=== PATIENT | male | born 1950 | race Caucasian/White ===

== ENCOUNTER → 2019-08-11 09:30 | Outpatient (BNVA) | payer MEDICARE, MEDICAID, SELFPAY | PROVIDERS: Family Provider Internal Medicine; PCP Internal Medicine; Referring Provider Internal Medicine; Visit Provider Internal Medicine Rheumatology | DX: M05.79 Rheumatoid arthritis with rheumatoid factor of multiple sites without organ or systems involvement (principal); Z79.899 Other long term (current) drug therapy; M15.9 Polyosteoarthritis, unspecified | CPT/HCPCS: 99213 ==

== ENCOUNTER → 2019-09-01 08:57 | Outpatient (BNVA) | payer MEDICARE, MEDICAID, SELFPAY | PROVIDERS: Family Provider Internal Medicine; PCP Internal Medicine; Visit Provider Nurse Practitioner | DX: F02.81 Dementia in other diseases classified elsewhere, unspecified severity, with behavioral disturbance (principal) | CPT/HCPCS: 99213 ==

== ENCOUNTER → 2019-11-22 07:47 | Outpatient (BNVA) | payer MEDICARE, MEDICAID, SELFPAY | PROVIDERS: Family Provider Internal Medicine; PCP Internal Medicine; Visit Provider Nurse Practitioner | DX: F02.81 Dementia in other diseases classified elsewhere, unspecified severity, with behavioral disturbance (principal) | CPT/HCPCS: 99213 ==

== ENCOUNTER → 2020-02-02 10:52 | Outpatient (BNVA) | payer MEDICARE, MEDICAID, SELFPAY | PROVIDERS: Family Provider Internal Medicine; PCP Internal Medicine; Visit Provider Internal Medicine Rheumatology | DX: M06.09 Rheumatoid arthritis without rheumatoid factor, multiple sites (principal); Z79.899 Other long term (current) drug therapy; F02.81 Dementia in other diseases classified elsewhere, unspecified severity, with behavioral disturbance; M19.041 Primary osteoarthritis, right hand; M19.042 Primary osteoarthritis, left hand; M70.62 Trochanteric bursitis, left hip; Y93.9 Activity, unspecified | CPT/HCPCS: 99214 ==

== ENCOUNTER 2020-02-09 12:43 | Outpatient (CLI) | payer MEDICARE, MEDICAID, SELFPAY ==
--- NOTE | 2020-02-09 12:46 | XRR_ITS ---
PROCEDURE INFORMATION: Exam: XR Left Hip with Pelvis when Performed Exam date and time: 02/09/2020 1:07 PM Age: 69 years old Clinical indication: Hip pain; Left hip; Additional info: Left hip pain TECHNIQUE: Imaging protocol: XR Left hip with pelvis when performed. Views: 2 or 3 views. COMPARISON: No relevant prior studies available. FINDINGS: Bones/joints: There is osteopenia. No acute fracture. Soft tissues: Unremarkable. XR/XR hip LT 2-3V wo/w pel* [id number] IMPRESSION: No acute findings.
== END 2020-02-09 12:44 | disposition home or self-care (01) ==
PROVIDERS: PCP Internal Medicine; Visit Provider Internal Medicine Rheumatology
DX: M25.552 Pain in left hip (principal)
CPT/HCPCS: 73502

== ENCOUNTER → 2020-03-01 08:15 | Outpatient (BNVA) | payer MEDICARE, MEDICAID, SELFPAY | PROVIDERS: PCP Internal Medicine; Visit Provider Nurse Practitioner | DX: F02.81 Dementia in other diseases classified elsewhere, unspecified severity, with behavioral disturbance (principal) | CPT/HCPCS: 99213 ==

== ENCOUNTER → 2020-03-22 10:08 | Outpatient (BNVA) | payer MEDICARE, MEDICAID, SELFPAY | PROVIDERS: PCP Internal Medicine; Visit Provider Internal Medicine | DX: Z11.59 Encounter for screening for other viral diseases (principal) | CPT/HCPCS: 87635 ==

== ENCOUNTER 2020-03-24 08:21 | Day surgery (SDC) | payer MEDICARE, MEDICAID, SELFPAY ==
[2020-03-22 09:17] VITALS: BMI 29.2
[2020-03-23 10:01] VITALS: BMI 28.6
[2020-03-24 08:57] VITALS: BP 177/85; PULSE 63; RESP 18; TEMP 36.1; O2SAT 97
[2020-03-24] MEDS: sodium chloride 0.9% 1,000 ML 30 ML IV (09:08)
--- NOTE | 2020-03-24 09:45 | W.PM.OPSUD ---
Surgery/Procedure H&P Update DATE OF PROCEDURE: March 24, 2020 DATE H&P PERFORMED: 03/15/20 PREOP DIAGNOSIS: sc PLANNED PROCEDURE: Operation Date: 03/24/20 09:30 Proposed Procedures p Colonoscopy 60837 Z12.11(Not Applicable) - Jaswinder Knox MD
--- NOTE | 2020-03-24 09:54 | ANES.PREANE2 ---
Pre-Anesthetic Assessment Pre-Anesthetic Assessment: Height/Weight: Height 1.75 m Weight 87.997 kg Temp Pulse Resp BP Pulse Ox 97.0 F L 63 18 177/85 97 03/24/20 08:57 03/24/20 08:57 03/24/20 08:57 03/24/20 08:57 03/24/20 08:57 Preop Diagnosis: sc Proposed Procedure: Operation Date: 03/24/20 09:30 Proposed Procedures p Colonoscopy 91500 Z12.11(Not Applicable) - Jaswinder Knox MD Familial anesthetic complications: None Was Beta Francisca taken within 24 hours: Yes Last intake: Intake Last Liquid Date 03/23/20 Last Liquid Time 19:00 Last Solid Date 03/23/20 Last Solid Time 19:00 Social: Social History: No alcohol and No tobacco Exam: Pre-Anes Outpt Exam: alert, oriented x 3, clear to auscultation bilaterally and regular rate & rhythm Airway: Cervical ROM: WNL MP: 4 Dentition: Other (no teeth) CV/HEM: CV/HEM: HTN and PVD GI: GI: GERD Metabolic: Metabolic: Thyroid Musc/skel: Comments: RA Neuropsych: Neuropsych: Dementia Anesthetic Plan: ASA status: 3 Anesthesia: MAC Risk of > 500 ml blood loss (7ml/kg in children): No Meds/Allergies Current Medications: Current Medications Generic Name Dose Route Start Last Admin Trade Name Freq PRN Reason Stop Dose Admin Sodium Chloride 1,000 mls @ 30 ml s/hr 03/24/20 09:00 03/24/20 09:08 Sodium Chloride 0.9% IV 30 mls/hr .Q24H GEREMIAS Administration PFSH Anesthesia PFSH: Medical History Dementia in other diseases classified elsewhere with behavioral disturbance Greater trochanteric pain syndrome High risk medication use Immunization counseling Osteoarthritis of hands, bilateral Surgical History No pertinent past surgical history Social History Smoking and tobacco status: never smoked Alcohol intake: never Lives independently: No Household members: caregiver History of recent travel: No Data Anesthesia Cardiac Studies: No Data to Display
[2020-03-24 10:19] VITALS: BP 144/88; PULSE 62; RESP 18; TEMP 36.1; O2SAT 100
[2020-03-24 10:33] VITALS: BP 146/88; PULSE 63; RESP 18; O2SAT 100
== END 2020-03-24 10:50 | disposition home or self-care (01) ==
PROVIDERS: PCP Internal Medicine; Visit Provider Internal Medicine
PROC: 0DJD8ZZ Inspection of Lower Intestinal Tract, Via Natural or Artificial Opening Endoscopic (ICD-10-PCS; CPT 45378; principal; 2020-03-24 09:30)
DX: Z12.11 Encounter for screening for malignant neoplasm of colon (principal); I10 Essential (primary) hypertension; F03.90 Unspecified dementia, unspecified severity, without behavioral disturbance, psychotic disturbance, mood disturbance, and anxiety
CPT/HCPCS: 12345; G0121; J2704; J3490; J7030

== ENCOUNTER → 2020-08-02 09:58 | Outpatient (BNVA) | payer MEDICARE, MEDICAID, SELFPAY | PROVIDERS: PCP Internal Medicine; Visit Provider Internal Medicine Rheumatology | DX: M06.09 Rheumatoid arthritis without rheumatoid factor, multiple sites (principal); M19.041 Primary osteoarthritis, right hand; M19.042 Primary osteoarthritis, left hand; R53.81 Other malaise | CPT/HCPCS: 99214 ==

== ENCOUNTER → 2021-01-23 08:22 | Outpatient (BNVA) | payer MEDICARE, MEDICAID, SELFPAY | PROVIDERS: PCP Internal Medicine; Visit Provider Internal Medicine Rheumatology | DX: M06.09 Rheumatoid arthritis without rheumatoid factor, multiple sites (principal); M19.041 Primary osteoarthritis, right hand; M19.042 Primary osteoarthritis, left hand; Z79.899 Other long term (current) drug therapy; R21 Rash and other nonspecific skin eruption; M70.62 Trochanteric bursitis, left hip; Y93.9 Activity, unspecified | CPT/HCPCS: 99214 ==

== ENCOUNTER → 2021-07-17 09:15 | Outpatient (BNVA) | payer MEDICARE, MEDICAID, SELFPAY | PROVIDERS: PCP Internal Medicine; Visit Provider Internal Medicine Rheumatology | DX: M06.09 Rheumatoid arthritis without rheumatoid factor, multiple sites (principal); M19.041 Primary osteoarthritis, right hand; M19.042 Primary osteoarthritis, left hand; Z79.899 Other long term (current) drug therapy; R53.81 Other malaise; F03.90 Unspecified dementia, unspecified severity, without behavioral disturbance, psychotic disturbance, mood disturbance, and anxiety; M70.62 Trochanteric bursitis, left hip; Y93.9 Activity, unspecified | CPT/HCPCS: 99214 ==

== ENCOUNTER → 2022-01-16 13:07 | Outpatient (BNVA) | payer MEDICARE, MEDICAID, SELFPAY | PROVIDERS: PCP Internal Medicine; Visit Provider Internal Medicine Rheumatology | DX: M06.09 Rheumatoid arthritis without rheumatoid factor, multiple sites (principal); M19.041 Primary osteoarthritis, right hand; M19.042 Primary osteoarthritis, left hand; Z79.899 Other long term (current) drug therapy; R53.1 Weakness; Z71.89 Other specified counseling | CPT/HCPCS: 99214 ==

== ENCOUNTER → 2022-05-02 12:55 | Outpatient (BNVA) | payer MEDICARE, MEDICAID, SELFPAY | PROVIDERS: Visit Provider Podiatrist Foot & Ankle Surgery | DX: E11.8 Type 2 diabetes mellitus with unspecified complications (principal); Z79.899 Other long term (current) drug therapy; L60.3 Nail dystrophy; L84 Corns and callosities; I73.9 Peripheral vascular disease, unspecified; M21.619 Bunion of unspecified foot; M20.42 Other hammer toe(s) (acquired), left foot | CPT/HCPCS: 11056; 11721 ==

== ENCOUNTER → 2022-06-13 12:21 | Outpatient (BNVA) | payer MEDICARE, MEDICAID, SELFPAY | PROVIDERS: Visit Provider Podiatrist Foot & Ankle Surgery | DX: Z79.899 Other long term (current) drug therapy; L60.3 Nail dystrophy; L84 Corns and callosities; I73.9 Peripheral vascular disease, unspecified; M20.41 Other hammer toe(s) (acquired), right foot; M20.42 Other hammer toe(s) (acquired), left foot; M21.619 Bunion of unspecified foot; E11.8 Type 2 diabetes mellitus with unspecified complications | CPT/HCPCS: 11056; 11721 ==

== ENCOUNTER 2022-07-23 13:02 | Emergency (ER) | payer MEDICARE, MEDICAID, SELFPAY ==
[2022-07-23 13:04] VITALS: BP 136/74; PULSE 66; RESP 20; TEMP 36.8; O2SAT 97; BMI 26.6
--- NOTE | 2022-07-23 13:21 | W.ED.FALL ---
HPI - Fall General: Chief Complaint: Fall Stated Complaint: Fall Time Seen by Provider: 07/23/22 13:15 Source: patient and family Mode of arrival: ambulatory Limitations: no limitations History of Present Illness: Patient was brought to the emergency department because of a fall. He apparently was scheduled for a clinic visit in the hospital and was observed to be walking and stumbled forward losing his balance falling and striking his right knee as well as his forehead. There was no preceding syncope. He did not suffer a loss of consciousness. He complains of pain to his left forehead as well as his right knee and left hand. He has a history of parkinsonism. He also does not take any blood thinning medications. History is provided by both the patient as well as family member. Fall witnessed: yes, by family Place fall occurred: other (Hospital) Loss of consciousness: None Location of injury: head Location of injury - extremities: Left: hand and Right: knee Associated symptoms-after fall: Reports difficulty walking; Denies chest pain, headache(s), lightheadedness or neck pain Review of Systems Eyes: Denies: change in vision Card: Denies: chest pain, irregular heart rhythm, lightheadedness, syncope or pre-syncope Resp: Denies: productive cough or non-productive cough GI: Denies: nausea, vomiting or diarrhea : Denies: flank pain, difficulty urinating or dysuria Musc: Reports: extremity pain; Denies: neck pain or back pain Skin/Breast: Denies: rash Neuro: Reports: difficulty walking; Denies: headache(s), numbness in extremities, weakness in extremities or seizure-like activity [place]/Lymph: Denies: easy bruising PFS ED PFSH: Medical History Dementia in other diseases classified elsewhere with behavioral disturbance Greater trochanteric pain syndrome High risk medication use Immunization counseling Osteoarthritis of hands, bilateral Physical deconditioning Skin rash Surgical History No pertinent past surgical history Social History Smoking and tobacco status: never smoked Alcohol intake: never Lives independently: No Household members: caregiver History of recent travel: No Physical Exam Narrative: EXAM NARRATIVE: Patient is alert makes good eye contact. His speech is normal for him per family which is somewhat deliberate and halting in nature but appropriate answers to questions. Const: COMMON NORMALS: healthy appearing GENERAL APPEARANCE: cooperative ORIENTATION/CONSCIOUSNESS: Yes awake HENMT: COMMON NORMALS: Normal external nose present HEAD & SCALP: contusion (Left periorbital), hematoma (Left supraorbital ridge) and laceration; no palpable skull fracture FACE & SINUS: face symmetric NOSE: Normal external nose present and Abnormal mucous membranes and turbinates present; no Epistaxis present Eye: COMMON NORMALS: Equal, round and reactive pupils present, EOMs intact bilaterally and conjunctivae normal CONJUNCTIVA: Yes conjunctivae normal PUPIL: Yes Equal, round and reactive pupils present EYE IMAGES: 1. Laceration Neck/C-Spine: COMMON NORMALS: no JVD CERVICAL SPINE: No Cervical spine tenderness, No step off deformity and No Paracervical muscle tenderness Chest: COMMONS NORMALS: normal inspection of the chest and normal palpation of entire chest wall Resp: COMMON NORMALS: normal respiratory effort, No retractions, No use of accessory muscles and clear to auscultation bilaterally AUSCULTATION: clear to auscultation bilaterally Cardio: COMMON NORMALS: no JVD, regular rate, regular rhythm and Peripheral pulses 2+ throughout RATE: regular rate RHYTHM: regular rhythm PERIPHERAL PULSES: Peripheral pulses 2+ throughout GI: COMMON NORMALS: Soft to palpation PALPATION: Yes Soft to palpation : COMMON NORMALS: Yes no CVA tenderness BLADDER/KIDNEY EXAM: Yes no CVA tenderness Back/Pelvis: COMMON NORMALS: no CVA tenderness, no thoracic nor lumbar tenderness, thoraco-lumbar ROM normal and straight leg raise negative bilaterally Extremity: COMMON NORMALS: normal to inspection, full ROM, capillary refill normal, no joint enlargement, no calf tenderness and no pedal edema LEFT UPPER EXTREMITY: Yes hand & digits (Normal to inspection, normal range of motion, no ecchymosis.) RIGHT LOWER EXTREMITY: Yes knee joint (No effusion, deformity, laxity) Right knee: Yes ROM (Normal) LEFT LOWER EXTREMITY: Yes knee joint Left knee: Yes inspection (No ecchymosis, deformity, effusion.) and Yes ROM (Normal range of motion.) Neuro: COMMON NORMALS: moves all extremities, no focal motor deficits and no sensory deficits noted OTHER: Resting pill-rolling tremor of both upper extremities Psych: COMMON NORMALS: mental status grossly normal Skin: COMMON NORMALS: turgor normal GENERAL SKIN EXAM: turgor normal Procedures Laceration Laceration 1: Site: face (Left supraorbital ridge) Side (If applicable): left Size (cm): 2 Description: linear Depth: simple, single layer Skin layer closed with: other (Steri-Strips plus skin adhesive) Course Reevaluation(s): Reevaluation #1: Patient remained stable. Shared radiographic findings with patient and family. Laceration repaired. Stable at this time without any evidence of ongoing emergency medical condition. Time: 16:07 Vital Signs: Vital signs: Vital Signs Temperature 98.3 F 07/23/22 13:04 Pulse Rate 66 07/23/22 13:04 Respiratory Rate 20 H 07/23/22 13:04 Blood Pressure 136/74 07/23/22 13:04 Pulse Oximetry 97 07/23/22 13:04 Oxygen Delivery Me thod 07/23/22 13:04 MDM - Fall Medical Decision Making Patient with a known history of gait disturbance related to parkinsonism had a ground-level fall while in the hospital. Clinically he did not have any history of syncope. Fall, loss of consciousness post fall. Not on any anticoagulants or any other concerning medications. Clinical examination revealed a superficial laceration left sorb supraorbital ridge but no other focal findings. Imaging of the head and neck were reassuring as well as of his right knee and left hand. Neither of his extremities had any evidence of fracture, dislocation, ecchymosis, alterations in function clinically. Laceration was repaired and he was reevaluated and found to be stable to be discharged with family and caretakers. Return precautions and wound care were discussed. Lab Data I reviewed the patient's lab results. Radiology Impressions Cervical Spine CT 07/23/22 13:27 IMPRESSION: 1. No acute fractures. 2. 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 Hand X-Ray 07/23/22 13:27 IMPRESSION: No acute bony abnormalities. Head CT 07/23/22 13:27 IMPRESSION: 1. No evidence of intracranial hemorrhage or mass effect. 2. LEFT frontal subcutaneous hematoma. No visualized fractures. 3. Mild mucosal thickening in the paranasal sinuses. 4. No acute intracranial findings. Knee X-Ray 07/23/22 13:27 IMPRESSION: No acute bony abnormalities. Discharge Plan Discharge Patient Disposition: Home Clinical Impression: Ground-level fall, Laceration of face, Gait disturbance Condition: Stable Prescriptions: No Action carbamide peroxide [Debrox] 6.5 % drops 5 drop EAR-BOTH QDAY Mylanta Maximum Strength 400-400-40 mg/5 mL suspension See Rx Instructions PO .EVERY FOUR HOURS PRN (Reason: Constipation) Rx Instructions: PO .EVERY FOUR HOURS PRN; magnesium hydroxide [Milk of Magnesia] 400 mg/5 mL suspension 30 ml PO .EVERY THREE DAYS PRN (Reason: Constipation) dextromethorphan-guaifenesin [Adult Robitussin Peak Cold DM] 10-100 mg/5 mL liquid 10 ml PO Q4H PRN (Reason: Cough) divalproex [Depakote ER] 500 mg tablet extended release 24 hr 1,000 mg PO .HS Qty: 60 2RF olanzapine 5 mg tablet,disintegrating 5 mg PO DAILY PRN (Reason: agitation) prednisone 5 mg tablet 10 mg PO DAILY PRN (Reason: rheumatoid arthritis) Qty: 30 0RF Rx Instructions: Take 2 tabs(10mg) daily for 4 days prn flares. (DME) mepilex boarder 2 x 2 See Rx Instructions .Route .MEDSUPPLY Qty: 1 0RF Rx Instructions: apply to affected area (DME) Compact Space Chamber Spacer See Rx Instructions .ROUTE .MEDSUPPLY Qty: 1 0RF Rx Instructions: As directed ibuprofen 600 mg tablet 600 mg PO Q8H PRN (Reason: pain) Qty: 60 6RF diclofenac sodium 1 % gel See Rx Instructions .ROUTE .COMPLEX Qty: 100 2RF Dose Instruction: APPLY 2GM TO AFFECTED AREA TOPICALLY FOUR TIMES DAILY NEEDED Rx Instructions: APPLY 2GM TO AFFECTED AREA TOPICALLY FOUR TIMES DAILY NEEDED amantadine HCl 100 mg capsule 100 mg PO BID Qty: 180 4RF Cutemol 0.2 % cream See Rx Instructions .ROUTE .COMPLEX Qty: 113.4 5RF Dose Instruction: APPLY TO HANDS FOUR TIMES DAILY FOR DRY SKIN Rx Instructions: APPLY TO HANDS FOUR TIMES DAILY FOR DRY SKIN Flovent HFA 110 mcg/actuation HFA aerosol inhaler 2 puff INHALATION BID Qty: 12 5RF Rx Instructions: Inhale two puffs by mouth into lungs twice daily for seasonal allergies. olanzapine 2.5 mg tablet See Rx Instructions .ROUTE .COMPLEX Qty: 30 2RF Dose Instruction: TAKE ONE TABLET BY MOUTH EVERY DAY AT NOON. Rx Instructions: TAKE ONE TABLET BY MOUTH EVERY DAY AT NOON. methotrexate sodium 2.5 mg tablet See Rx Instructions .ROUTE .COMPLEX Qty: 20 3RF Dose Instruction: TAKE 4 TABLETS BY MOUTH WEEKLY Rx Instructions: TAKE 4 TABLETS BY MOUTH WEEKLY ammonium lactate 12 % lotion See Rx Instructions .ROUTE .COMPLEX Qty: 226 5RF Dose Instruction: APPLY TO THE AFFECTED AREA(S) FOUR TIMES DAILY Rx Instructions: APPLY TO THE AFFECTED AREA(S) FOUR TIMES DAILY acetaminophen 325 mg tablet See Rx Instructions .ROUTE .COMPLEX Qty: 100 5RF Dose Instruction: TAKE TWO TABLETS BY MOUTH EVERY 4 HOURS NEEDED FOR PAIN OR elevated FOR HIGH TEMPERATURE >100degrees Rx Instructions: TAKE TWO TABLETS BY MOUTH EVERY 4 HOURS NEEDED FOR PAIN OR elevated FOR HIGH TEMPERATURE >100degrees Eucerin Cream See Rx Instructions .ROUTE .COMPLEX Qty: 454 5RF Dose Instruction: APPLY TO SKIN TWICE DAILY NEEDED Rx Instructions: APPLY TO SKIN TWICE DAILY NEEDED metoprolol tartrate 50 mg tablet See Rx Instructions .ROUTE .COMPLEX Qty: 60 5RF Dose Instruction: TAKE ONE TABLET BY MOUTH EVERY MORNING & AT BEDTIME HTN hold if BP <110/70 OR pulse <60 AND call RN Rx Instructions: TAKE ONE TABLET BY MOUTH EVERY MORNING & AT BEDTIME HTN hold if BP <110/70 OR pulse <60 AND call RN paroxetine HCl 30 mg tablet See Rx Instructions .ROUTE .COMPLEX Qty: 30 5RF Dose Instruction: TAKE ONE TABLET BY MOUTH EVERY DAY Rx Instructions: TAKE ONE TABLET BY MOUTH EVERY DAY divalproex 250 mg tablet extended release 24 hr See Rx Instructions .ROUTE .COMPLEX Qty: 30 5RF Dose Instruction: TAKE ONE TABLET BY MOUTH EVERY MORNING Rx Instructions: TAKE ONE TABLET BY MOUTH EVERY MORNING levothyroxine 50 mcg tablet See Rx Instructions .ROUTE .COMPLEX Qty: 90 3RF Dose Instruction: TAKE ONE TABLET BY MOUTH EVERY DAY Rx Instructions: TAKE ONE TABLET BY MOUTH EVERY DAY omeprazole 40 mg capsule,delayed release(DR/EC) See Rx Instructions .ROUTE .COMPLEX Qty: 60 5RF Dose Instruction: TAKE ONE CAPSULE BY MOUTH DAILY Rx Instructions: TAKE ONE CAPSULE BY MOUTH DAILY olanzapine 10 mg tablet See Rx Instructions .ROUTE .COMPLEX Qty: 30 2RF Dose Instruction: TAKE 1/2 TABLET BY MOUTH TWICE DAILY Rx Instructions: TAKE 1/2 TABLET BY MOUTH TWICE DAILY folic acid 1 mg tablet 1 mg PO QDAY Qty: 90 3RF Discharge Orders: Discharge ED (Routine); Ordered 07/23/22 Ordered By: Ernie Brooks Discharge Diet: Usual diet Discharge Activity: Resume usual activity Patient Instructions: Opioid Safety, Pain Management Activity Restrictions/Additional Instructions: Use ice pack to left face to help reduce swelling. Keep area clean and dry. Do not remove Steri-Strips or pull on skin adhesive. You may remove the Steri-Strips in approximately 1 week. If he develops any redness drainage or other concerns about infection return to this or the nearest emergency department. If he develops other symptoms of concern return to the emergency department immediately. Coding Level of Care Code ED Operations Leader for [facility] Exam Comprehensive
--- NOTE | 2022-07-23 13:27 | XRR_ITS ---
PROCEDURE INFORMATION: Exam: XR Right Knee Exam date and time: 07/23/2022 1:52 PM Age: 71 years old Clinical indication: Pain and injury or trauma; Fall; Blunt trauma; Knee; Right; Injury date: 07/23/22 TECHNIQUE: Imaging protocol: Radiologic exam of the Right knee. Views: 3 views. COMPARISON: No relevant prior studies available. FINDINGS: Bones/joints: There are mild degenerative changes involving the mediolateral knee compartments with mild joint space narrowing there are prominent traction spurs arising from the superior inferior pole of patella. There is no fracture, dislocation or malalignment. Soft tissues: Unremarkable. XR/XR knee RT 3V* [id number] IMPRESSION: No acute bony abnormalities.
--- NOTE | 2022-07-23 13:27 | CT_ITS ---
WS: [id number] CT CERVICAL TRAUMA TECHNIQUE: Noncontrast CT of the cervical spine with coronal and sagittal reformatted images. CLINICAL INFORMATION: fall COMPARISON: None. DLP: 1382.[address] scans at [facility] use at least one of these dose optimization techniques: automated e xposure control; mA and/or kV adjustment per patient size (includes targeted exams where dose is matc hed to clinical indication); or iterative reconstruction. FINDINGS: Straightening of the normal cervical lordosis. Mild cervical curve. Ankylosis cervical spine. Ankylos is at the C1-C2 articulation. Slight anterolisthesis C6 on C7 and C7-T1. No high-grade spinal canal n arrowing. Normal C1 ring. No evidence of acute fracture or dislocation. Normal prevertebral soft tissues. Mastoids air cells are well aerated. CT/CT cervical spin wo con* [id number] IMPRESSION: 1. No acute fractures. 2. 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
--- NOTE | 2022-07-23 13:27 | CT_ITS ---
WS: [id number] CT HEAD TECHNIQUE: Noncontrast CT of the head obtained from the skullbase to the vertex. CLINICAL INFORMATION: fall COMPARISON: 2009 DLP: 1382.[address] scans at [facility] use at least one of these dose optimization techniques: automated e xposure control; mA and/or kV adjustment per patient size (includes targeted exams where dose is matc hed to clinical indication); or iterative reconstruction. FINDINGS: No evidence of intracranial hemorrhage or mass effect. Ventricular system and basal cisterns are gamez nt. Moderate small vessel changes with moderate parenchymal volume loss. Chronic lacunar infarct RIGH T cerebellum. Dystrophic calcifications along the falx. Intracranial vascular calcification. Mild mucosal thickening paranasal sinuses. Mastoid air cells well aerated. LEFT frontal subcutaneous hematoma. No visualized fractures. CT/CT head wo con* [id number] IMPRESSION: 1. No evidence of intracranial hemorrhage or mass effect. 2. LEFT frontal subcutaneous hematoma. No visualized fractures. 3. Mild mucosal thickening in the paranasal sinuses. 4. No acute intracranial findings.
--- NOTE | 2022-07-23 13:27 | XRR_ITS ---
PROCEDURE INFORMATION: Exam: XR Left Hand Exam date and time: 07/23/2022 1:52 PM Age: 71 years old Clinical indication: Injury or trauma; Fall; Blunt trauma (contusions or hematomas); Injury details: Fell todfay, left hand/wrist pain, hard for patient to hold his hand still TECHNIQUE: Imaging protocol: Radiologic exam of the Left hand. Views: 3 or more views. COMPARISON: No relevant prior studies available. FINDINGS: Bones/joints: There are mild osteoarthritic changes involving the DIP joints and to lesser extent the PIP joints. There is no fracture, dislocation or malalignment. Soft tissues: Unremarkable. XR/XR hand LT min 3V* [id number] IMPRESSION: No acute bony abnormalities.
== END 2022-07-23 16:31 | disposition home or self-care (01) ==
PROVIDERS: Emergency Provider Emergency Medicine
DX: S01.81XA Laceration without foreign body of other part of head, initial encounter (principal); R26.9 Unspecified abnormalities of gait and mobility; W18.30XA Fall on same level, unspecified, initial encounter; Y92.239 Unspecified place in hospital as the place of occurrence of the external cause; G20 Parkinson's disease; F02.80 Dementia in other diseases classified elsewhere, unspecified severity, without behavioral disturbance, psychotic disturbance, mood disturbance, and anxiety
CPT/HCPCS: 12011; 70450; 72125; 73130; 73562; 99284

== ENCOUNTER → 2022-07-30 11:25 | Outpatient (BNVA) | payer MEDICARE, MEDICAID, SELFPAY | PROVIDERS: Visit Provider Nurse Practitioner Family | DX: S59.909A Unspecified injury of unspecified elbow, initial encounter (principal); W19.XXXA Unspecified fall, initial encounter | CPT/HCPCS: 73080 ==

== ENCOUNTER → 2022-08-05 09:11 | Outpatient (BNVA) | payer MEDICARE, MEDICAID, SELFPAY | PROVIDERS: Referring Provider Nurse Practitioner Family; Visit Provider Specialist | DX: W19.XXXA Unspecified fall, initial encounter (principal); Z91.81 History of falling; G20 Parkinson's disease; S52.122A Displaced fracture of head of left radius, initial encounter for closed fracture | CPT/HCPCS: 73080 ==

== ENCOUNTER 2022-08-05 14:18 | Outpatient (CLI) | payer MEDICARE, MEDICAID, SELFPAY | END 2022-08-05 14:19 | disposition home or self-care (01) | LOC: SPT 14:18 | PROVIDERS: Visit Provider Specialist | DX: Z46.89 Encounter for fitting and adjustment of other specified devices (principal); S52.125D Nondisplaced fracture of head of left radius, subsequent encounter for closed fracture with routine healing; X58.XXXD Exposure to other specified factors, subsequent encounter | CPT/HCPCS: 24650; 97760; 99203; L3761 ==

== ENCOUNTER → 2022-09-02 11:57 | Outpatient (BNVA) | payer MEDICARE, MEDICAID, SELFPAY | PROVIDERS: PCP Family Medicine; Visit Provider Internal Medicine Rheumatology | DX: M06.09 Rheumatoid arthritis without rheumatoid factor, multiple sites (principal); M19.041 Primary osteoarthritis, right hand; M19.042 Primary osteoarthritis, left hand; Z79.899 Other long term (current) drug therapy; Z71.89 Other specified counseling; S52.122A Displaced fracture of head of left radius, initial encounter for closed fracture; G20 Parkinson's disease; X58.XXXA Exposure to other specified factors, initial encounter; Z86.59 Personal history of other mental and behavioral disorders | CPT/HCPCS: 99214 ==

== ENCOUNTER → 2022-09-04 10:28 | Outpatient (BNVA) | payer MEDICARE, MEDICAID, SELFPAY | PROVIDERS: PCP Family Medicine; Visit Provider Nurse Practitioner Family | DX: S52.122A Displaced fracture of head of left radius, initial encounter for closed fracture (principal); W19.XXXA Unspecified fall, initial encounter | CPT/HCPCS: 73080; 99213 ==

== ENCOUNTER → 2022-10-02 10:23 | Outpatient (BNVA) | payer MEDICARE, MEDICAID, SELFPAY | PROVIDERS: PCP Family Medicine; Visit Provider Nurse Practitioner Family | DX: S52.125D Nondisplaced fracture of head of left radius, subsequent encounter for closed fracture with routine healing (principal); X58.XXXD Exposure to other specified factors, subsequent encounter; Z91.81 History of falling | CPT/HCPCS: 73070; 99213 ==

== ENCOUNTER → 2022-10-08 10:55 | Outpatient (BNVA) | payer MEDICARE, MEDICAID, SELFPAY | PROVIDERS: PCP Family Medicine; Visit Provider Podiatrist Foot & Ankle Surgery | DX: E11.8 Type 2 diabetes mellitus with unspecified complications (principal); L84 Corns and callosities; Z79.899 Other long term (current) drug therapy; I73.9 Peripheral vascular disease, unspecified; L60.3 Nail dystrophy; M20.42 Other hammer toe(s) (acquired), left foot; M20.41 Other hammer toe(s) (acquired), right foot | CPT/HCPCS: 11056; 11721 ==

== ENCOUNTER → 2022-12-17 11:01 | Outpatient (BNVA) | payer MEDICARE, MEDICAID, SELFPAY | PROVIDERS: PCP Family Medicine; Visit Provider Podiatrist Foot & Ankle Surgery | DX: I73.9 Peripheral vascular disease, unspecified (principal); L84 Corns and callosities; L60.3 Nail dystrophy; Z79.899 Other long term (current) drug therapy; M20.41 Other hammer toe(s) (acquired), right foot; M20.42 Other hammer toe(s) (acquired), left foot; M21.611 Bunion of right foot; M21.612 Bunion of left foot | CPT/HCPCS: 11056; 11721 ==

== ENCOUNTER → 2023-02-24 11:17 | Outpatient (BNVA) | payer MEDICARE, MEDICAID, SELFPAY | PROVIDERS: PCP Family Medicine; Visit Provider Internal Medicine Rheumatology | DX: M06.09 Rheumatoid arthritis without rheumatoid factor, multiple sites (principal); M19.041 Primary osteoarthritis, right hand; M19.042 Primary osteoarthritis, left hand; Z71.89 Other specified counseling; Z79.899 Other long term (current) drug therapy; S52.125D Nondisplaced fracture of head of left radius, subsequent encounter for closed fracture with routine healing; G20 Parkinson's disease; X58.XXXD Exposure to other specified factors, subsequent encounter | CPT/HCPCS: 99214 ==

== ENCOUNTER → 2023-03-18 10:59 | Outpatient (BNVA) | payer MEDICARE, MEDICAID, SELFPAY | PROVIDERS: PCP Family Medicine; Visit Provider Podiatrist Foot & Ankle Surgery | DX: L60.8 Other nail disorders (principal); L84 Corns and callosities; Z79.899 Other long term (current) drug therapy; L60.3 Nail dystrophy; I73.9 Peripheral vascular disease, unspecified; M21.619 Bunion of unspecified foot; M20.42 Other hammer toe(s) (acquired), left foot; M20.41 Other hammer toe(s) (acquired), right foot | CPT/HCPCS: 11056; 11721 ==

== ENCOUNTER → 2023-06-17 11:09 | Outpatient (BNVA) | payer MEDICARE, MEDICAID, SELFPAY | PROVIDERS: PCP Family Medicine; Visit Provider Podiatrist Foot & Ankle Surgery | DX: L60.8 Other nail disorders (principal); Z79.899 Other long term (current) drug therapy; L84 Corns and callosities; L60.3 Nail dystrophy; I73.9 Peripheral vascular disease, unspecified; M20.41 Other hammer toe(s) (acquired), right foot; M20.42 Other hammer toe(s) (acquired), left foot | CPT/HCPCS: 11056; 11721 ==

== ENCOUNTER → 2023-08-20 14:01 | Outpatient (BNVA) | payer MEDICARE, MEDICAID, SELFPAY | PROVIDERS: PCP Family Medicine; Visit Provider Registered Nurse Neonatal Intensive Care | DX: R09.81 Nasal congestion (principal); R79.81 Abnormal blood-gas level | CPT/HCPCS: 71046; 87400; 87426 ==

== ENCOUNTER 2023-10-07 14:03 | Emergency (ER) | payer MEDICARE, MEDICAID, SELFPAY ==
--- NOTE | 2023-10-07 14:09 | CT_ITS ---
WS: [id number] CT HEAD TECHNIQUE: Noncontrast CT of the head obtained from the skullbase to the vertex. CLINICAL INFORMATION: SYMPTOMS OF ACUTE STROKE COMPARISON: CT 07/23/2022 DLP: [address] scans at [facility] use at least one of these dose optimization techniques: automated e xposure control; mA and/or kV adjustment per patient size (includes targeted exams where dose is matc hed to clinical indication); or iterative reconstruction. FINDINGS: No evidence of intracranial hemorrhage or mass effect. Ventricular system and basal cisterns are gamez nt. Mild small vessel changes with moderate parenchymal volume loss. No extra-axial fluid collections . No evidence of mass or mass effect. Intracranial vascular calcification. Tiny chronic lacunar infar ct RIGHT cerebellum. Mild mucosal thickening in the paranasal sinuses. IMPRESSION: 1. No evidence of intracranial hemorrhage or mass effect. 2. No acute intracranial findings. Notified Bryson Goldstein DO at 10/07/2023 2:15 PM.
--- NOTE | 2023-10-07 14:16 | ECG_ITS ---
[facility] Test Date: 2023-10-07 Pat Name: Ernie Lopez Department: Room: Gender: Male Scale Installer: : 1950 Requested By: Bryson Robin Order Number: [id number] Carlo MD: Will Plaza M.D. Measurements Intervals [place] Rate: 66 P: 48 AK: 248 QRS: -18 QRSD: 157 T: 21 QT: 413 QTc: 434 Interpretive Statements SINUS RHYTHM WITH FIRST DEGREE AV BLOCK RIGHT BUNDLE BRANCH BLOCK [120+ ms QRS DURATION, UPRIGHT V1, 40+ ms S IN I/aVL/V4/V5/V6] MINIMAL VOLTAGE CRITERIA FOR LVH, CONSIDER NORMAL VARIANT [MEETS CRITERIA IN ONE OF: R(aVL), S(V1), R(V5), R(V5/V6)+S(V1)] No previous ECG available for comparison Electronically Signed On 10-08-2023 23:45:44 CDT by Will Plaza M.D. [email or web address]
--- NOTE | 2023-10-07 14:17 | ED_ITS ---
HPI - Neuro Symptoms/Deficit 2 General: Chief Complaint: Neuro Symptoms/Deficit Stated Complaint: stroke alert Time Seen by Provider: 10/07/23 14:15 Source: patient Mode of arrival: ambulatory History of Present Illness: 73-year-old male presents emergency room [facility] as a stroke alert. He was sitting at home around 1310 and suddenly became nonresponsive did not completely his consciousness seem to be just staring off. EMS was called on arrival they felt he had facial droop and slurred speech. He has a known history of Parkinson's is not had any recent medication changes they did change his Sinemet several months ago. Initially on arrival he is not accompanied by any caregivers. Later when the staff arrived reports that he is at his baseline speech pattern. He has some cognitive deficits and they felt he was at about his baseline in regards to this as well. He is able to intermittently correctly name the month and year. He is also can list the months of the year sequentially correctly. Onset (ago): minute(s) Last Observed Normal: 13:10 Timing confirmed by: caregiver Location: speech History of same: Yes Relieving factors: none Exacerbating factors: none Associated symptoms: Deny chest pain, cough, diaphoresis, fevers/chills, headache(s), anorexia, malaise, nausea, seizures, short of breath, syncope, tingling, vertigo, vomiting or weakness Treatments Prior to Arrival: none Review of Systems 2 Const: Denies: malaise or diaphoresis Card: Denies: chest pain or syncope Resp: Denies: dyspnea GI: Denies: nausea or vomiting Musc: Denies: neck pain or back pain Skin/Breast: Denies: rash Neuro: Denies: headache(s) or vertigo PFSH ED 2 PFSH: Medical History Skin rash Physical deconditioning Osteoarthritis of hands, bilateral Immunization counseling Greater trochanteric pain syndrome High risk medication use Dementia in other diseases classified elsewhere with behavioral disturbance Surgical History No pertinent past surgical history Social History Smoking and tobacco/nicotine status: never used tobacco/nicotine Alcohol intake: never Substance/Drug Use: never Lives independently: No Household members: caregiver NIH stroke score 2 NIHSS: Level Of Consciousness - 1a: 0 Level Of Consciousness Questions - 1b: Both Correct Level Of Consciousness Commands - 1c: Both Correct Best Gaze - 2: Normal Visual Dempsey - 3: No Visual Loss Facial Palsy - 4: N ormal Motor Arm Right - 5: No Drift Motor Arm Left - 5: No Drift Motor Leg Right - 6: No Drift Motor Leg Left - 6: No Drift Limb Ataxia - 7: A bsent Sensory - 8: Normal Best Language - 9: Mild/Moderate Aphasia D ysarthia - 10: Mild/Moderate Dysarthia Extinction And Inattention - 11: 0 Score: Total Score: 2 Physical Exam 2 Const: GENERAL APPEARANCE: cooperative and comfortable O RIENTATION/CONSCIOUSNESS: Yes awake HENMT: COMMON NORMALS: normocephalic, atraumatic and hearing grossly normal bilaterally HEAD & SCALP: normocephalic and atraumatic Resp: COMMON NORMALS: normal respiratory effort, No retractions, No use of accessory muscles and clear to auscultation bilaterally AUSCULTATION: clear to auscultation bilaterally Cardio: COMMON NORMALS: regular rate, regular rhythm and No murmurs present (Cardio) RATE: regular rate RHYTHM: regular rhythm GI: COMMON NORMALS: Soft to palpation and No hepatosplenomegaly present A USCULTATION: Yes normoactive bowel sounds PALPATION: Yes Soft to palpation, No Tenderness to palpation present (GI), No Guarding due to palpation present (GI) and Yes No hepatosplenomegaly present Extremity: COMMON NORMALS: normal to inspection, capillary refill normal, no clubbing, cyanosis or edema, no calf tenderness and no pedal edema Neuro: OTHER: Tremor at rest. See NIH score Skin: COMMON NORMALS: no rashes or lesions noted GENERAL SKIN EXAM: no rashes or lesions noted Course 2 Vital Signs: Vital signs: Vital Signs Pulse Rate 69 10/07/23 14:27 Blood Pressure 109/57 10/07/23 14:27 Pulse Oximetry 94 10/07/23 14:27 Oxygen Delivery Me thod Room Air 10/07/23 14:27 MDM - Neuro Symptoms/Deficit Medical Decision Making Patient not appear to have had an acute CVA Dr. Mcmillan seen him as well and had noticed significant concern for CVA she was concerned he may have had a seizure. Remainder workup negative will discharge home outpatient EEG and follow-up with neurology return if has problems Medical Records I reviewed the patient's medical records. Lab Data I reviewed the patient's lab results. 10/07/23 13:43 10/07/23 13:43 Laboratory Results WBC 14.33 10^3/uL (3.29-11.43) H 10/07/23 13:43 RBC 4.49 10^6/uL (3.85-5.65) 10/07/23 13:43 Hgb 13.70 g/dL (11.27-16.99) 10/07/23 13:43 Hct 40.6 % (37-53) 10/07/23 13:43 MCV 90.4 fl (82-101) 10/07/23 13:43 MCH 30.5 pg (27-33) 10/07/23 13:43 MCHC 33.7 g/dL (30-55) 10/07/23 13:43 RDW 16.2 % (12.1-15.1) H 10/07/23 13:43 Plt Count 153 10^3/cmm (157-399) L 10/07/23 13:43 MPV 10.3 fL (7.4-10.4) 10/07/23 13:43 Neut % (Auto) 80.5 % 10/07/23 13:43 Lymph % (Auto) 8.0 % 10/07/23 13:[address] [place] % (Auto) 7.7 % 10/07/23 13:43 Eos % (Auto) 3.0 % 10/07/23 13:43 Baso % (Auto) 0.3 % 10/07/23 13:43 Neut # (Auto) 11.52 10^3/uL (1.8-7.7) H 10/07/23 13:43 Lymph # (Auto) 1.2 10^3/uL (0.8-4.8) 10/07/23 13:43 [place] # (Auto) 1.1 10^3/uL (0.2-0.9) H 10/07/23 13:43 Eos # (Auto) 0.4 10^3/uL (0.0-0.8) 10/07/23 13:43 Baso # (Auto) 0.1 10^3/uL (0.0-0.1) 10/07/23 13:43 Nucleated RBC % (auto) 0 % 10/07/23 13:43 Nucleated RBCs # 0.0 /100WBC 10/07/23 13:43 PT 14.10 SECONDS (12.1-14.9) 10/07/23 13:43 INR 1.06 (0.8-1.2) 10/07/23 13:43 APTT 31.6 SECONDS (23.9-36.7) 10/07/23 13:43 Sodium 129 mmol/L (136-145) L 10/07/23 13:43 Potassium 4.0 mmol/L (3.5-5.1) 10/07/23 13:43 Chloride 91 mmol/L (98-107) L 10/07/23 13:43 Carbon Dioxide 26 mmol/L (22-29) 10/07/23 13:43 Anion Gap 16.0 (5-19) 10/07/23 13:43 BUN 25 mg/dL (8-23) H 10/07/23 13:43 Creatinine 1.2 mg/dL (0.7-1.2) 10/07/23 13:43 GFR Calculation Not Reportable 10/07/23 13:43 Glucose 80 mg/dL (65-115) 10/07/23 13:43 Calculated Osmolality 271 mOsm/kg (285-295) L 10/07/23 13:43 Calcium 9.1 mg/dL (8.5-10.5) 10/07/23 13:43 Total Bilirubin 0.5 mg/dL (0.15-1.2) 10/07/23 13:43 AST 15 U/L (0-40) 10/07/23 13:43 ALT < 5 U/L (0-41) 10/07/23 13:43 Alkaline Phosphatase 115 U/L (40-130) 10/07/23 13:43 Total Protein 7.3 g/dL (6.6-8.7) 10/07/23 13:43 Albumin 3.8 g/dL (3.5-5.2) 10/07/23 13:43 Globulin 3.5 g/dL (1.3-4.6) 10/07/23 13:43 Urine Color Dark yellow (Yellow) 10/07/23 15:14 Urine Appearance Clear (CLEAR) 10/07/23 15:14 Urine pH 6 (5-7) 10/07/23 15:14 Ur Specific [place] 1.020 (1.005-1.030) 10/07/23 15:14 Urine Protein Trace (Negative) 10/07/23 15:14 Urine Glucose (UA) Norm (Normal) 10/07/23 15:14 Urine Ketones 1+ (Negative) H 10/07/23 15:14 Urine Blood Neg (Negative) 10/07/23 15:14 Urine Nitrate Negative (Negative) 10/07/23 15:14 Urine Bilirubin Neg (Negative) 10/07/23 15:14 Urine Urobilinogen 1 mg/dL (Negative) H 10/07/23 15:14 Ur Leukocyte Esterase Negative (Negative) 10/07/23 15:14 Urine RBC None /hpf (0-2) 10/07/23 15:14 Urine WBC 0-4 /hpf (0-5) H 10/07/23 15:14 Ur Squamous Epith Cells Rare /hpf (0-5) 10/07/23 15:14 Ur Transition Epith Cell 5-10 /hpf 10/07/23 15:14 Ur Renal Epithelial Cell 0-4 /hpf 10/07/23 15:14 Amorphous Sediment Trace /hpf 10/07/23 15:14 Urine Bacteria None /hpf (NONE) 10/07/23 15:14 Hyaline Casts 5-10 /lpf H 10/07/23 15:14 Urine Mucus 1+ /hpf 10/07/23 15:14 Urine Opiates Screen Negative ng/mL (Negative) 10/07/23 15:14 Ur Barbiturates Screen Negative ng/mL (Negative) 10/07/23 15:14 Valproic Acid 87.4 ug/mL (50-100) 10/07/23 13:43 Ur Phencyclidine Scrn Negative ng/mL (Negative) 10/07/23 15:14 Ur Amphetamines Screen Negative ng/mL (Negative) 10/07/23 15:14 U Benzodiazepines Scrn Negative ng/mL (Negative) 10/07/23 15:14 Urine Cocaine Screen Negative ng/mL (Negative) 10/07/23 15:14 U Marijuana (THC) Screen Negative ng/mL (Negative) 10/07/23 15:14 All radiology interpretation(s) finalized by discharge Discharge Plan Discharge Patient Disposition: Home Clinical Impression: Seizure Condition: Stable Prescriptions: No Action Mylanta Maximum Strength 400-400-40 mg/5 mL suspension 30 ml PO Q4H PRN (Reason: Constipation) (DME) hinged elbow brace See Rx Instructions .Route .MEDSUPPLY Qty: 1 0RF Rx Instructions: As directed (DME) mepilex boarder 2 x 2 See Rx Instructions .Route .MEDSUPPLY Qty: 1 0RF Rx Instructions: apply to affected area prednisone 5 mg tablet 10 mg PO DAILY PRN (Reason: rheumatoid arthritis) Qty: 30 0RF Rx Instructions: Take 2 tabs(10mg) daily for 4 days prn flares. (DME) Edward Irizarry [facility] Spacer See Rx Instructions .ROUTE .COMPLEX Qty: 1 0RF Dose Instruction: USE DIRECTED Rx Instructions: USE DIRECTED dextromethorphan-guaifenesin [Siltussin DM SWENSON] 10-100 mg/5 mL liquid 10 ml PO Q4H PRN (Reason: cough) Qty: 473 0RF magnesium hydroxide [Milk of Magnesia] 400 mg/5 mL suspension 30 ml PO .EVERY THREE DAYS PRN (Reason: Constipation) Qty: 355 1RF ibuprofen 600 mg tablet 600 mg PO Q8H PRN (Reason: pain) Qty: 60 6RF methotrexate sodium 2.5 mg tablet See Rx Instructions .ROUTE .COMPLEX Qty: 20 4RF Dose Instruction: TAKE 4 TABLETS BY MOUTH WEEKLY Rx Instructions: TAKE 4 TABLETS BY MOUTH WEEKLY ON FRIDAY vits A and D-white pet-lanolin [A and D (idirs, pet)] Ointment See Rx Instructions .ROUTE .COMPLEX Qty: 113 5RF Dose Instruction: APPLY topically AND cover with socks At Bedtime Rx Instructions: APPLY topically AND cover with socks At Bedtime Flovent 110 mcg/actuation Hfa Aerosol Inhaler 2 puff INHALATION BID terbinafine HCl 1 % cream 1 applic topical BID Rx Instructions: APPLY TO THE AFFECTED AREA(S) (FEET) acetaminophen 325 mg tablet 650 mg PO Q4H PRN (Reason: PAIN OR TEMP) Rx Instructions: TEMPERATURE >100degrees ammonium lactate 12 % lotion 1 applic topical QAM Rx Instructions: TO HANDS, FEET, AND LEGS olanzapine 10 mg tablet 5 mg PO BID olanzapine 2.5 mg tablet 2.5 mg PO .@NOON omeprazole 40 mg capsule,delayed release(DR/EC) 40 mg PO QAM amantadine HCl 100 mg capsule 100 mg PO BID Cutemol 0.2 % cream 1 applic topical QID Rx Instructions: APPLY TO HANDS levothyroxine 50 mcg tablet 50 mcg PO QAM paroxetine HCl 30 mg tablet 30 mg PO DAILY divalproex 500 mg tablet extended release 24 hr 1,000 mg PO BEDTIME metoprolol tartrate 50 mg tablet 50 mg PO BID Rx Instructions: hold if BP <110/70 OR pulse <60 AND call RN* Debrox 6.5 % drops See Rx Instructions .ROUTE .COMPLEX Rx Instructions: Fill both ear canals daily-4 days of each month for ear wax removal. folic acid 1 mg tablet 1 mg PO QAM carbidopa-levodopa 25-100 mg tablet 1 tab PO TID olanzapine 5 mg tablet,disintegrating 5 mg PO PRN PRN (Reason: Agitation) Rx Instructions: call RN prior TO giving divalproex 250 mg tablet extended release 24 hr 250 mg PO QAM diclofenac sodium 1 % gel 2 g topical QID PRN (Reason: Pain) Eucerin Cream 1 applic topical BID PRN (Reason: Dry Skin) Discharge Orders: Discharge ED (Routine); Ordered 10/07/23 Ordered By: Bryson Goldstein Referrals: Kishore Avalos DO [Primary Care Provider] - Discharge Diet: Usual diet Discharge Activity: Resume usual activity Patient Instructions: Opioid Safety, Pain Management Activity Restrictions/Additional Instructions: Thank you for choosing [facility] for your healthcare needs today. Please realize this is an emergency room and that we are providing you with a medical screening exam and this may not be complete and all inclusive of all the testing and or work up that you may need to determine your ailment or severity of your illness. It is very important that you follow up as instructed or that you return to the Emergency Department should you have concerns or if your condition changes or worsens in any way. You were seen today for question of a stroke there is no evidence of a stroke it is suspicious that you may have had a seizure. Will set you up for an outpatient EEG and follow-up with neurology Coding Level of Care Code ED [employer] for [place]
[2023-10-07 14:22] LABS: Basophils # 0.1 10^3/uL (0.0-0.1); Basophils % 0.3 %; Eosinophils # 0.4 10^3/uL (0.0-0.8); Hematocrit 40.6 % (37-53); Lymphocytes # 1.2 10^3/uL (0.8-4.8); Mean Corpuscular HGB Conc 33.7 g/dL (30-55); Mean Corpuscular Hemoglobin 30.5 pg (27-33); Mean Corpuscular Volume 90.4 fl (82-101); Mean Platelet Volume 10.3 fL (7.4-10.4); Monocytes # 1.1 10^3/uL (0.2-0.9); Monocytes % 7.7 %; Neutrophils # 11.52 10^3/uL (1.8-7.7); Neutrophils % 80.5 %; Nucleated Red Blood Cells % 0 %; Platelet Count 153 10^3/cmm (157-399); Red Blood Count 4.49 10^6/uL (3.85-5.65); Red Cell Distribution Width 16.2 % (12.1-15.1); White Blood Count 14.33 10^3/uL (3.29-11.43)
[2023-10-07 14:27] VITALS: BP 109/57; PULSE 69; O2SAT 94
[2023-10-07 14:32] LABS: Alanine Aminotransferase < 5 U/L (0-41); Albumin Level 3.8 g/dL (3.5-5.2); Alkaline Phosphatase 115 U/L (40-130); Aspartate Amino Transferase 15 U/L (0-40); Blood Urea Nitrogen 25 mg/dL (8-23); Calcium 9.1 mg/dL (8.5-10.5); Carbon Dioxide 26 mmol/L (22-29); Chloride 91 mmol/L (98-107); Creatinine Clr Calc Pharmacy 60.9044; Globulin 3.5 g/dL (1.3-4.6); Glucose 80 mg/dL (65-115); Osmolality Calculated 271 mOsm/kg (285-295); Sodium 129 mmol/L (136-145); Total Bilirubin 0.5 mg/dL (0.15-1.2); Total Protein 7.3 g/dL (6.6-8.7)
[2023-10-07 14:51] LABS: Valproic Acid Level 87.4 ug/mL (50-100)
[2023-10-07 15:29] LABS: Add Urine Microscopic? YES; Bilirubin Urine Neg (Negative); Blood Urine Neg (Negative); Glucose Urine UA Norm (Normal); Ketones Urine 1+ (Negative); Leukocyte Esterase Urine Negative (Negative); Nitrate Urine Negative (Negative); Protein Urine Trace (Negative); Urine Appearance Clear (CLEAR); Urine Color Dark Yellow (Yellow); Urobilinogen Urine 1 mg/dL (Negative); pH Urine 6 (5-7)
[2023-10-07 15:36] LABS: Amphetamines Screen Urine Negative (Negative); Barbiturates Screen Urine Negative (Negative); Benzodiazepines Screen Urine Negative (Negative); Cocaine Screen Urine Negative (Negative); Opiate Screen Urine Negative (Negative); PCP Screen Urine Negative (Negative); THC Screen Urine Negative (Negative)
[2023-10-07 15:40] LABS: Renal Epithelial Cells Urine 0-4 /hpf; Squamous Epithelial Cell Urine RARE /hpf (0-5); WBC Urine 0-4 /hpf (0-5)
[2023-10-07 15:41] LABS: Add Urine Culture? No; Amorphous Sediment Urine TRACE /hpf; Mucus Urine 1+ /hpf
[2023-10-07 16:01] LABS: INR 1.06 (0.8-1.2)
[2023-10-07 16:02] LABS: Partial Thromboplastin Time 31.6 SECONDS (23.9-36.7)
[2023-10-07 16:39] VITALS: BP 109/57; PULSE 69; O2SAT 94
--- NOTE | 2023-10-08 07:40 | DCPLANNER ---
Message sent to Neurology for EG and Follow up
== END 2023-10-07 16:41 | disposition home or self-care (01) ==
PROVIDERS: Emergency Provider Family Medicine; PCP Family Medicine
DX: I73.9 Peripheral vascular disease, unspecified (principal); L60.3 Nail dystrophy; L84 Corns and callosities; L60.8 Other nail disorders; Z79.899 Other long term (current) drug therapy; R56.9 Unspecified convulsions; F03.90 Unspecified dementia, unspecified severity, without behavioral disturbance, psychotic disturbance, mood disturbance, and anxiety
CPT/HCPCS: 11055; 11721; 70450; 80053; 80164; 80306; 81001; 85025; 85610; 85730; 93005; 99284

== ENCOUNTER → 2023-11-12 10:24 | Outpatient (BNVA) | payer MEDICARE, MEDICAID, SELFPAY | PROVIDERS: PCP Family Medicine; Visit Provider Internal Medicine Rheumatology | DX: Z79.899 Other long term (current) drug therapy (principal); M06.09 Rheumatoid arthritis without rheumatoid factor, multiple sites; M19.041 Primary osteoarthritis, right hand; M19.042 Primary osteoarthritis, left hand; Z71.89 Other specified counseling; S52.125D Nondisplaced fracture of head of left radius, subsequent encounter for closed fracture with routine healing; X58.XXXD Exposure to other specified factors, subsequent encounter | CPT/HCPCS: 99214 ==

== ENCOUNTER → 2024-01-02 09:54 | Outpatient (BNVA) | payer MEDICARE, MEDICAID, SELFPAY | PROVIDERS: PCP Family Medicine; Visit Provider Specialist | DX: R29.90 Unspecified symptoms and signs involving the nervous system (principal); R03.0 Elevated blood-pressure reading, without diagnosis of hypertension; R23.1 Pallor; R29.818 Other symptoms and signs involving the nervous system; F84.9 Pervasive developmental disorder, unspecified; F80.9 Developmental disorder of speech and language, unspecified | CPT/HCPCS: 99204 ==

== ENCOUNTER → 2024-01-13 11:05 | Outpatient (BNVA) | payer MEDICARE, MEDICAID, SELFPAY | PROVIDERS: PCP Family Medicine; Visit Provider Podiatrist Foot & Ankle Surgery | DX: Z79.899 Other long term (current) drug therapy (principal); L84 Corns and callosities; L60.3 Nail dystrophy; I73.9 Peripheral vascular disease, unspecified | CPT/HCPCS: 11055; 11721 ==

== ENCOUNTER → 2024-04-20 10:30 | Outpatient (BNVA) | payer MEDICARE, MEDICAID, SELFPAY | PROVIDERS: PCP Family Medicine; Visit Provider Podiatrist Foot & Ankle Surgery | DX: Z79.899 Other long term (current) drug therapy (principal); L84 Corns and callosities; L60.3 Nail dystrophy; I73.9 Peripheral vascular disease, unspecified | CPT/HCPCS: 11056; 11721 ==

== ENCOUNTER → 2024-05-12 10:15 | Outpatient (BNVA) | payer MEDICARE, MEDICAID, SELFPAY | PROVIDERS: PCP Family Medicine; Visit Provider Internal Medicine Rheumatology | DX: Z79.899 Other long term (current) drug therapy (principal); M06.09 Rheumatoid arthritis without rheumatoid factor, multiple sites; M19.041 Primary osteoarthritis, right hand; M19.042 Primary osteoarthritis, left hand; Z71.89 Other specified counseling; S52.125D Nondisplaced fracture of head of left radius, subsequent encounter for closed fracture with routine healing; X58.XXXD Exposure to other specified factors, subsequent encounter | CPT/HCPCS: 99214 ==

== ENCOUNTER 2024-05-28 12:32 | Emergency (ER) | payer MEDICARE, MEDICAID, SELFPAY ==
[2024-05-28 13:18] VITALS: BP 125/87; PULSE 68; RESP 18; TEMP 36.8; O2SAT 99; BMI 30.3
--- NOTE | 2024-05-28 13:43 | XR_ITS ---
WS: [id number] Left hip, 2 views, AP pelvis, 05/28/2024 Clinical Data: fall Comparison: None. Findings: No hip fractures or dislocations are seen. The left hip joint is intact. The right hip joint shows no abnormalities. The soft tissues are not remarkable. There may be a fracture of the inferior left isc hial pubic ramus which is undisplaced. The right pubic symphysis appears normal.. XR/XR hip LT 2-3V wo/w pel* [id number] Impression: 1. Left inferior ischial pubic ramus fracture 2. Negative for hip fractures.
--- NOTE | 2024-05-28 13:43 | XR_ITS ---
WS: [id number] Left femur and thigh, AP and lateral views, 05/28/2024 Clinical Data: fall Comparison: None. Findings: No femoral fractures or dislocations are seen. The soft tissues are normal. The visualized knee shows no abnormalities. There may be a fracture of the inferior left ischial pubic ramus. XR/XR femur LT min 2V* [id number] Impression: 1. Negative left thigh and femur. 2. Possible left inferior ischial pubic rami fracture.
--- NOTE | 2024-05-28 14:32 | W.ED.FALL ---
HPI - Fall General: Chief Complaint: Fall Stated Complaint: fell cnnt bear weight on lft leg Time Seen by Provider: 05/28/24 13:55 Source: patient and other (penitent[facility] staff) Mode of arrival: wheelchair Limitations: other (Baseline cognitive delay) History of Present Illness: Patient is a 73-year-old male from [facility] here for evaluation of left hip pain. Staff states he sustained a fall yesterday while in the bathroom. He reportedly was able to get up following this fall and ambulate at baseline however this morning he began complaining of pain around his left hip and trouble ambulating. MD complaint: fall Onset (ago): day(s) (yesterday) Fall from: other (toilet) Fall witnessed: no Place fall occurred: home Loss of consciousness: None Prolonged down time: no Symptoms prior to fall: none Context: tripped/slipped Severity: moderate Associated symptoms-after fall: Reports no associated symptoms and difficulty walking; Denies neck pain Related Data Home Medications Medication Instructions Recorded Confirmed aluminum-mag hydroxide-simethicone 30 ml PO Q4H PRN Constipation 08/11/19 05/12/24 400 mg-400 mg-40 mg/5 mL oral susp (Mylanta Maximum Strength) acetaminophen 325 mg tablet 650 mg PO Q4H PRN PAIN OR TEMP 10/07/23 05/12/24 allantoin 0.2 % topical cream 1 applic topical QID DRY SKIN 10/07/23 05/12/24 (Cutemol) ammonium lactate 12 % lotion 1 applic topical QAM 10/07/23 05/12/24 lanolin alcohols-mineral 1 applic topical BID PRN Dry Skin 10/07/23 05/12/24 oil-w.petrolatum-ceresin topical cream (Eucerin topical cream) levothyroxine 50 mcg tablet 50 mcg PO QAM 10/07/23 05/12/24 terbinafine HCl 1 % topical cream 1 applic topical BID 10/07/23 05/12/24 Previous Rx's Medication Instructions Recorded ibuprofen 600 mg tablet 600 mg PO Q8H PRN pain #60 tabs 03/27/23 vitamins A and D-white See Rx Instructions .Route 09/16/23 petrolatum-lanolin topical .COMPLEX #113 grams ointment (A and D (lanolin-petrolatum) topical ointment) folic acid 1 mg tablet 1 mg PO QAM #90 tabs 11/12/23 paroxetine HCl 30 mg tablet See Rx Instructions .Route 12/22/23 .COMPLEX #30 tabs metoprolol tartrate 50 mg tablet See Rx Instructions .Route 12/30/23 .COMPLEX #60 tabs trihexyphenidyl 2 mg tablet 2 mg PO BID #180 tabs 01/02/24 divalproex 250 mg tablet,extended See Rx Instructions .Route 01/27/24 release 24 hr .COMPLEX #30 tabs carbamide peroxide 6.5 % ear drops See Rx Instructions .Route 02/10/24 (Ear Wax Removal Drops) .COMPLEX #15 mL olanzapine 2.5 mg tablet See Rx Instructions .Route 02/10/24 .COMPLEX #30 tabs carbidopa 25 mg-levodopa 100 mg See Rx Instructions .Route 02/17/24 tablet .COMPLEX #90 tabs dextromethorphan-guaifenesin 10 See Rx Instructions .Route 02/23/24 mg-100 mg/5 mL oral syrup (Chest .COMPLEX #237 mL Congestion Relief DM) divalproex 500 mg tablet,extended See Rx Instructions .Route 02/23/24 release 24 hr .COMPLEX #60 tabs magnesium hydroxide 400 mg/5 mL See Rx Instructions .Route 02/23/24 oral suspension (Milk of Magnesia) .COMPLEX #473 mL diclofenac sodium 1 % topical gel 2 g topical QID PRN Pain #100 grams 03/09/24 olanzapine 10 mg tablet See Rx Instructions .Route 03/23/24 .COMPLEX #30 tabs Cleansing Wipes #30 ea 05/05/24 disposable gloves #50 ea 05/05/24 extra large adult briefs #30 ea 05/05/24 methotrexate sodium 2.5 mg tablet See Rx Instructions .Route 05/12/24 .COMPLEX #60 tabs prednisone 10 mg tablet See Rx Instructions PO .COMPLEX 05/12/24 PRN joint pain flare #90 tabs prednisone 5 mg tablet 5 mg PO DAILY #90 tabs 05/12/24 hydrocodone 5 mg-acetaminophen 325 1 tab PO Q6H PRN pain #14 tabs 05/28/24 mg tablet Allergies Allergy/AdvReac Type Severity Reaction Status Date / Time No Known Allergies Allergy Verified 11/15/24 13:24 Review of Systems General: Reports: ROS unobtainable due to mental status (baseline cognitive delay) Musc: Reports: joint pain (L hip); Denies: neck pain, back pain or joint swelling Neuro: Reports: difficulty walking PFSH ED PFSH: Medical History Skin rash Physical deconditioning Osteoarthritis of hands, bilateral Immunization counseling Greater trochanteric pain syndrome High risk medication use Dementia in other diseases classified elsewhere with behavioral disturbance Surgical History No pertinent past surgical history Social History Smoking and tobacco/nicotine status: never used tobacco/nicotine Alcohol intake: never Substance/Drug Use: never Lives independently: No Household members: caregiver Physical Exam Const: COMMON NORMALS: alert and well nourished GENERAL APPEARANCE: cooperative OTHER: at mental baseline HENMT: COMMON NORMALS: normocephalic and atraumatic HEAD & SCALP: normal to inspection, normocephalic and atraumatic Eye: GENERAL EYE: appearance normal, both eyes and all related structures Neck/C-Spine: COMMON NORMALS: full ROM GENERAL: Yes normal visual inspection CERVICAL SPINE: No Cervical spine tenderness Resp: COMMON NORMALS: normal respiratory effort and clear to auscultation bilaterally AUSCULTATION: clear to auscultation bilaterally Cardio: COMMON NORMALS: regular rate and regular rhythm RATE: regular rate RHYTHM: regular rhythm Back/Pelvis: COMMON NORMALS: thoracic and lumbar spine normal to inspection Extremity: GENERAL: Yes normal exam except as noted LEFT LOWER EXTREMITY: Yes hip joint (pain; no deformity; NV intact) Neuro: COMMON NORMALS: moves all extremities, no focal motor deficits and no sensory deficits noted SENSORIUM/ORIENTATION: Yes alert GAIT: Yes Other gait observations present (painful weight bearing) Course Vital Signs: Vital signs: Vital Signs Temperature 98.2 F 05/28/24 13:18 Pulse Rate 68 05/28/24 13:18 Respiratory Rate 18 05/28/24 13:18 Blood Pressure 125/87 05/28/24 13:18 Pulse Oximetry 99 05/28/24 13:18 Oxygen Delivery Me thod Room Air 05/28/24 13:18 MDM - Fall Medical Decision Making Patient has a nondisplaced left inferior pubic rami fracture. Attempted weightbearing with walker but he seemed somewhat unsteady. Will discharge him home with a wheelchair. Staff stated they have adequate staff to care for him in the wheelchair as they have other clients in wheelchairs. He will follow-up with orthopedics. Lab Data Radiology Impressions Femur X-Ray 05/28/24 13:43 Impression: 1. Negative left thigh and femur. 2. Possible left inferior ischial pubic rami fracture. Hip/Pelvis X-Ray 05/28/24 13:43 Impression: 1. Left inferior ischial pubic ramus fracture 2. Negative for hip fractures. Knee X-Ray 05/28/24 14:39 Impression: Negative for fracture of the left knee. Kellgren-Himanshu Classification: NA All radiology interpretation(s) finalized by discharge Discharge Plan Discharge Patient Disposition: Home Clinical Impression: Closed fracture of inferior pubic ramus Qualifiers: Encounter type: initial encounter Laterality: left Qualified Code(s): S32.592A - Other specified fracture of left pubis, initial encounter for closed fracture Condition: Stable Prescriptions: New hydrocodone-acetaminophen 5-325 mg tablet 1 tab PO Q6H PRN (Reason: pain) Qty: 14 0RF No Action Mylanta Maximum Strength 400-400-40 mg/5 mL suspension 30 ml PO Q4H PRN (Reason: Constipation) folic acid 1 mg tablet 1 mg PO QAM Qty: 90 3RF trihexyphenidyl 2 mg tablet 2 mg PO BID Qty: 180 3RF Rx Instructions: give with food (meal/snack) prednisone 5 mg tablet 5 mg PO DAILY Qty: 90 1RF methotrexate sodium 2.5 mg tablet See Rx Instructions .ROUTE .COMPLEX Qty: 60 1RF Dose Instruction: TAKE 4 TABLETS BY MOUTH WEEKLY Rx Instructions: TAKE 4 TABLETS BY MOUTH WEEKLY ON FRIDAY ibuprofen 600 mg tablet 600 mg PO Q8H PRN (Reason: pain) Qty: 60 6RF vits A and D-white pet-lanolin [A and D (lanolin-petrolatum)] Ointment See Rx Instructions .ROUTE .COMPLEX Qty: 113 5RF Dose Instruction: APPLY topically AND cover with socks At Bedtime Rx Instructions: APPLY topically AND cover with socks At Bedtime paroxetine HCl 30 mg tablet See Rx Instructions .ROUTE .COMPLEX Qty: 30 5RF Dose Instruction: TAKE ONE TABLET BY MOUTH EVERY DAY FOR BIPOLAR DISORDER Rx Instructions: TAKE ONE TABLET BY MOUTH EVERY DAY FOR BIPOLAR DISORDER metoprolol tartrate 50 mg tablet See Rx Instructions .ROUTE .COMPLEX Qty: 60 5RF Dose Instruction: TAKE ONE TABLET BY MOUTH TWICE DAILY IF B/P < 110/70 OR PULSE < 60 & CALL RN. FOR HYPERTENSION Rx Instructions: TAKE ONE TABLET BY MOUTH TWICE DAILY IF B/P < 110/70 OR PULSE < 60 & CALL RN. FOR HYPERTENSION divalproex 250 mg tablet extended release 24 hr See Rx Instructions .ROUTE .COMPLEX Qty: 30 5RF Dose Instruction: TAKE ONE TABLET BY MOUTH EVERY DAY FOR BIPOLAR DISORDER Rx Instructions: TAKE ONE TABLET BY MOUTH EVERY DAY FOR BIPOLAR DISORDER Ear Wax Removal Drops 6.5 % drops See Rx Instructions .ROUTE .COMPLEX Qty: 15 0RF Dose Instruction: FILL BOTH EAR CANALS DAILY 4 DAYS EACH MONTH Rx Instructions: FILL BOTH EAR CANALS DAILY 4 DAYS EACH MONTH olanzapine 2.5 mg tablet See Rx Instructions .ROUTE .COMPLEX Qty: 30 2RF Dose Instruction: TAKE ONE TABLET BY MOUTH EVERYDAY AT NOON FOR BIPOLAR DISORDER Rx Instructions: TAKE ONE TABLET BY MOUTH EVERYDAY AT NOON FOR BIPOLAR DISORDER carbidopa-levodopa 25-100 mg tablet See Rx Instructions .ROUTE .COMPLEX Qty: 90 2RF Dose Instruction: TAKE ONE TABLET BY MOUTH THREE TIMES DAILY WITH MEALS FOR TREMORS Rx Instructions: TAKE ONE TABLET BY MOUTH THREE TIMES DAILY WITH MEALS FOR TREMORS magnesium hydroxide [Milk of Magnesia] 400 mg/5 mL suspension See Rx Instructions .ROUTE .COMPLEX Qty: 473 1RF Dose Instruction: TAKE 30ML BY MOUTH NEEDED ON FOURTH DAY IF NO BOWEL MOVEMENT IN 3 DAYS. CALL NURSE ON DAY. Rx Instructions: TAKE 30ML BY MOUTH NEEDED ON FOURTH DAY IF NO BOWEL MOVEMENT IN 3 DAYS. CALL NURSE ON DAY. dextromethorphan-guaifenesin [Chest Congestion Relief DM] 10-100 mg/5 mL syrup See Rx Instructions .ROUTE .COMPLEX Qty: 237 5RF Dose Instruction: TAKE 10ML BY MOUTH EVERY 4 HOURS NEEDED FOR COUGH; NOT TO EXCEED 6 DOSES IN 24 HOURS Rx Instructions: TAKE 10ML BY MOUTH EVERY 4 HOURS NEEDED FOR COUGH; NOT TO EXCEED 6 DOSES IN 24 HOURS divalproex 500 mg tablet extended release 24 hr See Rx Instructions .ROUTE .COMPLEX Qty: 60 5RF Dose Instruction: TAKE TWO TABLETS BY MOUTH EVERY NIGHT AT BEDTIME FOR MOOD DISORDER/BIPOLAR Rx Instructions: TAKE TWO TABLETS BY MOUTH EVERY NIGHT AT BEDTIME FOR MOOD DISORDER/BIPOLAR diclofenac sodium 1 % gel 2 g topical QID PRN (Reason: Pain) Qty: 100 1RF olanzapine 10 mg tablet See Rx Instructions .ROUTE .COMPLEX Qty: 30 2RF Dose Instruction: TAKE 1/2 TABLET (5MG) BY MOUTH TWICE DAILY FOR BIPOLAR DISORDER Rx Instructions: TAKE 1/2 TABLET (5MG) BY MOUTH TWICE DAILY FOR BIPOLAR DISORDER (DME) extra large adult briefs See Rx Instructions .Route .MEDSUPPLY Qty: 30 11RF Rx Instructions: Please issue extra large adult briefs (DME) Cleansing Wipes See Rx Instructions .Route .MEDSUPPLY Qty: 30 11RF Rx Instructions: Please issue Cleansing Wipes (DME) disposable gloves Package See Rx Instructions .Route Qty: 50 11RF Rx Instructions: As directed prednisone 10 mg tablet See Rx Instructions PO .COMPLEX PRN (Reason: joint pain flare) Qty: 90 1RF Rx Instructions: can take 40mg daily for up to 7days for joint pain flare orally PRN; terbinafine HCl 1 % cream 1 applic topical BID Rx Instructions: APPLY TO THE AFFECTED AREA(S) (FEET) acetaminophen 325 mg tablet 650 mg PO Q4H PRN (Reason: PAIN OR TEMP) Rx Instructions: TEMPERATURE >100degrees ammonium lactate 12 % lotion 1 applic topical QAM Rx Instructions: TO HANDS, FEET, AND LEGS Cutemol 0.2 % cream 1 applic topical QID Rx Instructions: APPLY TO HANDS levothyroxine 50 mcg tablet 50 mcg PO QAM Eucerin Cream 1 applic topical BID PRN (Reason: Dry Skin) Discharge Orders: Discharge ED (Routine); Ordered 05/28/24 Ordered By: Melva Whipple Other Ambulatory Orders: DME: Wheelchair (Order) Location: None Selected Ordered By: Melva Whipple Referrals: Kishore Avalos DO [Primary Care Provider] - Patient Instructions: Opioid Safety, Pain Management Activity Restrictions/Additional Instructions: As we discussed, patient will need to use the wheelchair as he did not appear stable enough to use the walker here in the emergency department. Case management should contact him shortly to help set him up with his follow-up orthopedic appointment. He may use his pain medication sparingly to help with discomfort. He needs to walk with staff assistance/walker at all times if he is to get out of his wheelchair and use gait belt. Coding Level of Care Code ED [facility]
--- NOTE | 2024-05-28 14:39 | XR_ITS ---
WS: [id number] Left knee, 3 views, 05/28/2024 Clinical Data: trauma Comparison: None. Findings: No fractures or dislocations are seen. The joint spaces are normal. The patella is intact with spurs of the anterior superior and anterior inferior portions. There are vascular calcifications.. XR/XR knee LT 3V* [id number] Impression: Negative for fracture of the left knee. Kellgren-Himanshu Classification: NA
[2024-05-28 16:38] VITALS: BP 127/85; PULSE 71; O2SAT 94
--- NOTE | 2024-05-31 08:42 | DCPLANNER ---
messaged sent to ortho for er f/u
== END 2024-05-28 16:39 | disposition home or self-care (01) ==
PROVIDERS: Emergency Provider Physician Assistant; PCP Family Medicine
DX: S32.592A Other specified fracture of left pubis, initial encounter for closed fracture (principal); W19.XXXA Unspecified fall, initial encounter
CPT/HCPCS: 73502; 73552; 73562; 99285

== ENCOUNTER → 2024-06-03 13:57 | Outpatient (BNVA) | payer MEDICARE, MEDICAID, SELFPAY | PROVIDERS: PCP Family Medicine; Referring Provider Physician Assistant; Visit Provider Orthopaedic Surgery | DX: S32.592A Other specified fracture of left pubis, initial encounter for closed fracture (principal); W19.XXXA Unspecified fall, initial encounter; M25.552 Pain in left hip | CPT/HCPCS: 99203 ==

== ENCOUNTER → 2024-07-01 10:30 | Outpatient (BNVA) | payer MEDICARE, MEDICAID, SELFPAY | PROVIDERS: PCP Family Medicine; Visit Provider Specialist | DX: R29.818 Other symptoms and signs involving the nervous system (principal); F84.9 Pervasive developmental disorder, unspecified; F80.9 Developmental disorder of speech and language, unspecified; R29.90 Unspecified symptoms and signs involving the nervous system; R03.0 Elevated blood-pressure reading, without diagnosis of hypertension; G31.83 Neurocognitive disorder with Lewy bodies; F02.80 Dementia in other diseases classified elsewhere, unspecified severity, without behavioral disturbance, psychotic disturbance, mood disturbance, and anxiety; R29.6 Repeated falls | CPT/HCPCS: 99214; 99215 ==

== ENCOUNTER → 2024-07-20 13:25 | Outpatient (BNVA) | payer MEDICARE, MEDICAID, SELFPAY | PROVIDERS: PCP Family Medicine; Visit Provider Orthopaedic Surgery | DX: S32.442D Displaced fracture of posterior column [ilioischial] of left acetabulum, subsequent encounter for fracture with routine healing (principal); X58.XXXD Exposure to other specified factors, subsequent encounter; R10.2 Pelvic and perineal pain | CPT/HCPCS: 72170; 72190; 73502; 99214 ==

== ENCOUNTER 2024-07-26 08:00 | Outpatient (CLI) | payer MEDICARE, MEDICAID, SELFPAY ==
--- NOTE | 2024-07-26 08:00 | CT_ITS ---
WS: [id number] CT PELVIS NONCONTRAST HISTORY: pelvis pain TECHNIQUE: Contiguous imaging is performed of the pelvis without contrast. Coronal and sagittal refor mats are reviewed. All CT scans at [facility] use at least one of these dose optimization bhupinder hniques: automated exposure control; mA and/or kV adjustment per patient size (includes targeted exam s where dose is matched to clinical indication); or iterative reconstruction. DLP: 1136.74 mGy.cm COMPARISON: 07/20/2024, radiograph 02/09/2020, 05/28/2024 Bones are osteopenic. Medial migration of the LEFT femoral head through the acetabulum. Complex fract ure involving the acetabulum. Fracture involves the superior, medial and posterior acetabulum with me dial migration of the fragments. Suspect mild early development of callus formation. Fracture fragmen ts are mildly displaced. There is a lucency noted along the superior acetabular margin which may be o steopenia. Associated increased soft tissue in the acetabulum through the fracture site. There is als o synovial thickening surrounding the hip. Bones are markedly osteopenic. Advanced facet joint arthropathy in the lower lumbar spine. Healing fr acture in the inferior LEFT pubic rami. CT/CT pelvis wo con [id number] IMPRESSION: 1. Comminuted fractures with displacement involving a large portion of the LEF T acetabulum with medial migration of the femoral head. 2. Fracture fragments are displaced medially and there is callus formation. 3. Increased soft tissue at the site of the fracture. Pathological fracture sh ould be considered. There is diffuse synovial thickening with a low-attenuation mass surrounding the femoral head and acetabulum. Patient does have a history of rheumatoid arthritis. 4. No LEFT hip fracture.
== END 2024-07-26 08:06 | disposition home or self-care (01) ==
PROVIDERS: PCP Family Medicine; Visit Provider Orthopaedic Surgery
DX: S32.402A Unspecified fracture of left acetabulum, initial encounter for closed fracture (principal); X58.XXXA Exposure to other specified factors, initial encounter; R93.89 Abnormal findings on diagnostic imaging of other specified body structures; R19.00 Intra-abdominal and pelvic swelling, mass and lump, unspecified site; Z82.61 Family history of arthritis; M47.896 Other spondylosis, lumbar region; Z87.81 Personal history of (healed) traumatic fracture
CPT/HCPCS: 72192

== ENCOUNTER → 2024-08-10 10:38 | Outpatient (BNVA) | payer MEDICARE, MEDICAID, SELFPAY | PROVIDERS: PCP Family Medicine; Visit Provider Orthopaedic Surgery | DX: Z09 Encounter for follow-up examination after completed treatment for conditions other than malignant neoplasm (principal); M25.552 Pain in left hip | CPT/HCPCS: 72170; 73502; 99214 ==

== ENCOUNTER 2024-08-10 14:48 | Inpatient (IN) | payer MEDICARE, MEDICAID, SELFPAY ==
[2024-08-10 14:57] VITALS: BP 116/68; PULSE 71; RESP 17; TEMP 36.5; O2SAT 99; BMI 32.9
--- NOTE | 2024-08-10 15:01 | ECG_ITS ---
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 Measurements Intervals [place] Rate: 75 P: 18 MO: 205 QRS: -13 QRSD: 149 T: 25 QT: 410 QTc: 460 Interpretive Statements SINUS RHYTHM RIGHT BUNDLE BRANCH BLOCK [120+ ms QRS DURATION, UPRIGHT V1, 40+ ms S IN I/aVL/V4/V5/V6] Compared to ECG 10/07/2023 14:16:02 First degree AV block no longer present Electronically Signed On 08-12-2024 11:21:33 FULL [employer]GE BOOKKEEPER by Daniel Peres M.D. [email or web address]
--- NOTE | 2024-08-10 16:23 | XRR_ITS ---
PROCEDURE INFORMATION: Exam: XR Chest Exam date and time: 08/10/2024 5:30 PM Age: 73 years old Clinical indication: Other: Low blood; Additional info: Weakness TECHNIQUE: Imaging protocol: Radiologic exam of the chest. Views: 1 view. COMPARISON: CR XR chest 2V* [id number] 08/20/2023 2:14 PM FINDINGS: Lungs: Right basilar and mid lung infiltrates related to an infectious/inflammatory process. Bibasilar additional atelectasis. Pleural spaces: No sizable pleural effusion or pneumothorax. Heart/Mediastinum: Unremarkable. No cardiomegaly. Bones/joints: Unremarkable. XR/XR chest 1V portable [id number] IMPRESSION: As above.
[2024-08-10 17:40] LABS: Basophils % 0.2 %; Eosinophils # 0.1 10^3/uL (0.0-0.8); Eosinophils % 0.8 %; Lymphocytes # 0.8 10^3/uL (0.8-4.8); Lymphocytes % 8.2 %; Mean Corpuscular HGB Conc 31.9 g/dL (30-55); Mean Corpuscular Volume 94.1 fl (82-101); Mean Platelet Volume 9.2 fL (7.4-10.4); Monocytes # 0.4 10^3/uL (0.2-0.9); Neutrophils # 7.78 10^3/uL (1.8-7.7); Neutrophils % 82.5 %; Nucleated Red Blood Cells % 0 %; Platelet Count 149 10^3/cmm (157-399); Red Cell Distribution Width 16.1 % (12.1-15.1); White Blood Count 9.44 10^3/uL (3.29-11.43)
--- NOTE | 2024-08-10 18:09 | ED_ITS ---
HPI - General Adult 2 General: Chief complaint: General Medical Stated complaint: low bp(sent by penny) Time Seen by Provider: 08/10/24 16:23 Source: patient and family Mode of arrival: ambulatory Limitations: no limitations History of Present Illness: 73-year-old male who was sent here has n ot had low blood pressures as his PCP this morning. Family states that his pressures been running in the 70s with a history of hypotension in the past he is on metoprolol. Here his blood pressures have been normal. States he has had a slight cough and some dyspnea as well Associated symptoms: Reports dyspnea; Deny chest pain, headache(s), nausea, rash or vomiting Related Data Home Medications Medication Instructions Recorded Confirmed aluminum-mag hydroxide-simethicone 30 ml PO Q4H PRN Constipation 08/11/19 08/10/24 400 mg-400 mg-40 mg/5 mL oral susp (Mylanta Maximum Strength) acetaminophen 325 mg tablet 650 mg PO Q4H PRN PAIN OR TEMP 10/07/23 08/10/24 allantoin 0.2 % topical cream 1 applic topical QID DRY SKIN 10/07/23 08/10/24 (Cutemol) ammonium lactate 12 % lotion 1 applic topical QAM 10/07/23 08/10/24 lanolin alcohols-mineral 1 applic topical BID PRN Dry Skin 10/07/23 08/10/24 oil-w.petrolatum-ceresin topical cream (Eucerin topical cream) terbinafine HCl 1 % topical cream 1 applic topical BID 10/07/23 08/10/24 Previous Rx's Medication Instructions Recorded ibuprofen 600 mg tablet 600 mg PO Q8H PRN pain #60 tabs 03/27/23 vitamins A and D-white See Rx Instructions .Route 09/16/23 petrolatum-lanolin topical .COMPLEX #113 grams ointment (A and D (lanolin-petrolatum) topical ointment) folic acid 1 mg tablet 1 mg PO QAM #90 tabs 11/12/23 trihexyphenidyl 2 mg tablet 2 mg PO BID #180 tabs 01/02/24 divalproex 250 mg tablet,extended See Rx Instructions .Route 01/27/24 release 24 hr .COMPLEX #30 tabs carbamide peroxide 6.5 % ear drops See Rx Instructions .Route 02/10/24 (Ear Wax Removal Drops) .COMPLEX #15 mL dextromethorphan-guaifenesin 10 See Rx Instructions .Route 02/23/24 mg-100 mg/5 mL oral syrup (Chest .COMPLEX #237 mL Congestion Relief DM) magnesium hydroxide 400 mg/5 mL See Rx Instructions .Route 02/23/24 oral suspension (Milk of Magnesia) .COMPLEX #473 mL diclofenac sodium 1 % topical gel 2 g topical QID PRN Pain #100 grams 03/09/24 Cleansing Wipes #30 ea 05/05/24 disposable gloves #50 ea 05/05/24 extra large adult briefs #30 ea 05/05/24 methotrexate sodium 2.5 mg tablet See Rx Instructions .Route 05/12/24 .COMPLEX #60 tabs prednisone 10 mg tablet See Rx Instructions PO .COMPLEX 05/12/24 PRN joint pain flare #90 tabs prednisone 5 mg tablet 5 mg PO DAILY #90 tabs 05/12/24 hydrocodone 5 mg-acetaminophen 325 1 tab PO Q6H PRN pain #14 tabs 05/28/24 mg tablet cetirizine 10 mg tablet (All Day 10 mg PO DAILY PRN allergy 06/15/24 Allergy (cetirizine)) symptoms #30 tabs omeprazole 40 mg capsule,delayed 40 mg PO DAILY #90 caps 06/18/24 release levothyroxine 50 mcg tablet 50 mcg PO QAM #90 tabs 06/22/24 paroxetine HCl 30 mg tablet See Rx Instructions .Route 06/22/24 .COMPLEX #30 tabs carbidopa 25 mg-levodopa 100 mg See Rx Instructions .Route 06/24/24 tablet .COMPLEX #150 tabs quetiapine 200 mg tablet (Seroquel) 200 mg PO BID #60 tabs 07/01/24 Hospital bed #1 ea 07/13/24 metoprolol tartrate 50 mg tablet See Rx Instructions .Route 08/02/24 .COMPLEX #60 tabs divalproex 500 mg tablet,extended See Rx Instructions .Route 08/04/24 release 24 hr .COMPLEX #60 tabs olanzapine 10 mg tablet See Rx Instructions .Route 08/04/24 .COMPLEX #60 tabs Allergies Allergy/AdvReac Type Severity Reaction Status Date / Time No Known Allergies Allergy Verified 08/10/24 15:01 Review of Systems 2 Const: Reports: fatigue; Denies: fever(s), chills, body aches or change in appetite ENMT: Denies: throat pain or dental pain Card: Denies: chest pain Resp: Reports: dyspnea and non-productive cough GI: Denies: abdominal pain, nausea, vomiting or diarrhea Musc: Denies: neck pain or back pain Skin/Breast: Denies: rash Neuro: Denies: headache(s) PFSH ED 2 PFSH: Medical History Skin rash Physical deconditioning Osteoarthritis of hands, bilateral Immunization counseling Greater trochanteric pain syndrome High risk medication use Dementia in other diseases classified elsewhere with behavioral disturbance Surgical History No pertinent past surgical history Social History Smoking and tobacco/nicotine status: unknown if used tobacco/nicotine Alcohol intake: never Substance/Drug Use: never Lives independently: No Household members: caregiver Physical Exam 2 Const: COMMON NORMALS: no acute distress, patient oriented x3 and healthy appearing HENMT: COMMON NORMALS: normocephalic and atraumatic HEAD & SCALP: n ormocephalic and atraumatic Eye: COMMON NORMALS: Equal, round and reactive pupils present and EOMs intact bilaterally PUPIL: Yes Equal, round and reactive pupils present Neck/C-Spine: COMMON NORMALS: full ROM and supple Chest: COMMONS NORMALS: normal inspection of the chest and normal palpation of entire chest wall Resp: COMMON NORMALS: normal respiratory effort, No retractions, No use of accessory muscles and clear to auscultation bilaterally AUSCULTATION: clear to auscultation bilaterally Cardio: COMMON NORMALS: regular rate, regular rhythm and No murmurs present (Cardio) RATE: regular rate RHYTHM: regular rhythm GI: COMMON NORMALS: Normal to inspection, nondistended, normoactive bowel sounds present, Soft to palpation, non-tender and no masses PALPATION: Yes Soft to palpation Extremity: COMMON NORMALS: normal to inspection and full ROM Neuro: COMMON NORMALS: patient oriented x3, moves all extremities and no focal motor deficits Psych: COMMON NORMALS: mental status grossly normal, Normal thought process present and cooperative THOUGHT PROCESS: Normal thought process present Skin: COMMON NORMALS: no rashes or lesions noted and no wounds GENERAL SKIN EXAM: no rashes or lesions noted Course 2 Vital Signs: Vital signs: Vital Signs Temperature 97.7 F 08/10/24 14:57 Pulse Rate 73 08/10/24 18:11 Respiratory Rate 17 08/10/24 14:57 Blood Pressure 139/78 08/10/24 18:11 Pulse Oximetry 93 08/10/24 18:11 Oxygen Delivery Me thod Room Air 08/10/24 18:11 MDM - General Adult Medical Decision Making Patient presents here with cough is found to have pneumonia on chest x-ray he has had so borderline hypoxia here did speak to hospitalist will admit at this time for IV antibiotics. Medical Records I reviewed the patient's medical records. Lab Data I reviewed the patient's lab results. 08/10/24 17:16 08/10/24 17:16 Radiology Impressions Chest X-Ray 08/10/24 16:23 IMPRESSION: As above. Laboratory Results WBC 9.44 10^3/uL (3.29-11.43) 08/10/24 17:16 RBC 3.40 10^6/uL (3.85-5.65) L 08/10/24 17:16 Hgb 10.20 g/dL (11.27-16.99) L 08/10/24 17:16 Hct 32.0 % (37-53) L 08/10/24 17:16 MCV 94.1 fl (82-101) 08/10/24 17:16 MCH 30.0 pg (27-33) 08/10/24 17:16 MCHC 31.9 g/dL (30-55) 08/10/24 17:16 RDW 16.1 % (12.1-15.1) H 08/10/24 17:16 Plt Count 149 10^3/cmm (157-399) L 08/10/24 17:16 MPV 9.2 fL (7.4-10.4) 08/10/24 17:16 Neut % (Auto) 82.5 % 08/10/24 17:16 Lymph % (Auto) 8.2 % 08/10/24 17:16 [place] % (Auto) 4.0 % 08/10/24 17:16 Eos % (Auto) 0.8 % 08/10/24 17:16 Baso % (Auto) 0.2 % 08/10/24 17:16 Neut # (Auto) 7.78 10^3/uL (1.8-7.7) H 08/10/24 17:16 Lymph # (Auto) 0.8 10^3/uL (0.8-4.8) 08/10/24 17:16 [place] # (Auto) 0.4 10^3/uL (0.2-0.9) 08/10/24 17:16 Eos # (Auto) 0.1 10^3/uL (0.0-0.8) 08/10/24 17:16 Baso # (Auto) 0.0 10^3/uL (0.0-0.1) 08/10/24 17:16 Nucleated RBC % (auto) 0 % 08/10/24 17:16 Nucleated RBCs # 0.0 /100WBC 08/10/24 17:16 Sodium 124 mmol/L (136-145) L 08/10/24 17:16 Potassium 5.1 mmol/L (3.5-5.1) 08/10/24 17:16 Chloride 89 mmol/L (98-107) L 08/10/24 17:16 Carbon Dioxide 27 mmol/L (22-29) 08/10/24 17:16 Anion Gap 13.1 (5-19) 08/10/24 17:16 BUN 32 mg/dL (8-23) H 08/10/24 17:16 Creatinine 0.9 mg/dL (0.7-1.2) 08/10/24 17:16 GFR Calculation Not Reportable 08/10/24 17:16 Glucose 93 mg/dL (65-115) 08/10/24 17:16 Calculated Osmolality 265 mOsm/kg (285-295) L 08/10/24 17:16 Calcium 8.5 mg/dL (8.5-10.5) 08/10/24 17:16 Total Bilirubin 0.5 mg/dL (0.15-1.2) 08/10/24 17:16 AST 18 U/L (0-40) 08/10/24 17:16 ALT < 5 U/L (0-41) 08/10/24 17:16 Alkaline Phosphatase 115 U/L (40-130) 08/10/24 17:16 Total Protein 7.0 g/dL (6.6-8.7) 08/10/24 17:16 Albumin 3.1 g/dL (3.5-5.2) L 08/10/24 17:16 Globulin 3.9 g/dL (1.3-4.6) 08/10/24 17:16 All radiology interpretation(s) finalized by discharge Discharge Plan Discharge Patient Disposition: Admitted As Inpatient Clinical Impression: Pneumonia Condition: Stable Prescriptions: No Action Mylanta Maximum Strength 400-400-40 mg/5 mL suspension 30 ml PO Q4H PRN (Reason: Constipation) (DME) Hospital bed See Rx Instructions .Route .MEDSUPPLY Qty: 1 0RF Rx Instructions: Please issue hospital bed for patient to use as he has a pelvic fracture, he is unable to ambulate, he is at risk for decubitus ulcers, and he has frequent falls. folic acid 1 mg tablet 1 mg PO QAM Qty: 90 3RF trihexyphenidyl 2 mg tablet 2 mg PO BID Qty: 180 3RF Rx Instructions: give with food (meal/snack) prednisone 5 mg tablet 5 mg PO DAILY Qty: 90 1RF methotrexate sodium 2.5 mg tablet See Rx Instructions .ROUTE .COMPLEX Qty: 60 1RF Dose Instruction: TAKE 4 TABLETS BY MOUTH WEEKLY Rx Instructions: TAKE 4 TABLETS BY MOUTH WEEKLY ON FRIDAY quetiapine [Seroquel] 200 mg tablet 200 mg PO BID Qty: 60 5RF ibuprofen 600 mg tablet 600 mg PO Q8H PRN (Reason: pain) Qty: 60 6RF vits A and D-white pet-lanolin [A and D (lanolin-petrolatum)] Ointment See Rx Instructions .ROUTE .COMPLEX Qty: 113 5RF Dose Instruction: APPLY topically AND cover with socks At Bedtime Rx Instructions: APPLY topically AND cover with socks At Bedtime divalproex 250 mg tablet extended release 24 hr See Rx Instructions .ROUTE .COMPLEX Qty: 30 5RF Dose Instruction: TAKE ONE TABLET BY MOUTH EVERY DAY FOR BIPOLAR DISORDER Rx Instructions: TAKE ONE TABLET BY MOUTH EVERY DAY FOR BIPOLAR DISORDER Ear Wax Removal Drops 6.5 % drops See Rx Instructions .ROUTE .COMPLEX Qty: 15 0RF Dose Instruction: FILL BOTH EAR CANALS DAILY 4 DAYS EACH MONTH Rx Instructions: FILL BOTH EAR CANALS DAILY 4 DAYS EACH MONTH magnesium hydroxide [Milk of Magnesia] 400 mg/5 mL suspension See Rx Instructions .ROUTE .COMPLEX Qty: 473 1RF Dose Instruction: TAKE 30ML BY MOUTH NEEDED ON FOURTH DAY IF NO BOWEL MOVEMENT IN 3 DAYS. CALL NURSE ON DAY. Rx Instructions: TAKE 30ML BY MOUTH NEEDED ON FOURTH DAY IF NO BOWEL MOVEMENT IN 3 DAYS. CALL NURSE ON DAY. dextromethorphan-guaifenesin [Chest Congestion Relief DM] 10-100 mg/5 mL syrup See Rx Instructions .ROUTE .COMPLEX Qty: 237 5RF Dose Instruction: TAKE 10ML BY MOUTH EVERY 4 HOURS NEEDED FOR COUGH; NOT TO EXCEED 6 DOSES IN 24 HOURS Rx Instructions: TAKE 10ML BY MOUTH EVERY 4 HOURS NEEDED FOR COUGH; NOT TO EXCEED 6 DOSES IN 24 HOURS diclofenac sodium 1 % gel 2 g topical QID PRN (Reason: Pain) Qty: 100 1RF (DME) extra large adult briefs See Rx Instructions .Route .MEDSUPPLY Qty: 30 11RF Rx Instructions: Please issue extra large adult briefs (DME) Cleansing Wipes See Rx Instructions .Route .MEDSUPPLY Qty: 30 11RF Rx Instructions: Please issue Cleansing Wipes (DME) disposable gloves Package See Rx Instructions .Route Qty: 50 11RF Rx Instructions: As directed prednisone 10 mg tablet See Rx Instructions PO .COMPLEX PRN (Reason: joint pain flare) Qty: 90 1RF Rx Instructions: can take 40mg daily for up to 7days for joint pain flare orally PRN; cetirizine [All Day Allergy (cetirizine)] 10 mg tablet 10 mg PO DAILY PRN (Reason: allergy symptoms) Qty: 30 11RF omeprazole 40 mg capsule,delayed release(DR/EC) 40 mg PO DAILY Qty: 90 3RF levothyroxine 50 mcg tablet 50 mcg PO QAM Qty: 90 1RF paroxetine HCl 30 mg tablet See Rx Instructions .ROUTE .COMPLEX Qty: 30 5RF Dose Instruction: TAKE ONE TABLET BY MOUTH EVERY DAY FOR BIPOLAR DISORDER Rx Instructions: TAKE ONE TABLET BY MOUTH EVERY DAY FOR BIPOLAR DISORDER carbidopa-levodopa 25-100 mg tablet See Rx Instructions .ROUTE .COMPLEX Qty: 150 5RF Dose Instruction: TAKE ONE TABLET BY MOUTH THREE TIMES DAILY WITH MEALS FOR TREMORS Rx Instructions: 2 tabs at 0800, one tab at 1200 and two tabs at 1600. metoprolol tartrate 50 mg tablet See Rx Instructions .ROUTE .COMPLEX Qty: 60 11RF Dose Instruction: TAKE ONE TABLET BY MOUTH TWICE DAILY IF B/P < 110/70 OR PULSE < 60 & CALL RN. FOR HYPERTENSION Rx Instructions: TAKE ONE TABLET BY MOUTH TWICE DAILY IF B/P < 110/70 OR PULSE < 60 & CALL RN. FOR HYPERTENSION divalproex 500 mg tablet extended release 24 hr See Rx Instructions .ROUTE .COMPLEX Qty: 60 5RF Dose Instruction: TAKE TWO TABLETS BY MOUTH EVERY NIGHT AT BEDTIME FOR MOOD DISORDER/BIPOLAR Rx Instructions: TAKE TWO TABLETS BY MOUTH EVERY NIGHT AT BEDTIME FOR MOOD DISORDER/BIPOLAR olanzapine 10 mg tablet See Rx Instructions .ROUTE .COMPLEX Qty: 60 5RF Dose Instruction: TAKE 1/2 TABLET (5MG) BY MOUTH TWICE DAILY FOR BIPOLAR DISORDER Rx Instructions: TAKE 1/2 TABLET (5MG) BY MOUTH TWICE DAILY FOR BIPOLAR DISORDER terbinafine HCl 1 % cream 1 applic topical BID Rx Instructions: APPLY TO THE AFFECTED AREA(S) (FEET) acetaminophen 325 mg tablet 650 mg PO Q4H PRN (Reason: PAIN OR TEMP) Rx Instructions: TEMPERATURE >100degrees ammonium lactate 12 % lotion 1 applic topical QAM Rx Instructions: TO HANDS, FEET, AND LEGS Cutemol 0.2 % cream 1 applic topical QID Rx Instructions: APPLY TO HANDS Eucerin Cream 1 applic topical BID PRN (Reason: Dry Skin) hydrocodone-acetaminophen 5-325 mg tablet 1 tab PO Q6H PRN (Reason: pain) Qty: 14 0RF Referrals: Kishore Avalos DO [Primary Care Provider] - Coding Level of Care Code ED Cream Buyer for [facility]
[2024-08-10 18:11] VITALS: BP 139/78; PULSE 73; O2SAT 93
[2024-08-10 18:16] LABS: Alanine Aminotransferase < 5 U/L (0-41); Albumin Level 3.1 g/dL (3.5-5.2); Alkaline Phosphatase 115 U/L (40-130); Anion Gap 13.1 (5-19); Aspartate Amino Transferase 18 U/L (0-40); Blood Urea Nitrogen 32 mg/dL (8-23); Calcium 8.5 mg/dL (8.5-10.5); Carbon Dioxide 27 mmol/L (22-29); Chloride 89 mmol/L (98-107); Creatinine Clr Calc Pharmacy 65.6207; Globulin 3.9 g/dL (1.3-4.6); Glucose 93 mg/dL (65-115); Osmolality Calculated 265 mOsm/kg (285-295); Potassium 5.1 mmol/L (3.5-5.1); Sodium 124 mmol/L (136-145); Total Bilirubin 0.5 mg/dL (0.15-1.2)
--- NOTE | 2024-08-10 19:36 | P.HP_ITS ---
Providers/Chief Complaint 2 Primary Care Provider: Kishore Avalos DO Chief Complaint: low bp(sent by penny) History of Present Illness Ernie Lopez is a 73 year old male with history of intellectual challenges, resident of [facility], rheumatoid arthritis, methotrexate and folic acid, Parkinson's, trochanteric left-sided bursitis, dementia, cognitive impairment, [facility] presented with chief complaint of low blood pressure from podiatry clinic. Patient was brought in from podiatry clinic for concern related to low blood pressure, in the ER there is right lower lobe infiltrate concerning for aspiration pneumonia. Patient is not spiking fever, no leukocytosis not current oxygen no signs of sepsis. Caregiver at the bedside stating that there is plan to do hip surgery on Friday as per Dr. Howard who wants to do MRI before the surgery. MRI was scheduled for 12:45 PM. Patient is not diabetic, no recent fever nausea vomiting or diarrhea, patient is constipated, as per the caregiver there is a possibility of aspiration he is on mechanical soft diet Dr. Howard wants to do MRI for acetabular fracture evaluation to rule out if this this fracture is related to underlying tumor versus osteoporotic Review of Systems 2 General: Reports: ROS unobtainable due to medical condition Medications/Allergies Home Medications Medication Instructions Recorded Confirmed Last Taken Type aluminum-mag hydroxide-simethicone 30 ml PO Q4H PRN Constipation 08/11/19 08/10/24 Unknown History 400 mg-400 mg-40 mg/5 mL oral susp (Mylanta Maximum Strength) ibuprofen 600 mg tablet 600 mg PO Q8H PRN pain #60 tabs 03/27/23 08/10/24 Unknown Rx vitamins A and D-white See Rx Instructions .Route 09/16/23 08/10/24 Unknown Rx petrolatum-lanolin topical .COMPLEX #113 grams ointment (A and D (lanolin-petrolatum) topical ointment) acetaminophen 325 mg tablet 650 mg PO Q4H PRN PAIN OR TEMP 10/07/23 08/10/24 Unknown History allantoin 0.2 % topical cream 1 applic topical QID DRY SKIN 10/07/23 08/10/24 10/07/23 History (Cutemol) ammonium lactate 12 % lotion 1 applic topical QAM 10/07/23 08/10/24 Unknown History lanolin alcohols-mineral 1 applic topical BID PRN Dry Skin 10/07/23 08/10/24 Unknown History oil-w.petrolatum-ceresin topical cream (Eucerin topical cream) terbinafine HCl 1 % topical cream 1 applic topical BID 10/07/23 08/10/24 Unknown History folic acid 1 mg tablet 1 mg PO QAM #90 tabs 11/12/23 08/10/24 Unknown Rx trihexyphenidyl 2 mg tablet 2 mg PO BID #180 tabs 01/02/24 08/10/24 Unknown Rx divalproex 250 mg tablet,extended See Rx Instructions .Route 01/27/24 08/10/24 Unknown Rx release 24 hr .COMPLEX #30 tabs carbamide peroxide 6.5 % ear drops See Rx Instructions .Route 02/10/24 08/10/24 Unknown Rx (Ear Wax Removal Drops) .COMPLEX #15 mL dextromethorphan-guaifenesin 10 See Rx Instructions .Route 02/23/24 08/10/24 Unknown Rx mg-100 mg/5 mL oral syrup (Chest .COMPLEX #237 mL Congestion Relief DM) magnesium hydroxide 400 mg/5 mL See Rx Instructions .Route 02/23/24 08/10/24 Unknown Rx oral suspension (Milk of Magnesia) .COMPLEX #473 mL diclofenac sodium 1 % topical gel 2 g topical QID PRN Pain #100 grams 03/09/24 08/10/24 Unknown Rx Cleansing Wipes #30 ea 05/05/24 08/10/24 Unknown Rx disposable gloves #50 ea 05/05/24 08/10/24 Unknown Rx extra large adult briefs #30 ea 05/05/24 08/10/24 Unknown Rx methotrexate sodium 2.5 mg tablet See Rx Instructions .Route 05/12/24 08/10/24 Unknown Rx .COMPLEX #60 tabs prednisone 10 mg tablet See Rx Instructions PO .COMPLEX 05/12/24 08/10/24 Unknown Rx PRN joint pain flare #90 tabs prednisone 5 mg tablet 5 mg PO DAILY #90 tabs 05/12/24 08/10/24 Unknown Rx hydrocodone 5 mg-acetaminophen 325 1 tab PO Q6H PRN pain #14 tabs 05/28/24 08/10/24 Unknown Rx mg tablet cetirizine 10 mg tablet (All Day 10 mg PO DAILY PRN allergy 06/15/24 08/10/24 Unknown Rx Allergy (cetirizine)) symptoms #30 tabs omeprazole 40 mg capsule,delayed 40 mg PO DAILY #90 caps 06/18/24 08/10/24 Unknown Rx release levothyroxine 50 mcg tablet 50 mcg PO QAM #90 tabs 06/22/24 08/10/24 Unknown Rx paroxetine HCl 30 mg tablet See Rx Instructions .Route 06/22/24 08/10/24 Unknown Rx .COMPLEX #30 tabs carbidopa 25 mg-levodopa 100 mg See Rx Instructions .Route 06/24/24 08/10/24 Unknown Rx tablet .COMPLEX #150 tabs quetiapine 200 mg tablet (Seroquel) 200 mg PO BID #60 tabs 07/01/24 08/10/24 Unknown Rx Hospital bed #1 ea 07/13/24 08/10/24 Unknown Rx metoprolol tartrate 50 mg tablet See Rx Instructions .Route 08/02/24 08/10/24 Unknown Rx .COMPLEX #60 tabs divalproex 500 mg tablet,extended See Rx Instructions .Route 08/04/24 08/10/24 Unknown Rx release 24 hr .COMPLEX #60 tabs olanzapine 10 mg tablet See Rx Instructions .Route 08/04/24 08/10/24 Unknown Rx .COMPLEX #60 tabs Allergies Allergy/AdvReac Type Severity Reaction Status Date / Time No Known Allergies Allergy Verified 08/10/24 15:01 PFSH Acute 2 PFSH: Medical History Skin rash Physical deconditioning Osteoarthritis of hands, bilateral Immunization counseling Greater trochanteric pain syndrome High risk medication use Dementia in other diseases classified elsewhere with behavioral disturbance Surgical History No pertinent past surgical history Social History Smoking and tobacco/nicotine status: unknown if used tobacco/nicotine Alcohol intake: never Substance/Drug Use: never Lives independently: No Household members: caregiver Vitals/I&O/Wt Last Vital Signs Temp 97.7 F 08/10/24 14:57 Pulse 73 08/10/24 18:11 Resp 17 08/10/24 14:57 BP 139/78 08/10/24 18:11 Pulse Ox 93 08/10/24 18:11 O2 Del Method Room Air 08/10/24 18:11 Weight last 48 hrs Weight 81.647 kg Physical Exam 2 Narrative: Patient is euvolemic GCS 15 Maller rash on face which is chronic No new active deficit Pleasant during my evaluation Only able to answer simple questions Cognitive and intellectual challenges Lower extremity trace edema No vascular compromise Abdomen soft nontender S1, S2 Currently on room air Not requiring oxygen, afebrile Data 08/10/24 17:16 08/10/24 17:16 Micro: Microbiology 08/10/24 18:35 Blood Culture - Preliminary Blood SPECIMEN COLLECTED 08/10/24 18:32 Blood Culture - Preliminary Blood SPECIMEN COLLECTED A&P Assessment and plan (1) Aspiration pneumonia: (2) High risk medication use: (3) Essential hypertension: (4) GERD without esophagitis: (5) Incontinence: (6) Seronegative rheumatoid arthritis of multiple sites: (7) Fracture of radial head, left, closed: Qualifiers: Encounter type: subsequent encounter Fracture alignment: nondisplaced Fracture healing: with routine healing Qualified Code(s): S52.125D - Nondisplaced fracture of head of left radius, subsequent encounter for closed fracture with routine healing (8) Inferior pubic ramus fracture: (9) Left acetabular fracture: Qualifiers: Encounter type: subsequent encounter Sublocation of acetabulum: p osterior column Fracture type: closed Fracture alignment: displaced Fracture healing: with routine healing Qualified Code(s): S32.442D - Displaced fracture of posterior column [ilioischial] of left acetabulum, subsequent encounter for fracture with routine healing (10) Parkinson's disease (tremor, stiffness, slow motion, unstable posture): (11) Lewy body Parkinson disease: (12) 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 Howard wants to do MRI to rule out tumor versus osteoporotic fracture I will try to coordinate during this visit we will consult neonatal social worker as well Pain management with opioids along bowel regimen Constipation: Added bowel regimen For mood stabilization patient is on Depakote, antipsychotics, Seroquel Parkinsonian features: Continue carbidopa/levodopa combination Patient is wheelchair-bound: Check D-dimer to rule out thromboembolic disease For now DVT prophylaxis covered with Lovenox I will put him on pur?ed diet, request PT therapy Full code Attestations 2 Medical Necessity Statement*: More than 2 midnights anticipated Diagnoses Aspiration pneumonia J69.0 High risk medication use Z79.899 Essential hypertension I10 GERD without esophagitis K21.9 Incontinence R32 Seronegative rheumatoid arthritis of multiple sites M06.09 Closed nondisplaced fracture of head of left radius with routine healing, subsequent encounter S52.125D Encounter type: subsequent encounter Fracture alignment: nondisplaced Fracture healing: with routine healing Inferior pubic ramus fracture S32.599A Closed displaced fracture of posterior column of left acetabulum with routine healing, subsequent encounter S32.442D Encounter type: subsequent encounter Sublocation of acetabulum: posterior column Fracture type: closed Fracture alignment: displaced Fracture healing: with routine healing Parkinson's disease (tremor, stiffness, slow motion, unstable posture) G20 Lewy body Parkinson disease G31.83; F02.80 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
[2024-08-10 19:37] LABS: Covid PCR NEGATIVE (Negative); Influenza A NEGATIVE (Negative); Influenza B NEGATIVE (Negative); Respiratory Syncytial Virus Ce NEGATIVE (Negative)
[2024-08-10 20:06] LABS: D Dimer 2.02 ug/mLFEU (0-0.59)
[2024-08-10 20:20] LABS: Procalcitonin 0.16 ng/mL (0-0.5)
--- NOTE | 2024-08-10 20:38 | USR_ITS ---
PROCEDURE INFORMATION: Exam: US Duplex Lower Extremity Veins, Bilateral Exam date and time: 08/10/2024 9:15 PM Age: 73 years old Clinical indication: Edema, localized; Lower extremity, bilateral TECHNIQUE: Imaging protocol: Real-time duplex ultrasound of the bilateral extremities with 2-D soto scale, color Doppler flow and spectral waveform analysis including responses to compression and other maneuvers (when performed) with image documentation. Complete exam focused on the lower extremity veins. COMPARISON: CT pelvis wo con [id number] 07/26/2024 8:21 AM FINDINGS: Right deep veins: Unremarkable. The common femoral, femoral, proximal profunda femoral and popliteal veins and posterior tibial vein are patent without thrombus. Normal Doppler waveforms. Normal compressibility and/or augmentation response. Left deep veins: Unremarkable. The common femoral, femoral, proximal profunda femoral and popliteal veins and posterior tibial vein are patent without thrombus. Normal Doppler waveforms. Normal compressibility and/or augmentation response. Superficial veins: Greater saphenous veins at the saphenofemoral junctions are patent bilaterally without thrombus. Soft tissues: Unremarkable. US/CV venous duplex [facility] [id number] IMPRESSION: No evidence of deep vein thrombosis.
--- NOTE | 2024-08-10 20:38 | CTR_ITS ---
PROCEDURE INFORMATION: Exam: CTA Chest With Contrast Exam date and time: 08/10/2024 9:17 PM Age: 73 years old Clinical indication: Bloating; Other: Pneumonia; Additional info: Pneumonia TECHNIQUE: Imaging protocol: Computed tomographic angiography of the chest with contrast. Exam focused on the arteries. 3D rendering (Not supervised by radiologist): MIP and/or 3D reconstructed images were created by the technologist. Radiation optimization: All CT scans at this facility use at least one of these dose optimization techniques: automated exposure control; mA and/or kV adjustment per patient size (includes targeted exams where dose is matched to clinical indication); or iterative reconstruction. Contrast material: OMNIPAQUE 350; Contrast volume: 100 ml; Contrast route: INTRAVENOUS (IV); COMPARISON: CR (CHEST, ) 08/10/2024 5:30 PM RADIATION DOSE METRICS: Total DLP (mGy-cm): 1454.1 FINDINGS: Pulmonary arteries: No pulmonary arterial filling defect to the segmental level. Evaluation of some of the basilar subsegmental branches is limited by suboptimal opacification. Aorta: Unremarkable. No aortic aneurysm. No aortic dissection. Lungs: Moderate reticular interstitial fibrotic changes most pronounced in the bilateral perihilar and basilar regions. Relatively low lung volumes. Mild superimposed ground-glass densities could indicate pneumonitis especially in the right lung [id number] atelectasis of the left lower lobe. Pleural spaces: Unremarkable. No pneumothorax. No pleural effusion. Heart: Moderate coronary calcification. No cardiomegaly. No pericardial effusion. Lymph nodes: Mild bilateral hilar adenopathy up to 1.6 cm is likely reactive. Bones/joints: Mild rotary kyphoscoliosis. Moderate multilevel degenerative thoracic spondylosis. No acute fracture. Mild wedge compression of T11 and T12 with up to 30% and 40% height loss, respectively, presumed to be chronic. Soft tissues: Unremarkable. PROCEDURE INFORMATION: Exam: CT Abdomen And Pelvis With Contrast Exam date and time: 08/10/2024 9:17 PM Age: 73 years old Clinical indication: Bloating TECHNIQUE: Imaging protocol: Computed tomography of the abdomen and pelvis with contrast. Radiation optimization: All CT scans at this facility use at least one of these dose optimization techniques: automated exposure control; mA and/or kV adjustment per patient size (includes targeted exams where dose is matched to clinical indication); or iterative reconstruction. Contrast material: OMNIPAQUE 350; Contrast volume: 100 ml; Contrast route: INTRAVENOUS (IV); COMPARISON: CR XR pelvis min 3V [id number] 07/20/2024 2:15 PM RADIATION DOSE METRICS: Total DLP (mGy-cm): 1454.1 FINDINGS: Liver: Normal. No mass. Gallbladder and biliary ducts: Normal. No calcified stones. No ductal dilation. Pancreas: Mild diffuse pancreatic atrophy. No duct dilation. Spleen: Normal. No splenomegaly. Adrenal glands: Normal. No mass. Kidneys and ureters: Normal. No hydronephrosis. Stomach and bowel: Moderate amount colonic stool retention. Mild gaseous distension of the colon. Appendix: No evidence of appendicitis. Intraperitoneal space: Unremarkable. No free air. No significant fluid collection. Vasculature: Moderate ostial stenosis of the celiac trunk, SMA and renal arteries. Lymph nodes: Unremarkable. No enlarged lymph nodes. Urinary bladder: Unremarkable as visualized. Reproductive: Unremarkable as visualized. Bones/joints: Diffuse osteopenia. Mild rotary scoliosis. Advanced multilevel lumbar spondylosis. Moderate to high-grade foraminal stenosis at L4-L5 and L5-S1 no high-grade canal stenosis identified. Subacute fracture of the left inferior pubic ramus mild impaction, medial left acetabular wall and posterior column with inward convex displacement and protrusio acetabuli. Mild callus formation. Ankylosis of the SI joints noted. Soft tissues: No additional abnormality CT/CT angio chest w abd pel w con IMPRESSION: 1. No evidence of pulmonary embolism. Limited assessment of the basilar subsegmental branches. 2. 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 Superimposed patchy ground-glass opacities suggesting atypical pneumonitis. Moderate left basilar atelectasis. Radiographic follow-up to resolution recommended 3. Diffuse osteopenia. Age-indeterminate moderate compression of T11 and T12, presumed to be chronic. IMPRESSION: 1. Gzrundzs-mu-xbhpi volume colonic stool retention/constipation. 2. Diffuse osteopenia. Subacute fractures of the left acetabulum and inferior pubic ramus. 3. Other chronic findings detailed above
--- NOTE | 2024-08-10 20:40 | USCV_ITS ---
Ernie Lopez Age: 73 Gender: M : 1950 Exam Date: 08/10/2024 22:04 Ordering Phys: Donny Patel MD Technologist: KENDELL [place] [facility] [place]: leg swelling, hypotension BP: 139 / 78 HR: 75 Rhythm: Sinus Technical Quality: Adequate MEASUREMENTS (Male / Female) Normal Values 2D ECHO LV Diastolic Diameter PLAX 2.9 cm 4.2 - 5.9 / 3.9 - 5.3 cm IVS Diastolic Thickness 1.4 cm 0.6 - 1.0 / 0.6 - 0.9 cm IVS Systolic Thickness 2.3 cm LVPW Diastolic Thickness 1.5 cm 0.6 - 1.0 / 0.6 - 0.9 cm LVPW Systolic Thickness 1.6 cm LVOT Diameter 1.8 cm LV Ejection Fraction 2D Teich 63.2 % LV Ejection Fraction MOD 4C 58.5 % LV Ejection Fraction MOD 2C 53.9 % LV Ejection Fraction 2C AL 54.0 % LA Diameter 2.9 cm Aorta at Sinotubular Diameter 2.6 cm IVC Diameter 1.2 cm M-MODE LA Ao Ratio MM 1.0 AV Cusp Separation MM 1.8 cm DOPPLER AV Peak Velocity 108.0 cm/s LVOT Peak Velocity 92.0 cm/s AV Area Cont Eq vti 2.2 cm squared AV Area Cont Eq pk 2.3 cm squared MV Peak Velocity 110.0 cm/s MV Area PHT 5.0 cm squared Mitral E to A Ratio 0.8 TV Peak E Velocity 44.0 cm/s PV Peak Velocity 101.0 cm/s FINDINGS Left Ventricle Normal left ventricular size, systolic function and wall thickness, with no regional wall motion abnormalities. Left ventricular ejection fraction is estimated at 60 %. Grade I/IV diastolic dysfunction (abnormal relaxation filling pattern), normal to mildly elevated filling pressures. Right Ventricle The right ventricle is normal in size and function. Right Atrium The right atrium is normal in size. Left Atrium The left atrium is normal in size. Mitral Valve Structurally normal mitral valve without significant stenosis or prolapse. There is no mitral regurgitation. Aortic Valve Structurally normal aortic valve without significant sclerosis or stenosis. There is no aortic regurgitation. Tricuspid Valve Structurally normal tricuspid valve without significant stenosis or regurgitation. Pulmonary artery systolic pressure is normal. Pulmonic Valve Structurally normal pulmonic valve without significant stenosis. There is no pulmonic regurgitation. Pericardium Normal pericardium without effusion. Aorta Normal ascending aorta dimension. IVC The inferior vena cava appears normal. CONCLUSIONS Normal left ventricular size, systolic function and wall thickness, with no regional wall motion abnormalities. Left ventricular ejection fraction is estimated at 60 %. Grade I/IV diastolic dysfunction (abnormal relaxation filling pattern), normal to mildly elevated filling pressures. No significant valve abnormalities. There is no pericardial effusion. Right atrial pressure is around 5 mm of mercury. Donny Orozco MD (Electronically Signed) Final Date: 11 August 2024 17:36 S
[2024-08-10] MEDS: iohexol 350 mg/mL 500 mL Btl (per mL) IV (21:24)
[2024-08-10 21:34] LABS: NT Pro B Type Natriuretic Pept 898 pg/mL (0-450); Sodium 124 mmol/L (136-145)
[2024-08-10] MEDS: AZITHROMYCIN ADD-Vantage 500 MG in 0.9% NaCl ADD-Vantage 250 ML 250 MG IV (22:12)
[2024-08-10] MEDS: enoxaparin 40 mg/0.4 mL Syringe SUBCUT (22:14)
[2024-08-10] MEDS: sodium chloride 0.9% 1,000 ML 999 ML IV (22:14)
[2024-08-10] MEDS: divalproex ER 500 mg Tablet (24H) 1000 MG PO (22:23)
[2024-08-10] MEDS: piperacillin-tazobactam 3.375 GM in sodium chloride 0.9% (plus) 50 ML IV (22:28)
[2024-08-10 22:30] VITALS: PULSE 70; RESP 18; O2SAT 95
[2024-08-10] MEDS: lactulose oral liq 20 gm/30 mL UDC 10 GM PO (23:13)
[2024-08-10] MEDS: magnesium citrate Btl 296 mL 150 ML PO (23:14)
[2024-08-10 23:40] VITALS: BP 126/90; PULSE 69; RESP 18; O2SAT 96
[2024-08-11] VITALS (14 sets, daily range): BP systolic 105–158; BP diastolic 32–134; PULSE 67–88; RESP 16–20; TEMP 37.1–37.2; O2SAT 90–98; BMI 34.5
[2024-08-11 01:34] LABS: Sodium 123 mmol/L (136-145)
[2024-08-11 04:41] LABS: Basophils % 0.4 %; Eosinophils # 0.1 10^3/uL (0.0-0.8); Eosinophils % 1.8 %; Hematocrit 25.9 % (37-53); Lymphocytes # 0.7 10^3/uL (0.8-4.8); Lymphocytes % 13.3 %; Mean Corpuscular HGB Conc 32.4 g/dL (30-55); Mean Corpuscular Hemoglobin 30.2 pg (27-33); Mean Corpuscular Volume 93.2 fl (82-101); Mean Platelet Volume 9.2 fL (7.4-10.4); Monocytes # 0.3 10^3/uL (0.2-0.9); Monocytes % 4.7 %; Neutrophils # 4.21 10^3/uL (1.8-7.7); Neutrophils % 76.9 %; Nucleated Red Blood Cells % 0 %; Platelet Count 106 10^3/cmm (157-399); Red Blood Count 2.78 10^6/uL (3.85-5.65); Red Cell Distribution Width 15.8 % (12.1-15.1); White Blood Count 5.48 10^3/uL (3.29-11.43)
[2024-08-11 04:57] LABS: Anion Gap 12.3 (5-19); Blood Urea Nitrogen 24 mg/dL (8-23); C Reactive Protein 53.2 mg/L (0.0-4.9); Calcium 7.8 mg/dL (8.5-10.5); Carbon Dioxide 25 mmol/L (22-29); Chloride 93 mmol/L (98-107); Creatinine Clr Calc Pharmacy 73.8233; Glucose 82 mg/dL (65-115); Magnesium 1.9 mg/dL (1.7-2.3); Osmolality Calculated 265 mOsm/kg (285-295); Potassium 4.3 mmol/L (3.5-5.1); Sodium 126 mmol/L (136-145)
[2024-08-11] MEDS: piperacillin-tazobactam 3.375 GM in sodium chloride 0.9% (plus) 50 ML IV ×2 (05:27→17:37)
[2024-08-11] MEDS: levothyroxine 100 mcg Tablet 50 MCG PO (05:28)
[2024-08-11] MEDS: folic acid 1 mg Tablet PO (05:28)
--- NOTE | 2024-08-11 08:23 | PC.PHAR ---
Medication record recorded from [facility] Care med list from [facility] clinic visit 08/10/24.
--- NOTE | 2024-08-11 09:22 | PC.CHAP ---
Pastoral Care Encounter/Spiritual Assessment Type of Contact [] Declined copy holder visit [] Patient/Family/Request visit [] Outpatient visit [] Follow-up visit [] Physician referral [] Code/Alert [x] Routine visit [] Staff referral [] Actively dying [] Patient sleeping [] Family support [] [] Out of room [] Palliative care [] [] Receiving care in room [] Pre-surgical visit [] Trauma [] Long length of stay [] ICU visit [] Other: Relational/Emotional Strength [x] Patient feels connected with others/family/visitors/staff [] Distress [] Loneliness/isolation [] Abandonment Spirituality of Patient [x] Person of Chantel [] Attends Mormonism of their Chantel [x] Believes in Prayer [] Reads Bible or Buddhism materials [] There are Spiritual issues to be addressed Electrician Apprentice Interventions [x] Prayer [x] Active listening [] Non-anxious presence [x] Spiritual/emotional support [] Crisis/trauma care [] Spiritual counseling [] Bereavement support [] Provided bereavement packet [] Provided Bible/devotional materials [] Provided toy/stuffed animal, coloring book to patient or family member [] Provided Communion [] Anointing/[place] [] Salvation [x] Completed spiritual assessment [] Other: Impact on Illness or Injury [] Angry [] Fearful [] Anxious [] Often cries [] Exhaustion [] Unable to work [] Unable to attend latter-day [] Unable to walk/stand [] Unable to read [] Unable to drive [] Unable to eat/drink [] Unable to sleep [] Unable to be with family [] Patient intubated [] Other: Summary Time spent with patient 5 min
--- NOTE | 2024-08-11 09:35 | ECG_ITS ---
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 Measurements Intervals [place] Rate: 84 P: 26 SC: 234 QRS: -38 QRSD: 145 T: 10 QT: 346 QTc: 411 Interpretive Statements SINUS RHYTHM WITH FIRST DEGREE AV BLOCK LEFT AXIS DEVIATION [QRS AXIS < -30] RIGHT BUNDLE BRANCH BLOCK [120+ ms QRS DURATION, UPRIGHT V1, 40+ ms S IN I/aVL/V4/V5/V6] Compared to ECG 08/10/2024 15:04:12 First degree AV block now present Left-axis deviation now present Electronically Signed On 08-12-2024 11:16:20 BODY PRESS OPERATOR by Daniel Peres M.D. [id number]
[2024-08-11 09:48] LABS: Troponin(5th) Baseline 44 ng/L (0-15)
[2024-08-11 09:49] LABS: Ferritin 646 ng/mL (30-400); Iron 56 ug/dL (59-158); Percent Saturation 30.6 % (20-50); Total Iron Binding Capacity 183 mcg/dl; Unsaturated Iron Binding 127 ug/dL (112-347)
[2024-08-11] MEDS: carbidopa-levodopa 25-100mg Tablet 2 EACH PO ×2 (10:25→17:36)
[2024-08-11] MEDS: divalproex ER 250 mg Tablet (24H) PO (10:25)
[2024-08-11] MEDS: pantoprazole DR 40 mg Tablet PO (10:25)
[2024-08-11] MEDS: quetiapine 100 mg Tablet 200 MG PO ×2 (10:25→17:30)
[2024-08-11] MEDS: OLANZapine 10 mg TABLET 5 MG PO ×2 (10:26→17:36)
[2024-08-11] MEDS: predniSONE 5 mg Tablet PO (10:26)
[2024-08-11] MEDS: sennosides-docusate Tablet 2 TAB PO (10:26)
[2024-08-11] MEDS: FUROsemide 10 mg/mL SDV 2mL 20 MG IVP (10:26)
[2024-08-11 13:18] LABS: Basophils % 0.1 %; Eosinophils # 0.1 10^3/uL (0.0-0.8); Eosinophils % 0.9 %; Hematocrit 27.3 % (37-53); Lymphocytes # 0.3 10^3/uL (0.8-4.8); Mean Corpuscular HGB Conc 33.3 g/dL (30-55); Mean Corpuscular Hemoglobin 31.1 pg (27-33); Mean Corpuscular Volume 93.2 fl (82-101); Mean Platelet Volume 9.4 fL (7.4-10.4); Monocytes # 0.3 10^3/uL (0.2-0.9); Monocytes % 4.8 %; Neutrophils # 5.94 10^3/uL (1.8-7.7); Neutrophils % 88.7 %; Nucleated Red Blood Cells % 0 %; Platelet Count 106 10^3/cmm (157-399); Red Blood Count 2.93 10^6/uL (3.85-5.65); Red Cell Distribution Width 15.9 % (12.1-15.1)
[2024-08-11 13:44] LABS: Anion Gap 15.3 (5-19); Blood Urea Nitrogen 21 mg/dL (8-23); Calcium 7.9 mg/dL (8.5-10.5); Carbon Dioxide 24 mmol/L (22-29); Chloride 89 mmol/L (98-107); Creatinine Clr Calc Pharmacy 67.2405; Glucose 129 mg/dL (65-115); Osmolality Calculated 263 mOsm/kg (285-295); Potassium 4.3 mmol/L (3.5-5.1); Sodium 124 mmol/L (136-145)
--- NOTE | 2024-08-11 15:04 | ECG_ITS ---
[facility] Date: 2024-08-11 Pat Name: Ernie Lopez Department: Room: 262 Gender: Male Die Mounter: : 1950 Requested By: Jerad Dang Order Number: [id number] Carlo MD: Daniel Peres M.D. Measurements Intervals [place] Rate: 88 P: 25 ND: 213 QRS: -29 QRSD: 140 T: 11 QT: 360 QTc: 436 Interpretive Statements SINUS RHYTHM WITH FIRST DEGREE AV BLOCK BORDERLINE LEFT AXIS DEVIATION [QRS AXIS < -20] RIGHT BUNDLE BRANCH BLOCK [120+ ms QRS DURATION, UPRIGHT V1, 40+ ms S IN I/aVL/V4/V5/V6] Compared to ECG 08/11/2024 09:35:31 No significant changes Electronically Signed On 08-14-2024 13:42:31 BRANCH OPERATIONS MANAGER by Daniel Peres M.D. [id number]
--- NOTE | 2024-08-11 17:05 | P.PN_ITS ---
Subjective 2 Subjective: Patient was seen this morning he is alert to person, to place, not to time he follows commands, has developmental disability, I cannot get any significant history from him, he has no significant pain complaints Vitals/I&O/Wt Last Vital Signs Temp 97.7 F 08/10/24 14:57 Pulse 83 08/11/24 08:46 Resp 20 H 08/11/24 08:46 BP 131/74 08/11/24 07:52 Pulse Ox 98 08/11/24 08:46 O2 Del Method Nasal Cannula 08/11/24 08:46 O2 Flow Rate 1.5 08/11/24 08:46 08/11/24 08/11/24 08/11/24 06:59 14:59 22:59 Intake Total 2660 / 2660 170 / 170 Balance 2660 / 2660 170 / 170 Weight last 48 hrs Weight 85.684 kg Weight 81.647 kg Physical Exam 2 Const: COMMON NORMALS: no acute distress ORIENTATION/CONSCIOUSNESS: Yes awake and Yes oriented to person; not oriented to place and not oriented to time Resp: COMMON NORMALS: normal respiratory effort, No retractions, No use of accessory muscles and clear to auscultation bilaterally AUSCULTATION: clear to auscultation bilaterally Cardio: COMMON NORMALS: regular rate, regular rhythm, S1 normal heart sound present and S2 normal heart sound present RATE: regular rate RHYTHM: r egular rhythm HEART SOUNDS: S1 normal heart sound present and S2 normal heart sound present GI: COMMON NORMALS: Normal to inspection, nondistended, normoactive bowel sounds present and non-tender Extremity: COMMON NORMALS: no pedal edema Neuro: SENSORIUM/ORIENTATION: Yes oriented to person, No oriented to place and No oriented to time Data 08/11/24 13:10 08/11/24 13:10 Micro: Microbiology 08/10/24 18:35 Blood Culture - Preliminary Blood SPECIMEN COLLECTED 08/10/24 18:32 Blood Culture - Preliminary Blood SPECIMEN COLLECTED A&P Assessment and plan (1) Aspiration pneumonia: (2) High risk medication use: (3) Essential hypertension: (4) GERD without esophagitis: (5) Incontinence: (6) Seronegative rheumatoid arthritis of multiple sites: (7) Fracture of radial head, left, closed: Qualifiers: Encounter type: subsequent encounter Fracture alignment: nondisplaced Fracture healing: with routine healing Qualified Code(s): S52.125D - Nondisplaced fracture of head of left radius, subsequent encounter for closed fracture with routine healing (8) Inferior pubic ramus fracture: (9) Left acetabular fracture: Qualifiers: Encounter type: subsequent encounter Sublocation of acetabulum: p osterior column Fracture type: closed Fracture alignment: displaced Fracture healing: with routine healing Qualified Code(s): S32.442D - Displaced fracture of posterior column [ilioischial] of left acetabulum, subsequent encounter for fracture with routine healing (10) Parkinson's disease (tremor, stiffness, slow motion, unstable posture): (11) Lewy body Parkinson disease: (12) 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 Superimposed patchy ground-glass opacities suggesting atypical pneumonitis. Moderate left basilar atelectasis. Radiographic follow-up to resolution recommended High risk for aspiration dysphagia level 4 diet, aspiration precautions Continue Zosyn procalcitonin 0.16 , crp 53.2 Acute on chronic hyponatremia -Is on multiple psychotropic medication -Urine studies -Appears euvolemic -No evidence of psychogenic polydipsia -Monitor serum sodiums every 6 hours Left acetabular fracture: MRI left hip Dr. Howard consulted Constipation: CT imaging showing moderate to large volume colonic stool retention/constipation -Bowel regimen For mood stabilization patient is on Depakote, antipsychotics, Seroquel Parkinsonian features: Continue carbidopa/levodopa combination Patient is wheelchair-bound: For now DVT prophylaxis covered with Lovenox I will put him on pur?ed diet, request PT therapy Full code Attestations 2 Medical Necessity Statement*: Patient requires hospitalization for community-acquired pneumonia, hyponatremia, left acetabular fracture, constipation Diagnoses Aspiration pneumonia J69.0 High risk medication use Z79.899 Essential hypertension I10 GERD without esophagitis K21.9 Incontinence R32 Seronegative rheumatoid arthritis of multiple sites M06.09 Closed nondisplaced fracture of head of left radius with routine healing, subsequent encounter S52.125D Encounter type: subsequent encounter Fracture alignment: nondisplaced Fracture healing: with routine healing Inferior pubic ramus fracture S32.599A Closed displaced fracture of posterior column of left acetabulum with routine healing, subsequent encounter S32.442D Encounter type: subsequent encounter Sublocation of acetabulum: posterior column Fracture type: closed Fracture alignment: displaced Fracture healing: with routine healing Parkinson's disease (tremor, stiffness, slow motion, unstable posture) G20 Lewy body Parkinson disease G31.83; F02.80 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
[2024-08-11] MEDS: bisacodyl 5 mg Tablet 10 MG PO (17:36)
[2024-08-11] MEDS: polyethylene glycol 3350 Pkt 17 gm PO (17:36)
[2024-08-11] MEDS: sodium chloride 1 gm Tablet PO (17:36)
[2024-08-11] MEDS: divalproex ER 500 mg Tablet (24H) 1000 MG PO (20:38)
[2024-08-11] MEDS: enoxaparin 40 mg/0.4 mL Syringe SUBCUT (20:38)
[2024-08-11 21:22] LABS: Sodium 125 mmol/L (136-145)
--- NOTE | 2024-08-11 21:58 | MR_ITS ---
WS: [id number] MRI LEFT HIP WITHOUT CONTRAST. COMPARISON: CT 08/10/2024, 07/26/2024 Multiplanar, multisequence imaging is performed without contrast. Study is compromised by motion on all sequences. Reidentified is extensive marrow edema in the LEFT acetabulum and LEFT femoral head and neck. Patient has a known comminuted fracture involving the acetabulum with medial migration of the femoral head. No definite fracture is been identified on CT within the femoral head and neck. There is a large amou nt of marrow edema but no definite fracture. Extensive marrow edema extends into the proximal femur. There is variable signal involving the femoral head, neck and proximal femur. Mild synovial thickening and a small joint effusion at the acetabulum. There is mild soft tissue mouna a. No discrete mass is identified. This study was performed without IV contrast. MR/MR hip LT con* [id number] IMPRESSION: 1. Study is limited due to motion artifact and lack of contrast. 2. Comminuted fracture involving the LEFT acetabulum as previously described. There is a large amount of marrow edema. 3. Medial migration of the LEFT femoral head through the acetabulum. 4. Extensive marrow edema in the LEFT femoral head, neck and proximal femur. T rabecular injury with edema. No definite fracture identified but occult fractur e should be considered. 5. LEFT hip joint effusion and mild synovial thickening. No definite mass iden tified.
[2024-08-11 23:27] LABS: Potassium, Radom Urine 22 mmol/L; Urine Creatinine 36 mg/dL (39-259); Urine Random Chloride 99 mmol/L; Urine Random Sodium 102 mmol/L
[2024-08-12] VITALS (7 sets, daily range): BP systolic 108–144; BP diastolic 64–84; PULSE 80–115; RESP 15–20; TEMP 36.3–37.1; O2SAT 90–94
[2024-08-12 00:04] LABS: Eosinophil Urine No Eosinophils Seen; Urine Eosinophil Count 0 (0-0)
[2024-08-12] MEDS: piperacillin-tazobactam 3.375 GM in sodium chloride 0.9% (plus) 50 ML IV ×3 (01:39→18:05)
[2024-08-12 02:10] LABS: Basophils % 0.4 %; Eosinophils # 0.1 10^3/uL (0.0-0.8); Eosinophils % 2.5 %; Hematocrit 29.4 % (37-53); Lymphocytes # 0.9 10^3/uL (0.8-4.8); Lymphocytes % 15.5 %; Mean Corpuscular HGB Conc 32.7 g/dL (30-55); Mean Corpuscular Hemoglobin 30.8 pg (27-33); Mean Corpuscular Volume 94.2 fl (82-101); Mean Platelet Volume 9.3 fL (7.4-10.4); Monocytes # 0.4 10^3/uL (0.2-0.9); Monocytes % 7.2 %; Neutrophils # 4.07 10^3/uL (1.8-7.7); Neutrophils % 71.8 %; Nucleated Red Blood Cells % 0 %; Platelet Count 119 10^3/cmm (157-399); Red Blood Count 3.12 10^6/uL (3.85-5.65); White Blood Count 5.67 10^3/uL (3.29-11.43)
[2024-08-12 02:27] LABS: Alanine Aminotransferase < 5 U/L (0-41); Albumin Level 2.8 g/dL (3.5-5.2); Alkaline Phosphatase 108 U/L (40-130); Anion Gap 13.1 (5-19); Aspartate Amino Transferase 15 U/L (0-40); Blood Urea Nitrogen 20 mg/dL (8-23); Calcium 8.5 mg/dL (8.5-10.5); Carbon Dioxide 28 mmol/L (22-29); Chloride 91 mmol/L (98-107); Creatinine Clr Calc Pharmacy 60.5164; Globulin 3.7 g/dL (1.3-4.6); Glucose 92 mg/dL (65-115); Osmolality Calculated 268 mOsm/kg (285-295); Phosphorus 2.8 mg/dL (2.5-4.5); Potassium 4.1 mmol/L (3.5-5.1); Sodium 128 mmol/L (136-145); Total Bilirubin 0.4 mg/dL (0.15-1.2); Total Protein 6.5 g/dL (6.6-8.7)
[2024-08-12] MEDS: levothyroxine 100 mcg Tablet 50 MCG PO (04:58)
[2024-08-12] MEDS: folic acid 1 mg Tablet PO (04:59)
[2024-08-12 08:39] LABS: Sodium 129 mmol/L (136-145)
[2024-08-12] MEDS: carbidopa-levodopa 25-100mg Tablet 2 EACH PO ×2 (09:17→18:05)
[2024-08-12] MEDS: sodium chloride 1 gm Tablet PO ×2 (09:18→18:04)
[2024-08-12] MEDS: polyethylene glycol 3350 Pkt 17 gm PO ×2 (09:18→18:05)
[2024-08-12] MEDS: divalproex ER 250 mg Tablet (24H) PO (09:19)
[2024-08-12] MEDS: bisacodyl 5 mg Tablet 10 MG PO (09:20)
[2024-08-12] MEDS: predniSONE 5 mg Tablet PO (09:21)
[2024-08-12] MEDS: pantoprazole DR 40 mg Tablet PO (09:21)
[2024-08-12] MEDS: quetiapine 100 mg Tablet 200 MG PO ×2 (09:22→18:05)
[2024-08-12] MEDS: OLANZapine 10 mg TABLET 5 MG PO ×2 (09:23→18:05)
--- NOTE | 2024-08-12 09:42 | PM.CONSULT ---
Providers/Reason For Consult Consulting Physician/Specialty*: Hospitalist Reason for Consult*: Left acetabular fracture Attending Physician: Jerad Dang MD Primary Care Provider: Kishore Avalos DO History of Present Illness History of Present Illness Ernie Lopez is a 73 year old male sustained a acetabular fracture approximately 2 months ago. Was planning to do total hip arthroplasty on him patient was admitted to the hospital. This point we will plan to do the total hip while he is here. Review of Systems General: Reports: 10 or more systems reviewed and unremarkable except in HPI and below Const: Denies: fever(s), chills or body aches Eyes: Denies: change in vision Card: Denies: chest pain, dyspnea on exertion or orthopnea Resp: Denies: dyspnea, productive cough or wheezing GI: Denies: abdominal pain, nausea or vomiting Musc: Denies: neck pain, back pain, extremity pain, joint pain, joint swelling or limited range of motion Skin/Breast: Denies: changes in skin color or dry skin Neuro: Denies: numbness in extremities or weakness in extremities Psych: Denies: anxiety or depression [place]/Lymph: Denies: easy bruising or easy bleeding Medications/Allergies Home Medications Medication Instructions Recorded Confirmed Last Taken Type aluminum-mag hydroxide-simethicone 30 ml PO Q4H PRN Constipation 08/11/19 08/11/24 Unknown History 400 mg-400 mg-40 mg/5 mL oral susp (Mylanta Maximum Strength) ibuprofen 600 mg tablet 600 mg PO Q8H PRN pain #60 tabs 03/27/23 08/11/24 Unknown Rx vitamins A and D-white See Rx Instructions .Route 09/16/23 08/11/24 Unknown Rx petrolatum-lanolin topical .COMPLEX #113 grams ointment (A and D (lanolin-petrolatum) topical ointment) acetaminophen 325 mg tablet 650 mg PO Q4H PRN PAIN OR TEMP 10/07/23 08/11/24 Unknown History allantoin 0.2 % topical cream 1 applic topical QID DRY SKIN 10/07/23 08/11/24 10/07/23 History (Cutemol) ammonium lactate 12 % lotion 1 applic topical QAM 10/07/23 08/11/24 Unknown History lanolin alcohols-mineral 1 applic topical BID PRN Dry Skin 10/07/23 08/11/24 Unknown History oil-w.petrolatum-ceresin topical cream (Eucerin topical cream) terbinafine HCl 1 % topical cream 1 applic topical BID 10/07/23 08/11/24 Unknown History folic acid 1 mg tablet 1 mg PO QAM #90 tabs 11/12/23 08/11/24 Unknown Rx trihexyphenidyl 2 mg tablet 2 mg PO BID #180 tabs 01/02/24 08/11/24 Unknown Rx divalproex 250 mg tablet,extended See Rx Instructions .Route 01/27/24 08/11/24 Unknown Rx release 24 hr .COMPLEX #30 tabs carbamide peroxide 6.5 % ear drops See Rx Instructions .Route 02/10/24 08/11/24 Unknown Rx (Ear Wax Removal Drops) .COMPLEX #15 mL dextromethorphan-guaifenesin 10 See Rx Instructions .Route 02/23/24 08/11/24 Unknown Rx mg-100 mg/5 mL oral syrup (Chest .COMPLEX #237 mL Congestion Relief DM) magnesium hydroxide 400 mg/5 mL See Rx Instructions .Route 02/23/24 08/11/24 Unknown Rx oral suspension (Milk of Magnesia) .COMPLEX #473 mL diclofenac sodium 1 % topical gel 2 g topical QID PRN Pain #100 grams 03/09/24 08/11/24 Unknown Rx Cleansing Wipes #30 ea 05/05/24 08/11/24 Unknown Rx disposable gloves #50 ea 05/05/24 08/11/24 Unknown Rx extra large adult briefs #30 ea 05/05/24 08/11/24 Unknown Rx methotrexate sodium 2.5 mg tablet See Rx Instructions .Route 05/12/24 08/11/24 Unknown Rx .COMPLEX #60 tabs prednisone 10 mg tablet See Rx Instructions PO .COMPLEX 05/12/24 08/11/24 Unknown Rx PRN joint pain flare #90 tabs prednisone 5 mg tablet 5 mg PO DAILY #90 tabs 05/12/24 08/11/24 Unknown Rx hydrocodone 5 mg-acetaminophen 325 1 tab PO Q6H PRN pain #14 tabs 05/28/24 08/11/24 Unknown Rx mg tablet cetirizine 10 mg tablet (All Day 10 mg PO DAILY PRN allergy 06/15/24 08/11/24 Unknown Rx Allergy (cetirizine)) symptoms #30 tabs omeprazole 40 mg capsule,delayed 40 mg PO DAILY #90 caps 06/18/24 08/11/24 Unknown Rx release levothyroxine 50 mcg tablet 50 mcg PO QAM #90 tabs 06/22/24 08/11/24 Unknown Rx paroxetine HCl 30 mg tablet See Rx Instructions .Route 06/22/24 08/11/24 Unknown Rx .COMPLEX #30 tabs carbidopa 25 mg-levodopa 100 mg See Rx Instructions .Route 06/24/24 08/11/24 Unknown Rx tablet .COMPLEX #150 tabs quetiapine 200 mg tablet (Seroquel) 200 mg PO BID #60 tabs 07/01/24 08/11/24 Unknown Rx Hospital bed #1 ea 07/13/24 08/11/24 Unknown Rx metoprolol tartrate 50 mg tablet See Rx Instructions .Route 08/02/24 08/11/24 Unknown Rx .COMPLEX #60 tabs divalproex 500 mg tablet,extended See Rx Instructions .Route 08/04/24 08/11/24 Unknown Rx release 24 hr .COMPLEX #60 tabs olanzapine 10 mg tablet See Rx Instructions .Route 08/04/24 08/11/24 Unknown Rx .COMPLEX #60 tabs Wheelchair #1 ea 08/11/24 08/11/24 Unknown Rx Allergies Allergy/AdvReac Type Severity Reaction Status Date / Time No Known Allergies Allergy Verified 08/10/24 15:01 Current Medications Generic Name Dose Route Start Last Admin Trade Name Freq PRN Reason Stop Dose Admin Bisacodyl 10 mg 08/11/24 17:10 08/11/24 17:36 Bisacodyl 5 Mg Tablet PO 10 mg DAILY GEREMIAS Administration Carbidopa/Levodopa 2 each 08/11/24 08:00 08/11/24 17:36 Carbidopa-Levodopa 25-100mg Tablet PO 2 each BID@08,16 GEREMIAS Administration Carbidopa/Levodopa 1 each 08/11/24 12:00 08/11/24 10:18 Carbidopa-Levodopa 25-100mg Tablet PO Not Given 1200 GEREMIAS Divalproex Sodium 1,000 mg 08/10/24 21:58 08/11/24 20:38 Divalproex Er 500 Mg Tablet (24h) PO 1,000 mg BEDTIME GEREMIAS Administration Divalproex Sodium 250 mg 08/11/24 09:00 08/11/24 10:25 Divalproex Er 250 Mg Tablet (24h) PO 250 mg DAILY GEREMIAS Administration Enoxaparin Sodium 40 mg 08/10/24 19:45 08/11/24 20:38 Enoxaparin 40 Mg/0.4 Ml Syringe SUBCUT 40 mg Q24H GEREMIAS Administration Folic Acid 1 mg 08/11/24 06:00 08/12/24 04:59 Folic Acid 1 Mg Tablet PO 1 mg QAM GEREMIAS Administration Piperacillin Sod/Tazobactam 50 mls @ 12.5 mls/hr 08/11/24 06:00 08/12/24 05:58 Sod 3.375 gm/ Sodium Chloride IV Infused Q8H GEREMIAS Infusion Levothyroxine Sodium 50 mcg 08/11/24 06:00 08/12/24 04:58 Levothyroxine 100 Mcg Tablet PO 50 mcg QAM GEREMIAS Administration Olanzapine 5 mg 08/11/24 09:00 08/11/24 17:36 Olanzapine 10 Mg Tablet PO 5 mg BID GEREMIAS Administration Pantoprazole Sodium 40 mg 08/11/24 09:00 08/11/24 10:[address] 40 Mg Tablet PO 40 mg DAILY GEREMIAS Administration Polyethylene Glycol 17 gm 08/11/24 18:00 08/11/24 17:36 Polyethylene Glycol 3350 Pkt 17 Gm PO 17 gm BID GEREMIAS Administration Prednisone 5 mg 08/11/24 09:00 08/11/24 10:26 Prednisone 5 Mg Tablet PO 5 mg DAILY GEREMIAS Administration Quetiapine Fumarate 200 mg 08/11/24 09:00 08/11/24 17:30 Quetiapine 100 Mg Tablet PO 200 mg BID GEREMIAS Administration Sodium Chloride 1 gm 08/11/24 18:00 08/11/24 17:36 Sodium Chloride 1 Gm Tablet PO 1 gm BID GEREMIAS Administration Trihexyphenidyl HCl 2 mg 08/11/24 09:00 08/11/24 17:36 Trihexyphenidyl 2 Mg Tablet PO 2 mg BID GEREMIAS Administration PFSH Acute PFSH: Medical History Skin rash Physical deconditioning Osteoarthritis of hands, bilateral Immunization counseling Greater trochanteric pain syndrome High risk medication use Dementia in other diseases classified elsewhere with behavioral disturbance Surgical History No pertinent past surgical history Social History Smoking and tobacco/nicotine status: unknown if used tobacco/nicotine Alcohol intake: never Substance/Drug Use: never Lives independently: No Household members: caregiver Vitals/I&O/Wt Last Vital Signs Temp 98.3 F 08/12/24 07:31 Pulse 91 08/12/24 08:20 Resp 18 08/12/24 08:20 BP 137/74 08/12/24 07:31 Pulse Ox 94 08/12/24 08:20 O2 Del Method Room Air 08/12/24 08:20 O2 Flow Rate 1.5 08/11/24 08:46 08/11/24 08/12/24 08/12/24 22:59 06:59 14:59 Intake Total 170 / 340 50 / 390 120 / 120 Output Total 380 / 380 Balance 170 / 340 -330 / 10 120 / 120 Weight last 48 hrs Weight 185 lb 2 oz Weight 188 lb 14.4 oz Weight 180 lb Physical Exam Narrative: Alert and oriented x 3 Head is normocephalic atraumatic Respirations are intact No evidence of any rashes or infection 5/5 strength in bilateral upper and lower extremities Sensation intact in all extremities Deep tendon reflexes 2 out of 4 bilateral upper and lower extremities Pain with logroll on the left. Data 08/12/24 02:00 08/12/24 07:58 Micro: Microbiology 08/10/24 18:35 Blood Culture - Preliminary Blood NEGATIVE TO DATE 08/10/24 18:32 Blood Culture - Preliminary Blood NEGATIVE TO DATE A&P Assessment and plan (1) Left acetabular fracture: Plan to do a left total hip arthroplasty. Will plan to do tomorrow N.p.o. after midnight Hold blood thinners Qualifiers: Encounter type: subsequent encounter Sublocation of acetabulum: posterior column Fracture type: closed Fracture alignment: displaced Fracture healing: with routine healing Qualified Code(s): S32.442D - Displaced fracture of posterior column [ilioischial] of left acetabulum, subsequent encounter for fracture with routine healing Consult Attestations Medical Necessity Statement: Pain control Coding Level of Care Code Acute Code for [facility] Fwd Diagnoses Closed displaced fracture of posterior column of left acetabulum with routine healing, subsequent encounter S32.441J Encounter type: subsequent encounter Sublocation of acetabulum: posterior column Fracture type: closed Fracture alignment: displaced Fracture healing: with routine healing
[2024-08-12] MEDS: carbidopa-levodopa 25-100mg Tablet 1 EACH PO (12:35)
--- NOTE | 2024-08-12 14:15 | P.PN_ITS ---
Subjective 2 Subjective: The patient was seen this morning he is alert to person, he can follow commands, has no pain complaints, Vitals/I&O/Wt Last Vital Signs Temp 98.2 F 08/12/24 11:54 Pulse 115 H 08/12/24 11:54 Resp 17 08/12/24 11:54 BP 116/64 08/12/24 11:54 Pulse Ox 90 08/12/24 11:54 O2 Del Method Room Air 08/12/24 11:54 O2 Flow Rate 1.5 08/11/24 08:46 08/11/24 08/12/24 08/12/24 22:59 06:59 14:59 Intake Total 170 / 340 50 / 390 120 / 120 Output Total 380 / 380 Balance 170 / 340 -330 / 10 120 / 120 Weight last 48 hrs Weight 83.971 kg Weight 85.684 kg Weight 81.647 kg Physical Exam 2 Const: COMMON NORMALS: no acute distress ORIENTATION/CONSCIOUSNESS: Yes awake and Yes oriented to person; not oriented to place and not oriented to time Resp: COMMON NORMALS: normal respiratory effort, No retractions, No use of accessory muscles and clear to auscultation bilaterally AUSCULTATION: clear to auscultation bilaterally Cardio: COMMON NORMALS: regular rate, regular rhythm, S1 normal heart sound present and S2 normal heart sound present RATE: regular rate RHYTHM: r egular rhythm HEART SOUNDS: S1 normal heart sound present and S2 normal heart sound present GI: COMMON NORMALS: Normal to inspection, nondistended, normoactive bowel sounds present and non-tender Extremity: COMMON NORMALS: no pedal edema Neuro: SENSORIUM/ORIENTATION: Yes oriented to person, No oriented to place and No oriented to time Psych: COMMON NORMALS: mental status grossly normal Data 08/12/24 02:00 08/12/24 07:58 Micro: Microbiology 08/10/24 18:35 Blood Culture - Preliminary Blood NEGATIVE TO DATE 08/10/24 18:32 Blood Culture - Preliminary Blood NEGATIVE TO DATE A&P Assessment and plan (1) Aspiration pneumonia: (2) High risk medication use: (3) Essential hypertension: (4) GERD without esophagitis: (5) Incontinence: (6) Seronegative rheumatoid arthritis of multiple sites: (7) Fracture of radial head, left, closed: Qualifiers: Encounter type: subsequent encounter Fracture alignment: nondisplaced Fracture healing: with routine healing Qualified Code(s): S52.125D - Nondisplaced fracture of head of left radius, subsequent encounter for closed fracture with routine healing (8) Inferior pubic ramus fracture: (9) Left acetabular fracture: Qualifiers: Encounter type: subsequent encounter Sublocation of acetabulum: p osterior column Fracture type: closed Fracture alignment: displaced Fracture healing: with routine healing Qualified Code(s): S32.442D - Displaced fracture of posterior column [ilioischial] of left acetabulum, subsequent encounter for fracture with routine healing (10) Parkinson's disease (tremor, stiffness, slow motion, unstable posture): (11) Lewy body Parkinson disease: (12) 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 Superimposed patchy ground-glass opacities suggesting atypical pneumonitis. Moderate left basilar atelectasis. Radiographic follow-up to resolution recommended High risk for aspiration dysphagia level 4 diet, aspiration precautions Continue Zosyn procalcitonin 0.16 , crp 53.2 Acute on chronic hyponatremia, 128 -Is on multiple psychotropic medication -Urine studies -Appears euvolemic -No evidence of psychogenic polydipsia -Monitor serum sodiums every 6 hours Left acetabular fracture: MRI left hip MR/MR hip LT wo con* [id number] IMPRESSION: 1. Study is limited due to motion artifact and lack of contrast. 2. Comminuted fracture involving the LEFT acetabulum as previously described. There is a large amount of marrow edema. 3. Medial migration of the LEFT femoral head through the acetabulum. 4. Extensive marrow edema in the LEFT femoral head, neck and proximal femur. Trabecular injury with edema. No definite fracture identified but occult fracture should be considered. 5. LEFT hip joint effusion and mild synovial thickening. No definite mass identified. Dr. Howard consulted -N.p.o. midnight plan for surgical intervention tomorrow morning Constipation: CT imaging showing moderate to large volume colonic stool retention/constipation -Bowel regimen For mood stabilization patient is on Depakote, antipsychotics, Seroquel Parkinsonian features: Continue carbidopa/levodopa combination Acute on chronic anemia, hemoglobin 9.6, monitor Cardiac echo CONCLUSIONS Normal left ventricular size, systolic function and wall thickness, with no regional wall motion abnormalities. Left ventricular ejection fraction is estimated at 60 %. Grade I/IV diastolic dysfunction (abnormal relaxation filling pattern), normal to mildly elevated filling pressures. No significant valve abnormalities. There is no pericardial effusion. Right atrial pressure is around 5 mm of mercury. Patient is wheelchair-bound: For now DVT prophylaxis covered with Lovenox currently on hold and plans for surgery tomorrow Full code Attestations 2 Medical Necessity Statement*: Patient requires hospitalization for aspiration pneumonia, hyponatremia, left acetabular fracture, Diagnoses Aspiration pneumonia J69.0 High risk medication use Z79.899 Essential hypertension I10 GERD without esophagitis K21.9 Incontinence R32 Seronegative rheumatoid arthritis of multiple sites M06.09 Closed nondisplaced fracture of head of left radius with routine healing, subsequent encounter S52.125D Encounter type: subsequent encounter Fracture alignment: nondisplaced Fracture healing: with routine healing Inferior pubic ramus fracture S32.599A Closed displaced fracture of posterior column of left acetabulum with routine healing, subsequent encounter S32.442D Encounter type: subsequent encounter Sublocation of acetabulum: posterior column Fracture type: closed Fracture alignment: displaced Fracture healing: with routine healing Parkinson's disease (tremor, stiffness, slow motion, unstable posture) G20 Lewy body Parkinson disease G31.83; F02.80 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
[2024-08-12 14:38] LABS: Sodium 125 mmol/L (136-145)
[2024-08-12] MEDS: divalproex ER 500 mg Tablet (24H) 1000 MG PO (21:16)
[2024-08-13] VITALS (20 sets, daily range): BP systolic 93–162; BP diastolic 60–90; PULSE 76–128; RESP 16–22; TEMP 36.4–37.1; O2SAT 90–100
[2024-08-13] MEDS: piperacillin-tazobactam 3.375 GM in sodium chloride 0.9% (plus) 50 ML IV ×3 (03:02→17:56)
[2024-08-13] MEDS: folic acid 1 mg Tablet PO ×2 (05:50→16:51)
[2024-08-13] MEDS: levothyroxine 100 mcg Tablet 50 MCG PO (05:50)
[2024-08-13 06:03] LABS: Basophils % 0.3 %; Eosinophils # 0.1 10^3/uL (0.0-0.8); Hematocrit 29.3 % (37-53); Lymphocytes # 0.7 10^3/uL (0.8-4.8); Lymphocytes % 10.7 %; Mean Corpuscular HGB Conc 32.4 g/dL (30-55); Mean Corpuscular Hemoglobin 30.5 pg (27-33); Mean Corpuscular Volume 94.2 fl (82-101); Mean Platelet Volume 9.6 fL (7.4-10.4); Monocytes # 0.5 10^3/uL (0.2-0.9); Monocytes % 8.1 %; Neutrophils # 4.99 10^3/uL (1.8-7.7); Neutrophils % 77.5 %; Nucleated Red Blood Cells % 0 %; Platelet Count 107 10^3/cmm (157-399); Red Blood Count 3.11 10^6/uL (3.85-5.65); Red Cell Distribution Width 16.2 % (12.1-15.1); White Blood Count 6.44 10^3/uL (3.29-11.43)
[2024-08-13 06:28] LABS: Alanine Aminotransferase < 5 U/L (0-41); Albumin Level 2.7 g/dL (3.5-5.2); Alkaline Phosphatase 101 U/L (40-130); Aspartate Amino Transferase 14 U/L (0-40); Blood Urea Nitrogen 17 mg/dL (8-23); Calcium 8.7 mg/dL (8.5-10.5); Carbon Dioxide 28 mmol/L (22-29); Chloride 93 mmol/L (98-107); Creatinine Clr Calc Pharmacy 66.5532; Globulin 3.6 g/dL (1.3-4.6); Glucose 85 mg/dL (65-115); Magnesium 2.1 mg/dL (1.7-2.3); Osmolality Calculated 273 mOsm/kg (285-295); Phosphorus 3.2 mg/dL (2.5-4.5); Sodium 131 mmol/L (136-145); Total Bilirubin 0.4 mg/dL (0.15-1.2); Total Protein 6.3 g/dL (6.6-8.7)
--- NOTE | 2024-08-13 08:42 | PC.SOCIAL ---
IMM Update pg 2 of IMM Updated and reviewed w/ patients guardian. Copy provided and copy dated, initialed and placed in chart.
[2024-08-13] MEDS: sodium chloride 0.9% 1,000 ML 30 ML IV (08:55)
--- NOTE | 2024-08-13 09:09 | ANES.PREANE2 ---
Pre-Anesthetic Assessment Height/Weight: Height 1.57 m Weight 83.971 kg Temp Pulse Resp BP Pulse Ox O2 Del Method O2 Flow Rate 98.8 F 108 H 17 162/61 93 Room Air 1.5 08/13/24 07:26 08/13/24 07:26 08/13/24 07:26 08/13/24 07:26 08/13/24 07:26 08/13/24 04:00 08/11/24 08:46 Operation Date: 08/13/24 10:20 Proposed Procedures p Total Hip Arthroplasty(Left) - Mina Howard DO Last intake: Intake Last Liquid Date 08/12/24 Last Liquid Time 23:59 Last Solid Date 08/12/24 Last Solid Time 23:59 CV/HEM Echo CONCLUSIONS Normal left ventricular size, systolic function and wall thickness, with no regional wall motion abnormalities. Left ventricular ejection fraction is estimated at 60 %. Grade I/IV diastolic dysfunction (abnormal relaxation filling pattern), normal to mildly elevated filling pressures. No significant valve abnormalities. There is no pericardial effusion. Right atrial pressure is around 5 mm of mercury. EKG SINUS RHYTHM WITH FIRST DEGREE AV BLOCK BORDERLINE LEFT AXIS DEVIATION [QRS AXIS < -20] RIGHT BUNDLE BRANCH BLOCK [120+ ms QRS DURATION, UPRIGHT V1, 40+ ms S IN I/aVL/V4/V5/V6] GI Gastroesophageal Reflux Disease Metabolic Chronic hyponatremia Neuropsych Dementia Medications/Allergies Home Medications Medication Instructions Recorded Confirmed Last Taken Type aluminum-mag hydroxide-simethicone 30 ml PO Q4H PRN Constipation 08/11/19 08/11/24 Unknown History 400 mg-400 mg-40 mg/5 mL oral susp (Mylanta Maximum Strength) ibuprofen 600 mg tablet 600 mg PO Q8H PRN pain #60 tabs 03/27/23 08/11/24 Unknown Rx vitamins A and D-white See Rx Instructions .Route 09/16/23 08/11/24 Unknown Rx petrolatum-lanolin topical .COMPLEX #113 grams ointment (A and D (lanolin-petrolatum) topical ointment) acetaminophen 325 mg tablet 650 mg PO Q4H PRN PAIN OR TEMP 10/07/23 08/11/24 Unknown History allantoin 0.2 % topical cream 1 applic topical QID DRY SKIN 10/07/23 08/11/24 10/07/23 History (Cutemol) ammonium lactate 12 % lotion 1 applic topical QAM 10/07/23 08/11/24 Unknown History lanolin alcohols-mineral 1 applic topical BID PRN Dry Skin 10/07/23 08/11/24 Unknown History oil-w.petrolatum-ceresin topical cream (Eucerin topical cream) terbinafine HCl 1 % topical cream 1 applic topical BID 10/07/23 08/11/24 Unknown History folic acid 1 mg tablet 1 mg PO QAM #90 tabs 11/12/23 08/11/24 Unknown Rx trihexyphenidyl 2 mg tablet 2 mg PO BID #180 tabs 01/02/24 08/11/24 Unknown Rx divalproex 250 mg tablet,extended See Rx Instructions .Route 01/27/24 08/11/24 Unknown Rx release 24 hr .COMPLEX #30 tabs carbamide peroxide 6.5 % ear drops See Rx Instructions .Route 02/10/24 08/11/24 Unknown Rx (Ear Wax Removal Drops) .COMPLEX #15 mL dextromethorphan-guaifenesin 10 See Rx Instructions .Route 02/23/24 08/11/24 Unknown Rx mg-100 mg/5 mL oral syrup (Chest .COMPLEX #237 mL Congestion Relief DM) magnesium hydroxide 400 mg/5 mL See Rx Instructions .Route 02/23/24 08/11/24 Unknown Rx oral suspension (Milk of Magnesia) .COMPLEX #473 mL diclofenac sodium 1 % topical gel 2 g topical QID PRN Pain #100 grams 03/09/24 08/11/24 Unknown Rx Cleansing Wipes #30 ea 05/05/24 08/11/24 Unknown Rx disposable gloves #50 ea 05/05/24 08/11/24 Unknown Rx extra large adult briefs #30 ea 05/05/24 08/11/24 Unknown Rx methotrexate sodium 2.5 mg tablet See Rx Instructions .Route 05/12/24 08/11/24 Unknown Rx .COMPLEX #60 tabs prednisone 10 mg tablet See Rx Instructions PO .COMPLEX 05/12/24 08/11/24 Unknown Rx PRN joint pain flare #90 tabs prednisone 5 mg tablet 5 mg PO DAILY #90 tabs 05/12/24 08/11/24 Unknown Rx hydrocodone 5 mg-acetaminophen 325 1 tab PO Q6H PRN pain #14 tabs 11/15/24 01/29/25 Unknown Rx mg tablet cetirizine 10 mg tablet (All Day 10 mg PO DAILY PRN allergy 06/15/24 08/11/24 Unknown Rx Allergy (cetirizine)) symptoms #30 tabs omeprazole 40 mg capsule,delayed 40 mg PO DAILY #90 caps 06/18/24 08/11/24 Unknown Rx release levothyroxine 50 mcg tablet 50 mcg PO QAM #90 tabs 06/22/24 08/11/24 Unknown Rx paroxetine HCl 30 mg tablet See Rx Instructions .Route 06/22/24 08/11/24 Unknown Rx .COMPLEX #30 tabs carbidopa 25 mg-levodopa 100 mg See Rx Instructions .Route 06/24/24 08/11/24 Unknown Rx tablet .COMPLEX #150 tabs quetiapine 200 mg tablet (Seroquel) 200 mg PO BID #60 tabs 07/01/24 08/11/24 Unknown Rx Hospital bed #1 ea 07/13/24 08/11/24 Unknown Rx metoprolol tartrate 50 mg tablet See Rx Instructions .Route 08/02/24 08/11/24 Unknown Rx .COMPLEX #60 tabs divalproex 500 mg tablet,extended See Rx Instructions .Route 08/04/24 08/11/24 Unknown Rx release 24 hr .COMPLEX #60 tabs olanzapine 10 mg tablet See Rx Instructions .Route 08/04/24 08/11/24 Unknown Rx .COMPLEX #60 tabs Wheelchair #1 ea 08/11/24 08/11/24 Unknown Rx Allergies Allergy/AdvReac Type Severity Reaction Status Date / Time No Known Allergies Allergy Verified 08/10/24 15:01 Current Medications Generic Name Dose Route Start Last Admin Trade Name Freq PRN Reason Stop Dose Admin Bisacodyl 10 mg 08/11/24 17:10 08/12/24 09:20 Bisacodyl 5 Mg Tablet PO 10 mg DAILY GEREMIAS Administration Carbidopa/Levodopa 2 each 08/11/24 08:00 08/12/24 18:05 Carbidopa-Levodopa 25-100mg Tablet PO 2 each BID@08,16 GEREMIAS Administration Carbidopa/Levodopa 1 each 08/11/24 12:00 08/12/24 12:35 Carbidopa-Levodopa 25-100mg Tablet PO 1 each 1200 GEREMIAS Administration Divalproex Sodium 1,000 mg 08/10/24 21:58 08/12/24 21:16 Divalproex Er 500 Mg Tablet (24h) PO 1,000 mg BEDTIME GEREMIAS Administration Divalproex Sodium 250 mg 08/11/24 09:00 08/12/24 09:19 Divalproex Er 250 Mg Tablet (24h) PO 250 mg DAILY GEREMIAS Administration Enoxaparin Sodium 40 mg 08/10/24 19:45 08/11/24 20:38 Enoxaparin 40 Mg/0.4 Ml Syringe SUBCUT 40 mg Q24H GEREMIAS Administration Folic Acid 1 mg 08/11/24 06:00 08/13/24 05:50 Folic Acid 1 Mg Tablet PO 1 mg QAM GEREMIAS Administration Piperacillin Sod/Tazobactam 50 mls @ 12.5 mls/hr 08/11/24 06:00 08/13/24 07:11 Sod 3.375 gm/ Sodium Chloride IV Infused Q8H GEREMIAS Infusion Sodium Chloride 1,000 mls @ 30 mls/hr 08/13/24 08:45 08/13/24 08:55 Sodium Chloride 0.9% IV 08/14/24 08:44 30 mls/hr .Q24H GEREMIAS Administration Levothyroxine Sodium 50 mcg 08/11/24 06:00 08/13/24 05:50 Levothyroxine 100 Mcg Tablet PO 50 mcg QAM GEREMIAS Administration Olanzapine 5 mg 08/11/24 09:00 08/12/24 18:05 Olanzapine 10 Mg Tablet PO 5 mg BID GEREMIAS Administration Pantoprazole Sodium 40 mg 08/11/24 09:00 08/12/24 09:[address] 40 Mg Tablet PO 40 mg DAILY GEREMIAS Administration Polyethylene Glycol 17 gm 08/11/24 18:00 08/12/24 18:05 Polyethylene Glycol 3350 Pkt 17 Gm PO 17 gm BID GEREMIAS Administration Prednisone 5 mg 08/11/24 09:00 08/12/24 09:21 Prednisone 5 Mg Tablet PO 5 mg DAILY GEREMIAS Administration Quetiapine Fumarate 200 mg 08/11/24 09:00 08/12/24 18:05 Quetiapine 100 Mg Tablet PO 200 mg BID GEREMIAS Administration Sodium Chloride 1 gm 08/11/24 18:00 08/12/24 18:04 Sodium Chloride 1 Gm Tablet PO 1 gm BID GEREMIAS Administration Trihexyphenidyl HCl 2 mg 08/11/24 09:00 08/12/24 18:06 Trihexyphenidyl 2 Mg Tablet PO 2 mg BID GEREMIAS Administration [facility] Anesthesia Medical History Skin rash Physical deconditioning Osteoarthritis of hands, bilateral Immunization counseling Greater trochanteric pain syndrome High risk medication use Dementia in other diseases classified elsewhere with behavioral disturbance Surgical History No pertinent past surgical history Social History Smoking and tobacco/nicotine status: unknown if used tobacco/nicotine Alcohol intake: never Substance/Drug Use: never Lives independently: No Household members: caregiver Data Anesthesia 08/13/24 05:27 08/13/24 05:27 Short CBC 08/11/24 08/12/24 08/13/24 Range/Units 13:10 02:00 05:27 WBC 6.70 5.67 6.44 (3.29-11.43) 10^3/uL Hgb 9.10 L 9.60 L 9.50 L (11.27-16.99) g/dL Hct 27.3 L 29.4 L 29.3 L (37-53) % MCV 93.2 94.2 94.2 (82-101) fl Plt Count 106 L 119 L 107 L (157-399) 10^3/cmm Neut % (Auto) 88.7 71.8 77.5 % Neut # (Auto) 5.94 4.07 4.99 (1.8-7.7) 10^3/uL BMP 08/11/24 08/11/24 08/12/24 13:10 20:46 02:00 Sodium 124 L 125 L 128 L Potassium 4.3 Chloride 89 L Carbon Dioxide 24 BUN 21 Creatinine 0.9 Glucose 129 H Calcium 7.9 L 08/12/24 08/12/24 08/12/24 02:00 07:58 14:08 Sodium Cancelled 129 L 125 L Potassium 4.1 Chloride 91 L Carbon Dioxide 28 BUN 20 Creatinine 1.0 Glucose 92 Calcium 8.5 08/13/24 05:27 Sodium 131 L Potassium 5.0 Chloride 93 L Carbon Dioxide 28 BUN 17 Creatinine 0.9 Glucose 85 Calcium 8.7 Cardiac Enzymes 08/11/24 08/11/24 08/11/24 Range/Units 09:21 12:08 15:10 Troponin T Baseline 44 H (0-15) ng/L Troponin T 120 Minute 48.30 H (0-15) ng/L Delta Troponin T 4.30 (0-10) ABS# Troponin T Hi Sens 6Hr 40.20 H (0-15) ng/L Troponin T Hi Sens 6Hr Delta -3.80 L (0-12) ng/L Liver Function 08/12/24 08/13/24 Range/Units 02:00 05:27 Total Bilirubin 0.4 0.4 (0.15-1.2) mg/dL AST 15 14 (0-40) U/L ALT < 5 < 5 (0-41) U/L Alkaline Phosphatase 108 101 (40-130) U/L Albumin 2.8 L 2.7 L (3.5-5.2) g/dL Cardiac Studies: Echocardiogram 08/10/24
--- NOTE | 2024-08-13 10:16 | W.PM.OPSUD ---
Surgery/Procedure H&P Update DATE OF PROCEDURE: August 13, 2024 DATE H&P PERFORMED: 08/12/24 H&P UPDATE INFORMATION: I have reviewed H&P completed within last 30 days, I have examined patient prior to procedure and No changes to prior documentation PLANNED PROCEDURE: Operation Date: 08/13/24 10:20 Proposed Procedures p Total Hip Arthroplasty(Left) - Mina Howard DO
--- NOTE | 2024-08-13 10:19 | PC.NURSE ---
Surgery Patient was taken to surgery floor at 0837.
[2024-08-13] MEDS: VANCOMYCIN ADD-Vantage 1,000 MG VIAL 1000 MG XX (11:58)
--- NOTE | 2024-08-13 12:56 | XR_ITS ---
WS: [id number] Portable LEFT hip radiograph. HISTORY: Evaluate for missing instrument in the OR. Placement of a LEFT hip arthroplasty. Forceps noted over the lower abdomen. There is no radiopaque mi ssing instrument identified. Instrument could potentially be posterior and superimposed on the LEFT h ip arthroplasty. Only a single image submitted. XR/XR hip LT 1V wo/[place] pel [id number] IMPRESSION: No unexpected radiopaque foreign body identified over the LEFT hip.
--- NOTE | 2024-08-13 13:08 | XR_ITS ---
WS: [id number] Exam: XR hip LT 2-3V wo/w pel* [id number] Date/Time of Exam: 08/13/2024 1:33 PM Reason For Exam: post surgery LEFT total hip arthroplasty is in place in satisfactory position. Postoperative changes in the adjace nt soft tissues. XR/XR hip LT 2-3V wo/w pel* [id number] IMPRESSION: 1. LEFT total hip replacement in satisfactory position.
--- NOTE | 2024-08-13 13:10 | PM.OP ---
Operative Report Date of procedure: August 13, 2024 Pre-op diagnosis: Left acetabular fracture -protrusio of the femoral head into the acetabulum. Post-op diagnosis: same Procedure done: Left total hip arthroplasty for fracture Surgeon: Mina Howard DO Estimated blood loss (mL): 300 Procedure: Left total hip arthroplasty for fracture Patient was able to get her regular anesthesia was placed in the used position left side up. Patient was then prepped and draped normal sterile fashion. Skin incisions made over the left hip. IT band was split modified Antony approach was used. Abductor anteriorly and the capsule were taken anteriorly. The femoral head was protruded into the acetabulum into the pelvis. A Bovie was used to dissect out the head along the edge of the acetabulum. And then the corkscrew was drilled into the head and it was pulled out of the socket. This was then able to get a femoral neck cut. The femoral neck cut was made 1 fingerbreadth above the lesser trochanter. Once the femoral head was removed retractors were placed anteriorly superiorly and posteriorly on the acetabulum in order to facilitate reaming the acetabulum. Edges and labrum were removed along with callus that was formed from the injury from 8 weeks ago I was cast callus was debrided away and then the acetabular reamers were used up to size 58. A size 60 was trialed size 60 cup was then malleted into the acetabulum. 2 screws were placed into the acetabulum through the cup. And then the liner was then placed this had a 10 degree posterior lip that was used. She was brought to the femoral canal. This was done by using the jukebox routeman followed by the canal finder followed by the lateralizer. Next to the broaches were used up to size 7. A size 7 stem was then inserted. With a long offset neck. Hip was trialed felt to be good at -2.5 neck length. Then the the final implant was then placed. This was a Dar stem size 7 with a -2 neck length. Hip was reduced felt to be stable range of motion wound was then irrigated vancomycin powder was placed wound was closed in a layered fashion with FiberWire closing the capsule and abductors and #1 Vicryl closing the IT band and 2-0 Vicryl Monocryl closing the skin. Sterile dressings applied patient was transferred to the PACU in stable addition.
--- NOTE | 2024-08-13 13:46 | PC.NURSE ---
x-ray called regarding countable item miscount. X-ray was performed and read back as clear before leaving the OR.
--- NOTE | 2024-08-13 14:37 | P.PN_ITS ---
Subjective 2 Subjective: Patient was seen this morning, in preop, she tells me that she wants to have a hamburger after surgery Vitals/I&O/Wt Last Vital Signs Temp 97.8 F 08/13/24 14:16 Pulse 121 H 08/13/24 14:16 Resp 17 08/13/24 14:16 BP 128/76 08/13/24 14:16 Pulse Ox 95 08/13/24 14:16 O2 Del Method Nasal Cannula 08/13/24 14:16 O2 Flow Rate 3 08/13/24 14:03 08/12/24 08/13/24 08/13/24 22:59 06:59 14:59 Intake Total 350 / 520 200 / 720 500 / 500 Output Total 400 / 400 1200 / 1200 Balance 350 / 520 -200 / 320 -700 / -700 Weight last 48 hrs Weight 83.971 kg Weight 83.971 kg Physical Exam 2 Const: COMMON NORMALS: no acute distress ORIENTATION/CONSCIOUSNESS: Yes awake, Yes oriented to person and Yes oriented to place Resp: COMMON NORMALS: normal respiratory effort, No retractions, No use of accessory muscles and clear to auscultation bilaterally AUSCULTATION: clear to auscultation bilaterally Cardio: COMMON NORMALS: regular rate, regular rhythm, S1 normal heart sound present and S2 normal heart sound present RATE: regular rate RHYTHM: r egular rhythm HEART SOUNDS: S1 normal heart sound present and S2 normal heart sound present GI: COMMON NORMALS: Normal to inspection, nondistended, normoactive bowel sounds present and non-tender Extremity: COMMON NORMALS: no pedal edema Neuro: SENSORIUM/ORIENTATION: Yes oriented to person and Yes oriented to place Data 08/13/24 05:27 08/13/24 05:27 A&P Assessment and plan (1) Aspiration pneumonia: (2) High risk medication use: (3) Essential hypertension: (4) GERD without esophagitis: (5) Incontinence: (6) Seronegative rheumatoid arthritis of multiple sites: (7) Fracture of radial head, left, closed: Qualifiers: Encounter type: subsequent encounter Fracture alignment: nondisplaced Fracture healing: with routine healing Qualified Code(s): S52.125D - Nondisplaced fracture of head of left radius, subsequent encounter for closed fracture with routine healing (8) Inferior pubic ramus fracture: (9) Left acetabular fracture: Qualifiers: Encounter type: subsequent encounter Sublocation of acetabulum: p osterior column Fracture type: closed Fracture alignment: displaced Fracture healing: with routine healing Qualified Code(s): S32.442D - Displaced fracture of posterior column [ilioischial] of left acetabulum, subsequent encounter for fracture with routine healing (10) Parkinson's disease (tremor, stiffness, slow motion, unstable posture): (11) Lewy body Parkinson disease: (12) 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 Superimposed patchy ground-glass opacities suggesting atypical pneumonitis. Moderate left basilar atelectasis. Radiographic follow-up to resolution recommended High risk for aspiration dysphagia level 4 diet, aspiration precautions Continue Zosyn procalcitonin 0.16 , crp 53.2 Acute on chronic hyponatremia, 131 -Is on multiple psychotropic medication -Urine studies -Appears euvolemic -No evidence of psychogenic polydipsia -Monitor serum sodiums Left acetabular fracture: MRI left hip MR/MR hip LT wo con* [id number] IMPRESSION: 1. Study is limited due to motion artifact and lack of contrast. 2. Comminuted fracture involving the LEFT acetabulum as previously described. There is a large amount of marrow edema. 3. Medial migration of the LEFT femoral head through the acetabulum. 4. Extensive marrow edema in the LEFT femoral head, neck and proximal femur. Trabecular injury with edema. No definite fracture identified but occult fracture should be considered. 5. LEFT hip joint effusion and mild synovial thickening. No definite mass identified. Dr. Howard consulted -N.p.o. midnight plan for surgical intervention today Constipation: CT imaging showing moderate to large volume colonic stool retention/constipation -Bowel regimen For mood stabilization patient is on Depakote, antipsychotics, Seroquel Parkinsonian features: Continue carbidopa/levodopa combination Acute on chronic anemia, hemoglobin 9.5, monitor Cardiac echo CONCLUSIONS Normal left ventricular size, systolic function and wall thickness, with no regional wall motion abnormalities. Left ventricular ejection fraction is estimated at 60 %. Grade I/IV diastolic dysfunction (abnormal relaxation filling pattern), normal to mildly elevated filling pressures. No significant valve abnormalities. There is no pericardial effusion. Right atrial pressure is around 5 mm of mercury. Patient is wheelchair-bound: For now DVT prophylaxis covered with Lovenox currently on hold and plans for surgery tomorrow Full code Attestations 2 Medical Necessity Statement*: Patient requires hospitalization for aspiration pneumonia, left acetabular fracture, acute on chronic anemia Coding Level of Care Code 36146 Diagnoses Aspiration pneumonia J69.0 High risk medication use Z79.899 Essential hypertension I10 GERD without esophagitis K21.9 Incontinence R32 Seronegative rheumatoid arthritis of multiple sites M06.09 Closed nondisplaced fracture of head of left radius with routine healing, subsequent encounter S52.125D Encounter type: subsequent encounter Fracture alignment: nondisplaced Fracture healing: with routine healing Inferior pubic ramus fracture S32.599A Closed displaced fracture of posterior column of left acetabulum with routine healing, subsequent encounter S32.442D Encounter type: subsequent encounter Sublocation of acetabulum: posterior column Fracture type: closed Fracture alignment: displaced Fracture healing: with routine healing Parkinson's disease (tremor, stiffness, slow motion, unstable posture) G20 Lewy body Parkinson disease G31.83; F02.80 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
[2024-08-13 16:45] LABS: Osmolality Serum 270 mOsm/kg (278-305)
[2024-08-13] MEDS: bisacodyl 5 mg Tablet 10 MG PO (16:49)
[2024-08-13] MEDS: pantoprazole DR 40 mg Tablet PO (16:50)
[2024-08-13] MEDS: predniSONE 5 mg Tablet PO (16:50)
[2024-08-13] MEDS: carbidopa-levodopa 25-100mg Tablet 2 EACH PO (16:51)
[2024-08-13] MEDS: acetaminophen 500 mg Tablet PO (16:52)
[2024-08-13] MEDS: ceFAZolin 2,000 mg SDV 2000 MG IVP (17:55)
[2024-08-13] MEDS: OLANZapine 10 mg TABLET 5 MG PO (17:56)
[2024-08-13] MEDS: quetiapine 100 mg Tablet 200 MG PO (17:56)
[2024-08-13] MEDS: sodium chloride 1 gm Tablet PO (17:56)
[2024-08-13] MEDS: polyethylene glycol 3350 Pkt 17 gm PO (17:57)
[2024-08-13] MEDS: divalproex ER 500 mg Tablet (24H) 1000 MG PO (20:13)
[2024-08-13] MEDS: enoxaparin 40 mg/0.4 mL Syringe SUBCUT (20:13)
[2024-08-13] MEDS: oxyCODONE 5 mg IR Tab/Cap PO (20:13)
[2024-08-14] VITALS (14 sets, daily range): BP systolic 87–123; BP diastolic 48–79; PULSE 94–135; RESP 14–22; TEMP 36.4–37.3; O2SAT 90–95
[2024-08-14] MEDS: piperacillin-tazobactam 3.375 GM in sodium chloride 0.9% (plus) 50 ML IV ×3 (02:46→18:41)
[2024-08-14] MEDS: ceFAZolin 2,000 mg SDV 2000 MG IVP ×2 (02:46→09:54)
[2024-08-14] MEDS: oxyCODONE 5 mg IR Tab/Cap PO ×4 (03:21→20:44)
[2024-08-14 04:29] LABS: Basophils % 0.2 %; Hematocrit 26.1 % (37-53); Lymphocytes # 0.9 10^3/uL (0.8-4.8); Lymphocytes % 8.8 %; Mean Corpuscular HGB Conc 31.4 g/dL (30-55); Mean Corpuscular Hemoglobin 30.7 pg (27-33); Mean Corpuscular Volume 97.8 fl (82-101); Monocytes % 10.7 %; Neutrophils # 7.51 10^3/uL (1.8-7.7); Neutrophils % 78.2 %; Nucleated Red Blood Cells % 0 %; Platelet Count 124 10^3/cmm (157-399); Red Blood Count 2.67 10^6/uL (3.85-5.65); Red Cell Distribution Width 16.7 % (12.1-15.1); White Blood Count 9.61 10^3/uL (3.29-11.43)
[2024-08-14 04:53] LABS: Alanine Aminotransferase < 5 U/L (0-41); Albumin Level 2.8 g/dL (3.5-5.2); Alkaline Phosphatase 87 U/L (40-130); Anion Gap 16.1 (5-19); Aspartate Amino Transferase 22 U/L (0-40); Blood Urea Nitrogen 23 mg/dL (8-23); Calcium 8.3 mg/dL (8.5-10.5); Carbon Dioxide 24 mmol/L (22-29); Chloride 92 mmol/L (98-107); Creatinine Clr Calc Pharmacy 36.2241; Globulin 3.3 g/dL (1.3-4.6); Glucose 134 mg/dL (65-115); Magnesium 2.1 mg/dL (1.7-2.3); Osmolality Calculated 270 mOsm/kg (285-295); Phosphorus 4.2 mg/dL (2.5-4.5); Potassium 5.1 mmol/L (3.5-5.1); Sodium 127 mmol/L (136-145); Total Bilirubin 0.3 mg/dL (0.15-1.2); Total Protein 6.1 g/dL (6.6-8.7)
[2024-08-14] MEDS: folic acid 1 mg Tablet PO (05:12)
[2024-08-14] MEDS: levothyroxine 100 mcg Tablet 50 MCG PO (05:13)
[2024-08-14] MEDS: sodium chloride 1 gm Tablet PO ×2 (08:16→17:01)
[2024-08-14] MEDS: OLANZapine 10 mg TABLET 5 MG PO ×2 (08:16→17:01)
[2024-08-14] MEDS: polyethylene glycol 3350 Pkt 17 gm PO ×2 (08:16→17:01)
[2024-08-14] MEDS: quetiapine 100 mg Tablet 200 MG PO ×2 (08:17→17:01)
[2024-08-14] MEDS: bisacodyl 5 mg Tablet 10 MG PO (08:17)
[2024-08-14] MEDS: predniSONE 5 mg Tablet PO (08:17)
[2024-08-14] MEDS: pantoprazole DR 40 mg Tablet PO (08:17)
[2024-08-14] MEDS: carbidopa-levodopa 25-100mg Tablet 2 EACH PO ×2 (08:17→15:12)
[2024-08-14] MEDS: divalproex ER 250 mg Tablet (24H) PO (08:25)
--- NOTE | 2024-08-14 09:26 | ECG_ITS ---
[employer] Test Date: 2024-08-14 Pat Name: Ernie Lopez Department: Room: 262 Gender: Male Medical I D Sales: : 1950 Requested By: Jerad Dang Order Number: [id number] Carlo MD: Daniel Peres M.D. Measurements Intervals [place] Rate: 134 P: 0 SC: 0 QRS: -31 QRSD: 133 T: 3 QT: 310 QTc: 463 Interpretive Statements ATRIAL FLUTTER WITH RAPID VENTRICULAR RESPONSE LEFT AXIS DEVIATION [QRS AXIS < -30] RIGHT BUNDLE BRANCH BLOCK [120+ ms QRS DURATION, UPRIGHT V1, 40+ ms S IN I/aVL/V4/V5/V6] POSSIBLE ANTERIOR MYOCARDIAL INFARCTION , PROBABLY OLD [30 ms Q WAVE IN V3/V4, OR R < 0.2 mV IN V4] Compared to ECG 08/11/2024 15:04:15 Myocardial infarct finding now present Sinus rhythm no longer present First degree AV block no longer present Electronically Signed On 08-14-2024 13:16:31 [employer]GER [employer] by Daniel Peres M.D. [email or web address]
[2024-08-14] MEDS: sodium chloride 0.9% 1,000 ML 75 ML IV ×2 (09:52→22:19)
[2024-08-14] MEDS: carbidopa-levodopa 25-100mg Tablet 1 EACH PO (12:06)
--- NOTE | 2024-08-14 12:51 | P.PN_ITS ---
Subjective 2 Subjective: Patient resting comfortably in bed. Dressing seems to be intact and dry. Vitals/I&O/Wt Last Vital Signs Temp 99.2 F 08/14/24 09:23 Pulse 130 H 08/14/24 09:23 Resp 19 H 08/14/24 09:23 BP 102/63 08/14/24 09:23 Pulse Ox 94 08/14/24 09:23 O2 Del Method Room Air 08/14/24 09:23 O2 Flow Rate 3 08/13/24 14:03 08/13/24 08/14/24 08/14/24 22:59 06:59 14:59 Intake Total 1290 / 1790 50 / 1840 200 / 200 Output Total 225 / 1425 Balance 1290 / 590 -175 / 415 200 / 200 Weight last 48 hrs Weight 195 lb 6.4 oz Weight 185 lb 2 oz Physical Exam 2 Narrative: Patient resting comfortably in bed leg lengths look equal. Data 08/14/24 03:55 08/14/24 03:55 A&P Assessment and plan (1) Left acetabular fracture: Postop day #1 left total hip arthroplasty. Weight-bear as tolerated Lovenox for DVT prophylaxis Up with therapy Qualifiers: Encounter type: subsequent encounter Sublocation of acetabulum: p osterior column Fracture type: closed Fracture alignment: displaced Fracture healing: with routine healing Qualified Code(s): S32.442D - Displaced fracture of posterior column [ilioischial] of left acetabulum, subsequent encounter for fracture with routine healing Attestations 2 Medical Necessity Statement*: Per primary service Coding Level of Care Code Acute Code for [facility] Fwd Diagnoses Closed displaced fracture of posterior column of left acetabulum with routine healing, subsequent encounter S32.442D Encounter type: subsequent encounter Sublocation of acetabulum: posterior column Fracture type: closed Fracture alignment: displaced Fracture healing: with routine healing
--- NOTE | 2024-08-14 14:15 | ECG_ITS ---
[facility] Date: 2024-08-14 Pat Name: Ernie Lopez Department: Room: 262 Gender: Male [employer] Instructor: : 1950 Requested By: Jerad Dang Order Number: [id number] Carlo MD: Daniel Peres M.D. Measurements Intervals [place] Rate: 133 P: 0 IN: 0 QRS: -17 QRSD: 136 T: -6 QT: 322 QTc: 480 Interpretive Statements ATRIAL FLUTTER WITH RAPID VENTRICULAR RESPONSE RIGHT BUNDLE BRANCH BLOCK [120+ ms QRS DURATION, UPRIGHT V1, 40+ ms S IN I/aVL/V4/V5/V6] Compared to ECG 08/14/2024 10:11:51 Left-axis deviation no longer present Myocardial infarct finding no longer present Electronically Signed On 08-19-2024 22:13:44 INSTRUCTIONAL SERVICES LIBRARIAN by Daniel Peres M.D. [email or web address]
[2024-08-14 14:35] LABS: Troponin(5th) Baseline 70 ng/L (0-15)
[2024-08-14] MEDS: acetaminophen 500 mg Tablet PO (15:11)
[2024-08-14 15:43] LABS: Basophils % 0.2 %; Eosinophils % 0.1 %; Hematocrit 23.6 % (37-53); Lymphocytes # 0.8 10^3/uL (0.8-4.8); Lymphocytes % 7.7 %; Mean Corpuscular HGB Conc 31.8 g/dL (30-55); Mean Corpuscular Volume 97.5 fl (82-101); Mean Platelet Volume 9.7 fL (7.4-10.4); Monocytes # 1.4 10^3/uL (0.2-0.9); Monocytes % 13.6 %; Neutrophils # 7.73 10^3/uL (1.8-7.7); Neutrophils % 76.1 %; Nucleated Red Blood Cells % 0 %; Platelet Count 104 10^3/cmm (157-399); Red Blood Count 2.42 10^6/uL (3.85-5.65); Red Cell Distribution Width 16.9 % (12.1-15.1); White Blood Count 10.15 10^3/uL (3.29-11.43)
[2024-08-14 16:08] LABS: Troponin 5 2HR 65.61 ng/L (0-15)
[2024-08-14 16:09] LABS: Anion Gap 16.3 (5-19); Blood Urea Nitrogen 26 mg/dL (8-23); Calcium 8.1 mg/dL (8.5-10.5); Carbon Dioxide 23 mmol/L (22-29); Chloride 91 mmol/L (98-107); Creatinine Clr Calc Pharmacy 36.2241; Glucose 119 mg/dL (65-115); Osmolality Calculated 268 mOsm/kg (285-295); Potassium 4.3 mmol/L (3.5-5.1); Sodium 126 mmol/L (136-145)
[2024-08-14 16:11] LABS: Troponin 5 2HR Delta -4.39 ABS# (0-10)
[2024-08-14] MEDS: lactulose oral liq 20 gm/30 mL UDC 10 GM PO (17:00)
[2024-08-14] MEDS: metoprolol tartrate 25 mg Tablet PO (17:01)
[2024-08-14] MEDS: HYDROmorphone 1 mg/mL INJ 1 mL 0.5 MG IVP (17:02)
--- NOTE | 2024-08-14 17:44 | P.PN_ITS ---
Vitals/I&O/Wt Last Vital Signs Temp 98.5 F 08/14/24 15:18 Pulse 128 H 08/14/24 15:18 Resp 19 H 08/14/24 17:02 BP 101/63 08/14/24 15:18 Pulse Ox 90 08/14/24 15:18 O2 Del Method Room Air 08/14/24 15:18 O2 Flow Rate 3 08/13/24 14:03 08/14/24 08/14/24 08/14/24 06:59 14:59 22:59 Intake Total 50 / 1840 310 / 310 Output Total 225 / 1425 Balance -175 / 415 310 / 310 Weight last 48 hrs Weight 88.632 kg Weight 83.971 kg Physical Exam 2 Const: COMMON NORMALS: no acute distress ORIENTATION/CONSCIOUSNESS: Yes awake, Yes oriented to person and Yes oriented to place; not oriented to time Resp: COMMON NORMALS: normal respiratory effort, No retractions, No use of accessory muscles and clear to auscultation bilaterally AUSCULTATION: clear to auscultation bilaterally Cardio: COMMON NORMALS: regular rate, regular rhythm, S1 normal heart sound present and S2 normal heart sound present RATE: regular rate RHYTHM: r egular rhythm HEART SOUNDS: S1 normal heart sound present and S2 normal heart sound present GI: COMMON NORMALS: Normal to inspection, nondistended, normoactive bowel sounds present and non-tender Extremity: COMMON NORMALS: no pedal edema Neuro: SENSORIUM/ORIENTATION: Yes oriented to person, Yes oriented to place and No oriented to time Psych: COMMON NORMALS: mental status grossly normal Data 08/14/24 15:33 08/14/24 15:33 A&P Assessment and plan (1) Aspiration pneumonia: (2) High risk medication use: (3) Essential hypertension: (4) GERD without esophagitis: (5) Incontinence: (6) Seronegative rheumatoid arthritis of multiple sites: (7) Fracture of radial head, left, closed: Qualifiers: Encounter type: subsequent encounter Fracture alignment: nondisplaced Fracture healing: with routine healing Qualified Code(s): S52.125D - Nondisplaced fracture of head of left radius, subsequent encounter for closed fracture with routine healing (8) Inferior pubic ramus fracture: (9) Left acetabular fracture: Qualifiers: Encounter type: subsequent encounter Sublocation of acetabulum: p osterior column Fracture type: closed Fracture alignment: displaced Fracture healing: with routine healing Qualified Code(s): S32.442D - Displaced fracture of posterior column [ilioischial] of left acetabulum, subsequent encounter for fracture with routine healing (10) Parkinson's disease (tremor, stiffness, slow motion, unstable posture): (11) Lewy body Parkinson disease: (12) 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 Superimposed patchy ground-glass opacities suggesting atypical pneumonitis. Moderate left basilar atelectasis. Radiographic follow-up to resolution recommended High risk for aspiration dysphagia level 4 diet, aspiration precautions Continue Zosyn procalcitonin 0.16 , crp 53.2 Postoperative anemia hemoglobin down to 7.5 -Iron studies -Protonix, Carafate -Monitor hemoglobin 6 Acute kidney injury -IV fluids Acute on chronic hyponatremia, 126 -Is on multiple psychotropic medication -Urine studies -Appears euvolemic -No evidence of psychogenic polydipsia -Monitor serum sodiums Left acetabular fracture: MRI left hip MR/MR hip LT wo con* [id number] IMPRESSION: 1. Study is limited due to motion artifact and lack of contrast. 2. Comminuted fracture involving the LEFT acetabulum as previously described. There is a large amount of marrow edema. 3. Medial migration of the LEFT femoral head through the acetabulum. 4. Extensive marrow edema in the LEFT femoral head, neck and proximal femur. Trabecular injury with edema. No definite fracture identified but occult fracture should be considered. 5. LEFT hip joint effusion and mild synovial thickening. No definite mass identified. Dr. Howard consulted -Status post surgical invention -PT OT Constipation: CT imaging showing moderate to large volume colonic stool retention/constipation -Bowel regimen For mood stabilization patient is on Depakote, antipsychotics, Seroquel Parkinsonian features: Continue carbidopa/levodopa combination Acute on chronic anemia, hemoglobin 9.5, monitor Cardiac echo CONCLUSIONS Normal left ventricular size, systolic function and wall thickness, with no regional wall motion abnormalities. Left ventricular ejection fraction is estimated at 60 %. Grade I/IV diastolic dysfunction (abnormal relaxation filling pattern), normal to mildly elevated filling pressures. No significant valve abnormalities. There is no pericardial effusion. Right atrial pressure is around 5 mm of mercury. Patient is wheelchair-bound: For now DVT prophylaxis covered with Lovenox currently on hold and plans for surgery tomorrow Atrial tachycardia versus atrial flutter -Patient is EKG and telemetry monitoring showing atrial tachycardia versus flutter -No chest pain complaints -Could be beta-jian withdrawal -Start metoprolol 25 twice daily -Continue telemetry monitoring -Cardiac echo as above Full code SCDs for DVT prophylaxis Attestations 2 Medical Necessity Statement*: Patient requires hospitalization for postoperative anemia, atrial tachycardia versus flutter, postoperative anemia, SHEREE Diagnoses Aspiration pneumonia J69.0 High risk medication use Z79.899 Essential hypertension I10 GERD without esophagitis K21.9 Incontinence R32 Seronegative rheumatoid arthritis of multiple sites M06.09 Closed nondisplaced fracture of head of left radius with routine healing, subsequent encounter S52.125D Encounter type: subsequent encounter Fracture alignment: nondisplaced Fracture healing: with routine healing Inferior pubic ramus fracture S32.599A Closed displaced fracture of posterior column of left acetabulum with routine healing, subsequent encounter S32.442D Encounter type: subsequent encounter Sublocation of acetabulum: posterior column Fracture type: closed Fracture alignment: displaced Fracture healing: with routine healing Parkinson's disease (tremor, stiffness, slow motion, unstable posture) G20 Lewy body Parkinson disease G31.83; F02.80 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
[2024-08-14] MEDS: sucralfate 1 gm/10 mL Oral Liq UDC PO (18:41)
[2024-08-14 18:54] LABS: Bilirubin Urine Negative (Negative); Blood Urine 1+ (Negative); Glucose Urine UA Negative (Normal); Ketones Urine Trace (Negative); Leukocyte Esterase Urine 1+ (Negative); Nitrate Urine Negative (Negative); Protein Urine 1+ (Negative); Urine Appearance Cloudy (CLEAR); Urine Color Yellow (Yellow)
[2024-08-14 18:57] LABS: Add Urine Microscopic? YES; Bacteria Urine None Seen /hpf; Hyaline Casts Urine 19.02 /lpf; Squamous Epithelial Cell Urine 0-5 /hpf (0-5); Universal Test for UA Present (0); WBC Urine 21-50 /hpf (0-5)
[2024-08-14 19:07] LABS: Add Urine Culture? No
[2024-08-14 20:14] LABS: Hematocrit 21.7 % (37-53)
[2024-08-14 20:25] LABS: Troponin 5 6HR 83.28 ng/L (0-15)
[2024-08-14 20:28] LABS: Troponin 5 6HR Delta 13.28 ng/L (0-12)
[2024-08-14] MEDS: divalproex ER 500 mg Tablet (24H) 1000 MG PO (20:46)
[2024-08-14] MEDS: pantoprazole 40 mg SDV IVP (22:19)
[2024-08-15] VITALS (16 sets, daily range): BP systolic 90–121; BP diastolic 52–70; PULSE 80–100; RESP 16–20; TEMP 36.6–37.1; O2SAT 87–98
[2024-08-15] MEDS: piperacillin-tazobactam 3.375 GM in sodium chloride 0.9% (plus) 50 ML IV ×3 (01:58→18:10)
[2024-08-15 04:17] LABS: Basophils % 0.3 %; Eosinophils # 0.1 10^3/uL (0.0-0.8); Eosinophils % 0.6 %; Hematocrit 25.7 % (37-53); Lymphocytes # 0.8 10^3/uL (0.8-4.8); Lymphocytes % 8.5 %; Mean Corpuscular HGB Conc 31.5 g/dL (30-55); Mean Corpuscular Hemoglobin 31.5 pg (27-33); Mean Platelet Volume 10.1 fL (7.4-10.4); Monocytes # 1.2 10^3/uL (0.2-0.9); Monocytes % 13.3 %; Neutrophils % 74.1 %; Nucleated Red Blood Cells % 0 %; Platelet Count 90 10^3/cmm (157-399); Red Blood Count 2.57 10^6/uL (3.85-5.65); Red Cell Distribution Width 16.8 % (12.1-15.1); White Blood Count 9.04 10^3/uL (3.29-11.43)
[2024-08-15 04:45] LABS: Alanine Aminotransferase < 5 U/L (0-41); Albumin Level 2.4 g/dL (3.5-5.2); Alkaline Phosphatase 73 U/L (40-130); Aspartate Amino Transferase 32 U/L (0-40); Blood Urea Nitrogen 29 mg/dL (8-23); C Reactive Protein 147.9 mg/L (0.0-4.9); Calcium 7.8 mg/dL (8.5-10.5); Carbon Dioxide 23 mmol/L (22-29); Chloride 101 mmol/L (98-107); Glucose 86 mg/dL (65-115); Magnesium 2.1 mg/dL (1.7-2.3); Osmolality Calculated 287 mOsm/kg (285-295); Phosphorus 3.8 mg/dL (2.5-4.5); Sodium 136 mmol/L (136-145); Total Bilirubin 0.4 mg/dL (0.15-1.2); Total Protein 5.4 g/dL (6.6-8.7)
[2024-08-15 04:48] LABS: Anion Gap 16.2 (5-19); Potassium 4.2 mmol/L (3.5-5.1)
[2024-08-15] MEDS: levothyroxine 100 mcg Tablet 50 MCG PO (06:38)
[2024-08-15] MEDS: folic acid 1 mg Tablet PO (06:38)
[2024-08-15] MEDS: metoprolol tartrate 25 mg Tablet PO ×2 (06:38→17:07)
[2024-08-15] MEDS: sucralfate 1 gm/10 mL Oral Liq UDC PO ×2 (06:39→17:07)
[2024-08-15] MEDS: HYDROmorphone 1 mg/mL INJ 1 mL 0.5 MG IVP ×2 (06:43→21:58)
[2024-08-15 07:02] LABS: Hematocrit 26.5 % (37-53)
[2024-08-15] MEDS: divalproex ER 250 mg Tablet (24H) PO (08:37)
[2024-08-15] MEDS: predniSONE 5 mg Tablet PO (08:37)
[2024-08-15] MEDS: polyethylene glycol 3350 Pkt 17 gm PO ×2 (08:37→17:08)
[2024-08-15] MEDS: carbidopa-levodopa 25-100mg Tablet 2 EACH PO ×2 (08:37→17:07)
[2024-08-15] MEDS: quetiapine 100 mg Tablet 200 MG PO ×2 (08:37→17:07)
[2024-08-15] MEDS: oxyCODONE 5 mg IR Tab/Cap PO ×2 (08:37→17:07)
[2024-08-15] MEDS: bisacodyl 5 mg Tablet 10 MG PO (08:37)
[2024-08-15] MEDS: OLANZapine 10 mg TABLET 5 MG PO ×2 (08:37→17:08)
[2024-08-15] MEDS: sodium chloride 1 gm Tablet PO ×2 (08:38→17:07)
[2024-08-15] MEDS: sodium chloride 0.9% 1,000 ML 50 ML IV (09:35)
[2024-08-15] MEDS: aspirin 81 mg EC Tablet PO (09:35)
[2024-08-15] MEDS: pantoprazole 40 mg SDV IVP ×2 (09:35→21:17)
[2024-08-15 10:27] LABS: LAB Peripheral Smear Sent for Review
[2024-08-15 10:40] LABS: Troponin T (5th) Once 70 ng/L (0-15)
[2024-08-15 10:49] LABS: Lactate Dehydrogenase 221 U/L (135-225); NT Pro B Type Natriuretic Pept 1191 pg/mL (0-450)
[2024-08-15] MEDS: lactulose oral liq 20 gm/30 mL UDC 10 GM PO (12:02)
[2024-08-15] MEDS: carbidopa-levodopa 25-100mg Tablet 1 EACH PO (12:02)
--- NOTE | 2024-08-15 12:46 | PC.NURSE ---
Attempted to help patient with lunch. Patient was unable to tolerate the nectar thickened liquid. Coughed and gurgled with every drink. Attempted to scream while having liquid pocketed in his mouth and aspirated cranberry juice. Speech re-evaluated and agreed to put patient on honey thickened liquids and pureed diet. Diet order changed physician notified.
--- NOTE | 2024-08-15 12:47 | P.PN_ITS ---
Subjective 2 Subjective: Patient was seen this morning he is alert to person, not to place, not to time he follows commands, no specific complaints, on examination surgical site left hip has surrounding erythema, swelling Vitals/I&O/Wt Last Vital Signs Temp 98.7 F 08/15/24 12:00 Pulse 88 08/15/24 12:00 Resp 17 08/15/24 12:00 BP 98/62 08/15/24 12:00 Pulse Ox 95 08/15/24 12:00 O2 Del Method Nasal Cannula 08/15/24 12:00 O2 Flow Rate 3 08/15/24 12:00 08/14/24 08/15/24 08/15/24 22:59 06:59 14:59 Intake Total 1173.75 / 1483.75 450 / 1933.75 965 / 965 Output Total 200 / 200 Balance 1173.75 / 1483.75 250 / 1733.75 965 / 965 Weight last 48 hrs Weight 91.263 kg Weight 88.632 kg Physical Exam 2 Const: COMMON NORMALS: no acute distress Resp: COMMON NORMALS: normal respiratory effort, No retractions, No use of accessory muscles and clear to auscultation bilaterally AUSCULTATION: clear to auscultation bilaterally Cardio: COMMON NORMALS: regular rate, regular rhythm, S1 normal heart sound present and S2 normal heart sound present RATE: regular rate RHYTHM: r egular rhythm HEART SOUNDS: S1 normal heart sound present and S2 normal heart sound present GI: COMMON NORMALS: Normal to inspection, nondistended, normoactive bowel sounds present, Soft to palpation and non-tender PALPATION: Yes Soft to palpation Extremity: COMMON NORMALS: no pedal edema NARRATIVE EXTREMITY EXAM: Left hip, surrounding erythema, swelling, warmth Psych: COMMON NORMALS: mental status grossly normal Data 08/15/24 06:55 08/15/24 03:34 Micro: Microbiology 08/14/24 18:44 Urine Culture - Preliminary Urine Catheterized A&P Assessment and plan (1) Aspiration pneumonia: (2) High risk medication use: (3) Essential hypertension: (4) GERD without esophagitis: (5) Incontinence: (6) Seronegative rheumatoid arthritis of multiple sites: (7) Fracture of radial head, left, closed: Qualifiers: Encounter type: subsequent encounter Fracture alignment: nondisplaced Fracture healing: with routine healing Qualified Code(s): S52.125D - Nondisplaced fracture of head of left radius, subsequent encounter for closed fracture with routine healing (8) Inferior pubic ramus fracture: (9) Left acetabular fracture: Qualifiers: Encounter type: subsequent encounter Sublocation of acetabulum: p osterior column Fracture type: closed Fracture alignment: displaced Fracture healing: with routine healing Qualified Code(s): S32.442D - Displaced fracture of posterior column [ilioischial] of left acetabulum, subsequent encounter for fracture with routine healing (10) Parkinson's disease (tremor, stiffness, slow motion, unstable posture): (11) Lewy body Parkinson disease: (12) 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 Superimposed patchy ground-glass opacities suggesting atypical pneumonitis. Moderate left basilar atelectasis. Radiographic follow-up to resolution recommended High risk for aspiration dysphagia level 4 diet, aspiration precautions Continue Zosyn procalcitonin 0.16 , crp 53.2 Postoperative anemia hemoglobin down to 0.6 -Iron studies -Protonix, Carafate -Monitor hemoglobin Acute kidney injury -IV fluids Acute on chronic hyponatremia, 127 -Is on multiple psychotropic medication -Urine studies -Appears euvolemic -No evidence of psychogenic polydipsia -Monitor serum sodiums Left acetabular fracture: MRI left hip MR/MR hip LT wo con* [id number] IMPRESSION: 1. Study is limited due to motion artifact and lack of contrast. 2. Comminuted fracture involving the LEFT acetabulum as previously described. There is a large amount of marrow edema. 3. Medial migration of the LEFT femoral head through the acetabulum. 4. Extensive marrow edema in the LEFT femoral head, neck and proximal femur. Trabecular injury with edema. No definite fracture identified but occult fracture should be considered. 5. LEFT hip joint effusion and mild synovial thickening. No definite mass identified. Dr. Howard consulted -Status post surgical invention -Does have swelling, erythema around surgical site hemoglobin down to 8.6 continue to hold Lovenox for DVT prophylaxis monitor closely -PT OT Constipation: CT imaging showing moderate to large volume colonic stool retention/constipation -Bowel regimen For mood stabilization patient is on Depakote, antipsychotics, Seroquel Parkinsonian features: Continue carbidopa/levodopa combination Acute on chronic anemia, hemoglobin 9.5, monitor Cardiac echo CONCLUSIONS Normal left ventricular size, systolic function and wall thickness, with no regional wall motion abnormalities. Left ventricular ejection fraction is estimated at 60 %. Grade I/IV diastolic dysfunction (abnormal relaxation filling pattern), normal to mildly elevated filling pressures. No significant valve abnormalities. There is no pericardial effusion. Right atrial pressure is around 5 mm of mercury. Patient is wheelchair-bound: For now DVT prophylaxis covered with Lovenox currently on hold and plans for surgery tomorrow Atrial flutter -Patient is EKG and telemetry monitoring showing atrial tachycardia versus flutter, now appears to be normal sinus rhythm -No chest pain complaints -Could be beta-jian withdrawal - metoprolol 25 twice daily -Continue telemetry monitoring -Cardiac echo as above NSTEMI -6-hour troponin 83.28, down to 13.28, repeat troponin this morning to 70 -EKGs overnight show atrial flutter -No chest pain complaints -Echo as above -Aspirin, statin, echo Full code SCDs for DVT prophylaxis Attestations 2 Medical Necessity Statement*: Patient requires hospitalization for postoperative anemia, atrial flutter, NSTEMI Diagnoses Aspiration pneumonia J69.0 High risk medication use Z79.899 Essential hypertension I10 GERD without esophagitis K21.9 Incontinence R32 Seronegative rheumatoid arthritis of multiple sites M06.09 Closed nondisplaced fracture of head of left radius with routine healing, subsequent encounter S52.125D Encounter type: subsequent encounter Fracture alignment: nondisplaced Fracture healing: with routine healing Inferior pubic ramus fracture S32.598B Closed displaced fracture of posterior column of left acetabulum with routine healing, subsequent encounter S32.442D Encounter type: subsequent encounter Sublocation of acetabulum: posterior column Fracture type: closed Fracture alignment: displaced Fracture healing: with routine healing Parkinson's disease (tremor, stiffness, slow motion, unstable posture) G20 Lewy body Parkinson disease G31.83; F02.80 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
--- NOTE | 2024-08-15 12:48 | PC.NURSE ---
Assessed patient's operative site and noted surrounding tissue to be red and warm to touch. Replaced ice packs and circled drainage on the dressing to left hip. Surgeon.
[2024-08-15 13:57] LABS: Basophils % 0.2 %; Eosinophils % 0.4 %; Hematocrit 26.8 % (37-53); Lymphocytes # 0.5 10^3/uL (0.8-4.8); Lymphocytes % 4.2 %; Mean Corpuscular HGB Conc 32.5 g/dL (30-55); Mean Corpuscular Volume 98.5 fl (82-101); Mean Platelet Volume 9.9 fL (7.4-10.4); Monocytes # 1.5 10^3/uL (0.2-0.9); Monocytes % 13.4 %; Neutrophils # 8.94 10^3/uL (1.8-7.7); Neutrophils % 79.3 %; Nucleated Red Blood Cells % 0 %; Platelet Count 86 10^3/cmm (157-399); Red Blood Count 2.72 10^6/uL (3.85-5.65); Red Cell Distribution Width 16.9 % (12.1-15.1); White Blood Count 11.26 10^3/uL (3.29-11.43)
[2024-08-15] MEDS: Fleet Enema 133 mL Enema PR (14:25)
[2024-08-15] MEDS: divalproex ER 500 mg Tablet (24H) 1000 MG PO (21:17)
[2024-08-15] MEDS: atorvastatin 40 mg Tablet PO (21:18)
[2024-08-16] VITALS (17 sets, daily range): BP systolic 94–126; BP diastolic 36–72; PULSE 65–96; RESP 14–19; TEMP 36.4–36.9; O2SAT 93–100
[2024-08-16] MEDS: piperacillin-tazobactam 3.375 GM in sodium chloride 0.9% (plus) 50 ML IV ×2 (01:56→12:59)
[2024-08-16 04:48] LABS: Basophils % 0.1 %; Hematocrit 23.3 % (37-53); Lymphocytes # 0.6 10^3/uL (0.8-4.8); Lymphocytes % 3.6 %; Mean Corpuscular HGB Conc 32.2 g/dL (30-55); Mean Corpuscular Hemoglobin 31.3 pg (27-33); Mean Corpuscular Volume 97.1 fl (82-101); Monocytes # 1.4 10^3/uL (0.2-0.9); Neutrophils # 13.81 10^3/uL (1.8-7.7); Nucleated Red Blood Cells % 0 %; Platelet Count 76 10^3/cmm (157-399); Red Cell Distribution Width 17.2 % (12.1-15.1); White Blood Count 16.06 10^3/uL (3.29-11.43)
[2024-08-16 05:01] LABS: Alanine Aminotransferase 6 U/L (0-41); Alkaline Phosphatase 70 U/L (40-130); Blood Urea Nitrogen 26 mg/dL (8-23); C Reactive Protein 200.8 mg/L (0.0-4.9); Carbon Dioxide 24 mmol/L (22-29); Chloride 102 mmol/L (98-107); Creatinine Clr Calc Pharmacy 78.1639; Globulin 3.1 g/dL (1.3-4.6); Glucose 98 mg/dL (65-115); Magnesium 2.1 mg/dL (1.7-2.3); Osmolality Calculated 287 mOsm/kg (285-295); Phosphorus 2.9 mg/dL (2.5-4.5); Sodium 136 mmol/L (136-145); Total Bilirubin 0.6 mg/dL (0.15-1.2); Total Protein 5.1 g/dL (6.6-8.7)
[2024-08-16 05:02] LABS: Anion Gap 14.4 (5-19); Aspartate Amino Transferase 49 U/L (0-40); Potassium 4.4 mmol/L (3.5-5.1)
[2024-08-16] MEDS: sodium chloride 0.9% 1,000 ML 50 ML IV (05:48)
[2024-08-16] MEDS: levothyroxine 100 mcg Tablet 50 MCG PO (05:49)
[2024-08-16] MEDS: sucralfate 1 gm/10 mL Oral Liq UDC PO ×2 (05:49→18:35)
[2024-08-16] MEDS: folic acid 1 mg Tablet PO (05:49)
[2024-08-16] MEDS: metoprolol tartrate 25 mg Tablet PO ×2 (05:50→18:35)
[2024-08-16] MEDS: bisacodyl 5 mg Tablet 10 MG PO (08:32)
[2024-08-16] MEDS: OLANZapine 10 mg TABLET 5 MG PO ×2 (08:33→18:35)
[2024-08-16] MEDS: carbidopa-levodopa 25-100mg Tablet 2 EACH PO ×2 (08:33→17:18)
[2024-08-16] MEDS: polyethylene glycol 3350 Pkt 17 gm PO ×2 (08:33→18:34)
[2024-08-16] MEDS: quetiapine 100 mg Tablet 200 MG PO ×2 (08:33→18:35)
[2024-08-16] MEDS: divalproex ER 250 mg Tablet (24H) PO (08:34)
[2024-08-16] MEDS: pantoprazole 40 mg SDV IVP ×2 (08:34→20:46)
[2024-08-16] MEDS: predniSONE 5 mg Tablet PO (08:34)
[2024-08-16] MEDS: aspirin 81 mg EC Tablet PO (08:34)
[2024-08-16] MEDS: sodium chloride 1 gm Tablet PO ×2 (08:34→18:35)
--- NOTE | 2024-08-16 08:39 | CT_ITS ---
WS: [id number] CT CHEST, ABDOMEN AND PELVIS WITHOUT CONTRAST HISTORY: leukocytosis, anemia, pt, hip surgery , swelling TECHNIQUE: Contiguous 5 mm axial imaging performed through the chest, abdomen and pelvis without IV c ontrast, oral contrast has not been provided. Coronal and sagittal reformats chest. Coronal and sagit susie reformats through the abdomen and pelvis. All CT scans at [facility] use at least one of these dose optimization techniques: automated exposure control; mA and/or kV adjustment per patient s ize (includes targeted exams where dose is matched to clinical indication); or iterative reconstructi on. CONTRAST: None DLP: 1092.08 mGy.cm COMPARISON: 08/10/[address]: Progression of pulmonary consolidation since 08/10/2024. Fluffy patchy consolidations throug hout a large portion of the RIGHT upper, RIGHT middle and RIGHT lower lobes and also at the LEFT lung base. Esophagus is dilated with a fluid level to the thoracic inlet. Mild hazy attenuation throughou t both lungs. Heart size is slightly enlarged. No pericardial or pleural effusions. No pneumothorax. Normal size aorta. Coronary artery calcifications. Abdomen CT: Streak artifact through the abdomen and pelvis. Unremarkable appearance of the liver and spleen on noncontrast imaging. Poorly visualized pancreas. No adrenal mass. Negative gallbladder. No renal obstruction. Mild atherosclerosis aorta. Stomach is minimally distended. No small bowel obstruction. There is diffuse fecal retention with obs tipation. Pelvic CT: Jacob catheter in the urinary bladder. Since the prior CT LEFT hip arthroplasty has been placed. Comminuted fracture involving the LEFT acet abulum. Recent postoperative changes noted in the soft tissues surrounding the LEFT hip arthroplasty. There is mild soft tissue anasarca throughout the abdomen and pelvis. LEFT inferior pubic rami fract ure. Patient has numerous osteoporotic thoracic and lumbar fractures which are stable. CT/[place] [id number] IMPRESSION: 1. New significant consolidation throughout the RIGHT lung with more focal con solidation at the LEFT lung base. Consistent with pneumonia. Consider aspiratio n pneumonia. 2. Esophagus is dilated to the thoracic inlet with a fluid level. 3. Diffuse constipation with obstipation. 4. No free air or free fluid. 5. Interval LEFT hip arthroplasty. Satisfactory postoperative changes at the [facility] hip ORIF site.
[2024-08-16] MEDS: oxyCODONE 5 mg IR Tab/Cap PO ×2 (09:01→22:05)
[2024-08-16 09:54] LABS: Procalcitonin 0.34 ng/mL (0-0.5)
--- NOTE | 2024-08-16 10:03 | PC.SOCIAL ---
IMM Update pg 2 of IMM Updated and reviewed w/ patients guardian, Polo Blair. Copy provided and copy dated, initialed and placed in chart.
[2024-08-16 12:14] LABS: Osmolality Urine 375 mOsm/kg (50-1200)
--- NOTE | 2024-08-16 12:24 | P.PN_ITS ---
Subjective 2 Subjective: Patient sitting up in chair sleeping Vitals/I&O/Wt Last Vital Signs Temp 97.9 F 08/16/24 12:00 Pulse 86 08/16/24 12:00 Resp 14 08/16/24 12:00 BP 94/65 08/16/24 12:00 Pulse Ox 98 08/16/24 12:00 O2 Del Method Nasal Cannula 08/16/24 12:00 O2 Flow Rate 3 08/16/24 08:00 08/15/24 08/16/24 08/16/24 22:59 06:59 14:59 Intake Total 150 / 1165 1250 / 2415 120 / 120 Output Total 1000 / 1000 300 / 1300 Balance -850 / 165 950 / 1115 120 / 120 Weight last 48 hrs Weight 201 lb 3.2 oz Weight 201 lb 3.2 oz Physical Exam 2 Narrative: Patient sitting up in chair sleeping Data 08/16/24 04:28 08/16/24 04:28 Micro: Microbiology 08/14/24 18:44 Urine Culture - Final Urine Catheterized 08/10/24 18:35 Blood Culture - Final Blood NO GROWTH AFTER 5 DAYS 08/10/24 18:32 Blood Culture - Final Blood NO GROWTH AFTER 5 DAYS A&P Assessment and plan (1) Left acetabular fracture: Postop day #3 left total hip arthroplasty Up with physical therapy Weight-bear as tolerated Qualifiers: Encounter type: subsequent encounter Sublocation of acetabulum: p osterior column Fracture type: closed Fracture alignment: displaced Fracture healing: with routine healing Qualified Code(s): S32.442D - Displaced fracture of posterior column [ilioischial] of left acetabulum, subsequent encounter for fracture with routine healing Attestations 2 Medical Necessity Statement*: Per primary service Coding Level of Care Code Acute Code for [facility] Fwd Diagnoses Closed displaced fracture of posterior column of left acetabulum with routine healing, subsequent encounter S32.442D Encounter type: subsequent encounter Sublocation of acetabulum: posterior column Fracture type: closed Fracture alignment: displaced Fracture healing: with routine healing
[2024-08-16] MEDS: carbidopa-levodopa 25-100mg Tablet 1 EACH PO (13:00)
[2024-08-16 13:39] LABS: Basophils % 0.2 %; Hematocrit 22.6 % (37-53); Lymphocytes # 0.5 10^3/uL (0.8-4.8); Lymphocytes % 3.2 %; Mean Corpuscular HGB Conc 31.9 g/dL (30-55); Mean Corpuscular Hemoglobin 32.3 pg (27-33); Mean Corpuscular Volume 101.3 fl (82-101); Mean Platelet Volume 9.5 fL (7.4-10.4); Monocytes # 1.4 10^3/uL (0.2-0.9); Monocytes % 9.2 %; Neutrophils # 12.74 10^3/uL (1.8-7.7); Neutrophils % 85.5 %; Nucleated Red Blood Cells % 0 %; Platelet Count 73 10^3/cmm (157-399); Red Blood Count 2.23 10^6/uL (3.85-5.65); Red Cell Distribution Width 17.6 % (12.1-15.1); White Blood Count 14.91 10^3/uL (3.29-11.43)
--- NOTE | 2024-08-16 15:42 | P.PN_ITS ---
Subjective 2 Subjective: - Patient was examined this morning, she is alert to person, not to place, not to time, a bit drowsy this morning he has just received his pain medication -Continues to have severe pain left hip, swelling erythema significantly proved compared to yesterday -He did receive a blood transfusion [facility] 2024 for anemia -Hemoglobin remains low this morning, re check this afternoon -Recheck hemoglobin this afternoon 7.2 w ill transfuse 1 unit PRBC -Leukocytosis up to 16,000 this morning with elevated CRP -Patient is on Zosyn, repeat CT chest ab domen pelvis, blood cultures, lactic acid -CT of the chest shows new significant c onsolidation throughout right lung with more consolidation at the left lung base consistent with pneumonia -Remains on aspiration precautions -Patient is already on a dysphagia level 4 diet -Blood added coverage to vancomycin, murali openem -Patient also has a left inferior pubic rami fracture -Does have thrombocytopenia, Lovenox on hold monitor Vitals/I&O/Wt Last Vital Signs Temp 97.9 F 08/16/24 12:00 Pulse 86 08/16/24 12:00 Resp 14 08/16/24 12:00 BP 94/65 08/16/24 12:00 Pulse Ox 98 08/16/24 12:00 O2 Del Method Nasal Cannula 08/16/24 12:00 O2 Flow Rate 3 08/16/24 08:00 08/16/24 08/16/24 08/16/24 06:59 14:59 22:59 Intake Total 1250 / 2415 120 / 120 Output Total 300 / 1300 Balance 950 / 1115 120 / 120 Weight last 48 hrs Weight 91.263 kg Weight 91.263 kg Physical Exam 2 Const: COMMON NORMALS: no acute distress ORIENTATION/CONSCIOUSNESS: Yes awake and Yes oriented to person; not oriented to place and not oriented to time Eye: COMMON NORMALS: Equal, round and reactive pupils present PUPIL: Yes Equal, round and reactive pupils present Resp: COMMON NORMALS: normal respiratory effort, No retractions and No use of accessory muscles OTHER: Wheezing right lung field Cardio: COMMON NORMALS: regular rate, regular rhythm, S1 normal heart sound present and S2 normal heart sound present RATE: regular rate RHYTHM: r egular rhythm HEART SOUNDS: S1 normal heart sound present and S2 normal heart sound present GI: COMMON NORMALS: Normal to inspection, nondistended, normoactive bowel sounds present and non-tender Extremity: COMMON NORMALS: no pedal edema Neuro: SENSORIUM/ORIENTATION: Yes oriented to person, No oriented to place and No oriented to time Skin: NARRATIVE SKIN EXAM: Surgical site, left hip looks clean and dry, surrounding erythema swelling improving compared to yesterday Data 08/16/24 13:30 08/16/24 04:28 Micro: Microbiology 08/14/24 18:44 Urine Culture - Final Urine Catheterized 08/10/24 18:35 Blood Culture - Final Blood NO GROWTH AFTER 5 DAYS 08/10/24 18:32 Blood Culture - Final Blood NO GROWTH AFTER 5 DAYS A&P Assessment and plan (1) Aspiration pneumonia: (2) High risk medication use: (3) Essential hypertension: (4) GERD without esophagitis: (5) Incontinence: (6) Seronegative rheumatoid arthritis of multiple sites: (7) Fracture of radial head, left, closed: Qualifiers: Encounter type: subsequent encounter Fracture alignment: nondisplaced Fracture healing: with routine healing Qualified Code(s): S52.125D - Nondisplaced fracture of head of left radius, subsequent encounter for closed fracture with routine healing (8) Inferior pubic ramus fracture: (9) Left acetabular fracture: Qualifiers: Encounter type: subsequent encounter Sublocation of acetabulum: p osterior column Fracture type: closed Fracture alignment: displaced Fracture healing: with routine healing Qualified Code(s): S32.442D - Displaced fracture of posterior column [ilioischial] of left acetabulum, subsequent encounter for fracture with routine healing (10) Parkinson's disease (tremor, stiffness, slow motion, unstable posture): (11) Lewy body Parkinson disease: (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 New significant consolidation throughout the RIGHT lung with more focal consolidation at the LEFT lung base. Consistent with pneumonia. Consider aspiration pneumonia. High risk for aspiration dysphagia level 4 diet, moderately thickened aspiration precautions Broaden antibiotic coverage to vancomycin, meropenem procalcitonin 0.16 , crp 200 Postoperative anemia hemoglobin down to 7.2 -Received 1 unit PRBC August 14, 2024 -Will transfuse another unit PRBC -Iron studies mild iron deficiency anemia -Protonix, Carafate -Monitor hemoglobin Acute on chronic thrombocytopenia, HIT panel ordered, peripheral smear ordered Acute kidney injury resolved -IV fluids Acute on chronic hyponatremia, 136 -Is on multiple psychotropic medication -Urine studies -Appears euvolemic -No evidence of psychogenic polydipsia -Monitor serum sodiums Left acetabular fracture: MRI left hip MR/MR hip LT wo con* [id number] IMPRESSION: 1. Study is limited due to motion artifact and lack of contrast. 2. Comminuted fracture involving the LEFT acetabulum as previously described. There is a large amount of marrow edema. 3. Medial migration of the LEFT femoral head through the acetabulum. 4. Extensive marrow edema in the LEFT femoral head, neck and proximal femur. Trabecular injury with edema. No definite fracture identified but occult fracture should be considered. 5. LEFT hip joint effusion and mild synovial thickening. No definite mass identified. Dr. Howard consulted -Status post surgical invention -Does have swelling, erythema around surgical site hemoglobin down to 7.2 continue to hold Lovenox for DVT prophylaxis monitor closely -PT OT Patient also has evidence of left pubic rami fracture on CT imaging, monitor, pain control Constipation: CT imaging showing moderate to large volume colonic stool retention/constipation -Bowel regimen For mood stabilization patient is on Depakote, antipsychotics, Seroquel Parkinsonian features: Continue carbidopa/levodopa combination Acute on chronic anemia, hemoglobin 9.5, monitor Cardiac echo CONCLUSIONS Normal left ventricular size, systolic function and wall thickness, with no regional wall motion abnormalities. Left ventricular ejection fraction is estimated at 60 %. Grade I/IV diastolic dysfunction (abnormal relaxation filling pattern), normal to mildly elevated filling pressures. No significant valve abnormalities. There is no pericardial effusion. Right atrial pressure is around 5 mm of mercury. Patient is wheelchair-bound: For now DVT prophylaxis covered with Lovenox currently on hold and plans for surgery tomorrow Atrial flutter -Patient is EKG and telemetry monitoring showing atrial tachycardia versus flutter, now appears to be normal sinus rhythm -No chest pain complaints -Could be beta-jian withdrawal - metoprolol 25 twice daily -Continue telemetry monitoring -Cardiac echo as above -Holding anticoagulant therapy given acute anemia as above NSTEMI -6-hour troponin 83.28, down to 13.28, repeat troponin this morning to 70 -EKGs overnight show atrial flutter -No chest pain complaints -Echo as above -Aspirin, statin, echo -Venous ultrasound negative for DVT Full code SCDs for DVT prophylaxis Attestations 2 Medical Necessity Statement*: Patient requires hospitalization for recurrent pneumonia requiring broad- spectrum antibiotic therapy vancomycin and meropenem, aspiration precautions dysphagia level 4 diet, acute anemia requiring transfusion PRBC, Diagnoses Aspiration pneumonia J69.0 High risk medication use Z79.899 Essential hypertension I10 GERD without esophagitis K21.9 Incontinence R32 Seronegative rheumatoid arthritis of multiple sites M06.09 Closed nondisplaced fracture of head of left radius with routine healing, subsequent encounter S52.125D Encounter type: subsequent encounter Fracture alignment: nondisplaced Fracture healing: with routine healing Inferior pubic ramus fracture S32.599A Closed displaced fracture of posterior column of left acetabulum with routine healing, subsequent encounter S32.442D Encounter type: subsequent encounter Sublocation of acetabulum: posterior column Fracture type: closed Fracture alignment: displaced Fracture healing: with routine healing Parkinson's disease (tremor, stiffness, slow motion, unstable posture) G20 Lewy body Parkinson disease G31.83; F02.80 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
--- NOTE | 2024-08-16 15:54 | PHA.VACGOAL ---
Vancomycin Goal - Goal Vancomycin Goal:: 15-20 mg/L Vancomycin Indication:: Pneumonia - Therapy Current therapy:: Meropenem Day of therpy:: Day []of [] . Actual body weight (kg): 201 lb 3.2 oz - Data Labs: WBC 14.91 10^3/uL (3.29-11.43) H 08/16/24 13:30 RBC 2.23 10^6/uL (3.85-5.65) L 08/16/24 13:30 Hgb 7.20 g/dL (11.27-16.99) L 08/16/24 13:30 Hct 22.6 % (37-53) L 08/16/24 13:30 MCV 101.3 fl (82-101) H 08/16/24 13:30 MCH 32.3 pg (27-33) 08/16/24 13:30 MCHC 31.9 g/dL (30-55) 08/16/24 13:30 RDW 17.6 % (12.1-15.1) H 08/16/24 13:30 Sodium 136 mmol/L (136-145) 08/16/24 04:28 Potassium 4.4 mmol/L (3.5-5.1) 08/16/24 04:28 Chloride 102 mmol/L (98-107) 08/16/24 04:28 Carbon Dioxide 24 mmol/L (22-29) 08/16/24 04:28 Anion Gap 14.4 (5-19) 08/16/24 04:28 BUN 26 mg/dL (8-23) H 08/16/24 04:28 Creatinine 0.8 mg/dL (0.7-1.2) 08/16/24 04:28 GFR Calculation Not Reportable 08/16/24 04:28 Last dialysis session:: N/A Treatment plan:: new consult Regimen:: INITIAL LOADING DOSE OF 3000 MG PER DOSING PROTOCOL MAINTENANCE DOSE OF 1250 MG Q12H Follow up:: WILL CONTINUE TO MONITOR AND FOLLOW UP DAILY
[2024-08-16] MEDS: meropenem 500 mg SDV IVP (17:17)
[2024-08-16] MEDS: sodium chloride 0.9% (100 ml) 100 ML 125 ML (17:19)
[2024-08-16 18:01] LABS: Bilirubin Urine 1+ (Negative); Blood Urine 2+ (Negative); Glucose Urine UA Negative (Normal); Ketones Urine Trace (Negative); Leukocyte Esterase Urine Trace (Negative); Nitrate Urine Negative (Negative); Protein Urine 2+ (Negative); Urine Appearance Cloudy (CLEAR); Urine Color Dark Yellow (Yellow); pH Urine 5.5 (5-7)
[2024-08-16 18:06] LABS: Add Urine Microscopic? YES; Bacteria Urine None Seen /hpf; Hyaline Casts Urine 22.33 /lpf; RBC Urine 51-100 /hpf (0-2); Squamous Epithelial Cell Urine 0-5 /hpf (0-5)
[2024-08-16 18:22] LABS: Specific Gravity, Urine 1.031 (1.005-1.030); UA Slide Review UA Slide Review Perf
[2024-08-16 18:24] LABS: Add Urine Culture? Yes; Mucus Urine 1+ /hpf
[2024-08-16] MEDS: atorvastatin 40 mg Tablet PO (20:46)
[2024-08-16] MEDS: divalproex ER 500 mg Tablet (24H) 1000 MG PO (20:46)
[2024-08-16] MEDS: vancomycin 3,000 MG/600 ML PIGGYBACK 200 MG IV ×2 (20:58→21:03)
[2024-08-16 21:52] LABS: Lactic Sepsis W/Reflex 1.5 mmol/L (0.5-2.2)
[2024-08-17] VITALS (13 sets, daily range): BP systolic 113–147; BP diastolic 64–96; PULSE 73–112; RESP 14–20; TEMP 36.4–36.9; O2SAT 93–100
[2024-08-17] MEDS: sodium chloride 0.9% 1,000 ML 50 ML IV (00:38)
[2024-08-17] MEDS: meropenem 500 mg SDV IVP ×4 (00:38→23:12)
[2024-08-17] MEDS: oxyCODONE 5 mg IR Tab/Cap PO ×2 (04:30→16:28)
--- OUTSIDE RECORDS SUMMARY | 2024-08-17 05:39 | XMS_ITS | Continuity of Care Document ---
Author Organization [facility] Address [id number] [address] Phone Care Team Providers Care Information Writer Name Role Phone Americo Grant DDS Unavailable Unavailable Medications Medication Instructions Dosage Effective Dates (start - stop) Status Comments TIROSINT (unknown strength) take 1 capsule by oral route every day Not Available - Active Paxil 30 mg tablet take 1 tablet by oral route every day 30 MG - Active Depakote 250 mg tablet,delayed release take 1 tablet by oral route 2 times every day 250 MG - Active omeprazole 20 mg capsule,delayed release take 1 capsule by oral route every day before a meal 20 MG - Active folic acid 1 mg tablet take 1 tablet by oral route every day 1 MG - Active Xatmep 2.5 mg/mL oral solution - Active Lopressor 50 mg tablet take 1 tablet by oral route 2 times every day with meals 50 MG - Active Zyprexa 5 mg tablet take 1 tablet by oral route every day 5 MG - Active amantadine HCl 100 mg capsule take 1 capsule by oral route 2 times every day 100 MG - Active Flovent HFA 110 mcg/actuation aerosol inhaler inhale 1 puff by inhalation route 2 times every day - Active Procedures Procedure Date Comprehensive Oral Evaluation ??? New Or Established Pre-Pay For Services EDR Approval Note Advance Directives Directive Yes / No Effective Date File Name No Information Encounters Encounter Description Practice Location Reason(s) For Visit Diagnoses Date Provider Providers Copied on Encounter [facility], [id number] [place], [place], [id number], tel:[phone] Encounter for dental exam and cleaning w/o abnormal findings Rudy Driscoll. [address] [place], [address], [place]. tel:[phone] Referring Provider: Americo Beal, [address] [place], [address]. tel:[phone] Family History Family Member Type Diagnosis Age At Onset No Information Payers Payer name Insurance type Covered alliance party ID Authoriza tion(s) No Information Social History Type Description Quantity Date Captured Comments Alcohol Use Details No Caffeine Use Details Unknown Tobacco Use Status Current non-smoker 20 Smoking Status Never smoker Non-Smoking Tobacco Use Details : No Details Available : No Details Available Sex Male Chief Complaint And Reason For Visit No Information Reason For Referral Reason For Referral No Information History Of Present Illness Encounter Date Complaint History Of Prese nt Illness No Information Functional Status Date Functional Assessmen t No Information Instructions Date Instruction Additional Infor mation No Information Assessments Type Assessment Date No Information Patient Care Teams Name Effective Dates (start - stop) Status Members No Information
[2024-08-17 06:22] LABS: Basophils # 0.1 10^3/uL (0.0-0.1); Basophils % 0.3 %; Eosinophils # 0.1 10^3/uL (0.0-0.8); Eosinophils % 0.4 %; Hematocrit 29.1 % (37-53); Lymphocytes # 0.7 10^3/uL (0.8-4.8); Lymphocytes % 4.7 %; Mean Corpuscular HGB Conc 31.6 g/dL (30-55); Mean Corpuscular Hemoglobin 31.3 pg (27-33); Mean Platelet Volume 10.2 fL (7.4-10.4); Monocytes # 1.5 10^3/uL (0.2-0.9); Monocytes % 10.5 %; Neutrophils # 11.91 10^3/uL (1.8-7.7); Neutrophils % 82.8 %; Nucleated Red Blood Cells % 0 %; Platelet Count 92 10^3/cmm (157-399); Red Blood Count 2.94 10^6/uL (3.85-5.65); Red Cell Distribution Width 19.3 % (12.1-15.1); White Blood Count 14.38 10^3/uL (3.29-11.43)
[2024-08-17] MEDS: levothyroxine 100 mcg Tablet 50 MCG PO (06:25)
[2024-08-17] MEDS: folic acid 1 mg Tablet PO (06:25)
[2024-08-17] MEDS: sucralfate 1 gm/10 mL Oral Liq UDC PO ×2 (06:25→18:31)
[2024-08-17] MEDS: metoprolol tartrate 25 mg Tablet PO ×2 (06:25→18:32)
[2024-08-17 06:46] LABS: Alanine Aminotransferase 6 U/L (0-41); Albumin Level 2.2 g/dL (3.5-5.2); Alkaline Phosphatase 76 U/L (40-130); Anion Gap 12.3 (5-19); Aspartate Amino Transferase 42 U/L (0-40); Blood Urea Nitrogen 31 mg/dL (8-23); Calcium 8.9 mg/dL (8.5-10.5); Carbon Dioxide 26 mmol/L (22-29); Chloride 105 mmol/L (98-107); Creatinine Clr Calc Pharmacy 78.1639; Globulin 3.4 g/dL (1.3-4.6); Glucose 104 mg/dL (65-115); Magnesium 2.2 mg/dL (1.7-2.3); Osmolality Calculated 295 mOsm/kg (285-295); Phosphorus 2.7 mg/dL (2.5-4.5); Potassium 4.3 mmol/L (3.5-5.1); Sodium 139 mmol/L (136-145); Total Bilirubin 0.8 mg/dL (0.15-1.2); Total Protein 5.6 g/dL (6.6-8.7)
[2024-08-17] MEDS: vancomycin 1,250 MG/250 ML PIGGYBACK 166.67 MG IV ×2 (08:32→20:37)
[2024-08-17 09:30] LABS: NT Pro B Type Natriuretic Pept 959 pg/mL (0-450)
[2024-08-17] MEDS: pantoprazole 40 mg SDV IVP ×2 (09:51→21:18)
[2024-08-17] MEDS: FUROsemide 10 mg/mL SDV 2mL 20 MG IVP (09:51)
[2024-08-17] MEDS: polyethylene glycol 3350 Pkt 17 gm PO ×2 (09:51→18:32)
[2024-08-17] MEDS: bisacodyl 5 mg Tablet 10 MG PO (09:51)
[2024-08-17] MEDS: aspirin 81 mg EC Tablet PO (09:52)
[2024-08-17] MEDS: OLANZapine 10 mg TABLET 5 MG PO ×2 (09:52→18:31)
[2024-08-17] MEDS: sodium chloride 1 gm Tablet PO ×2 (09:52→18:31)
[2024-08-17] MEDS: divalproex ER 250 mg Tablet (24H) PO (09:52)
[2024-08-17] MEDS: quetiapine 100 mg Tablet 200 MG PO ×2 (09:52→18:31)
[2024-08-17] MEDS: predniSONE 5 mg Tablet PO (09:52)
[2024-08-17] MEDS: carbidopa-levodopa 25-100mg Tablet 2 EACH PO ×2 (09:54→16:37)
[2024-08-17] MEDS: carbidopa-levodopa 25-100mg Tablet 1 EACH PO (13:24)
--- NOTE | 2024-08-17 15:03 | PC.OT ---
OT TREATMENT ATTEMPTED AT LUNCH TIME. ENVIRONMENTAL RESTORATION PLANNER REPORTS THAT PATIENT NEEDS ASSISTANCE WITH FEEDING. PATIENT IS SEATED IN CHAIR AND RADIO IS PLAYING. THERAPIST TURNS DOWN THE RADIO AND ADDRESSES THE PATIENT. PATIENT STARES BLANKLY. THERAPIST HANDS THE PATIENT A WARM WASH CLOTH TO WASH HIS HANDS AND FACE BUT HE MAKES NO INITIATION TO DO SO. THERAPIST ATTEMPTS TO FEED THE PATIENT; HE TAKES TWO BITES FROM [employer]POON BUT WILL NOT SWALLOW THE FOOD. THERAPY ENDED PATIENT IS NOT ACTIVELY PARTICIPATING AT THIS TIME.
--- NOTE | 2024-08-17 17:26 | P.PN_ITS ---
Subjective 2 Subjective: Patient was seen this morning, he is alert to person, not to place, not to time he is much more alert awake this morning, sitting up in a chair, he has had his breakfast Vitals/I&O/Wt Last Vital Signs Temp 97.6 F 08/17/24 15:34 Pulse 110 H 08/17/24 15:34 Resp 18 08/17/24 16:28 BP 138/96 08/17/24 15:34 Pulse Ox 94 08/17/24 16:28 O2 Del Method Nasal Cannula 08/17/24 15:34 O2 Flow Rate 4 08/17/24 08:29 08/17/24 08/17/24 08/17/24 06:59 14:59 22:59 Intake Total 2291.667 / 3001.667 180 / 180 Output Total 400 / 400 2100 / 2100 Balance 1891.667 / 2601.667 -1920 / -1920 Weight last 48 hrs Weight 87.589 kg Weight 91.263 kg Physical Exam 2 Const: COMMON NORMALS: no acute distress ORIENTATION/CONSCIOUSNESS: Yes awake and Yes oriented to person; not oriented to place and not oriented to time Resp: COMMON NORMALS: normal respiratory effort, No retractions and No use of accessory muscles AUSCULTATION: crackles and wheezes Cardio: COMMON NORMALS: regular rate, regular rhythm, S1 normal heart sound present and S2 normal heart sound present RATE: regular rate RHYTHM: r egular rhythm HEART SOUNDS: S1 normal heart sound present and S2 normal heart sound present GI: COMMON NORMALS: Normal to inspection, nondistended, normoactive bowel sounds present and non-tender Extremity: COMMON NORMALS: no pedal edema Neuro: SENSORIUM/ORIENTATION: Yes oriented to person, No oriented to place and No oriented to time Data 08/17/24 06:04 08/17/24 06:04 Micro: Microbiology 08/16/24 17:30 Urine Culture - Preliminary Urine,Clean Catch 08/16/24 21:09 Blood Culture - Preliminary Blood SPECIMEN COLLECTED 08/16/24 21:05 Blood Culture - Preliminary Blood SPECIMEN COLLECTED A&P Assessment and plan (1) Aspiration pneumonia: (2) High risk medication use: (3) Essential hypertension: (4) GERD without esophagitis: (5) Incontinence: (6) Seronegative rheumatoid arthritis of multiple sites: (7) Fracture of radial head, left, closed: Qualifiers: Encounter type: subsequent encounter Fracture alignment: nondisplaced Fracture healing: with routine healing Qualified Code(s): S52.125D - Nondisplaced fracture of head of left radius, subsequent encounter for closed fracture with routine healing (8) Inferior pubic ramus fracture: (9) Left acetabular fracture: Qualifiers: Encounter type: subsequent encounter Sublocation of acetabulum: p osterior column Fracture type: closed Fracture alignment: displaced Fracture healing: with routine healing Qualified Code(s): S32.442D - Displaced fracture of posterior column [ilioischial] of left acetabulum, subsequent encounter for fracture with routine healing (10) Parkinson's disease (tremor, stiffness, slow motion, unstable posture): (11) Lewy body Parkinson disease: (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 New significant consolidation throughout the RIGHT lung with more focal consolidation at the LEFT lung base. Consistent with pneumonia. Consider aspiration pneumonia. High risk for aspiration dysphagia level 4 diet, moderately thickened aspiration precautions Vancomycin, meropenem procalcitonin 0.16 , crp 200 Evidence of UTI, possible catheter associated UTI -Jacob catheter removed -On vancomycin, meropenem as above -Follow urine culture Postoperative anemia hemoglobin down to 9.2 -Status post 2 units PRBC -Iron studies mild iron deficiency anemia -Protonix, Carafate -Monitor hemoglobin Acute on chronic thrombocytopenia, HIT panel ordered, peripheral smear ordered Acute kidney injury resolved -IV fluids Acute on chronic hyponatremia, 136 -Is on multiple psychotropic medication -Urine studies -Appears euvolemic -No evidence of psychogenic polydipsia -Monitor serum sodiums Left acetabular fracture: MRI left hip MR/MR hip LT wo con* [id number] IMPRESSION: 1. Study is limited due to motion artifact and lack of contrast. 2. Comminuted fracture involving the LEFT acetabulum as previously described. There is a large amount of marrow edema. 3. Medial migration of the LEFT femoral head through the acetabulum. 4. Extensive marrow edema in the LEFT femoral head, neck and proximal femur. Trabecular injury with edema. No definite fracture identified but occult fracture should be considered. 5. LEFT hip joint effusion and mild synovial thickening. No definite mass identified. Dr. Howard consulted -Status post surgical invention -Does have swelling, erythema around surgical site hemoglobin down to 7.2 continue to hold Lovenox for DVT prophylaxis monitor closely -PT OT Patient also has evidence of left pubic rami fracture on CT imaging, monitor, pain control Constipation: CT imaging showing moderate to large volume colonic stool retention/constipation -Bowel regimen For mood stabilization patient is on Depakote, antipsychotics, Seroquel Parkinsonian features: Continue carbidopa/levodopa combination Acute on chronic anemia, hemoglobin 9.5, monitor Cardiac echo CONCLUSIONS Normal left ventricular size, systolic function and wall thickness, with no regional wall motion abnormalities. Left ventricular ejection fraction is estimated at 60 %. Grade I/IV diastolic dysfunction (abnormal relaxation filling pattern), normal to mildly elevated filling pressures. No significant valve abnormalities. There is no pericardial effusion. Right atrial pressure is around 5 mm of mercury. Patient is wheelchair-bound: For now DVT prophylaxis covered with Lovenox currently on hold and plans for surgery tomorrow Atrial flutter -Patient is EKG and telemetry monitoring showing atrial tachycardia versus flutter, now appears to be normal sinus rhythm -No chest pain complaints -Could be beta-jian withdrawal - metoprolol 25 twice daily -Continue telemetry monitoring -Cardiac echo as above -Holding anticoagulant therapy given acute anemia as above NSTEMI -6-hour troponin 83.28, down to 13.28, repeat troponin this morning to 70 -EKGs overnight show atrial flutter -No chest pain complaints -Echo as above -Aspirin, statin, echo -Venous ultrasound negative for DVT Full code SCDs for DVT prophylaxis, Lovenox on hold given acute anemia as above PDMP PDMP Reviewed: Not Reviewed Attestations 2 Medical Necessity Statement*: Patient requires hospitalization for pneumonia, UTI, requiring IV antibiotics encephalopathy Diagnoses Aspiration pneumonia J69.0 High risk medication use Z79.899 Essential hypertension I10 GERD without esophagitis K21.9 Incontinence R32 Seronegative rheumatoid arthritis of multiple sites M06.09 Closed nondisplaced fracture of head of left radius with routine healing, subsequent encounter S52.125D Encounter type: subsequent encounter Fracture alignment: nondisplaced Fracture healing: with routine healing Inferior pubic ramus fracture S32.599A Closed displaced fracture of posterior column of left acetabulum with routine healing, subsequent encounter S32.442D Encounter type: subsequent encounter Sublocation of acetabulum: posterior column Fracture type: closed Fracture alignment: displaced Fracture healing: with routine healing Parkinson's disease (tremor, stiffness, slow motion, unstable posture) G20 Lewy body Parkinson disease G31.83; F02.80 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
[2024-08-17] MEDS: Fleet Enema 133 mL Enema PR (18:32)
[2024-08-17] MEDS: atorvastatin 40 mg Tablet PO (20:07)
[2024-08-17] MEDS: divalproex ER 500 mg Tablet (24H) 1000 MG PO (20:07)
[2024-08-17] MEDS: HYDROmorphone 1 mg/mL INJ 1 mL 0.5 MG IVP (21:18)
[2024-08-18] VITALS (13 sets, daily range): BP systolic 101–156; BP diastolic 61–70; PULSE 82–102; RESP 16–20; TEMP 36.3–36.7; O2SAT 92–98
[2024-08-18] MEDS: oxyCODONE 5 mg IR Tab/Cap PO ×4 (01:40→22:36)
[2024-08-18] MEDS: levothyroxine 100 mcg Tablet 50 MCG PO (05:04)
[2024-08-18] MEDS: metoprolol tartrate 25 mg Tablet PO ×2 (05:05→17:18)
[2024-08-18] MEDS: folic acid 1 mg Tablet PO (05:05)
[2024-08-18] MEDS: sucralfate 1 gm/10 mL Oral Liq UDC PO ×2 (05:09→17:17)
[2024-08-18 06:52] LABS: Basophils % 0.2 %; Eosinophils # 0.1 10^3/uL (0.0-0.8); Eosinophils % 1.2 %; Hematocrit 26.7 % (37-53); Lymphocytes # 0.7 10^3/uL (0.8-4.8); Lymphocytes % 6.6 %; Mean Corpuscular HGB Conc 31.8 g/dL (30-55); Mean Corpuscular Hemoglobin 30.8 pg (27-33); Mean Corpuscular Volume 96.7 fl (82-101); Mean Platelet Volume 10.4 fL (7.4-10.4); Monocytes # 1.1 10^3/uL (0.2-0.9); Monocytes % 11.2 %; Neutrophils # 7.97 10^3/uL (1.8-7.7); Nucleated Red Blood Cells % 0 %; Platelet Count 92 10^3/cmm (157-399); Red Blood Count 2.76 10^6/uL (3.85-5.65); Red Cell Distribution Width 19.1 % (12.1-15.1); White Blood Count 9.97 10^3/uL (3.29-11.43)
[2024-08-18 06:54] LABS: Alanine Aminotransferase 7 U/L (0-41); Albumin Level 2.2 g/dL (3.5-5.2); Alkaline Phosphatase 81 U/L (40-130); Aspartate Amino Transferase 40 U/L (0-40); Blood Urea Nitrogen 30 mg/dL (8-23); C Reactive Protein 186.8 mg/L (0.0-4.9); Calcium 8.6 mg/dL (8.5-10.5); Carbon Dioxide 28 mmol/L (22-29); Chloride 106 mmol/L (98-107); Creatinine Clr Calc Pharmacy 74.9238; Globulin 3.3 g/dL (1.3-4.6); Glucose 98 mg/dL (65-115); Osmolality Calculated 300 mOsm/kg (285-295); Sodium 142 mmol/L (136-145); Total Bilirubin 1.1 mg/dL (0.15-1.2); Total Protein 5.5 g/dL (6.6-8.7)
[2024-08-18 07:13] LABS: NT Pro B Type Natriuretic Pept 2410 pg/mL (0-450); Procalcitonin 0.35 ng/mL (0-0.5)
[2024-08-18] MEDS: divalproex ER 250 mg Tablet (24H) PO (08:23)
[2024-08-18] MEDS: predniSONE 5 mg Tablet PO (08:23)
[2024-08-18] MEDS: bisacodyl 5 mg Tablet 10 MG PO (08:23)
[2024-08-18] MEDS: sodium chloride 1 gm Tablet PO ×2 (08:23→17:18)
[2024-08-18] MEDS: vancomycin 1,250 MG/250 ML PIGGYBACK 166.7 MG IV (08:24)
[2024-08-18] MEDS: meropenem 500 mg SDV IVP ×2 (08:24→17:19)
[2024-08-18] MEDS: quetiapine 100 mg Tablet 200 MG PO ×2 (08:24→17:18)
[2024-08-18] MEDS: carbidopa-levodopa 25-100mg Tablet 2 EACH PO ×2 (08:24→17:17)
[2024-08-18] MEDS: aspirin 81 mg EC Tablet PO (08:24)
[2024-08-18] MEDS: pantoprazole 40 mg SDV IVP ×2 (08:24→22:38)
[2024-08-18] MEDS: polyethylene glycol 3350 Pkt 17 gm PO ×2 (08:24→17:17)
[2024-08-18] MEDS: OLANZapine 10 mg TABLET 5 MG PO ×2 (08:24→17:18)
[2024-08-18] MEDS: HYDROmorphone 1 mg/mL INJ 1 mL 0.5 MG IVP (08:25)
[2024-08-18] MEDS: FUROsemide 10 mg/mL SDV 4mL 40 MG IVP (08:41)
--- NOTE | 2024-08-18 09:23 | CT_ITS ---
WS: [id number] CT HEAD NONCONTRAST HISTORY: LOC TECHNIQUE: Contiguous axial imaging performed through the brain. Bone and soft tissue windows. Sagittal and coronal reformats reviewed. All CT scans at [facility] use at least one of these dose optimization techniques: automated exposure control; mA and/or kV adjustment per patient size (includes targeted exams where dose is matched to clinical indication); or iterative reconstruction. DLP: 1044.24 mGy.cm COMPARISON: 10/07/2023 No acute intracranial hemorrhage, midline shift or mass effect. Moderate symmetric atrophy and small vessel changes. Tiny lacunar infarct superior RIGHT cerebellum. No large territory infarct. Heavy calcification along the interhemispheric falx. Ventricles: Normal size with no hydrocephalus. No inferior displacement of the cerebellar tonsils. Paranasal sinuses: As visualized are clear. Mastoid air cells: Well pneumatized. Calvarium and scalp: Hyperostosis frontalis interna. No fracture. CT/CT head wo con* [id number] IMPRESSION: 1. No acute intracranial hemorrhage or edema. 2. Moderate symmetric atrophy and small vessel disease. Similar to 10/07/2023. No acute interval change.
--- NOTE | 2024-08-18 10:59 | PC.SOCIAL ---
IMM Update pg 2 of IMM updated and reviewed w/ patients guardian. Copy provided and copy dated, initialed and placed in chart.
[2024-08-18 12:30] LABS: Basophils % 0.3 %; Eosinophils # 0.1 10^3/uL (0.0-0.8); Eosinophils % 0.6 %; Hematocrit 26.6 % (37-53); Lymphocytes # 0.4 10^3/uL (0.8-4.8); Lymphocytes % 4.4 %; Mean Corpuscular HGB Conc 31.6 g/dL (30-55); Mean Corpuscular Hemoglobin 30.8 pg (27-33); Mean Corpuscular Volume 97.4 fl (82-101); Mean Platelet Volume 9.8 fL (7.4-10.4); Monocytes % 10.2 %; Neutrophils # 7.93 10^3/uL (1.8-7.7); Neutrophils % 83.9 %; Nucleated Red Blood Cells % 0 %; Platelet Count 86 10^3/cmm (157-399); Red Blood Count 2.73 10^6/uL (3.85-5.65); Red Cell Distribution Width 18.9 % (12.1-15.1); White Blood Count 9.47 10^3/uL (3.29-11.43)
[2024-08-18 12:46] LABS: Lactate (Lactic Acid level) 0.9 mmol/L (0.5-2.2)
[2024-08-18 12:47] LABS: Anion Gap 12.7 (5-19); Blood Urea Nitrogen 29 mg/dL (8-23); Calcium 8.6 mg/dL (8.5-10.5); Carbon Dioxide 28 mmol/L (22-29); Chloride 104 mmol/L (98-107); Creatinine Clr Calc Pharmacy 74.9238; Glucose 100 mg/dL (65-115); Osmolality Calculated 298 mOsm/kg (285-295); Potassium 3.7 mmol/L (3.5-5.1); Sodium 141 mmol/L (136-145)
--- NOTE | 2024-08-18 15:59 | P.PN_ITS ---
Subjective 2 Subjective: Patient was seen this morning, he is alert to person, not to place, time quite drowsy this morning, does arouse but falls back asleep, afebrile overnight, normotensive, currently on 3 L Vitals/I&O/Wt Last Vital Signs Temp 97.7 F 08/18/24 11:50 Pulse 82 08/18/24 11:50 Resp 16 08/18/24 11:50 BP 101/63 08/18/24 11:50 Pulse Ox 96 08/18/24 11:50 O2 Del Method Nasal Cannula 08/18/24 11:50 O2 Flow Rate 3 08/18/24 07:57 08/18/24 08/18/24 08/18/24 06:59 14:59 22:59 Intake Total 370 / 370 Balance 370 / 370 Weight last 48 hrs Weight 84.085 kg Weight 87.589 kg Physical Exam 2 Const: COMMON NORMALS: no acute distress GENERAL APPEARANCE: ill appearing and frail appearing ORIENTATION/CONSCIOUSNESS: Yes awake and Yes oriented to person; not oriented to place and not oriented to time Resp: COMMON NORMALS: normal respiratory effort, No retractions, No use of accessory muscles and clear to auscultation bilaterally AUSCULTATION: clear to auscultation bilaterally Cardio: COMMON NORMALS: regular rate, regular rhythm, S1 normal heart sound present and S2 normal heart sound present RATE: regular rate RHYTHM: r egular rhythm HEART SOUNDS: S1 normal heart sound present and S2 normal heart sound present GI: COMMON NORMALS: Normal to inspection, nondistended, normoactive bowel sounds present and non-tender Extremity: COMMON NORMALS: no pedal edema NARRATIVE EXTREMITY EXAM: dp/pt pulses are palpable, no significant mottling Neuro: SENSORIUM/ORIENTATION: Yes oriented to person, No oriented to place and No oriented to time Psych: COMMON NORMALS: mental status grossly normal Data 08/18/24 12:21 08/18/24 12:21 Micro: Microbiology 08/16/24 17:30 Urine Culture - Final Urine,Clean Catch 08/17/24 20:50 Occult Blood (FIT) - Final Stool 08/16/24 21:09 Blood Culture - Preliminary Blood NEGATIVE TO DATE 08/16/24 21:05 Blood Culture - Preliminary Blood NEGATIVE TO DATE A&P Assessment and plan (1) Aspiration pneumonia: (2) High risk medication use: (3) Essential hypertension: (4) GERD without esophagitis: (5) Incontinence: (6) Seronegative rheumatoid arthritis of multiple sites: (7) Fracture of radial head, left, closed: Qualifiers: Encounter type: subsequent encounter Fracture alignment: nondisplaced Fracture healing: with routine healing Qualified Code(s): S52.125D - Nondisplaced fracture of head of left radius, subsequent encounter for closed fracture with routine healing (8) Inferior pubic ramus fracture: (9) Left acetabular fracture: Qualifiers: Encounter type: subsequent encounter Sublocation of acetabulum: p osterior column Fracture type: closed Fracture alignment: displaced Fracture healing: with routine healing Qualified Code(s): S32.442D - Displaced fracture of posterior column [ilioischial] of left acetabulum, subsequent encounter for fracture with routine healing (10) Parkinson's disease (tremor, stiffness, slow motion, unstable posture): (11) Lewy body Parkinson disease: (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 New significant consolidation throughout the RIGHT lung with more focal consolidation at the LEFT lung base. Consistent with pneumonia. Consider aspiration pneumonia. High risk for aspiration dysphagia level 4 diet, moderately thickened aspiration precautions Vancomycin, meropenem procalcitonin 0.16 , crp 200 Evidence of UTI, possible catheter associated UTI -Jacob catheter removed -On vancomycin, meropenem as above -Follow urine culture Postoperative anemia hemoglobin down to 8.4 -Status post 2 units PRBC -Iron studies mild iron deficiency anemia -Protonix, Carafate -Monitor hemoglobin Acute on chronic thrombocytopenia, HIT panel ordered, peripheral smear ordered Acute kidney injury resolved -IV fluids Acute on chronic hyponatremia, 136 -Is on multiple psychotropic medication -Urine studies -Appears euvolemic -No evidence of psychogenic polydipsia -Monitor serum sodiums Left acetabular fracture: MRI left hip MR/MR hip LT wo con* [id number] IMPRESSION: 1. Study is limited due to motion artifact and lack of contrast. 2. Comminuted fracture involving the LEFT acetabulum as previously described. There is a large amount of marrow edema. 3. Medial migration of the LEFT femoral head through the acetabulum. 4. Extensive marrow edema in the LEFT femoral head, neck and proximal femur. Trabecular injury with edema. No definite fracture identified but occult fracture should be considered. 5. LEFT hip joint effusion and mild synovial thickening. No definite mass identified. Dr. Howard consulted -Status post surgical invention -Does have swelling, erythema around surgical site hemoglobin down to 7.2 continue to hold Lovenox for DVT prophylaxis monitor closely -PT OT Patient also has evidence of left pubic rami fracture on CT imaging, monitor, pain control Constipation: CT imaging showing moderate to large volume colonic stool retention/constipation -Bowel regimen For mood stabilization patient is on Depakote, antipsychotics, Seroquel Parkinsonian features: Continue carbidopa/levodopa combination Acute on chronic anemia, hemoglobin 9.5, monitor Cardiac echo CONCLUSIONS Normal left ventricular size, systolic function and wall thickness, with no regional wall motion abnormalities. Left ventricular ejection fraction is estimated at 60 %. Grade I/IV diastolic dysfunction (abnormal relaxation filling pattern), normal to mildly elevated filling pressures. No significant valve abnormalities. There is no pericardial effusion. Right atrial pressure is around 5 mm of mercury. Patient is wheelchair-bound: For now DVT prophylaxis covered with Lovenox currently on hold and plans for surgery tomorrow Atrial flutter -Patient is EKG and telemetry monitoring showing atrial tachycardia versus flutter, now appears to be normal sinus rhythm -No chest pain complaints -Could be beta-jian withdrawal - metoprolol 25 twice daily -Continue telemetry monitoring -Cardiac echo as above -Holding anticoagulant therapy given acute anemia as above NSTEMI -6-hour troponin 83.28, down to 13.28, repeat troponin this morning to 70 -EKGs overnight show atrial flutter -No chest pain complaints -Echo as above -Aspirin, statin, echo -Venous ultrasound negative for DVT Full code SCDs for DVT prophylaxis, Lovenox on hold given acute anemia as above plan for today will give IV abx, monitor mentation, PDMP PDMP Reviewed: Not Reviewed Attestations 2 Medical Necessity Statement*: Patient requires hospitalization for atrial flutter, chf, pneumonia, acute anemia Diagnoses Aspiration pneumonia J69.0 High risk medication use Z79.899 Essential hypertension I10 GERD without esophagitis K21.9 Incontinence R32 Seronegative rheumatoid arthritis of multiple sites M06.09 Closed nondisplaced fracture of head of left radius with routine healing, subsequent encounter S52.125D Encounter type: subsequent encounter Fracture alignment: nondisplaced Fracture healing: with routine healing Inferior pubic ramus fracture S32.599A Closed displaced fracture of posterior column of left acetabulum with routine healing, subsequent encounter S32.442D Encounter type: subsequent encounter Sublocation of acetabulum: posterior column Fracture type: closed Fracture alignment: displaced Fracture healing: with routine healing Parkinson's disease (tremor, stiffness, slow motion, unstable posture) G20 Lewy body Parkinson disease G31.83; F02.80 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
[2024-08-18 20:22] LABS: Vancomycin Trough 26.6 ug/mL (10-15)
[2024-08-18] MEDS: divalproex ER 500 mg Tablet (24H) 1000 MG PO (22:36)
[2024-08-18] MEDS: atorvastatin 40 mg Tablet PO (22:37)
[2024-08-19] VITALS (10 sets, daily range): BP systolic 130–171; BP diastolic 60–83; PULSE 84–117; RESP 18–22; TEMP 36.8–36.9; O2SAT 91–95
[2024-08-19 00:19] LABS: Heparin Induced Platelet AB NEGATIVE (NEGATIVE)
[2024-08-19] MEDS: morphine 4 mg/mL SDV 1 mL 2 MG IVP (00:42)
[2024-08-19] MEDS: meropenem 500 mg SDV IVP ×2 (00:50→08:21)
[2024-08-19] MEDS: oxyCODONE 5 mg IR Tab/Cap PO ×2 (05:14→14:51)
[2024-08-19] MEDS: sucralfate 1 gm/10 mL Oral Liq UDC PO ×2 (05:14→16:48)
[2024-08-19] MEDS: folic acid 1 mg Tablet PO (05:14)
[2024-08-19] MEDS: metoprolol tartrate 25 mg Tablet PO ×2 (05:15→16:46)
[2024-08-19] MEDS: levothyroxine 100 mcg Tablet 50 MCG PO (05:15)
[2024-08-19 05:41] LABS: Basophils # 0.1 10^3/uL (0.0-0.1); Basophils % 0.5 %; Eosinophils # 0.2 10^3/uL (0.0-0.8); Eosinophils % 1.9 %; Hematocrit 29.8 % (37-53); Lymphocytes # 1.4 10^3/uL (0.8-4.8); Lymphocytes % 13.2 %; Mean Corpuscular HGB Conc 31.2 g/dL (30-55); Mean Corpuscular Hemoglobin 30.8 pg (27-33); Mean Corpuscular Volume 98.7 fl (82-101); Monocytes # 1.3 10^3/uL (0.2-0.9); Monocytes % 12.8 %; Neutrophils # 7.42 10^3/uL (1.8-7.7); Neutrophils % 70.6 %; Nucleated Red Blood Cells % 0 %; Platelet Count 113 10^3/cmm (157-399); Red Blood Count 3.02 10^6/uL (3.85-5.65); Red Cell Distribution Width 18.6 % (12.1-15.1); White Blood Count 10.49 10^3/uL (3.29-11.43)
[2024-08-19 05:58] LABS: Alanine Aminotransferase 8 U/L (0-41); Albumin Level 2.5 g/dL (3.5-5.2); Alkaline Phosphatase 129 U/L (40-130); Anion Gap 14.3 (5-19); Aspartate Amino Transferase 42 U/L (0-40); Blood Urea Nitrogen 35 mg/dL (8-23); C Reactive Protein 159.4 mg/L (0.0-4.9); Calcium 8.7 mg/dL (8.5-10.5); Carbon Dioxide 29 mmol/L (22-29); Chloride 108 mmol/L (98-107); Creatinine Clr Calc Pharmacy 74.2327; Glucose 95 mg/dL (65-115); Osmolality Calculated 312 mOsm/kg (285-295); Potassium 4.3 mmol/L (3.5-5.1); Sodium 147 mmol/L (136-145); Total Bilirubin 1.3 mg/dL (0.15-1.2); Total Protein 6.5 g/dL (6.6-8.7)
[2024-08-19] MEDS: vancomycin 1,250 MG/250 ML PIGGYBACK 166.67 MG IV (06:00)
[2024-08-19 06:07] LABS: NT Pro B Type Natriuretic Pept 2235 pg/mL (0-450); Procalcitonin 0.26 ng/mL (0-0.5)
[2024-08-19] MEDS: aspirin 81 mg EC Tablet PO (08:20)
[2024-08-19] MEDS: sodium chloride 1 gm Tablet PO ×2 (08:20→16:46)
[2024-08-19] MEDS: quetiapine 100 mg Tablet 200 MG PO ×2 (08:20→16:46)
[2024-08-19] MEDS: carbidopa-levodopa 25-100mg Tablet 2 EACH PO ×2 (08:20→16:48)
[2024-08-19] MEDS: divalproex ER 250 mg Tablet (24H) PO (08:20)
[2024-08-19] MEDS: OLANZapine 10 mg TABLET 5 MG PO ×2 (08:20→16:46)
[2024-08-19] MEDS: predniSONE 5 mg Tablet PO (08:20)
--- NOTE | 2024-08-19 09:29 | XR_ITS ---
WS: [id number] Right shoulder, 2 views, 08/19/2024 Clinical Data: Pain Comparison: None. Findings: No fractures or dislocations are seen. The AC joint is normal. The adjacent right clavicle, right scapula and ribs are normal. The soft tissues are unremarkable. There is narrowing of the glenohumeral joint. There is patchy opacification of the right lower lobe. XR/XR shoulder RT min 2V* [id number] Impression: 1. Mild narrowing of the right glenohumeral joint. 2. Patchy opacity of the right lower lobe.
--- NOTE | 2024-08-19 09:29 | XR_ITS ---
WS: [id number] Left shoulder, 2 views, 08/19/2024 Clinical Data: Pain Comparison: None. Findings: No fractures or dislocations are seen. Mild narrowing of the glenohumeral joint is seen. The AC joint is normal. The adjacent left clavicle, left scapula and ribs are normal. The soft tissues are unremarkable. There is a monitor lead on the chest wall. XR/XR shoulder LT min 2V* [id number] Impression: Mild narrowing of left glenohumeral joint.
[2024-08-19] MEDS: pantoprazole 40 mg SDV IVP (09:45)
--- NOTE | 2024-08-19 10:19 | P.DS_ITS ---
Discharge Providers Date of Admission: 08/10/24 19:36 Date of Discharge: August 19, 2024 Attending Provider at Admission: Donny Patel MD Attending Provider at Discharge: Jerad Dang MD Primary Care Provider: Kishore Avalos DO Diagnoses at Discharge Discharge Diagnosis (1) Aspiration pneumonia: Status: Acute (2) High risk medication use: Status: Acute (3) Essential hypertension: Status: Acute (4) GERD without esophagitis: Status: Acute (5) Incontinence: Status: Acute (6) Seronegative rheumatoid arthritis of multiple sites: Status: Chronic (7) Fracture of radial head, left, closed: Status: Acute Qualifiers: Encounter type: subsequent encounter Fracture alignment: nondisplaced Fracture healing: with routine healing Qualified Code(s): S52.125D - Nondisplaced fracture of head of left radius, subsequent encounter for closed fracture with routine healing (8) Inferior pubic ramus fracture: Status: Acute (9) Left acetabular fracture: Status: Acute Qualifiers: Encounter type: subsequent encounter Sublocation of acetabulum: posterior column Fracture type: closed Fracture alignment: displaced Fracture healing: with routine healing Qualified Code(s): S32.442D - Displaced fracture of posterior column [ilioischial] of left acetabulum, subsequent encounter for fracture with routine healing (10) Parkinson's disease (tremor, stiffness, slow motion, unstable posture): Status: Chronic (11) Lewy body Parkinson disease: Status: Acute (12) 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: Status: Acute (13) Pneumonia: Status: Acute (14) Lives in assisted living facility: Status: Acute (15) Physical deconditioning: Status: Acute (16) Livedo reticularis: Status: Acute (17) Postoperative anemia: Status: Acute (18) SHEREE (acute kidney injury): Status: Acute Reason for Visit Reason for Visit: low bp(sent by penny) Hospital Course Hospital Course This is a 73-year-old male with a past medical history of intellectual disability, resident of [facility], rheumatoid arthritis, Parkinson's disease, dementia, cognitive impairment who presents [facility] due to concerns for low blood pressure Patient was admitted to [facility] for acute encephalopathy, toxic encephalopathy secondary to UTI, pneumonia, received broad-spectrum biotic therapy. On discharge she alert to person, he can follow some commands, remains about at baseline For his UTI completed antibiotic therapy Patient had aspiration pneumonia during his hospitalization, due to worsening leukocytosis a repeat CT scan shows consolidation right lung with more focal consolidation at the left lung base. His antibiotic coverage was broadened, kept on aspiration precautions, dysphagia level 4 diet moderately thickened, overall clinically improved. Will be discharged on Levaquin, aspiration precautions, dysphagia level 4 diet moderately thickened He has a history of left acetabular fracture, with plans of surgical intervention, as he was inpatient Dr. Howard elected for surgical intervention, status post surgical intervention, tolerated procedure well. Discharged to correction facility for rehab continue aspirin for DVT prophylaxis was not discharged with Lovenox due to postoperative anemia For postoperative anemia, hemoglobin down to 8.4, required 2 units PRBC with mild artificially anemia. No bloody or black stools, will be discharged on Protonix, Carafate, repeat hemoglobin tomorrow, Had evidence of left pubic rami fracture, continue PT OT Acute on chronic thrombocytopenia, monitor as outpatient SHEREE improved with IV fluids Acute on chronic hyponatremia, improving with fluid, salt supplementation On discharge Ernie is alert to person, he is able to follow some commands, participating with physical therapy, afebrile, normotensive, on 2 L Physical Exam Const: COMMON NORMALS: no acute distress ORIENTATION/CONSCIOUSNESS: Yes awake and Yes oriented to person Resp: COMMON NORMALS: normal respiratory effort, No retractions, No use of accessory muscles and clear to auscultation bilaterally AUSCULTATION: clear to auscultation bilaterally Cardio: COMMON NORMALS: regular rate, regular rhythm, S1 normal heart sound present and S2 normal heart sound present RATE: regular rate RHYTHM: regular rhythm HEART SOUNDS: S1 normal heart sound present and S2 normal heart sound present GI: COMMON NORMALS: Normal to inspection, nondistended, normoactive bowel sounds present and non-tender Extremity: COMMON NORMALS: no pedal edema Neuro: SENSORIUM/ORIENTATION: Yes oriented to person Psych: COMMON NORMALS: mental status grossly normal Discharge Data Studies Completed and Pending Completed Studies During Hospitalization Category Date Time Status CT angio chest w abd pel w con Stat Cat Scan 08/10/24 20:[address] chest abdomen [place] [[place] [id number] Cat Scan 08/16/24 08:39 Completed ] Routine CT head wo con* [id number] Stat Cat Scan 08/18/24 09:23 Completed CXRP [XR chest 1V portable [id number]] Stat Exams 08/10/24 16:23 Completed XR hip LT 1V wo/w pel [id number] Routine Exams 08/13/24 12:56 Completed XR hip LT 2-3V wo/w pel* [id number] Routine Exams 08/13/24 13:08 Completed XR shoulder LT min 2V* [id number] Stat Exams 08/19/24 09:29 Completed XR shoulder RT min 2V* [id number] Stat Exams 08/19/24 09:29 Completed MR hip LT wo con* [id number] Routine MRI 08/11/24 21:58 Completed Pathology: Surgical [PTH] Routine Pth 08/13/24 13:06 [place] [id number] Routine Ultrasound 08/10/24 20:38 Completed CV. echo complete* [id number] Routine Ultrasound 08/10/24 20:40 Completed Pending at discharge Category Date Time Status Blood Culture Stat Lab 08/16/24 21:09 Results C Reactive Protein AM LABS Lab 08/20/24 04:00 Ordered COVID [SARS Covid-2 Antigen] Routine Lab 08/19/24 10:00 Uncollected Complete Blood Count w/Auto AM LABS Lab 08/20/24 04:00 Ordered Comprehensive Metabolic Panel AM LABS Lab 08/20/24 04:00 Ordered Heparin Induced Thrombocytopen Stat Lab 08/16/24 11:23 Results NT Pro B Type Natriuretic Pept QAM Lab 08/20/24 06:00 Ordered Procalcitonin AM LABS Lab 08/20/24 04:00 Ordered Sputum Culture and Gram Stain Routine Lab 08/10/24 19:39 Uncollected Radiology Impressions Chest X-Ray 08/10/24 16:23 IMPRESSION: As above. Venous Duplex 08/10/24 20:38 IMPRESSION: No evidence of deep vein thrombosis. Hip MRI 08/11/24 21:58 IMPRESSION: 1. Study is limited due to motion artifact and lack of contrast. 2. Comminuted fracture involving the LEFT acetabulum as previously described. There is a large amount of marrow edema. 3. Medial migration of the LEFT femoral head through the acetabulum. 4. Extensive marrow edema in the LEFT femoral head, neck and proximal femur. Trabecular injury with edema. No definite fracture identified but occult fracture should be considered. 5. LEFT hip joint effusion and mild synovial thickening. No definite mass identified. Hip X-Ray 08/13/24 12:56 IMPRESSION: No unexpected radiopaque foreign body identified over the LEFT hip. Hip/Pelvis X-Ray 08/13/24 13:08 IMPRESSION: 1. LEFT total hip replacement in satisfactory position. Chest/Abdomen/Pelvis CT 08/16/24 08:39 IMPRESSION: 1. New significant consolidation throughout the RIGHT lung with more focal consolidation at the LEFT lung base. Consistent with pneumonia. Consider aspiration pneumonia. 2. Esophagus is dilated to the thoracic inlet with a fluid level. 3. Diffuse constipation with obstipation. 4. No free air or free fluid. 5. Interval LEFT hip arthroplasty. Satisfactory postoperative changes at the LEFT hip ORIF site. Head CT 08/18/24 09:23 IMPRESSION: 1. No acute intracranial hemorrhage or edema. 2. Moderate symmetric atrophy and small vessel disease. Similar to 10/07/2023. No acute interval change. Shoulder X-Ray 08/19/24 09:29 Impression: 1. Mild narrowing of the right glenohumeral joint. 2. Patchy opacity of the right lower lobe. Laboratory Results WBC 10.49 10^3/uL (3.29-11.43) 08/19/24 05:11 RBC 3.02 10^6/uL (3.85-5.65) L 08/19/24 05:11 Hgb 9.30 g/dL (11.27-16.99) L 08/19/24 05:11 Hct 29.8 % (37-53) L 08/19/24 05:11 MCV 98.7 fl (82-101) 08/19/24 05:11 MCH 30.8 pg (27-33) 08/19/24 05:11 MCHC 31.2 g/dL (30-55) 08/19/24 05:11 RDW 18.6 % (12.1-15.1) H 08/19/24 05:11 Plt Count 113 10^3/cmm (157-399) L D 08/19/24 05:11 MPV 10.0 fL (7.4-10.4) 08/19/24 05:11 Neut % (Auto) 70.6 % 08/19/24 05:11 Lymph % (Auto) 13.2 % 08/19/24 05:11 [place] % (Auto) 12.8 % 08/19/24 05:11 Eos % (Auto) 1.9 % 08/19/24 05:11 Baso % (Auto) 0.5 % 08/19/24 05:11 Neut # (Auto) 7.42 10^3/uL (1.8-7.7) 08/19/24 05:11 Lymph # (Auto) 1.4 10^3/uL (0.8-4.8) 08/19/24 05:11 [place] # (Auto) 1.3 10^3/uL (0.2-0.9) H 08/19/24 05:11 Eos # (Auto) 0.2 10^3/uL (0.0-0.8) 08/19/24 05:11 Baso # (Auto) 0.1 10^3/uL (0.0-0.1) 08/19/24 05:11 Nucleated RBC % (auto) 0 % 08/19/24 05:11 Nucleated RBCs # 0.0 /100WBC 08/19/24 05:11 Peripher Smr Path Cons Sent for review 08/15/24 03:34 Haptoglobin 218.0 mg/L (30-200) H 08/15/24 10:13 Heparin Require Pat 0.150 08/16/24 11:23 D-Dimer 2.02 ug/mLFEU (0-0.59) H 08/10/24 17:16 Sodium 147 mmol/L (136-145) H 08/19/24 05:11 Potassium 4.3 mmol/L (3.5-5.1) 08/19/24 05:11 Chloride 108 mmol/L (98-107) H 08/19/24 05:11 Carbon Dioxide 29 mmol/L (22-29) 08/19/24 05:11 Anion Gap 14.3 (5-19) 08/19/24 05:11 BUN 35 mg/dL (8-23) H 08/19/24 05:11 Creatinine 0.8 mg/dL (0.7-1.2) 08/19/24 05:11 GFR Calculation Not Reportable 08/19/24 05:11 Glucose 95 mg/dL (65-115) 08/19/24 05:11 Serum Osmolality 270 mOsm/kg (278-305) L 08/11/24 04:35 Calculated Osmolality 312 mOsm/kg (285-295) H 08/19/24 05:11 Lactic Acid 1.5 mmol/L (0.5-2.2) 08/16/24 21:05 Lactate 0.9 mmol/L (0.5-2.2) 08/18/24 12:21 Calcium 8.7 mg/dL (8.5-10.5) 08/19/24 05:11 Phosphorus 2.7 mg/dL (2.5-4.5) 08/17/24 06:04 Magnesium 2.2 mg/dL (1.7-2.3) 08/17/24 06:04 Iron 56 ug/dL (59-158) L 08/11/24 09:21 TIBC 183 mcg/dl 08/11/24 09:21 % Saturation 30.6 % (20-50) 08/11/24 09:21 Unsat Iron Binding 127 ug/dL (112-347) 08/11/24 09:21 Ferritin 646 ng/mL (30-400) H 08/11/24 09:21 Total Bilirubin 1.3 mg/dL (0.15-1.2) H 08/19/24 05:11 AST 42 U/L (0-40) H 08/19/24 05:11 ALT 8 U/L (0-41) 08/19/24 05:11 Alkaline Phosphatase 129 U/L (40-130) 08/19/24 05:11 Lactate Dehydrogenase 221 U/L (135-225) 08/15/24 10:13 Troponin T 5th Gen ng/L 70 ng/L (0-15) H 08/15/24 10:13 Troponin T Baseline 70 ng/L (0-15) H 08/14/24 13:02 Troponin T 120 Minute 65.61 ng/L (0-15) H 08/14/24 15:33 Delta Troponin T -4.39 ABS# (0-10) L 08/14/24 15:33 Troponin T Hi Sens 6Hr 83.28 ng/L (0-15) H 08/14/24 19:15 Troponin T Hi Sens 6Hr Delta 13.28 ng/L (0-12) H* 08/14/24 19:15 C-Reactive Protein 159.4 mg/L (0.0-4.9) H 08/19/24 05:11 NT-Pro-B Natriuret Pep 2235 pg/mL (0-450) H 08/19/24 05:11 Total Protein 6.5 g/dL (6.6-8.7) L 08/19/24 05:11 Albumin 2.5 g/dL (3.5-5.2) L 08/19/24 05:11 Globulin 4.0 g/dL (1.3-4.6) 08/19/24 05:11 Procalcitonin 0.26 ng/mL (0-0.5) 08/19/24 05:11 Urine Color Dark yellow (Yellow) A 08/16/24 17:30 Urine Appearance Cloudy (CLEAR) A 08/16/24 17: Urine pH 5.5 (5-7) 08/16/24 17:30 Ur Specific [place] 1.031 (1.005-1.030) H 08/16/24 17:30 Urine Protein 2+ (Negative) A 08/16/24 17: Urine Glucose (UA) Negative (Normal) 08/16/24 17:30 Urine Ketones Trace (Negative) 08/16/24 17:30 Urine Blood 2+ (Negative) A 08/16/24 17:30 Urine Nitrate Negative (Negative) 08/16/24 17:30 Urine Bilirubin 1+ (Negative) H 08/16/24 17:30 Urine Urobilinogen 2.0 mg/dL (Negative) H 08/16/24 17:30 Ur Leukocyte Esterase Trace (Negative) A 08/16/24 17:30 Urine RBC 51-100 /hpf (0-2) H 08/16/24 17:30 Urine WBC 11-20 /hpf (0-5) H 08/16/24 17:30 Ur Eosinophil Smear 0 (0-0) 08/11/24 23:00 Ur Squamous Epith Cells 0-5 /hpf (0-5) 08/16/24 17: Amorphous Sediment Not Reportable 08/16/24 17:30 Urine Bacteria None seen /hpf (NONE) 08/16/24 17:30 Hyaline Casts 22.33 /lpf 08/16/24 17:30 Urine Mucus 1+ /hpf 08/16/24 17:30 Urine Eosinophils No eosinophils seen 08/11/24 23:00 Urine Osmolality 375 mOsm/kg (50-1200) 08/11/24 23:00 Ur Random Sodium 102 mmol/L 08/11/24 23:00 Ur Random Potassium 22 mmol/L 08/11/24 23:00 Ur Random Chloride 99 mmol/L 08/11/24 23:00 Urine Creatinine 36 mg/dL (39-259) L 08/11/24 23:00 Vancomycin Trough 26.6 ug/mL (10-15) H* 08/18/24 19:19 Heparin-induced Ab Negative (NEGATIVE) 08/16/24 11:23 Coronavirus (PCR) Negative (Negative) 08/10/24 18:27 Influenza A (PCR) Negative (Negative) 08/10/24 18:27 Influenza Type B (PCR) Negative (Negative) 08/10/24 18:27 RSV (PCR) Negative (Negative) 08/10/24 18:27 Blood Type O Positive 08/13/24 09:10 Rho(D) Type Rh positive 08/13/24 09:10 Antibody Screen Negative 08/13/24 09:10 Crossmatch See Detail 08/13/24 09:10 Vitals Last Vital Signs Temp 98.2 F 08/19/24 07:48 Pulse 84 08/19/24 07:48 Resp 18 08/19/24 07:48 BP 130/68 08/19/24 07:48 Pulse Ox 95 08/19/24 07:48 O2 Del Method Nasal Cannula 08/19/24 08:11 O2 Flow Rate 2 08/19/24 08:11 Discharge Plan Discharge Patient Disposition: Xfer SNF Condition: Stable Prescriptions: New hydrocodone-acetaminophen 5-325 mg tablet 1 tab PO Q6H PRN (Reason: pain) 7 Days Qty: 42 0RF bisacodyl 5 mg Tablet,Delayed Release (Dr/Ec) 10 mg PO DAILY 30 Days Qty: 60 0RF aspirin 81 mg Tablet,Delayed Release (Dr/Ec) 81 mg PO DAILY 30 Days Qty: 30 0RF pantoprazole [Protonix] 40 mg tablet,delayed release (DR/EC) 40 mg PO BID 30 Days Qty: 60 0RF metoprolol tartrate 25 mg Tablet 25 mg PO Q12H 30 Days Qty: 60 0RF atorvastatin 40 mg Tablet 40 mg PO BEDTIME 30 Days Qty: 30 0RF sucralfate [Carafate] 1 gram tablet 1 g PO BID 28 Days Qty: 56 0RF albuterol sulfate [Ventolin HFA] 90 mcg/actuation HFA aerosol inhaler 1 inh inhalation Q6H PRN (Reason: shortness of breath or wheezing) Qty: 8.5 0RF levofloxacin 750 mg tablet 750 mg PO DAILY 5 Days Qty: 5 0RF Continued Mylanta Maximum Strength 400-400-40 mg/5 mL suspension 30 ml PO Q4H PRN (Reason: Constipation) folic acid 1 mg tablet 1 mg PO QAM Qty: 90 3RF trihexyphenidyl 2 mg tablet 2 mg PO BID Qty: 180 3RF Rx Instructions: give with food (meal/snack) prednisone 5 mg tablet 5 mg PO DAILY Qty: 90 1RF quetiapine [Seroquel] 200 mg tablet 200 mg PO BID Qty: 60 5RF vits A and D-white pet-lanolin [A and D (lanolin-petrolatum)] Ointment See Rx Instructions .ROUTE .COMPLEX Qty: 113 5RF Dose Instruction: APPLY topically AND cover with socks At Bedtime Rx Instructions: APPLY topically AND cover with socks At Bedtime divalproex 250 mg tablet extended release 24 hr See Rx Instructions .ROUTE .COMPLEX Qty: 30 5RF Dose Instruction: TAKE ONE TABLET BY MOUTH EVERY DAY FOR BIPOLAR DISORDER Rx Instructions: TAKE ONE TABLET BY MOUTH EVERY DAY FOR BIPOLAR DISORDER Ear Wax Removal Drops 6.5 % drops See Rx Instructions .ROUTE .COMPLEX Qty: 15 0RF Dose Instruction: FILL BOTH EAR CANALS DAILY 4 DAYS EACH MONTH Rx Instructions: FILL BOTH EAR CANALS DAILY 4 DAYS EACH MONTH magnesium hydroxide [Milk of Magnesia] 400 mg/5 mL suspension See Rx Instructions .ROUTE .COMPLEX Qty: 473 1RF Dose Instruction: TAKE 30ML BY MOUTH NEEDED ON FOURTH DAY IF NO BOWEL MOVEMENT IN 3 DAYS. CALL NURSE ON 5TH DAY. Rx Instructions: TAKE 30ML BY MOUTH NEEDED ON FOURTH DAY IF NO BOWEL MOVEMENT IN 3 DAYS. CALL NURSE ON 5TH DAY. dextromethorphan-guaifenesin [Chest Congestion Relief DM] 10-100 mg/5 mL syrup See Rx Instructions .ROUTE .COMPLEX Qty: 237 5RF Dose Instruction: TAKE 10ML BY MOUTH EVERY 4 HOURS NEEDED FOR COUGH; NOT TO EXCEED 6 DOSES IN 24 HOURS Rx Instructions: TAKE 10ML BY MOUTH EVERY 4 HOURS NEEDED FOR COUGH; NOT TO EXCEED 6 DOSES IN 24 HOURS prednisone 10 mg tablet See Rx Instructions PO .COMPLEX PRN (Reason: joint pain flare) Qty: 90 1RF Rx Instructions: can take 40mg daily for up to 7days for joint pain flare orally PRN; cetirizine [All Day Allergy (cetirizine)] 10 mg tablet 10 mg PO DAILY PRN (Reason: allergy symptoms) Qty: 30 11RF omeprazole 40 mg capsule,delayed release(DR/EC) 40 mg PO DAILY Qty: 90 3RF levothyroxine 50 mcg tablet 50 mcg PO QAM Qty: 90 1RF paroxetine HCl 30 mg tablet See Rx Instructions .ROUTE .COMPLEX Qty: 30 5RF Dose Instruction: TAKE ONE TABLET BY MOUTH EVERY DAY FOR BIPOLAR DISORDER Rx Instructions: TAKE ONE TABLET BY MOUTH EVERY DAY FOR BIPOLAR DISORDER carbidopa-levodopa 25-100 mg tablet See Rx Instructions .ROUTE .COMPLEX Qty: 150 5RF Dose Instruction: TAKE ONE TABLET BY MOUTH THREE TIMES DAILY WITH MEALS FOR TREMORS Rx Instructions: 2 tabs at 0800, one tab at 1200 and two tabs at 1600. divalproex 500 mg tablet extended release 24 hr See Rx Instructions .ROUTE .COMPLEX Qty: 60 5RF Dose Instruction: TAKE TWO TABLETS BY MOUTH EVERY NIGHT AT BEDTIME FOR MOOD DISORDER/BIPOLAR Rx Instructions: TAKE TWO TABLETS BY MOUTH EVERY NIGHT AT BEDTIME FOR MOOD DISORDER/BIPOLAR olanzapine 10 mg tablet See Rx Instructions .ROUTE .COMPLEX Qty: 60 5RF Dose Instruction: TAKE 1/2 TABLET (5MG) BY MOUTH TWICE DAILY FOR BIPOLAR DISORDER Rx Instructions: TAKE 1/2 TABLET (5MG) BY MOUTH TWICE DAILY FOR BIPOLAR DISORDER terbinafine HCl 1 % cream 1 applic topical BID Rx Instructions: APPLY TO THE AFFECTED AREA(S) (FEET) acetaminophen 325 mg tablet 650 mg PO Q4H PRN (Reason: PAIN OR TEMP) Rx Instructions: TEMPERATURE >100degrees ammonium lactate 12 % lotion 1 applic topical QAM Rx Instructions: TO HANDS, FEET, AND LEGS Cutemol 0.2 % cream 1 applic topical QID Rx Instructions: APPLY TO HANDS Eucerin Cream 1 applic topical BID PRN (Reason: Dry Skin) Held methotrexate sodium 2.5 mg tablet See Rx Instructions .ROUTE .COMPLEX Qty: 60 1RF Hold Instructions: Resume on 08/30/24. Dose Instruction: TAKE 4 TABLETS BY MOUTH WEEKLY Rx Instructions: TAKE 4 TABLETS BY MOUTH WEEKLY ON FRIDAY Discontinued ibuprofen 600 mg tablet 600 mg PO Q8H PRN (Reason: pain) Qty: 60 6RF diclofenac sodium 1 % gel 2 g topical QID PRN (Reason: Pain) Qty: 100 1RF metoprolol tartrate 50 mg tablet See Rx Instructions .ROUTE .COMPLEX Qty: 60 11RF Dose Instruction: TAKE ONE TABLET BY MOUTH TWICE DAILY IF B/P < 110/70 OR PULSE < 60 & CALL RN. FOR HYPERTENSION Rx Instructions: TAKE ONE TABLET BY MOUTH TWICE DAILY IF B/P < 110/70 OR PULSE < 60 & CALL RN. FOR HYPERTENSION hydrocodone-acetaminophen 5-325 mg tablet 1 tab PO Q6H PRN (Reason: pain) Qty: 14 0RF No Action (DME) Hospital bed See Rx Instructions .Route .MEDSUPPLY Qty: 1 0RF Rx Instructions: Please issue hospital bed for patient to use as he has a pelvic fracture, he is unable to ambulate, he is at risk for decubitus ulcers, and he has frequent falls. (DME) Wheelchair See Rx Instructions .Route .MEDSUPPLY Qty: 1 0RF Rx Instructions: As directed (DME) extra large adult briefs See Rx Instructions .Route .MEDSUPPLY Qty: 30 11RF Rx Instructions: Please issue extra large adult briefs (DME) Cleansing Wipes See Rx Instructions .Route .MEDSUPPLY Qty: 30 11RF Rx Instructions: Please issue Cleansing Wipes (DME) disposable gloves Package See Rx Instructions .Route Qty: 50 11RF Rx Instructions: As directed Discharge Orders: Discharge Order (Routine); Ordered 08/19/24 Ordered By: Jerad Dang Referrals: [facility] [Outside] Kishore Avalos DO [Primary Care Provider] - Oscar Albarado MD [Physician] - 1 month (egd and colonscopy for anemia We have notified your physician's clinic of the need for a follow-up appointment to be scheduled. If you have not heard from them within the next 2 business days, please call them directly. ) Mina Howard DO [Physician] - Discharge Diet: Cardiac and Diabetic Discharge Activity: Resume usual activity Patient Instructions: Acute Wound Care (DC), Opioid Safety, Post Anesthesia Care Discharge Attestations Time Spent in Discharge Care*: greater than 30 min Quality Metrics Clinical Quality Measures [ No reported AMI, CVA or VTE this stay] Coding Level of Care Code 44463 Total time (in minutes) for Discharge: 45 Diagnoses Aspiration pneumonia J69.0 High risk medication use Z79.899 Essential hypertension I10 GERD without esophagitis K21.9 Incontinence R32 Seronegative rheumatoid arthritis of multiple sites M06.09 Closed nondisplaced fracture of head of left radius with routine healing, subsequent encounter S52.125D Encounter type: subsequent encounter Fracture alignment: nondisplaced Fracture healing: with routine healing Inferior pubic ramus fracture S32.594L Closed displaced fracture of posterior column of left acetabulum with routine healing, subsequent encounter S32.442D Encounter type: subsequent encounter Sublocation of acetabulum: posterior column Fracture type: closed Fracture alignment: displaced Fracture healing: with routine healing Parkinson's disease (tremor, stiffness, slow motion, unstable posture) G20 Lewy body Parkinson disease G31.83; F02.80 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
[2024-08-19] MEDS: carbidopa-levodopa 25-100mg Tablet 1 EACH PO (11:41)
[2024-08-19 11:53] LABS: Covid PCR NEGATIVE (Negative); Influenza A NEGATIVE (Negative); Influenza B NEGATIVE (Negative); Respiratory Syncytial Virus Ce NEGATIVE (Negative)
--- NOTE | 2024-08-19 11:56 | PC.OT ---
OT TREATMENT HELD TODAY DUE TO SCHEDULED PATIENT D/C
--- NOTE | 2024-08-19 12:12 | XR_ITS ---
WS: [id number] Both hips, 2 views each, AP pelvis, 08/19/2024 Clinical Data: fall Comparison: Pelvis and left hip, 08/13/2024 Findings: The left hip arthroplasty is in good position with no periprosthetic fractures or loosening. There is a questionable fracture of the inferior left ischial pubic ramus. The left acetabulum shows irregularity the right hip shows no fractures. The right hip is intact.. The soft tissues are normal. XR/XR hip BI 2V wo/w [place] [id number] Impression: 1. Inferior left ischial pubic ramus fracture. 2. Question of left acetabular fracture adjacent to the artificial socket of th e arthroplasty. 3. No displacement of left hip arthroplasty.
--- NOTE | 2024-08-19 14:08 | XR_ITS ---
WS: [id number] Lumbar spine, AP portable view, 08/19/2024 Clinical Data: assess L hip post fall Comparison: Lumbar spine, 07/05/2010 Findings: There are compression fractures of indeterminate age of all the lower thoracic vertebral bodies and also at L1. There is a dextroscoliosis. There are syndesmophytes of the lumbar and thoracic vertebral bodies. There are laminectomies at L3 and L4. A portion of a left hip arthroplasty is visible. XR/XR lumbar spine 1V port [id number] Impression: 1. Multiple compression fractures of the lower thoracic vertebral bodies and L1 of indeterminate age. 2. Dextroscoliosis with osteoarthritis
[2024-08-21 16:30] LABS: UFH High Dose, 100 IU/ML 5 % release; UFH Low Dose, 0.1 IU/ML 6 % release; UFH Low Dose, 0.5 IU/ML 6 % release; UFH SRA Result NEGATIVE (NEGATIVE)
== END 2024-08-19 17:11 | disposition skilled nursing facility (03) | DRG 981 ==
LOC: ER 21:32 → ER IP 23:27 → MEDSURG 08-11 06:56
PROVIDERS: Orthopaedic Surgery; Admitting Provider Internal Medicine; Emergency Provider Emergency Medicine; PCP Family Medicine; Visit Provider Family Medicine
PROC: 0SRB0JZ Replacement of Left Hip Joint with Synthetic Substitute, Open Approach (ICD-10-PCS; CPT 27130; principal; 2024-08-13 10:00)
DX: J69.0 Pneumonitis due to inhalation of food and vomit (principal); G92.9 Unspecified toxic encephalopathy; F84.9 Pervasive developmental disorder, unspecified; N17.9 Acute kidney failure, unspecified; N39.0 Urinary tract infection, site not specified; I48.92 Unspecified atrial flutter; I10 Essential (primary) hypertension; K21.9 Gastro-esophageal reflux disease without esophagitis; R32 Unspecified urinary incontinence; M06.09 Rheumatoid arthritis without rheumatoid factor, multiple sites; S52.122D Displaced fracture of head of left radius, subsequent encounter for closed fracture with routine healing; S32.599D Other specified fracture of unspecified pubis, subsequent encounter for fracture with routine healing; S32.402D Unspecified fracture of left acetabulum, subsequent encounter for fracture with routine healing; X58.XXXD Exposure to other specified factors, subsequent encounter; G31.83 Neurocognitive disorder with Lewy bodies; F02.80 Dementia in other diseases classified elsewhere, unspecified severity, without behavioral disturbance, psychotic disturbance, mood disturbance, and anxiety; G20.A1 Parkinson's disease without dyskinesia, without mention of fluctuations; F79 Unspecified intellectual disabilities; F80.9 Developmental disorder of speech and language, unspecified; R23.1 Pallor; D64.89 Other specified anemias; D69.6 Thrombocytopenia, unspecified; K59.00 Constipation, unspecified; Z79.899 Other long term (current) drug therapy; Z99.3 Dependence on wheelchair
CPT/HCPCS: 11056; 11721; 36415; 36430; 70450; 71045; 71250; 71275; 72020; 72170; 73030; 73501; 73502; 73521; 73721; 74176; 74177; 80048; 80053; 80202; 80503; 81001; 82274; 82436; 82570; 82728; 83010; 83540; 83550; 83605; 83615; 83735; 83880; 83930; 83935; 84100; 84133; 84145; 84295; 84300; 84484; 85014; 85018; 85025; 85378; 85999; 86140; 86850; 86900; 86920; 87040; 87086; 87637; 88304; 88305; 88311; 92507; 92526; 92610; 93005; 93306; 93970; 96365; 96372; 97110; 97161; 97167; 97530; 97535; 99214; 99285; C1776; J0456; J0690; J1100; J1171; J1650; J1940; J2185; J2270; J2405; J2470; J2543; J2704; J3010; J3370; J3490; J7030; J7050; J7512; P9016

== ENCOUNTER 2024-08-20 17:02 | Inpatient (IN) | payer MEDICARE, MEDICAID, SELFPAY ==
[2024-08-20] VITALS (17 sets, daily range): BP systolic 136–159; BP diastolic 77–113; PULSE 94–138; RESP 18–38; TEMP 38.2–40; O2SAT 90–94; BMI 36.6
--- NOTE | 2024-08-20 18:00 | XRR_ITS ---
PROCEDURE INFORMATION: Exam: XR Chest Exam date and time: 08/20/2024 7:58 PM Age: 73 years old Clinical indication: Post op fever TECHNIQUE: Imaging protocol: Radiologic exam of the chest. Views: 1 view. COMPARISON: CT angio chest PE protcl [id number] 08/10/2024 9:17 PM FINDINGS: Lungs: Patchy airspace disease present in the lung bases, right greater than left. Pleural spaces: Unremarkable. No pleural effusion. No pneumothorax. Heart/Mediastinum: Unremarkable. No cardiomegaly. Vasculature: Calcific plaque involves the aortic knob. Bones/joints: Unremarkable. XR/XR chest 1V portable [id number] IMPRESSION: Patchy bibasilar airspace disease which may reflect subsegmental atelectasis versus developing pneumonia.
--- NOTE | 2024-08-20 18:02 | XRR_ITS ---
PROCEDURE INFORMATION: Exam: XR Left Hip Exam date and time: 08/20/2024 7:58 PM Age: 73 years old Clinical indication: Left hip; Prior surgery; Surgery date: 6+ months; Surgery type: Lt short tfn; Lt hip pain post fall; RT tfn x 1 week ago; Best obtainable images due to PT condition TECHNIQUE: Imaging protocol: Radiologic exam of the left hip. Views: 2 or 3 views hip with pelvis when performed. COMPARISON: CT angio chest PE protcl [id number] 08/10/2024 9:17 PM FINDINGS: Bones/joints: Postoperative changes from left total hip replacement. The surgical hardware is intact without evidence of hardware failure or loosening. There old fracture deformities involving the left superior and inferior pubic ramus. No definitive acute fracture. The bone density is decreased. Soft tissues: Unremarkable. XR/XR hip LT 2-3V wo/w pel* [id number] IMPRESSION: 1. Postoperative changes from left total hip replacement. No evidence of hardware failure or loosening. 2. Remote fracture deformities involving the left superior and inferior pubic rami.
--- NOTE | 2024-08-20 18:04 | ED_ITS ---
HPI - Fever 2 General: Chief Complaint: Fever Stated Complaint: fever - post op Time Seen by Provider: 08/20/24 17:04 Source: EMS and RN notes reviewed Mode of arrival: EMS Limitations: other (Autism) History of Present Illness: This patient's history is limited to that which I can glean from residential records, EMS etc. The patient is autistic and cannot verbalize any symptoms or history for me. He was recently discharged from this facility on 19 August after suffering a hip fracture with with a subsequent left hip arthroplasty performed on 13 August of this year. He is now here because he has had a fever over the last 24 hours. He apparently also has a known pneumonia. MD elicited complaint: fever Context: recent procedure and recent hospitalization Related Data Home Medications ?Medication ?Instructions ?Recorded ?Confirmed aluminum-mag hydroxide-simethicone 30 ml PO Q4H PRN Co nstipation 08/11/19 08/11/24 400 mg-400 mg-40 mg/5 mL oral susp (Mylanta Maximum Strength) acetaminophen 325 mg tablet 650 mg PO Q4H PRN PAIN OR TEMP 10/07/23 08/11/24 allantoin 0.2 % topical cream 1 applic topical QID DRY SKIN 10/07/23 08/11/24 (Cutemol) ammonium lactate 12 % lotion 1 applic topical QAM 09/1208/11/24 lanolin alcohols-mineral 1 applic topical BID PRN Dry Skin 10/07/23 08/11/24 oil-w.petrolatum-ceresin topical cream (Eucerin topical cream) terbinafine HCl 1 % topical cream 1 applic topical BID 10/07/23 08/11/24 Previous Rx's ?Medication ?Instructions ?Recorded vitamins A and D-white See Rx Instructions .Route 0 09/16/23 petrolatum-lanolin topical .COMPLEX #113 grams ointment (A and D (lanolin-petrolatum) topical ointment) folic acid 1 mg tablet 1 mg PO QAM #90 tabs 4 trihexyphenidyl 2 mg tablet 2 mg PO BID #180 tabs 12/13 08/06 divalproex 250 mg tablet,extended See Rx Instructions .Route 01/27/24 release 24 hr .COMPLEX #30 tabs carbamide peroxide 6.5 % ear drops See Rx Instructions .Route 02/10/24 (Ear Wax Removal Drops) .COMPLEX #15 mL dextromethorphan-guaifenesin 10 See Rx Instructions .R oute 02/23/24 mg-100 mg/5 mL oral syrup (Chest .COMPLEX #237 mL Congestion Relief DM) magnesium hydroxide 400 mg/5 mL See Rx Instructions .R oute 02/23/24 oral suspension (Milk of Magnesia) .COMPLEX #473 mL Cleansing Wipes #30 ea 05/05/24 disposable gloves #50 ea 05/05/24 extra large adult briefs #30 ea 05/05/24 methotrexate sodium 2.5 mg tablet See Rx Instructions .Route 05/12/24 Held on 08/19/24. .COMPLEX #60 tabs Instructions: Resume on 08/30/24. prednisone 10 mg tablet See Rx Instructions PO .COMP KUSUM 05/12/24 PRN joint pain flare #90 tabs prednisone 5 mg tablet 5 mg PO DAILY #90 tabs 05/12 cetirizine 10 mg tablet (All Day 10 mg PO DAILY PRN al lergy 06/15/24 Allergy (cetirizine)) symptoms #30 tabs omeprazole 40 mg capsule,delayed 40 mg PO DAILY #90 ca ps 06/18/24 release levothyroxine 50 mcg tablet 50 mcg PO QAM #90 tabs 05/06 paroxetine HCl 30 mg tablet See Rx Instructions .Route 06/22/24 .COMPLEX #30 tabs carbidopa 25 mg-levodopa 100 mg See Rx Instructions .R oute 06/24/24 tablet .COMPLEX #150 tabs quetiapine 200 mg tablet (Seroquel) 200 mg PO BID #60 tabs 07/01/24 Hospital bed #1 ea 07/13/24 divalproex 500 mg tablet,extended See Rx Instructions .Route 08/04/24 release 24 hr .COMPLEX #60 tabs olanzapine 10 mg tablet See Rx Instructions .Route 0 08/04/24 .COMPLEX #60 tabs Wheelchair #1 ea 08/11/24 albuterol sulfate 90 mcg/actuation 1 inh inhalation Q6 H PRN shortness 08/19/24 aerosol inhaler (Ventolin HFA) of breath or wheezing # 8.5 grams aspirin 81 mg tablet,delayed 81 mg PO DAILY 30 days #3 0 tabs 08/19/24 release atorvastatin 40 mg tablet 40 mg PO BEDTIME 30 days #30 tabs 08/19/24 bisacodyl 5 mg tablet,delayed 10 mg (2 x 5 mg) PO MANDY Y 30 days 08/19/24 release #60 tabs hydrocodone 5 mg-acetaminophen 325 1 tab PO Q6H PRN pa in 7 days #42 08/19/24 mg tablet tabs levofloxacin 750 mg tablet 750 mg PO DAILY 5 days #5 t abs 08/19/24 metoprolol tartrate 25 mg tablet 25 mg PO Q12H 30 days #60 tabs 08/19/24 pantoprazole 40 mg tablet,delayed 40 mg PO BID 30 days #60 tabs 08/19/24 release (Protonix) sucralfate 1 gram tablet (Carafate) 1 g PO BID 4 weeks #56 tabs 08/19/24 Allergies Allergy/AdvReac Type Severity Reaction Status Date / Time No Known Allergies Allergy Verified 08/10/24 15:01 Review of Systems 2 General: Reports: ROS unobtainable due to mental status PFSH ED 2 PFSH: Medical History Skin rash Physical deconditioning Osteoarthritis of hands, bilateral Immunization counseling Greater trochanteric pain syndrome High risk medication use Dementia in other diseases classified elsewhere with behavioral disturbance Surgical History No pertinent past surgical history Social History Smoking and tobacco/nicotine status: unknown if used tobacco/nicotine Alcohol intake: never Substance/Drug Use: never Lives independently: No Household members: caregiver Physical Exam 2 Narrative: EXAM NARRATIVE: The patient is alert somewhat fidgety. He is nonverbal to answer any direct questions but will intermittently cry out in unintelligible voice. Const: COMMON NORMALS: alert GENERAL APPEARANCE: cooperative HENMT: COMMON NORMALS: normocephalic, Normal nasal mucous membranes and turbinates present and moist oral mucous membranes HEAD & SCALP: n ormocephalic NOSE: Normal nasal mucous membranes and turbinates present Eye: COMMON NORMALS: Equal, round and reactive pupils present and conjunctivae normal CONJUNCTIVA: Yes conjunctivae normal PUPIL: Yes Equal, round and reactive pupils present Neck/C-Spine: COMMON NORMALS: full ROM, supple and No carotid bruits C ERVICAL SPINE: No Cervical spine tenderness and No step off deformity Chest: COMMONS NORMALS: normal inspection of the chest Resp: COMMON NORMALS: normal respiratory effort and No use of accessory muscles AUSCULTATION: crackles Laterality: bilateral Cardio: COMMON NORMALS: regular rate, regular rhythm, No murmurs present (Cardio) and Peripheral pulses 2+ throughout RATE: regular rate RHYTHM: r egular rhythm PERIPHERAL PULSES: Peripheral pulses 2+ throughout GI: COMMON NORMALS: Normal to inspection, nondistended, normoactive bowel sounds present, Soft to palpation and non-tender PALPATION: Yes Soft to palpation Back/Pelvis: COMMON NORMALS: thoracic and lumbar spine normal to inspection, no thoracic nor lumbar tenderness, thoraco-lumbar ROM normal and straight leg raise negative bilaterally Extremity: NARRATIVE EXTREMITY EXAM: Left hip has a dry dressing over the surgical site. There is surrounding ecchymosis. No obvious deformity noted to the left hip. There is no other findings on his extremity examination. Neuro: COMMON NORMALS: moves all extremities SENSORIUM/ORIENTATION: Yes alert Course 2 Reevaluation(s): Reevaluation #1: Patient still is very fidgety and anxious and moves considerably making radiographs impossible to obtain at this time. Will go ahead and treat his fever and also give him a dose of Ativan and see if we can get him to relax of the week and get proper radiographs. Time: 19:55 Consultations: Consultation #1: Discussed with Dr. Patel who agreed to place the patient back in hospital. Time: 21:13 Vital Signs: Vital signs: Vital Signs Temperature 101.9 F H 08/20/24 19:26 Pulse Rate 125 H 08/20/24 17:05 Respiratory Rate 18 08/20/24 17:05 Blood Pressure 152/78 08/20/24 17:05 Pulse Oximetry 92 08/20/24 17:05 Oxygen Delivery Me thod Nasal Cannula 08/20/24 17:05 Oxygen Flow Rate 3 08/20/24 17:05 MDM - Fever Medical Decision Making This patient returns to our facility as per the HPI. He recently admitted and had a operative reduction and fixation of a left hip fracture. He was discharged from this facility on 19 August. He returns with fever. He has autism spectrum disorder and is essentially noncommunicative for symptoms or additional history. He was noted to be febrile here with tachycardia. His fever was treated with antipyretics IV fluids were begun and appropriate evaluation for potential sources of fever undertaken. There was a questionable history of rolling out of bed in the last 24 hours and so a repeat film of his left hip was obtained which was reassuring without any displacement or loss of reduction. Chest x-ray did not show any significant interval change in fact to my evaluation looked improved from previous x-rays taken while in the hospital. His lactate was elevated at 3.2 and again he received continuous IV fluids, a loading dose of ceftriaxone and blood cultures. His viral studies to include influenza, RSV, COVID-19 were negative. His BUN elevation with his hypernatremia suggest free water deficit. Medical Records I reviewed the patient's medical records. Prior hospitalization and surgical record Lab Data I reviewed the patient's lab results. 08/20/24 18:50 08/20/24 18:50 Radiology Impressions Chest X-Ray 08/20/24 18:00 IMPRESSION: Patchy bibasilar airspace disease which may reflect subsegmental atelectasis versus developing pneumonia. Hip/Pelvis X-Ray 08/20/24 18:02 IMPRESSION: 1. Postoperative changes from left total hip replacement. No evidence of hardware failure or loosening. 2. Remote fracture deformities involving the left superior and inferior pubic rami. Laboratory Results WBC 13.84 10^3/uL (3.29-11.43) H 08/20/24 18:50 RBC 3.15 10^6/uL (3.85-5.65) L 08/20/24 18:50 Hgb 9.70 g/dL (11.27-16.99) L 08/20/24 18:50 Hct 31.8 % (37-53) L 08/20/24 18:50 MCV 101.0 fl (82-101) 08/20/24 18:50 MCH 30.8 pg (27-33) 08/20/24 18:50 MCHC 30.5 g/dL (30-55) 08/20/24 18:50 RDW 18.6 % (12.1-15.1) H 08/20/24 18:50 Plt Count 179 10^3/cmm (157-399) 08/20/24 18:50 MPV 10.1 fL (7.4-10.4) 08/20/24 18:50 Neut % (Auto) 70.6 % 08/20/24 18:50 Lymph % (Auto) 12.9 % 08/20/24 18:50 Hardy % (Auto) 15.2 % 08/20/24 18:50 Eos % (Auto) 0.2 % 08/20/24 18:50 Baso % (Auto) 0.4 % 08/20/24 18:50 Neut # (Auto) 9.76 10^3/uL (1.8-7.7) H 08/20/24 18:50 Lymph # (Auto) 1.8 10^3/uL (0.8-4.8) 08/20/24 18:50 Hardy # (Auto) 2.1 10^3/uL (0.2-0.9) H 08/20/24 18:50 Eos # (Auto) 0.0 10^3/uL (0.0-0.8) 08/20/24 18:50 Baso # (Auto) 0.1 10^3/uL (0.0-0.1) 08/20/24 18:50 Nucleated RBC % (auto) 0 % 08/20/24 18:50 Nucleated RBCs # 0.0 /100WBC 08/20/24 18:50 Sodium 154 mmol/L (136-145) H 08/20/24 18:50 Sodium 154 mmol/L (136-145) H 08/20/24 18:50 Potassium 4.1 mmol/L (3.5-5.1) 08/20/24 18:50 Chloride 113 mmol/L (98-107) H 08/20/24 18:50 Carbon Dioxide 27 mmol/L (22-29) 08/20/24 18:50 Anion Gap 18.1 (5-19) 08/20/24 18:50 BUN 40 mg/dL (8-23) H 08/20/24 18:50 Creatinine 1.1 mg/dL (0.7-1.2) 08/20/24 18:50 GFR Calculation Not Reportable 08/20/24 18:50 Glucose 72 mg/dL (65-115) 08/20/24 18:50 Calculated Osmolality 326 mOsm/kg (285-295) H 08/20/24 18:50 Lactic Acid 3.4 mmol/L (0.5-2.2) H 08/20/24 18:50 Calcium 8.9 mg/dL (8.5-10.5) 08/20/24 18:50 Total Bilirubin 1.5 mg/dL (0.15-1.2) H 08/20/24 18:50 AST 82 U/L (0-40) H 08/20/24 18:50 ALT 15 U/L (0-41) 08/20/24 18:50 Alkaline Phosphatase 99 U/L (40-130) 08/20/24 18:50 Total Protein 6.7 g/dL (6.6-8.7) 08/20/24 18:50 Albumin 2.8 g/dL (3.5-5.2) L 08/20/24 18:50 Globulin 3.9 g/dL (1.3-4.6) 08/20/24 18:50 Urine Color Dark yellow (Yellow) A 08/20/24 18:40 Urine Appearance Clear (CLEAR) 08/20/24 18:40 Urine pH 6.0 (5-7) 08/20/24 18:40 Ur Specific [place] 1.023 (1.005-1.030) 08/20/24 18:40 Urine Protein 1+ (Negative) A 08/20/24 18:40 Urine Glucose (UA) Negative (Normal) 08/20/24 18:40 Urine Ketones Negative (Negative) 08/20/24 18:40 Urine Blood Negative (Negative) 08/20/24 18:40 Urine Nitrate Positive (Negative) A 08/20/24 18:40 Urine Bilirubin 1+ (Negative) H 08/20/24 18:40 Urine Urobilinogen 4.0 mg/dL (Negative) H 08/20/24 18:40 Ur Leukocyte Esterase 1+ (Negative) A 08/20/24 18:40 Urine RBC 3-5 /hpf (0-2) 08/20/24 18:40 Urine WBC 0-5 /hpf (0-5) 08/20/24 18:40 Ur Squamous Epith Cells 0-5 /hpf (0-5) 08/20/24 18:40 Amorphous Sediment Not Reportable 08/20/24 18:40 Urine Bacteria None seen /hpf (NONE) 08/20/24 18:40 Hyaline Casts 0.40 /lpf 08/20/24 18:40 Coronavirus (PCR) Negative (Negative) 08/20/24 18:51 Influenza A (PCR) Negative (Negative) 08/20/24 18:51 Influenza Type B (PCR) Negative (Negative) 08/20/24 18:51 RSV (PCR) Negative (Negative) 08/20/24 18:51 All radiology interpretation(s) finalized by discharge Discharge Plan Discharge Patient Disposition: Admitted As Inpatient Clinical Impression: Febrile illness, Pyelonephritis, Autism disorder, Extracellular volume depletion Condition: Stable Prescriptions: No Action Mylanta Maximum Strength 400-400-40 mg/5 mL suspension 30 ml PO Q4H PRN (Reason: Constipation) (DME) Hospital bed See Rx Instructions .Route .MEDSUPPLY Qty: 1 0RF Rx Instructions: Please issue hospital bed for patient to use as he has a pelvic fracture, he is unable to ambulate, he is at risk for decubitus ulcers, and he has frequent falls. (DME) Wheelchair See Rx Instructions .Route .MEDSUPPLY Qty: 1 0RF Rx Instructions: As directed folic acid 1 mg tablet 1 mg PO QAM Qty: 90 3RF trihexyphenidyl 2 mg tablet 2 mg PO BID Qty: 180 3RF Rx Instructions: give with food (meal/snack) prednisone 5 mg tablet 5 mg PO DAILY Qty: 90 1RF methotrexate sodium 2.5 mg tablet See Rx Instructions .ROUTE .COMPLEX Qty: 60 1RF Dose Instruction: TAKE 4 TABLETS BY MOUTH WEEKLY Rx Instructions: TAKE 4 TABLETS BY MOUTH WEEKLY ON FRIDAY quetiapine [Seroquel] 200 mg tablet 200 mg PO BID Qty: 60 5RF vits A and D-white pet-lanolin [A and D (lanolin-petrolatum)] Ointment See Rx Instructions .ROUTE .COMPLEX Qty: 113 5RF Dose Instruction: APPLY topically AND cover with socks At Bedtime Rx Instructions: APPLY topically AND cover with socks At Bedtime divalproex 250 mg tablet extended release 24 hr See Rx Instructions .ROUTE .COMPLEX Qty: 30 5RF Dose Instruction: TAKE ONE TABLET BY MOUTH EVERY DAY FOR BIPOLAR DISORDER Rx Instructions: TAKE ONE TABLET BY MOUTH EVERY DAY FOR BIPOLAR DISORDER Ear Wax Removal Drops 6.5 % drops See Rx Instructions .ROUTE .COMPLEX Qty: 15 0RF Dose Instruction: FILL BOTH EAR CANALS DAILY 4 DAYS EACH MONTH Rx Instructions: FILL BOTH EAR CANALS DAILY 4 DAYS EACH MONTH magnesium hydroxide [Milk of Magnesia] 400 mg/5 mL suspension See Rx Instructions .ROUTE .COMPLEX Qty: 473 1RF Dose Instruction: TAKE 30ML BY MOUTH NEEDED ON FOURTH DAY IF NO BOWEL MOVEMENT IN 3 DAYS. CALL NURSE ON DAY. Rx Instructions: TAKE 30ML BY MOUTH NEEDED ON FOURTH DAY IF NO BOWEL MOVEMENT IN 3 DAYS. CALL NURSE ON DAY. dextromethorphan-guaifenesin [Chest Congestion Relief DM] 10-100 mg/5 mL syrup See Rx Instructions .ROUTE .COMPLEX Qty: 237 5RF Dose Instruction: TAKE 10ML BY MOUTH EVERY 4 HOURS NEEDED FOR COUGH; NOT TO EXCEED 6 DOSES IN 24 HOURS Rx Instructions: TAKE 10ML BY MOUTH EVERY 4 HOURS NEEDED FOR COUGH; NOT TO EXCEED 6 DOSES IN 24 HOURS (DME) extra large adult briefs See Rx Instructions .Route .MEDSUPPLY Qty: 30 11RF Rx Instructions: Please issue extra large adult briefs (DME) Cleansing Wipes See Rx Instructions .Route .MEDSUPPLY Qty: 30 11RF Rx Instructions: Please issue Cleansing Wipes (DME) disposable gloves Package See Rx Instructions .Route Qty: 50 11RF Rx Instructions: As directed prednisone 10 mg tablet See Rx Instructions PO .COMPLEX PRN (Reason: joint pain flare) Qty: 90 1RF Rx Instructions: can take 40mg daily for up to 7days for joint pain flare orally PRN; cetirizine [All Day Allergy (cetirizine)] 10 mg tablet 10 mg PO DAILY PRN (Reason: allergy symptoms) Qty: 30 11RF omeprazole 40 mg capsule,delayed release(DR/EC) 40 mg PO DAILY Qty: 90 3RF levothyroxine 50 mcg tablet 50 mcg PO QAM Qty: 90 1RF paroxetine HCl 30 mg tablet See Rx Instructions .ROUTE .COMPLEX Qty: 30 5RF Dose Instruction: TAKE ONE TABLET BY MOUTH EVERY DAY FOR BIPOLAR DISORDER Rx Instructions: TAKE ONE TABLET BY MOUTH EVERY DAY FOR BIPOLAR DISORDER carbidopa-levodopa 25-100 mg tablet See Rx Instructions .ROUTE .COMPLEX Qty: 150 5RF Dose Instruction: TAKE ONE TABLET BY MOUTH THREE TIMES DAILY WITH MEALS FOR TREMORS Rx Instructions: 2 tabs at 0800, one tab at 1200 and two tabs at 1600. divalproex 500 mg tablet extended release 24 hr See Rx Instructions .ROUTE .COMPLEX Qty: 60 5RF Dose Instruction: TAKE TWO TABLETS BY MOUTH EVERY NIGHT AT BEDTIME FOR MOOD DISORDER/BIPOLAR Rx Instructions: TAKE TWO TABLETS BY MOUTH EVERY NIGHT AT BEDTIME FOR MOOD DISORDER/BIPOLAR olanzapine 10 mg tablet See Rx Instructions .ROUTE .COMPLEX Qty: 60 5RF Dose Instruction: TAKE 1/2 TABLET (5MG) BY MOUTH TWICE DAILY FOR BIPOLAR DISORDER Rx Instructions: TAKE 1/2 TABLET (5MG) BY MOUTH TWICE DAILY FOR BIPOLAR DISORDER terbinafine HCl 1 % cream 1 applic topical BID Rx Instructions: APPLY TO THE AFFECTED AREA(S) (FEET) acetaminophen 325 mg tablet 650 mg PO Q4H PRN (Reason: PAIN OR TEMP) Rx Instructions: TEMPERATURE >100degrees ammonium lactate 12 % lotion 1 applic topical QAM Rx Instructions: TO HANDS, FEET, AND LEGS Cutemol 0.2 % cream 1 applic topical QID Rx Instructions: APPLY TO HANDS Eucerin Cream 1 applic topical BID PRN (Reason: Dry Skin) atorvastatin 40 mg Tablet 40 mg PO BEDTIME 30 Days Qty: 30 0RF aspirin 81 mg Tablet,Delayed Release (Dr/Ec) 81 mg PO DAILY 30 Days Qty: 30 0RF bisacodyl 5 mg Tablet,Delayed Release (Dr/Ec) 10 mg PO DAILY 30 Days Qty: 60 0RF metoprolol tartrate 25 mg Tablet 25 mg PO Q12H 30 Days Qty: 60 0RF pantoprazole [Protonix] 40 mg tablet,delayed release (DR/EC) 40 mg PO BID 30 Days Qty: 60 0RF sucralfate [Carafate] 1 gram tablet 1 g PO BID 28 Days Qty: 56 0RF levofloxacin 750 mg tablet 750 mg PO DAILY 5 Days Qty: 5 0RF albuterol sulfate [Ventolin HFA] 90 mcg/actuation HFA aerosol inhaler 1 inh inhalation Q6H PRN (Reason: shortness of breath or wheezing) Qty: 8.5 0RF hydrocodone-acetaminophen 5-325 mg tablet 1 tab PO Q6H PRN (Reason: pain) 7 Days Qty: 42 0RF Referrals: Kishore Avalos DO [Primary Care Provider] - Print Language: Albanian Coding Level of Care Code ED [employer] [place]
[2024-08-20 19:20] LABS: Basophils # 0.1 10^3/uL (0.0-0.1); Basophils % 0.4 %; Eosinophils % 0.2 %; Hematocrit 31.8 % (37-53); Lymphocytes # 1.8 10^3/uL (0.8-4.8); Lymphocytes % 12.9 %; Mean Corpuscular HGB Conc 30.5 g/dL (30-55); Mean Corpuscular Hemoglobin 30.8 pg (27-33); Mean Platelet Volume 10.1 fL (7.4-10.4); Monocytes # 2.1 10^3/uL (0.2-0.9); Monocytes % 15.2 %; Neutrophils # 9.76 10^3/uL (1.8-7.7); Neutrophils % 70.6 %; Nucleated Red Blood Cells % 0 %; Platelet Count 179 10^3/cmm (157-399); Red Blood Count 3.15 10^6/uL (3.85-5.65); Red Cell Distribution Width 18.6 % (12.1-15.1); White Blood Count 13.84 10^3/uL (3.29-11.43)
[2024-08-20 19:23] LABS: Bilirubin Urine 1+ (Negative); Blood Urine Negative (Negative); Glucose Urine UA Negative (Normal); Ketones Urine Negative (Negative); Leukocyte Esterase Urine 1+ (Negative); Nitrate Urine Positive (Negative); Protein Urine 1+ (Negative); Specific Gravity, Urine 1.023 (1.005-1.030); Urine Appearance Clear (CLEAR); Urine Color Dark Yellow (Yellow)
[2024-08-20] MEDS: lactated ringers 1,000 ML 999 ML IV (19:26)
[2024-08-20 19:28] LABS: Add Urine Microscopic? YES; Bacteria Urine None Seen /hpf; Squamous Epithelial Cell Urine 0-5 /hpf (0-5); WBC Urine 0-5 /hpf (0-5)
--- NOTE | 2024-08-20 19:38 | PC.NURSE ---
Patient will not stay still for x-ray, unable to get accurate blood pressure or oxygen saturation due to patient moving. Temperature 101.9. Dr. Brooks notified with no new orders.
[2024-08-20 19:40] LABS: Lactic Sepsis W/Reflex 3.4 mmol/L (0.5-2.2)
[2024-08-20 19:41] LABS: Alanine Aminotransferase 15 U/L (0-41); Albumin Level 2.8 g/dL (3.5-5.2); Alkaline Phosphatase 99 U/L (40-130); Anion Gap 18.1 (5-19); Aspartate Amino Transferase 82 U/L (0-40); Blood Urea Nitrogen 40 mg/dL (8-23); Calcium 8.9 mg/dL (8.5-10.5); Carbon Dioxide 27 mmol/L (22-29); Chloride 113 mmol/L (98-107); Creatinine Clr Calc Pharmacy 56.6675; Globulin 3.9 g/dL (1.3-4.6); Glucose 72 mg/dL (65-115); Osmolality Calculated 326 mOsm/kg (285-295); Potassium 4.1 mmol/L (3.5-5.1); Sodium 154 mmol/L (136-145); Total Bilirubin 1.5 mg/dL (0.15-1.2); Total Protein 6.7 g/dL (6.6-8.7)
[2024-08-20 20:04] LABS: UA Slide Review UA Slide Review Perf
[2024-08-20 20:05] LABS: Add Urine Culture? Yes
[2024-08-20 20:17] LABS: Influenza A NEGATIVE (Negative); Influenza B NEGATIVE (Negative); Respiratory Syncytial Virus Ce NEGATIVE (Negative); SARS-CoV-2 PCR NEGATIVE (Negative)
[2024-08-20] MEDS: acetaminophen 650 mg Supp PR (20:28)
[2024-08-20] MEDS: LORazepam 2 mg/mL INJ 1 mL 1 MG IVP (20:30)
--- NOTE | 2024-08-20 20:39 | P.HP_ITS ---
Providers/Chief Complaint 2 Primary Care Provider: Kishore Avalos DO Chief Complaint: fever - post op History of Present Illness Ernie Lopez is a 73 year old male with history of intellectual challenges, esophagitis, GERD, rheumatoid arthritis, hypertension, Lewy body dementia with Parkinson's, intellectual challenges, livedo reticularis was recently discharged from the hospital after management evaluation of left acetabular fracture presenting [facility] with fever, shortness of breath and hypoxia. Patient not able to provide any history, at baseline patient is wheelchair- bound, able to have simple conversation with the caregiver, oriented to himself however during my evaluation today he is not making eye contact, looking towards the ceiling and towards the left, trying to get up from the bed, he is moving all of his extremities, there is no sign of stroke, patient clinically looks extremely dry has toxic appearance with skin mottling/livedo reticularis pattern of lower extremity, his blood pressure is high, he is febrile Patient is showing signs of sepsis, criteria met with tachypnea tachycardia leukocytosis endorgan damage source seems to be UTI and aspiration pneumonia he received septic bolus and ceftriaxone Hypernatremia sodium 154 lactic acid 3.4 Respiratory panel is negative Review of Systems 2 General: Reports: ROS unobtainable due to mental status Medications/Allergies Home Medications ?Medication ?Instructions ?Recorded ?Confirmed ?Last Taken ?Type aluminum-mag hydroxide-simethicone 30 ml PO Q4H PRN Co nstipation 08/11/19 08/11/24 Unknown History 400 mg-400 mg-40 mg/5 mL oral susp (Mylanta Maximum Strength) vitamins A and D-white See Rx Instructions .Route 0 09/16/23 08/11/24 Unknown Rx petrolatum-lanolin topical .COMPLEX #113 grams ointment (A and D (lanolin-petrolatum) topical ointment) acetaminophen 325 mg tablet 650 mg PO Q4H PRN PAIN OR TEMP 10/07/23 08/11/24 Unknown History allantoin 0.2 % topical cream 1 applic topical QID DRY SKIN 10/07/23 08/11/24 10/07/23 History (Cutemol) ammonium lactate 12 % lotion 1 applic topical QAM 09/1208/11/24 Unknown History lanolin alcohols-mineral 1 applic topical BID PRN Dry Skin 10/07/23 08/11/24 Unknown History oil-w.petrolatum-ceresin topical cream (Eucerin topical cream) terbinafine HCl 1 % topical cream 1 applic topical BID 10/07/23 08/11/24 Unknown History folic acid 1 mg tablet 1 mg PO QAM #90 tabs 4 08/11/24 Unknown Rx trihexyphenidyl 2 mg tablet 2 mg PO BID #180 tabs 12/1308/11/24 Unknown Rx divalproex 250 mg tablet,extended See Rx Instructions .Route 01/27/24 08/11/24 Unknown Rx release 24 hr .COMPLEX #30 tabs carbamide peroxide 6.5 % ear drops See Rx Instructions .Route 02/10/24 08/11/24 Unknown Rx (Ear Wax Removal Drops) .COMPLEX #15 mL dextromethorphan-guaifenesin 10 See Rx Instructions .R oute 02/23/24 08/11/24 Unknown Rx mg-100 mg/5 mL oral syrup (Chest .COMPLEX #237 mL Congestion Relief DM) magnesium hydroxide 400 mg/5 mL See Rx Instructions .R oute 02/23/24 08/11/24 Unknown Rx oral suspension (Milk of Magnesia) .COMPLEX #473 mL Cleansing Wipes #30 ea 05/05/24 08/11/24 Unk nown Rx disposable gloves #50 ea 05/05/24 08/11/24 Unk nown Rx extra large adult briefs #30 ea 05/05/24 08/11/24 Unk nown Rx methotrexate sodium 2.5 mg tablet See Rx Instructions .Route 05/12/24 08/11/24 Unknown Rx Held on 08/19/24. .COMPLEX #60 tabs Instructions: Resume on 08/30/24. prednisone 10 mg tablet See Rx Instructions PO .COMP KUSUM 05/12/24 08/11/24 Unknown Rx PRN joint pain flare #90 tabs prednisone 5 mg tablet 5 mg PO DAILY #90 tabs 05/1208/11/24 Unknown Rx cetirizine 10 mg tablet (All Day 10 mg PO DAILY PRN al lergy 06/15/24 08/11/24 Unknown Rx Allergy (cetirizine)) symptoms #30 tabs omeprazole 40 mg capsule,delayed 40 mg PO DAILY #90 ca ps 12/06/24 01/29/25 Unknown Rx release levothyroxine 50 mcg tablet 50 mcg PO QAM #90 tabs 05/0608/11/24 Unknown Rx paroxetine HCl 30 mg tablet See Rx Instructions .Route 06/22/24 08/11/24 Unknown Rx .COMPLEX #30 tabs carbidopa 25 mg-levodopa 100 mg See Rx Instructions .R oute 06/24/24 08/11/24 Unknown Rx tablet .COMPLEX #150 tabs quetiapine 200 mg tablet (Seroquel) 200 mg PO BID #60 tabs 07/01/24 08/11/24 Unknown Rx Hospital bed #1 ea 07/13/24 08/11/24 Unkn own Rx divalproex 500 mg tablet,extended See Rx Instructions .Route 08/04/24 08/11/24 Unknown Rx release 24 hr .COMPLEX #60 tabs olanzapine 10 mg tablet See Rx Instructions .Route 0 08/04/24 08/11/24 Unknown Rx .COMPLEX #60 tabs Wheelchair #1 ea 08/11/24 08/11/24 Unkn own Rx albuterol sulfate 90 mcg/actuation 1 inh inhalation Q6 H PRN shortness 08/19/24 Unknown Rx aerosol inhaler (Ventolin HFA) of breath or wheezing # 8.5 grams aspirin 81 mg tablet,delayed 81 mg PO DAILY 30 days #3 0 tabs 08/19/24 Unknown Rx release atorvastatin 40 mg tablet 40 mg PO BEDTIME 30 days #30 tabs 08/19/24 Unknown Rx bisacodyl 5 mg tablet,delayed 10 mg (2 x 5 mg) PO MANDY Y 30 days 08/19/24 Unknown Rx release #60 tabs hydrocodone 5 mg-acetaminophen 325 1 tab PO Q6H PRN pa in 7 days #42 08/19/24 Unknown Rx mg tablet tabs levofloxacin 750 mg tablet 750 mg PO DAILY 5 days #5 t abs 08/19/24 Unknown Rx metoprolol tartrate 25 mg tablet 25 mg PO Q12H 30 days #60 tabs 08/19/24 Unknown Rx pantoprazole 40 mg tablet,delayed 40 mg PO BID 30 days #60 tabs 08/19/24 Unknown Rx release (Protonix) sucralfate 1 gram tablet (Carafate) 1 g PO BID 4 weeks #56 tabs 08/19/24 Unknown Rx Allergies Allergy/AdvReac Type Severity Reaction Status Date / Time No Known Allergies Allergy Verified 08/10/24 15:01 PFSH Acute 2 PFSH: Medical History (Updated 08/20/24 @ 22:39 by Donny Patel MD) Pyelonephritis Skin rash Physical deconditioning Osteoarthritis of hands, bilateral Immunization counseling Greater trochanteric pain syndrome High risk medication use Dementia in other diseases classified elsewhere with behavioral disturbance Surgical History No pertinent past surgical history Social History Smoking and tobacco/nicotine status: unknown if used tobacco/nicotine Alcohol intake: never Substance/Drug Use: never Lives independently: No Household members: caregiver Vitals/I&O/Wt Last Vital Signs Temp 101.9 F H 08/20/24 19:26 Pulse 125 H 08/20/24 17:05 Resp 18 08/20/24 17:05 BP 152/78 08/20/24 17:05 Pulse Ox 92 08/20/24 17:05 O2 Del Method Nasal Cannula 08/20/24 17:05 O2 Flow Rate 3 08/20/24 17:05 08/20/24 08/20/24 08/20/24 06:59 14:59 22:59 Intake Total 0 / 0 Balance 0 / 0 Weight last 48 hrs Weight 90.718 kg Physical Exam 2 Narrative: Patient is laying supine Fidgety, anxious, Try to get up Moving his extremities Nonpurposeful movement Currently on 3 L Hypertensive Tachycardia tachypnea with fever Warm to touch Lower extremity warm to touch as well I do believe his lower extremity skin color is Lipidil reticularis Lower legs are warm Patient is wearing depends soiled with urine and feces Abdomen on tender Bilateral bedside with rhonchi Dry cracked lips Clinical signs of dehydration S1, S2 tachycardia Data 08/20/24 18:50 08/20/24 18:50 Micro: Microbiology 08/20/24 19:00 Blood Culture - Preliminary Blood SPECIMEN COLLECTED 08/20/24 19:00 Blood Culture - Preliminary Blood SPECIMEN COLLECTED A&P Assessment and plan (1) GERD without esophagitis: (2) Extracellular volume depletion: (3) Seronegative rheumatoid arthritis of multiple sites: (4) Inferior pubic ramus fracture: (5) Left acetabular fracture: Qualifiers: Encounter type: subsequent encounter Sublocation of acetabulum: p osterior column Fracture type: closed Fracture alignment: displaced Fracture healing: with routine healing Qualified Code(s): S32.442D - Displaced fracture of posterior column [ilioischial] of left acetabulum, subsequent encounter for fracture with routine healing (6) Lewy body Parkinson disease: (7) Parkinson's disease (tremor, stiffness, slow motion, unstable posture): (8) 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: (9) Autism disorder: (10) Aspiration into airway: (11) Unable to ambulate: (12) Skin rash: (13) Livedo reticularis: (14) Febrile illness: (15) UTI (urinary tract infection): (16) Aspiration pneumonia: (17) Hypernatremia: (18) Sepsis: Plan Sepsis Delirium with underlying dementia Encephalopathy secondary to sepsis No sign of septic shock Skin mottling is likely livedo reticularis patient is hypertensive at the time my evaluation Febrile tachypnea tachycardia high lactic acid met sepsis criteria Received septic bolus Received ceftriaxone I will put him on Zosyn for concern related to UTI and aspiration pneumonia Significant dehydration Free water deficit 4.5 L Start D5 half-normal saline check sodium every 4 hours Patient not showing any sign of stroke He is oriented to himself Aspiration pneumonia Will request another speech evaluation patient if fails will need PEG tube placement evaluation High lactic acid related to combination of sepsis and dehydration Keep patient n.p.o. Start IV fluids Check sodium every 4 hours Admit to ICU Recent left hip fracture status post intervention, postop anemia: Hemoglobin stable DVT prophylaxis: Heparin Patient at baseline is wheelchair-bound, has Lewy body dementia with Parkinson's has autism, intellectual challenges, for history of rheumatoid arthritis he takes methotrexate, continue prednisone 5 mg daily History of GERD esophagitis continue Protonix No history of seizure: Patient takes Depakote as mood stabilizer PDMP PDMP Reviewed: Not Reviewed Attestations 2 Medical Necessity Statement*: Admit to ICU, more than 2 midnights anticipated Diagnoses GERD without esophagitis K21.9 Extracellular volume depletion E86.9 Seronegative rheumatoid arthritis of multiple sites M06.09 Inferior pubic ramus fracture S32.599A Closed displaced fracture of posterior column of left acetabulum with routine healing, subsequent encounter S32.442D Encounter type: subsequent encounter Sublocation of acetabulum: posterior column Fracture type: closed Fracture alignment: displaced Fracture healing: with routine healing Lewy body Parkinson disease G31.83; F02.80 Parkinson's disease (tremor, stiffness, slow motion, unstable posture) G20 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
[2024-08-20 21:01] LABS: Reflex Lactate Order REFLEX LACTIC ORDERD
[2024-08-20 21:04] LABS: Sodium 154 mmol/L (136-145)
[2024-08-20 21:11] LABS: Procalcitonin 0.24 ng/mL (0-0.5)
[2024-08-20] MEDS: dextrose 5%-sod chloride 0.45% 1,000 ML 75 ML IV (21:54)
[2024-08-20] MEDS: cefTRIAXone 2,000 mg SDV 2000 MG IVP (22:08)
[2024-08-20] MEDS: heparin 5,000 unit/mL INJ 1 mL 5000 UNIT SUBCUT (22:09)
--- NOTE | 2024-08-20 22:40 | PC.NURSE ---
2200: Dr. Brooks notified of temperature with no new orders at this time.
[2024-08-20] MEDS: piperacillin-tazobactam 3.375 GM in sodium chloride 0.9% (plus) 50 ML IV (22:50)
[2024-08-20] MEDS: sodium chloride 0.9% 1,000 ML 999 ML IV (22:51)
[2024-08-21] VITALS (41 sets, daily range): BP systolic 99–152; BP diastolic 53–117; PULSE 78–145; RESP 14–35; TEMP 36.5–39.8; O2SAT 85–100; BMI 27.9
--- NOTE | 2024-08-21 00:15 | PC.NURSE ---
Arrival to ICU 7: TOA 2353. Temp. 103.7. Dr. Patel notified @0012. New order for Toradol 15mg IVP ONCE and 650mg rectal tylenol if temp does not improve. Order to non-admin PO metoprolol dose.
[2024-08-21 00:26] LABS: Glucose Point of Care 102 mg/dL (70-110)
[2024-08-21] MEDS: ketorolac 30 mg/mL INJ 15 MG IVP (00:38)
[2024-08-21 01:30] LABS: Sodium 152 mmol/L (136-145)
--- NOTE | 2024-08-21 03:14 | PC.NURSE ---
Severe Pain: Pt appears to be in severe pain, crying and calling out. Dr. Patel called @0307. New order for Morphine 2mg IVP Q4H PRN.
[2024-08-21] MEDS: morphine 4 mg/mL SDV 1 mL 2 MG IVP ×2 (03:15→23:10)
[2024-08-21 04:32] LABS: Glucose Point of Care 103 mg/dL (70-110)
[2024-08-21] MEDS: piperacillin-tazobactam 3.375 GM in sodium chloride 0.9% (plus) 50 ML IV ×3 (04:42→22:02)
--- NOTE | 2024-08-21 05:42 | PC.NURSE ---
Incontinence Episode: 1 Void in brief, unable to measure.
[2024-08-21 07:08] LABS: Basophils % 0.3 %; Eosinophils # 0.1 10^3/uL (0.0-0.8); Eosinophils % 0.5 %; Hematocrit 29.2 % (37-53); Lymphocytes # 1.6 10^3/uL (0.8-4.8); Lymphocytes % 12.8 %; Mean Corpuscular HGB Conc 29.5 g/dL (30-55); Mean Corpuscular Hemoglobin 30.8 pg (27-33); Mean Corpuscular Volume 104.7 fl (82-101); Mean Platelet Volume 10.4 fL (7.4-10.4); Monocytes # 1.7 10^3/uL (0.2-0.9); Monocytes % 14.1 %; Neutrophils # 8.68 10^3/uL (1.8-7.7); Neutrophils % 71.6 %; Nucleated Red Blood Cells % 0 %; Platelet Count 145 10^3/cmm (157-399); Red Blood Count 2.79 10^6/uL (3.85-5.65); Red Cell Distribution Width 18.6 % (12.1-15.1); White Blood Count 12.12 10^3/uL (3.29-11.43)
[2024-08-21 07:25] LABS: Sodium 153 mmol/L (136-145)
[2024-08-21 07:26] LABS: Anion Gap 14.8 (5-19); Blood Urea Nitrogen 41 mg/dL (8-23); C Reactive Protein 141.7 mg/L (0.0-4.9); Calcium 8.2 mg/dL (8.5-10.5); Carbon Dioxide 27 mmol/L (22-29); Chloride 117 mmol/L (98-107); Creatinine Clr Calc Pharmacy 52.4538; Glucose 81 mg/dL (65-115); Magnesium 2.1 mg/dL (1.7-2.3); Osmolality Calculated 329 mOsm/kg (285-295); Potassium 3.8 mmol/L (3.5-5.1); Sodium 155 mmol/L (136-145)
--- NOTE | 2024-08-21 07:30 | PC.PHAR ---
patient is from [facility] [employer], was also discharged from our facility 2 days ago with changes to medication list by dr webb. discharge list and list from long term compared to complete med rec
[2024-08-21 07:50] LABS: Glucose Point of Care 80 mg/dL (70-110)
[2024-08-21] MEDS: acetaminophen 1,000 MG/100 ML PIGGYBACK 400 MG IV (08:07)
--- NOTE | 2024-08-21 08:56 | PC.NURSE ---
This nurse called Dr. Hernandez regarding patients temperature, order for IV tylenol received and administered, ice packs placed.
[2024-08-21] MEDS: heparin 5,000 unit/mL INJ 1 mL 5000 UNIT SUBCUT ×2 (09:43→22:02)
[2024-08-21] MEDS: pantoprazole 40 mg SDV IVP ×2 (09:44→17:57)
[2024-08-21 09:54] LABS: Sodium 152 mmol/L (136-145)
[2024-08-21] MEDS: dextrose 5%-sod chloride 0.45% 1,000 ML 75 ML IV ×2 (10:56→22:03)
[2024-08-21 11:12] LABS: Lactate Dehydrogenase 810 U/L (135-225)
[2024-08-21] MEDS: metoprolol tartrate 1 mg/1 mL SDV 5 mL 5 MG IVP (11:12)
[2024-08-21 11:28] LABS: Creatine Phosphokinase 6323 U/L (39-308)
[2024-08-21 11:41] LABS: Estmated Average Glucose 97
[2024-08-21] MEDS: divalproex Sprinkles 125 mg Capsule 250 MG PO (11:46)
[2024-08-21] MEDS: LORazepam 2 mg/mL INJ 1 mL 1 MG IVP (11:46)
[2024-08-21 11:55] LABS: Procalcitonin 1.69 ng/mL (0-0.5); Thyroid Stimulating Hormone 3.97 uIU/mL (0.27-4.20); Vitamin B12 622 pg/mL (232-1245)
[2024-08-21 12:05] LABS: Iron 19 ug/dL (59-158); Percent Saturation 20.4 % (20-50); Total Iron Binding Capacity 93 mcg/dl; Unsaturated Iron Binding 74 ug/dL (112-347)
--- NOTE | 2024-08-21 12:06 | PC.SLP ---
[employer] HEL[employer] evaluation attempted this morning. Patient unable to participate in bedside swallow examination per nursing staff. Plan to check patient's status tomorrow.
[2024-08-21 12:38] LABS: Glucose Point of Care 106 mg/dL (70-110)
[2024-08-21] MEDS: DANTROLENE 20 MG 80 MG IVP (13:04)
[2024-08-21] MEDS: vancomycin 2,000 MG/400 ML PIGGYBACK 200 MG IV (13:18)
[2024-08-21 15:51] LABS: Anion Gap 16.4 (5-19); Blood Urea Nitrogen 42 mg/dL (8-23); Calcium 7.8 mg/dL (8.5-10.5); Carbon Dioxide 25 mmol/L (22-29); Chloride 115 mmol/L (98-107); Creatinine Clr Calc Pharmacy 48.4189; Glucose 111 mg/dL (65-115); Osmolality Calculated 325 mOsm/kg (285-295); Potassium 4.4 mmol/L (3.5-5.1); Sodium 152 mmol/L (136-145)
[2024-08-21 16:22] LABS: Glucose Point of Care 59 mg/dL (70-110)
[2024-08-21] MEDS: glucagon 1 mg/mL KIT 1 mL IVP (16:33)
[2024-08-21 16:38] LABS: Glucose Point of Care 58 mg/dL (70-110)
[2024-08-21 16:56] LABS: Glucose 121 mg/dL (65-115)
--- NOTE | 2024-08-21 17:03 | P.PN_ITS ---
Vitals/I&O/Wt Last Vital Signs Temp 98.6 F 08/21/24 14:40 Pulse 79 08/21/24 16:00 Resp 19 H 08/21/24 16:00 BP 111/67 08/21/24 16:00 Pulse Ox 100 08/21/24 16:00 O2 Del Method Nasal Cannula 08/21/24 16:00 O2 Flow Rate 5 08/21/24 08:00 08/21/24 08/21/24 08/21/24 06:59 14:59 22:59 Intake Total 1447.50 / 2446.50 730 / 730 400 / 1130 Output Total 550 / 550 Balance 1447.50 / 2446.50 730 / 730 -150 / 580 Weight last 48 hrs Weight 78.608 kg Weight 90.718 kg Physical Exam 2 Narrative: General: In distress because of hallucinations, spastic, not alert, awake, warm to touch HEENT: PERRLA, pupils bilaterally equal and reactive Chest: Normal vesicular breath sounds rhonchi and crackles bilaterally right more than left, equal good air entry bilaterally CVS: S1-S2 regular, no murmurs, tachycardia, no gallops, no rubs Abdomen: Soft, nontender, no organomegaly, bowel sounds present Neuro: No focal deficits, no facial deformity, moving all limbs, spastic Urinary Catheter Management: Jacob: Cath Placed During This Visit: yes Urinary Catheter Date of Insertion: 08/21/24 Urinary Catheter Time of Insertion: 15:48 Data 08/21/24 06:33 08/21/24 16:30 Micro: Microbiology 08/20/24 19:00 Blood Culture - Preliminary Blood SPECIMEN COLLECTED 08/20/24 19:00 Blood Culture - Preliminary Blood SPECIMEN COLLECTED A&P Assessment and plan (1) NMS (neuroleptic malignant syndrome): High-grade fever up to 105 rectally not improving with IV Tylenol, spasticity and all 4 limbs, hallucinations along with tachycardia with heart rate going up to 140s and high blood pressures with blood pressures of 150/110 mmHg. Patient at home is on olanzapine, Paxil, high-dose Seroquel, trihexyphenidyl CPK more than 6000, LDH more than 800. Mild hypocalcemia with hypernatremia. High likelihood of NMS versus serotonin syndrome. Hold off on Paxil, olanzapine for now. Will most likely restart Seroquel at low-dose. Change Depakote to Depakote sprinkles at home dose of 250 mg every morning, 1000 mg every afternoon. Supportive treatment with cooling blankets. Patient received 1 dose of IV dantrolene 1 mg/kg body weight after which his tachycardia, fever, blood pressure settled down. IV Ativan every 4 hours as needed. (2) Sepsis: Present on admission. SIRS: Tachycardic, Febrile, Leukocytosis Source: Pneumonia End organ damage: Acute infectious encephalopathy, SHEREE Lactic acid elevated on admission Patient did received full 30 mL/kg BW. Continue with IV fluids at 100 cc/h for now. Monitor blood pressures. Keep mean artery pressure 65 mmHg. Follow-up blood culture, urine culture, check MRSA swab, trend procalcitonin, influenza, RSV, coronavirus negative De-escalate antibiotics as per culture results. For now continue with IV Zosyn. Add IV vancomycin. Will discontinue vancomycin if MRSA swab negative. (3) Aspiration pneumonia: Keep n.p.o. for now. Once mentation improves we will plan for a speech evaluation. Patient might need PEG tube placement. Will need to confirm with patient's DPOA. DPOA is state appointed guardian Mr. Simi Marin. For now hold off on oral medications. Will switch Depakote to sprinkles. (4) Febrile illness: Most likely in setting of NMS. (5) Hypernatremia: Sodium level more than 150. Free water deficit of more than 4 L. Most likely in setting of poor oral intake. Start on D5 half NS at 100 cc/h. Repeat BMP in the afternoon. (6) Aspiration into airway: (7) GERD without esophagitis: (8) Extracellular volume depletion: (9) Inferior pubic ramus fracture: (10) Left acetabular fracture: Qualifiers: Encounter type: subsequent encounter Fracture alignment: displaced F racture healing: with routine healing Fracture type: closed Sublocation of acetabulum: posterior column Qualified Code(s): S32.442D - Displaced fracture of posterior column [ilioischial] of left acetabulum, subsequent encounter for fracture with routine healing (11) Lewy body Parkinson disease: (12) Parkinson's disease (tremor, stiffness, slow motion, unstable posture): (13) 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 Recheck venous blood glucose. Hypoglycemia protocol. Patient at baseline is wheelchair-bound, has Lewy body dementia with Parkinson's has autism, intellectual challenges, for history of rheumatoid arthritis. He takes methotrexate, continue prednisone 5 mg daily History of GERD esophagitis continue Protonix No history of seizure: Patient takes Depakote as mood stabilizer Full code N.p.o. Protonix for PUD prophylaxis Heparin 5000 Q12 hourly for DVT prophylaxis PDMP PDMP Reviewed: Not Reviewed Attestations 2 Medical Necessity Statement*: Requires further hospitalization for management of febrile illness with high concerns for neuroleptic malignant syndrome, severe sepsis in setting of aspiration pneumonia Critical Care Time: The high probability of a clinically significant, sudden or life threatening deterioration of the patient's [neurological, endocrine, ID, renal, cardiac] s ystem(s) required my full and direct attention, intervention and personal management. The critical care time is as shown. This time is in addition to time spent performing any reported procedures but includes the following: [x] Data and vital sign review and interpretation [x] Patient assessment, examination and intervention [x] Documentation [x] Medication orders and management Critical Care Time (min): 90 Coding Level of Care Code Critical Care >/= 30 minutes Critical care time (in minutes): 90 The high probability of a clinically significant, sudden or life threatening deterioration, as referenced in this documentation, required my full and direct attention, intervention and personal management. The critical care time shown is in addition to time spent performing any reported separately billable procedures and includes the following: [x] Data and vital sign review and interpretation [x ] Patient assessment, examination and intervention [x] Medication orders and management [x] Patient/Family updates as able [x] Care Coordination and Documentation. Other Coding Information This patient has a high probability of clinically significant, sudden or life threatening deterioration of the patient's (neurological/pulmonary/cardiac/renal/ID/endocrine) systems required my full, direct attention, the highest level of physician preparedness for urgent intervention and personal management. I managed/supervised life or organ supporting interventions that required frequent physician assessment. I devoted my full attention in the ICU to the direct care of this patient for the period of time indicated above. Time I spent with family or surrogate(s) is included only if the patient was incapable of providing necessary information or participating in decision making. This time includes the following services provided: Telemetry review Hemodynamic interpretation, assessment and management Review and interpretation of CXR Review and interpretation of lab values Review and interpretation of microbiologic data and culture results Review of medications and administration Review and interpretation of Nutrition requirements and management Discussion of management with other consultants and services Clinical update to family members Diagnoses NMS (neuroleptic malignant syndrome) G21.0 Sepsis A41.9 Aspiration pneumonia J69.0 Febrile illness R50.9 Hypernatremia E87.0 Aspiration into airway T17.908A GERD without esophagitis K21.9 Extracellular volume depletion E86.9 Inferior pubic ramus fracture S32.599A Closed displaced fracture of posterior column of left acetabulum with routine healing, subsequent encounter S32.442D Encounter type: subsequent encounter Fracture alignment: displaced Fracture healing: with routine healing Fracture type: closed Sublocation of acetabulum: posterior column Lewy body Parkinson disease G31.83; F02.80 Parkinson's disease (tremor, stiffness, slow motion, unstable posture) G20 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
[2024-08-21 17:42] LABS: Procalcitonin 2.46 ng/mL (0-0.5)
--- NOTE | 2024-08-21 17:46 | PHA.VACGOAL ---
Vancomycin Goal - Goal Vancomycin Goal:: 15-20 mg/L Vancomycin Indication:: Other (SEPSIS) - Therapy Current therapy:: Pip/Tazo Day of therpy:: Day [1]of [] . Actual body weight (kg): 78.608 kg - Data Labs: WBC 12.12 10^3/uL (3.29-11.43) H 08/21/24 06:33 RBC 2.79 10^6/uL (3.85-5.65) L 08/21/24 06:33 Hgb 8.60 g/dL (11.27-16.99) L 08/21/24 06:33 Hct 29.2 % (37-53) L 08/21/24 06:33 MCV 104.7 fl (82-101) H 08/21/24 06:33 MCH 30.8 pg (27-33) 08/21/24 06:33 MCHC 29.5 g/dL (30-55) L 08/21/24 06:33 RDW 18.6 % (12.1-15.1) H 08/21/24 06:33 Sodium 152 mmol/L (136-145) H 08/21/24 15:27 Potassium 4.4 mmol/L (3.5-5.1) 08/21/24 15:27 Chloride 115 mmol/L (98-107) H 08/21/24 15:27 Carbon Dioxide 25 mmol/L (22-29) 08/21/24 15:27 Anion Gap 16.4 (5-19) 08/21/24 15:27 BUN 42 mg/dL (8-23) H 08/21/24 15:27 Creatinine 1.3 mg/dL (0.7-1.2) H 08/21/24 15:27 GFR Calculation Not Reportable 08/21/24 15:27 Treatment plan:: new consult Regimen:: New start vancomycin for sepsis. No history of vancomycin found. Received 2000 mg load dose. Started on maintenance dose of 500 mg q12h based on population based pharmacokinetic nomogram.
[2024-08-21] MEDS: divalproex Sprinkles 125 mg Capsule 1000 MG PO (18:01)
--- NOTE | 2024-08-21 18:14 | PC.NURSE ---
Attempted to administer evening dose of Depakote, partially successful, unknown dose received by patient. Patient is unable to follow directions to swallow, and holds medication in mouth.
[2024-08-21 19:53] LABS: MRSA PCR OZH (swab) NOT DETECTED (Negative)
[2024-08-21 21:34] LABS: Glucose Point of Care 100 mg/dL (70-110)
[2024-08-21] MEDS: metoprolol tartrate 1 mg/1 mL SDV 5 mL 2.5 MG IVP (22:14)
[2024-08-21] MEDS: carbidopa-levodopa 25-100mg Tablet 2 EACH PO (23:10)
[2024-08-22] VITALS (53 sets, daily range): BP systolic 83–152; BP diastolic 48–122; PULSE 72–152; RESP 3–37; TEMP 36.5–38.5; O2SAT 85–100; BMI 28.9
[2024-08-22] MEDS: vancomycin 500 MG in sodium chloride 0.9% (plus) 100 ML 200 MG IV (01:02)
[2024-08-22 01:14] LABS: Glucose Point of Care 112 mg/dL (70-110)
[2024-08-22] MEDS: metoprolol tartrate 1 mg/1 mL SDV 5 mL 2.5 MG IVP ×4 (02:10→18:06)
[2024-08-22] MEDS: LORazepam 2 mg/mL INJ 1 mL 1 MG IVP ×3 (02:26→20:36)
[2024-08-22] MEDS: morphine 4 mg/mL SDV 1 mL 2 MG IVP ×2 (02:46→16:01)
--- NOTE | 2024-08-22 03:10 | ECG_ITS ---
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 Assessment: : 1950 Requested By: Donny Patel Order Number: [id number] Reading MD: DONNY PARDO Measurements Intervals [place] Rate: 139 P: 208 AK: 142 QRS: -23 QRSD: 138 T: 19 QT: 323 QTc: 492 Interpretive Statements SinusTACHYCARDIA BORDERLINE LEFT AXIS DEVIATION [QRS AXIS < -20] RIGHT BUNDLE BRANCH BLOCK [120+ ms QRS DURATION, UPRIGHT V1, 40+ ms S IN I/aVL/V4/V5/V6] Compared to ECG 08/14/2024 14:24:04 there is no carbajal Electronically Signed On 08-22-2024 20:49:59 PRESS ASSISTANT by DONNY PARDO [email or web address] [id number]
--- NOTE | 2024-08-22 03:30 | PC.NURSE ---
Pt heart rate sustaining in the 130s-140's. EKG performed. Dr. Patel notified, new order for amiodarone gtt.
[2024-08-22 04:18] LABS: Basophils % 0.3 %; Eosinophils # 0.3 10^3/uL (0.0-0.8); Eosinophils % 2.8 %; Hematocrit 28.8 % (37-53); Lymphocytes # 0.8 10^3/uL (0.8-4.8); Lymphocytes % 8.2 %; Mean Corpuscular HGB Conc 28.8 g/dL (30-55); Mean Corpuscular Hemoglobin 29.7 pg (27-33); Mean Corpuscular Volume 103.2 fl (82-101); Mean Platelet Volume 10.6 fL (7.4-10.4); Monocytes # 0.8 10^3/uL (0.2-0.9); Monocytes % 8.7 %; Neutrophils # 7.45 10^3/uL (1.8-7.7); Neutrophils % 78.5 %; Nucleated Red Blood Cells % 0 %; Platelet Count 137 10^3/cmm (157-399); Red Blood Count 2.79 10^6/uL (3.85-5.65); Red Cell Distribution Width 18.5 % (12.1-15.1)
[2024-08-22] MEDS: piperacillin-tazobactam 3.375 GM in sodium chloride 0.9% (plus) 50 ML IV ×3 (04:24→20:36)
[2024-08-22 04:39] LABS: Alanine Aminotransferase 6 U/L (0-41); Albumin Level 2.3 g/dL (3.5-5.2); Alkaline Phosphatase 79 U/L (40-130); Aspartate Amino Transferase 155 U/L (0-40); Blood Urea Nitrogen 39 mg/dL (8-23); Carbon Dioxide 25 mmol/L (22-29); Chloride 118 mmol/L (98-107); Creatinine Clr Calc Pharmacy 57.2223; Globulin 3.6 g/dL (1.3-4.6); Glucose 116 mg/dL (65-115); Osmolality Calculated 326 mOsm/kg (285-295); Sodium 153 mmol/L (136-145); Total Bilirubin 1.1 mg/dL (0.15-1.2); Total Protein 5.9 g/dL (6.6-8.7)
[2024-08-22 04:40] LABS: Anion Gap 13.7 (5-19); Chol HDL Ratio 4.43 mg/dL (1.0-5.00); Cholesterol 93 mg/dL (0-200); HDL Cholesterol 21 mg/dL (60-100); LDL Cholesterol Calculated 43 mg/dL (50-129); Magnesium 2.2 mg/dL (1.7-2.3); Potassium 3.7 mmol/L (3.5-5.1); Triglycerides 143 mg/dL (0-150); VLDL Cholestrol Calculation 29 mg/dL (0-30)
[2024-08-22 04:58] LABS: Procalcitonin 3.68 ng/mL (0-0.5)
[2024-08-22 04:59] LABS: Glucose Point of Care 104 mg/dL (70-110)
[2024-08-22 05:04] LABS: Folate Level > 20.0 ng/mL (4.5-32.2)
[2024-08-22] MEDS: divalproex Sprinkles 125 mg Capsule 250 MG PO (05:05)
[2024-08-22] MEDS: levothyroxine 50 mcg Tablet PO (05:05)
[2024-08-22] MEDS: acetaminophen 500 mg Tablet PO (07:09)
[2024-08-22] MEDS: haloperidol inj 5 mg/mL INJ 1 mL IVP (08:14)
[2024-08-22] MEDS: acetaminophen 1,000 MG/100 ML PIGGYBACK 400 MG IV ×3 (08:14→18:05)
--- NOTE | 2024-08-22 08:15 | XRR_ITS ---
PROCEDURE INFORMATION: Exam: XR Chest Exam date and time: 08/22/2024 9:45 AM Age: 73 years old Clinical indication: Device placement; Ng tube; Additional info: Ng tube placement, nurse will call when ready TECHNIQUE: Imaging protocol: Radiologic exam of the chest. Views: 1 view. COMPARISON: CR (CHEST, ) 08/20/2024 7:58 PM FINDINGS: Tubes, catheters and devices: Tip of the enteric tube projects over the stomach. Lungs: Low lung volumes with bronchovascular crowding. Coarse interstitial opacities bilateral mid and lower lungs. Pleural spaces: Unremarkable. No pleural effusion. No pneumothorax. Heart/Mediastinum: Unremarkable. No cardiomegaly. Bones/joints: Unremarkable. Soft tissues: Pacing pad projects over the left thorax. Intraperitoneal space: No distinct pneumoperitoneum. XR/XR chest 1V [id number] IMPRESSION: Tip of the enteric tube projects over the stomach.
--- NOTE | 2024-08-22 08:36 | ECG_ITS ---
[facility] Date: 2024-08-22 Pat Name: Ernie Lopez Department: Room: ICU07 Gender: Male Dental Office Manager: : [id number] Requested By: Dennis Hernandez Order Number: [id number] Reading MD: NIRMALA PARDO Measurements Intervals [place] Rate: 131 P: 214 AR: 202 QRS: -21 QRSD: 134 T: 15 QT: 333 QTc: 493 Interpretive Statements SINUS TACHYCARDIA RIGHT BUNDLE BRANCH BLOCK [120+ ms QRS DURATION, UPRIGHT V1, 40+ ms S IN I/aVL/V4/V5/V6] POSSIBLE ANTERIOR MYOCARDIAL INFARCTION , OF INDETERMINATE AGE [30 ms Q WAVE IN V3/V4, OR R < 0.2 mV IN V4] Compared to ECG 08/22/2024 03:17:51 Myocardial infarct finding now present Electronically Signed On 08-22-2024 20:49:19 TENSION MACHINE OPERATOR by NIRMALA PARDO [email or web address] [id number]
[2024-08-22 08:42] LABS: Glucose Point of Care 129 mg/dL (70-110)
[2024-08-22] MEDS: heparin 5,000 unit/mL INJ 1 mL 5000 UNIT SUBCUT ×2 (09:46→20:36)
[2024-08-22] MEDS: pantoprazole 40 mg SDV IVP ×2 (09:46→18:06)
[2024-08-22] MEDS: dextrose 5%-sod chloride 0.45% 1,000 ML 75 ML IV ×2 (10:04→20:36)
--- NOTE | 2024-08-22 10:28 | PC.SLP ---
OCCUPATIONAL HEALTH MANAGER unable to evaluate patient this morning. Consulted with nurse about status. NG tube in place. Nursing suspects patient has been aspirating on oral medications with pudding. Check in tomorrow.
--- NOTE | 2024-08-22 10:54 | CTR_ITS ---
PROCEDURE INFORMATION: Exam: CT Chest With Contrast; Diagnostic Exam date and time: 08/22/2024 1:35 PM Age: 73 years old Clinical indication: Abdominal pain; Other: Hypoxia, abd pain TECHNIQUE: Imaging protocol: Diagnostic computed tomography of the chest with contrast. Radiation optimization: All CT scans at this facility use at least one of these dose optimization techniques: automated exposure control; mA and/or kV adjustment per patient size (includes targeted exams where dose is matched to clinical indication); or iterative reconstruction. Contrast material: OMNI 350; Contrast volume: 100 ml; Contrast route: INTRAVENOUS (IV); COMPARISON: CT chest [facility] [id number] 08/16/2024 9:11 AM RADIATION DOSE METRICS: Total DLP (mGy-cm): 1421.22 FINDINGS: Tubes, catheters and devices: There is a nasogastric tube. Lungs: There is multifocal consolidation in the bilateral in the upper and lower lobes of lung. There is dense consolidation in the left lower lobe of the lung. There is also consolidation in the right middle lobe and lingula. This consolidation has significantly worsened. No definite lung mass. Pleural spaces: There are small pleural effusions. No pneumothorax. Heart: Cardiomegaly is identified. Coronary arteries: There is coronary artery calcification. Lymph nodes: There is AP window mediastinal adenopathy measuring 1.9 cm. Vasculature: Unremarkable. No aortic aneurysm. Bones/joints: Degenerative change is identified in the spine. There is no evidence for acute fracture or malalignment. Soft tissues: Unremarkable. PROCEDURE INFORMATION: Exam: CT Abdomen And Pelvis With Contrast Exam date and time: 08/22/2024 1:35 PM Age: 73 years old Clinical indication: Abdominal pain; Other: Hypoxia, abd pain TECHNIQUE: Imaging protocol: Computed tomography of the abdomen and pelvis with contrast. Radiation optimization: All CT scans at this facility use at least one of these dose optimization techniques: automated exposure control; mA and/or kV adjustment per patient size (includes targeted exams where dose is matched to clinical indication); or iterative reconstruction. Contrast material: OMNI 350; Contrast volume: 100 ml; Contrast route: INTRAVENOUS (IV); COMPARISON: [facility] [id number] 08/16/2024 9:11 AM RADIATION DOSE METRICS: Total DLP (mGy-cm): 1421.22 FINDINGS: Liver: Normal. No mass. Gallbladder and biliary ducts: Normal. No calcified stones. No ductal dilation. Pancreas: Normal. No ductal dilation. Spleen: Normal. No splenomegaly. Adrenal glands: Normal. No mass. Kidneys and ureters: Normal. No hydronephrosis. Stomach and bowel: There is wall thickening of the descending colon on coronal image 33 which is new. No bowel obstruction. Appendix: No evidence of appendicitis. Intraperitoneal space: Unremarkable. No free air. No significant fluid collection. Vasculature: Unremarkable. No abdominal aortic aneurysm. Lymph nodes: Unremarkable. No enlarged lymph nodes. Urinary bladder: There is a Jacob catheter in a decompressed bladder. Reproductive: Unremarkable as visualized. Bones/joints: There has been left hip replacement which results in streak artifact. There is a healing fracture of the inferior left pubic ramus. Soft tissues: There is edema of the left iliacus muscle as seen on series 6, image 56. CT/CT chest abdpel w/*[id number] IMPRESSION: There is multifocal consolidation in all lobes of the bilateral lungs. This is consistent with pneumonia and/or edema. Disease has significantly worsened when compared with 08/16/2024. There are small pleural effusions which are new. There is mediastinal adenopathy which may be reactive. IMPRESSION: Findings are consistent with colitis of the descending colon which is new when compared with 08/16/2024.
[2024-08-22 11:13] LABS: Lactate Dehydrogenase 718 U/L (135-225)
[2024-08-22] MEDS: predniSONE 5 mg Tablet PO (11:17)
[2024-08-22] MEDS: carbidopa-levodopa 25-100mg Tablet 2 EACH PO ×3 (11:17→20:35)
[2024-08-22 11:19] LABS: Creatine Phosphokinase 2773 U/L (39-308)
[2024-08-22 12:05] LABS: Glucose Point of Care 145 mg/dL (70-110)
[2024-08-22] MEDS: iohexol 350 mg/mL 500 mL Btl (per mL) IV (13:45)
[2024-08-22 17:06] LABS: Glucose Point of Care 144 mg/dL (70-110)
--- NOTE | 2024-08-22 17:50 | P.PN_ITS ---
Subjective 2 Subjective: Overnight patient had episode of tachycardia. For started on amiodarone drip. Has remained hemodynamically stable otherwise. Remains on 3 to 4 L of oxygen supplementation. Tmax after dantrolene 101 Fahrenheit. More awake today. Seems to be back to his baseline mentation as per caregiver. Patient is able to say words like hi and bye. Seems to be holding onto the right side of his upper abdomen and saying ouch few times. Vitals/I&O/Wt Last Vital Signs Temp 99.1 F 08/22/24 11:30 Pulse 99 08/22/24 16:00 Resp 20 H 08/22/24 16:01 BP 138/70 08/22/24 16:00 Pulse Ox 93 08/22/24 16:01 O2 Del Method Nasal Cannula 08/22/24 16:00 O2 Flow Rate 2 08/22/24 16:00 08/22/24 08/22/24 08/22/24 06:59 14:59 22:59 Intake Total 150 / 2163.75 1401.25 / 1401.25 Output Total 750 / 1300 Balance -600 / 863.75 1401.25 / 1401.25 Weight last 48 hrs Weight 81.4 kg Weight 78.608 kg Physical Exam 2 Narrative: General: In no acute distress, not spastic today, awake but not alert, as per caregiver close to his baseline mentation HEENT: PERRLA, pupils bilaterally equal and reactive Chest: Normal vesicular breath sounds rhonchi and crackles bilaterally right more than left, equal good air entry bilaterally CVS: S1-S2 regular, no murmurs, tachycardia, no gallops, no rubs Abdomen: Soft, mild tenderness in right upper and middle quadrant no organomegaly, bowel sounds present but sluggish Neuro: No focal deficits, no facial deformity, moving all limbs, spastic Urinary Catheter Management: Jacob: Cath Placed During This Visit: yes Reason for Continuing Indwelling Catheter: Accurate Measurement of Urinary Output in Critically Ill Patients Urinary Catheter Date of Insertion: 08/21/24 Urinary Catheter Time of Insertion: 15:48 Data 08/22/24 03:32 08/22/24 03:32 Micro: Microbiology 08/21/24 16:39 Urine Culture - Final Urine Catheterized 08/20/24 19:00 Blood Culture - Preliminary Blood NEGATIVE TO DATE 02/07/25 19:00 Blood Culture - Preliminary Blood NEGATIVE TO DATE A&P Assessment and plan (1) NMS (neuroleptic malignant syndrome): High-grade fever up to 105 rectally not improving with IV Tylenol, spasticity and all 4 limbs, hallucinations along with tachycardia with heart rate going up to 140s and high blood pressures with blood pressures of 150/110 mmHg. Patient at home is on olanzapine, Paxil, high-dose Seroquel, trihexyphenidyl CPK more than 6000, LDH more than 800. Mild hypocalcemia with hypernatremia. High likelihood of NMS versus serotonin syndrome. Patient improved clinically after dantrolene on 08/21. Monitor CPK and LDH daily. Continue to hold off on Paxil, olanzapine for now. Will most likely restart Seroquel at 100 mg nightly to avoid withdrawals. Change Depakote to Depakote sprinkles at home dose of 250 mg every morning, 1000 mg every afternoon. Supportive treatment with cooling blankets as needed. As per caregiver patient's mentation was recently changed by neurology in June 2024. Olanzapine is being weaned down from 3 times daily and Seroquel is being introduced. Dose of carbidopa levodopa has also been increased recently. Reviewed neurology notes. Increase carbidopa levodopa to 2 tablets 3 times daily. (2) Sepsis: Present on admission. SIRS: Tachycardic, Febrile, Leukocytosis Source: Pneumonia End organ damage: Acute infectious encephalopathy, SHEREE Lactic acid elevated on admission Patient did received full 30 mL/kg BW. Continue with IV fluids at 100 cc/h for now. Monitor blood pressures. Keep mean artery pressure 65 mmHg. Follow-up blood culture, urine culture, check MRSA swab, trend procalcitonin, influenza, RSV, coronavirus negative De-escalate antibiotics as per culture results. For now continue with IV Zosyn. MRSA swab negative. Discontinue vancomycin. Check CT chest abdomen pelvis for further evaluation. (3) Aspiration pneumonia: Keep n.p.o. for now. Once mentation improves we will plan for a speech evaluation. Patient might need PEG tube placement. Will need to confirm with patient's DPOA. DPOA is state appointed guardian Mr. Simi Marin. Plan for NG tube placement today. Can restart oral medications and G-tube. Continue with Depakote sprinkles. Discussed in detail with patient's caregiver about possible need of PEG tube placement given poor mentation due to baseline intellectual disability, Lewy body dementia with advanced Parkinson's. Discussed about 2 options going forward of possible PEG tube placement versus hospice care. Caregiver wants to discuss further with Simi Marin who is the state appointed guardian before making any decisions. Will need to get in touch with the DPOA on Friday once available. (4) Febrile illness: Most likely in setting of NMS. See #1 IV Tylenol every 8 hour as needed. (5) Hypernatremia: Sodium level more than 150. Free water deficit of more than 4 L. Most likely in setting of poor oral intake. Start on D5 half NS at 100 cc/h. NG tube placement. Start on free water flushes 250 cc every 6 hour. Repeat BMP in afternoon. (6) Colitis: Check stool studies. Continue with IV Zosyn. (7) Dysphagia: (8) Aspiration into airway: (9) GERD without esophagitis: (10) Inferior pubic ramus fracture: (11) Left acetabular fracture: Qualifiers: Encounter type: subsequent encounter Sublocation of acetabulum: p osterior column Fracture type: closed Fracture alignment: displaced Fracture healing: with routine healing Qualified Code(s): S32.442D - Displaced fracture of posterior column [ilioischial] of left acetabulum, subsequent encounter for fracture with routine healing (12) Lewy body Parkinson disease: (13) Parkinson's disease (tremor, stiffness, slow motion, unstable posture): (14) 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 Discussed about 2 options going forward of possible PEG tube placement versus hospice care. Caregiver wants to discuss further with Simi Marin who is the state appointed guardian before making any decisions. Will need to get in touch with the DPOA on Friday once available. Plan Patient at baseline is wheelchair-bound, has Lewy body dementia with Parkinson's has autism, intellectual challenges, for history of rheumatoid arthritis. He takes methotrexate, continue prednisone 5 mg daily History of GERD esophagitis continue Protonix No history of seizure: Patient takes Depakote as mood stabilizer Full code N.p.o. Protonix for PUD prophylaxis Heparin 5000 Q12 hourly for DVT prophylaxis PDMP PDMP Reviewed: Not Reviewed Attestations 2 Medical Necessity Statement*: Requires further hospitalization for management of sepsis in setting of aspiration pneumonia, colitis, febrile illness with high concerns for neuroleptic malignant syndrome in a patient on high doses of antipsychotics given baseline Lewy body dementia, intellectual disability, hypernatremia due to dysphagia because of poor mentation Critical Care Time: The high probability of a clinically significant, sudden or life threatening deterioration of the patient's [cardiac, renal, neurological] system(s) required my full and direct attention, intervention and personal management. The critical care time is as shown. This time is in addition to time spent performing any reported procedures but includes the following: [x] Data and vital sign review and interpretation [x] Patient assessment, examination and intervention [x] Documentation [x] Medication orders and management Coding Level of Care Code Critical Care >/= 30 minutes Critical care time (in minutes): 70 The high probability of a clinically significant, sudden or life threatening deterioration, as referenced in this documentation, required my full and direct attention, intervention and personal management. The critical care time shown is in addition to time spent performing any reported separately billable procedures and includes the following: [x] Data and vital sign review and interpretation [x ] Patient assessment, examination and intervention [x] Medication orders and management [x] Patient/Family updates as able [x] Care Coordination and Documentation. Other Coding Information This patient has a high probability of clinically significant, sudden or life threatening deterioration of the patient's (neurological/pulmonary/cardiac/renal/ID/endocrine) systems required my full, direct attention, the highest level of physician preparedness for urgent intervention and personal management. I managed/supervised life or organ supporting interventions that required frequent physician assessment. I devoted my full attention in the ICU to the direct care of this patient for the period of time indicated above. Time I spent with family or surrogate(s) is included only if the patient was incapable of providing necessary information or participating in decision making. This time includes the following services provided: Telemetry review Hemodynamic interpretation, assessment and management Review and interpretation of CXR Review and interpretation of lab values Review and interpretation of microbiologic data and culture results Review of medications and administration Review and interpretation of Nutrition requirements and management Discussion of management with other consultants and services Clinical update to family members Diagnoses NMS (neuroleptic malignant syndrome) G21.0 Sepsis A41.9 Aspiration pneumonia J69.0 Febrile illness R50.9 Hypernatremia E87.0 Colitis K52.9 Dysphagia R13.10 Aspiration into airway T17.908A GERD without esophagitis K21.9 Inferior pubic ramus fracture S32.599A Closed displaced fracture of posterior column of left acetabulum with routine healing, subsequent encounter S32.442D Encounter type: subsequent encounter Sublocation of acetabulum: posterior column Fracture type: closed Fracture alignment: displaced Fracture healing: with routine healing Lewy body Parkinson disease G31.83; F02.80 Parkinson's disease (tremor, stiffness, slow motion, unstable posture) G20 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
[2024-08-22] MEDS: divalproex Sprinkles 125 mg Capsule 1000 MG PO (18:06)
[2024-08-22 18:29] LABS: Anion Gap 11.5 (5-19); Blood Urea Nitrogen 35 mg/dL (8-23); Calcium 8.2 mg/dL (8.5-10.5); Carbon Dioxide 26 mmol/L (22-29); Chloride 115 mmol/L (98-107); Creatinine Clr Calc Pharmacy 71.0586; Glucose 131 mg/dL (65-115); Osmolality Calculated 318 mOsm/kg (285-295); Potassium 3.5 mmol/L (3.5-5.1); Sodium 149 mmol/L (136-145)
[2024-08-22 20:32] LABS: Glucose Point of Care 134 mg/dL (70-110)
[2024-08-22] MEDS: quetiapine 100 mg Tablet 200 MG PO (20:35)
[2024-08-22] MEDS: norepinephrine 4 MG/250 ML BAG 7.5 MG IV (23:34)
[2024-08-22 23:36] LABS: Glucose Point of Care 119 mg/dL (70-110)
[2024-08-23] VITALS (42 sets, daily range): BP systolic 103–150; BP diastolic 49–88; PULSE 76–120; RESP 16–420; TEMP 36.8–37.1; O2SAT 83–100
[2024-08-23] MEDS: LORazepam 2 mg/mL INJ 1 mL 1 MG IVP ×3 (01:41→21:47)
--- NOTE | 2024-08-23 04:26 | XRR_ITS ---
PROCEDURE INFORMATION: Exam: XR Chest Exam date and time: 08/23/2024 4:41 AM Age: 73 years old Clinical indication: Shortness of breath; Worsening hypoxia TECHNIQUE: Imaging protocol: Radiologic exam of the chest. Views: 1 view. COMPARISON: CT chest abdpel w/*[id number] 08/22/2024 1:35 PM FINDINGS: Tubes, catheters and devices: Enteric tube traverses midline, side fenestration is at the level of the gastroesophageal junction, catheter tip is subdiaphragmatic in the left upper quadrant. Lungs: Rpwnk-[id number]-hrnv-left diffuse airspace opacities which are of similar caliber and distribution from the cross-sectional imaging performed on 08/22/2024. Pleural spaces: Blunting of the left costophrenic angle consistent with pleural effusion. Heart/Mediastinum: Unremarkable. No cardiomegaly. Bones/joints: Diffuse degenerative change of the visualized osseous structures. Findings compatible with DISH. XR/XR chest 1V portable [id number] IMPRESSION: 1. Recommend advancement of the enteric tube given positioning of the side fenestration of the level of the gastroesophageal junction. 2. Similar caliber and distribution of bilateral airspace infiltrates, objrs-[id number]-jlus-left, upon comparison with the cross-sectional evaluation performed on 08/22/2024. 3. Left pleural effusion.
[2024-08-23 04:39] LABS: Glucose Point of Care 82 mg/dL (70-110)
[2024-08-23 04:39] LABS: Glucose Point of Care 80 mg/dL (70-110)
[2024-08-23] MEDS: piperacillin-tazobactam 3.375 GM in sodium chloride 0.9% (plus) 50 ML IV ×3 (04:41→21:22)
--- NOTE | 2024-08-23 04:57 | PC.NURSE ---
Entered pt room due to low oxygen alarm. Confirmed wave form on monitoring and oxygen saturation low 80's. Increased O2 to 6 liters per NC, no improvement, placed on 15 liters non rebreather and improved to 90%. Contacted respiratory therapy who came to bedside, made Dr. Patel aware, new order received for chest x ray and ABG. Currently on 15 liters high flow NC and saturation 91%
[2024-08-23 05:01] LABS: Basophils % 0.3 %; Eosinophils # 0.4 10^3/uL (0.0-0.8); Eosinophils % 5.6 %; Hematocrit 26.9 % (37-53); Lymphocytes # 0.6 10^3/uL (0.8-4.8); Lymphocytes % 8.5 %; Mean Corpuscular HGB Conc 28.3 g/dL (30-55); Mean Corpuscular Hemoglobin 29.2 pg (27-33); Mean Corpuscular Volume 103.5 fl (82-101); Mean Platelet Volume 11.4 fL (7.4-10.4); Monocytes # 0.4 10^3/uL (0.2-0.9); Monocytes % 4.9 %; Neutrophils # 6.04 10^3/uL (1.8-7.7); Neutrophils % 80.2 %; Nucleated Red Blood Cells % 0 %; Platelet Count 144 10^3/cmm (157-399); Red Cell Distribution Width 18.2 % (12.1-15.1); White Blood Count 7.53 10^3/uL (3.29-11.43)
[2024-08-23 05:18] LABS: Magnesium 2.2 mg/dL (1.7-2.3)
[2024-08-23 05:23] LABS: Alanine Aminotransferase < 5 U/L (0-41); Albumin Level 2.3 g/dL (3.5-5.2); Alkaline Phosphatase 82 U/L (40-130); Anion Gap 11.5 (5-19); Aspartate Amino Transferase 72 U/L (0-40); Blood Urea Nitrogen 36 mg/dL (8-23); Carbon Dioxide 27 mmol/L (22-29); Chloride 117 mmol/L (98-107); Creatinine Clr Calc Pharmacy 71.0586; Glucose 130 mg/dL (65-115); Osmolality Calculated 324 mOsm/kg (285-295); Potassium 3.5 mmol/L (3.5-5.1); Sodium 152 mmol/L (136-145); Total Protein 5.3 g/dL (6.6-8.7)
[2024-08-23] MEDS: divalproex Sprinkles 125 mg Capsule 250 MG PO (05:26)
[2024-08-23] MEDS: FUROsemide 10 mg/mL SDV 2mL 20 MG IVP (05:26)
[2024-08-23] MEDS: levothyroxine 50 mcg Tablet PO (05:26)
[2024-08-23 05:59] LABS: Creatine Phosphokinase 524 U/L (39-308); Lactate Dehydrogenase 545 U/L (135-225)
[2024-08-23 06:08] LABS: ABG PH Result 7.45 (7.35-7.45); Alveolar-Arterial Oxygen Gradi 5.9 mmHg (5-10); Base Excess ABG 2.9 mmol/L (-2.0-2.0); Blood Gas Operator Identificat SAM; Blood Gas Sample Site Brachial, right; Blood Gas Sample Type Arterial; Carboxyhemoglobin 1.9 %THgb (0.4-20.1); HGB O2 Sat 88.1 % (95-100); Ionized Calcium Level - ABG 1.2 mmol/L (1.1-1.4); Methemoglobin 1.1 % (0.4-1.5); Oxygen Device NC; Oxygen Saturation ABG 90.8; PO2 ABG 57.8 mmHg (80.0-100.0); Potassium Level - ABG 2.9 mmol/L (3.5-5.0); Total Hemoglobin 10.4 g/dL (14-18)
[2024-08-23] MEDS: metoprolol tartrate 1 mg/1 mL SDV 5 mL 5 MG IVP (06:23)
[2024-08-23] MEDS: dextrose 5%-sod chloride 0.45% 1,000 ML 75 ML IV ×2 (06:35→17:20)
[2024-08-23] MEDS: ipratropium-albuterol 3 mL Neb INHALATION ×4 (08:12→21:02)
[2024-08-23] MEDS: acetylcysteine 200 mg/mL MDV 10 mL INHALATION ×4 (08:12→21:02)
[2024-08-23] MEDS: heparin 5,000 unit/mL INJ 1 mL 5000 UNIT SUBCUT ×2 (08:27→21:22)
[2024-08-23] MEDS: pantoprazole 40 mg SDV IVP ×2 (08:27→17:20)
[2024-08-23] MEDS: predniSONE 5 mg Tablet PO (08:27)
[2024-08-23] MEDS: carbidopa-levodopa 25-100mg Tablet 2 EACH PO ×2 (08:27→14:56)
--- NOTE | 2024-08-23 08:52 | PM.PN ---
Subjective Subjective: Overnight patient became more hypoxic, he was put on heated high flow this morning around 530 AM X-ray showing worsening of infiltrate on right greater than left Patient is aspirating on his own secretions Spoke with Arie Marin public web applications administrator, after detailed discussion regarding active state, poor candidacy for PEG tube placement worsening of hypoxia decision was made to change CODE STATUS to DNR/DNI and pursue hospice care Madelyn will talk with public web applications administrator again regarding long term placement on hospice They will get back to me sometime today Vitals/I&O/Wt Last Vital Signs Temp 98.3 F 08/23/24 04:30 Pulse 96 08/23/24 08:10 Resp 18 08/23/24 08:10 BP 104/59 08/23/24 08:00 Pulse Ox 94 08/23/24 08:10 O2 Del Method Heated High Flow 08/23/24 08:10 O2 Flow Rate 55 08/23/24 08:10 FiO2 90 08/23/24 08:10 08/22/24 08/23/24 08/23/24 22:59 06:59 14:59 Intake Total 1220 / 2621.25 891.875 / 3513.125 Output Total 750 / 750 450 / 1200 Balance 470 / 1871.25 441.875 / 2313.125 Weight last 48 hrs Weight 83.325 kg Weight 81.4 kg Physical Exam Narrative: Patient oriented to himself Confused If fidgety and anxious Not able to follow commands Agitated Currently on heated high flow Febrile Move his extremities Pale complexion Surgical site no active drainage Dry mucous membranes NG tube in place Blood pressure 104/59 mmHg Urinary Catheter Management: Jacob: Cath Placed During This Visit: yes Reason for Continuing Indwelling Catheter: Accurate Measurement of Urinary Output in Critically Ill Patients Urinary Catheter Date of Insertion: 08/21/24 Urinary Catheter Time of Insertion: 15:48 Data 08/23/24 04:13 08/23/24 04:13 Micro: Microbiology 08/21/24 16:39 Urine Culture - Final Urine Catheterized A&P Assessment and plan (1) Goals of care, counseling/discussion: (2) Dysphagia: (3) Colitis: (4) Extracellular volume depletion: (5) Hypernatremia: (6) Parkinson's disease (tremor, stiffness, slow motion, unstable posture): (7) Lewy body Parkinson disease: (8) NMS (neuroleptic malignant syndrome): (9) Parkinsonian features: (10) Autism disorder: (11) Aspiration pneumonia: (12) Aspiration into airway: Plan Overnight events were explained to the caregiver and the public web applications administrator At this point patient Ernie would not be considered a safe candidate to go for PEG tube placement secondary to worsening of hypoxia as now he is on heated high flow, he will most likely get intubated, chances of extubation will stay low secondary to worsening of pneumonia which looks like ARDS at this point Worsening infiltrate with aspiration Patient carries guarded prognosis considering dysphagia, sepsis, persistent aspiration especially on his own secretions, Public web applications administrator/guardian has decided to pursue hospice care, change goals of care to DNR/DNI I will continue antibiotics, transfer patient to [facility] from ICU Would recommend hospice care at the long term Will try to use IV anxiolytics on as-needed basis PDMP PDMP Reviewed: Not Reviewed Attestations Medical Necessity Statement*: Goals of care discussion took place this morning Diagnoses Goals of care, counseling/discussion Z71.89 Dysphagia R13.10 Colitis K52.9 Extracellular volume depletion E86.9 Hypernatremia E87.0 Parkinson's disease (tremor, stiffness, slow motion, unstable posture) G20 Lewy body Parkinson disease G31.83; F02.80 NMS (neuroleptic malignant syndrome) G21.0 Parkinsonian features R29.818 Autism disorder F84.0 Aspiration pneumonia J69.0 Aspiration into airway T17.908A
--- NOTE | 2024-08-23 11:56 | PC.NURSE ---
Dr. Patel called earlier in shift, plan to go comfort care
--- NOTE | 2024-08-23 12:10 | PICC.NOTE ---
PICC line cancelled at this time. Pt code status changed to DNR and pt to be placed on hospice.
[2024-08-23] MEDS: morphine 4 mg/mL SDV 1 mL 2 MG IVP ×2 (14:46→22:40)
--- NOTE | 2024-08-23 14:48 | PC.SOCIAL ---
IMM Update pg 2 of IMM Updated and reviewed w/ patients guardian. Copy provided and copy dated, initialed and placed in chart.
[2024-08-23] MEDS: divalproex Sprinkles 125 mg Capsule 1000 MG PO (17:21)
[2024-08-23 21:13] LABS: Glucose Point of Care 93 mg/dL (70-110)
[2024-08-24] VITALS (28 sets, daily range): BP systolic 108–154; BP diastolic 59–82; PULSE 93–119; RESP 14–42; TEMP 37.4–37.7; O2SAT 78–100
[2024-08-24] MEDS: ipratropium-albuterol 3 mL Neb INHALATION ×3 (00:08→08:41)
[2024-08-24] MEDS: acetylcysteine 200 mg/mL MDV 10 mL INHALATION ×3 (00:08→08:41)
[2024-08-24] MEDS: metoprolol tartrate 1 mg/1 mL SDV 5 mL 5 MG IVP ×2 (00:34→07:57)
--- NOTE | 2024-08-24 03:25 | PC.NURSE ---
Tape on NG tube loosened due to moisture from heated high flow, NG displaced, this nurse finished pulling tube. Contacted Dr. Beltran and made aware, ordered to leave tube out as plan is to discharge this date.
[2024-08-24 03:48] LABS: Glucose Point of Care 108 mg/dL (70-110)
[2024-08-24] MEDS: piperacillin-tazobactam 3.375 GM in sodium chloride 0.9% (plus) 50 ML IV (05:04)
[2024-08-24] MEDS: FUROsemide 10 mg/mL SDV 2mL 20 MG IVP (05:30)
[2024-08-24] MEDS: pantoprazole 40 mg SDV IVP (08:22)
[2024-08-24] MEDS: heparin 5,000 unit/mL INJ 1 mL 5000 UNIT SUBCUT (08:22)
--- NOTE | 2024-08-24 10:56 | PM.DCS ---
Discharge Providers Date of Admission: 08/20/24 21:20 Date of Discharge: August 24, 2024 Attending Provider at Admission: Donny Patel MD Attending Provider at Discharge: Donny Patel MD Primary Care Provider: Kishore Avalos DO Diagnoses at Discharge Discharge Diagnosis (1) Goals of care, counseling/discussion: Status: Acute (2) Dysphagia: Status: Acute (3) Colitis: Status: Acute (4) Extracellular volume depletion: Status: Acute (5) Hypernatremia: Status: Acute (6) Parkinson's disease (tremor, stiffness, slow motion, unstable posture): Status: Chronic (7) Lewy body Parkinson disease: Status: Acute (8) NMS (neuroleptic malignant syndrome): Status: Acute (9) Parkinsonian features: Status: Acute (10) Autism disorder: Status: Ruled-out (11) Aspiration pneumonia: Status: Acute (12) Aspiration into airway: Status: Acute Reason for Visit Reason for Visit: fever - post op Hospital Course Hospital Course 73-year-old male who has multiple comorbid conditions such as autistic disorder, intellectual challenges, resident of [facility], Parkinson's, Lewy body dementia, recently was admitted to the hospital for hip fracture, went for left total hip arthroplasty 08/13, patient also had multiple compression fractures, he was [facility], came back with worsening of confusion, lethargy fatigue dehydration, sepsis related to aspiration pneumonia, he was admitted to the ICU started on broad-spectrum antibiotics after IV fluid boluses, he had 4.5 L water deficit with hypernatremia he was put on D5 half-normal saline which improved his sodium gradually, patient was kept n.p.o., case was discussed with guardian public technical administrator regarding PEG tube placement, patient started getting worse, he started requiring high flow nasal cannula for worsening of aspiration, he was deemed not a suitable candidate for PEG tube placement, he remained delirious during hospitalization, during hospitalization patient received dantrolene for concern related to neuroleptic malignant syndrome versus serotonin syndrome which improved his hemodynamics but overall his mentation did not improve at all. After multiple discussions with the caregiver and public technical administrator Mr. Marin decision was made to pursue hosp[facility] care at the [facility] and change goals of care. Physical Exam Narrative: Patient is somnolent On nasal cannula Hypertensive Febrile Course rhonchi Urinary Catheter Management: Jacob: Cath Placed During This Visit: yes Reason for Continuing Indwelling Catheter: Accurate Measurement of Urinary Output in Critically Ill Patients Urinary Catheter Date of Insertion: 08/21/24 Urinary Catheter Time of Insertion: 15:48 Discharge Data Studies Completed and Pending Completed Studies During Hospitalization Category Date Time Status CT chest abdomen pelvis [CT chest abdpel w/*[id number] Cat Scan 08/22/24 10:54 Completed ] Routine XR chest 1V [id number] Routine Exams 08/22/24 08:15 Completed XR chest 1V portable [id number] Stat Exams 08/20/24 18:00 Completed XR chest 1V portable [id number] Stat Exams 08/23/24 04:26 Completed XR hip LT 2-3V wo/w pel* [id number] Stat Exams 08/20/24 18:02 Completed Pending at discharge Category Date Time Status Blood Culture Stat Lab 08/20/24 19:00 Results Radiology Impressions Hip/Pelvis X-Ray 08/20/24 18:02 IMPRESSION: 1. Postoperative changes from left total hip replacement. No evidence of hardware failure or loosening. 2. Remote fracture deformities involving the left superior and inferior pubic rami. Chest/Abdomen/Pelvis CT 08/22/24 10:54 IMPRESSION: There is multifocal consolidation in all lobes of the bilateral lungs. This is consistent with pneumonia and/or edema. Disease has significantly worsened when compared with 08/16/2024. There are small pleural effusions which are new. There is mediastinal adenopathy which may be reactive. IMPRESSION: Findings are consistent with colitis of the descending colon which is new when compared with 08/16/2024. Chest X-Ray 08/23/24 04:26 IMPRESSION: 1. Recommend advancement of the enteric tube given positioning of the side fenestration of the level of the gastroesophageal junction. 2. Similar caliber and distribution of bilateral airspace infiltrates, [id number], upon comparison with the cross-sectional evaluation performed on 08/22/2024. 3. Left pleural effusion. Laboratory Results WBC 7.53 10^3/uL (3.29-11.43) 08/23/24 04:13 RBC 2.60 10^6/uL (3.85-5.65) L 08/23/24 04:13 Hgb 7.60 g/dL (11.27-16.99) L 08/23/24 04:13 Hct 26.9 % (37-53) L 08/23/24 04:13 MCV 103.5 fl (82-101) H 08/23/24 04:13 MCH 29.2 pg (27-33) 08/23/24 04:13 MCHC 28.3 g/dL (30-55) L 08/23/24 04:13 RDW 18.2 % (12.1-15.1) H 08/23/24 04:13 Plt Count 144 10^3/cmm (157-399) L 08/23/24 04:13 MPV 11.4 fL (7.4-10.4) H 08/23/24 04:13 Neut % (Auto) 80.2 % 08/23/24 04:13 Lymph % (Auto) 8.5 % 08/23/24 04:13 [place] % (Auto) 4.9 % 08/23/24 04:13 Eos % (Auto) 5.6 % 08/23/24 04:13 Baso % (Auto) 0.3 % 08/23/24 04:13 Neut # (Auto) 6.04 10^3/uL (1.8-7.7) 08/23/24 04:13 Lymph # (Auto) 0.6 10^3/uL (0.8-4.8) L 08/23/24 04:13 [place] # (Auto) 0.4 10^3/uL (0.2-0.9) 08/23/24 04:13 Eos # (Auto) 0.4 10^3/uL (0.0-0.8) 08/23/24 04:13 Baso # (Auto) 0.0 10^3/uL (0.0-0.1) 08/23/24 04:13 Nucleated RBC % (auto) 0 % 08/23/24 04:13 Nucleated RBCs # 0.0 /100WBC 08/23/24 04:13 Specimen Type Arterial 08/23/24 05:57 Sample Site Brachial, right 08/23/24 05:57 ABG pH 7.45 (7.35-7.45) 08/23/24 05:57 ABG pCO2 39.0 mmHg (35-45) 08/23/24 05:57 ABG pO2 57.8 mmHg (80.0-100.0) L 08/23/24 05:57 ABG HCO3 27.0 mmol/L (22-26) H 08/23/24 05:57 ABG O2 Saturation 90.8 08/23/24 05:57 ABG Base Excess 2.9 mmol/L (-2.0-2.0) H 08/23/24 05:57 Erasto Test N/a 08/23/24 05:57 A-a O2 Gradient 5.9 mmHg (5-10) 08/23/24 05:57 Hematocrit 32.0 % (42-52) L 08/23/24 05:57 Hgb O2 Saturation 88.1 % (95-100) L 08/23/24 05:57 Carboxyhemoglobin 1.9 %THgb (0.4-20.1) 08/23/24 05:57 Methemoglobin 1.1 % (0.4-1.5) 08/23/24 05:57 Total Hemoglobin 10.4 g/dL (14-18) L 08/23/24 05:57 Sodium 150.0 mmol/L (131-143) H 08/23/24 05:57 Potassium 2.9 mmol/L (3.5-5.0) L 08/23/24 05:57 Glucose 117.0 mg/dL (70-115) H 08/23/24 05:57 Ionized Calcium 1.2 mmol/L (1.1-1.4) 08/23/24 05:57 O2 Delivery Device Nc 08/23/24 05:57 O2 Liters/Min 15.0 % 08/23/24 05:57 [employer] ID Rodrigo 08/23/24 05:57 Sodium 152 mmol/L (136-145) H 08/23/24 04:13 Potassium 3.5 mmol/L (3.5-5.1) 08/23/24 04:13 Chloride 117 mmol/L (98-107) H 08/23/24 04:13 Carbon Dioxide 27 mmol/L (22-29) 08/23/24 04:13 Anion Gap 11.5 (5-19) 08/23/24 04:13 BUN 36 mg/dL (8-23) H 08/23/24 04:13 Creatinine 0.9 mg/dL (0.7-1.2) 08/23/24 04:13 GFR Calculation Not Reportable 08/23/24 04:13 Glucose 130 mg/dL (65-115) H 08/23/24 04:13 POC Glucose 108 mg/dL (70-110) 08/24/24 03:44 Estimat Average Glucose 97 08/21/24 06:33 Hemoglobin A1c 5.0 % (4.0-6.0) 08/21/24 06:33 Calculated Osmolality 324 mOsm/kg (285-295) H 08/23/24 04:13 Lactic Acid 3.4 mmol/L (0.5-2.2) H 08/20/24 18:50 Lactic Acid (Sepsis) 2.0 mmol/L (0.5-2.2) 08/20/24 23:32 Calcium 8.0 mg/dL (8.5-10.5) L 08/23/24 04:13 Magnesium 2.2 mg/dL (1.7-2.3) 08/23/24 04:13 Iron 19 ug/dL (59-158) L 08/21/24 06:33 TIBC 93 mcg/dl 08/21/24 06:33 % Saturation 20.4 % (20-50) 08/21/24 06:33 Unsat Iron Binding 74 ug/dL (112-347) L 08/21/24 06:33 Total Bilirubin 1.0 mg/dL (0.15-1.2) 08/23/24 04:13 AST 72 U/L (0-40) H 08/23/24 04:13 ALT < 5 U/L (0-41) 08/23/24 04:13 Alkaline Phosphatase 82 U/L (40-130) 08/23/24 04:13 Lactate Dehydrogenase 545 U/L (135-225) H 08/23/24 04:13 Creatine Kinase 524 U/L (39-308) H* 08/23/24 04:13 C-Reactive Protein 141.7 mg/L (0.0-4.9) H 08/21/24 06:33 Total Protein 5.3 g/dL (6.6-8.7) L 08/23/24 04:13 Albumin 2.3 g/dL (3.5-5.2) L 08/23/24 04:13 Globulin 3.0 g/dL (1.3-4.6) 08/23/24 04:13 Triglycerides 143 mg/dL (0-150) 08/22/24 03:32 Cholesterol 93 mg/dL (0-200) 08/22/24 03:32 LDL Cholesterol, Calc 43 mg/dL (50-129) L 08/22/24 03:32 Total VLDL Cholesterol 29 mg/dL (0-30) 08/22/24 03:32 HDL Cholesterol 21 mg/dL (60-100) L 08/22/24 03:32 Cholesterol/HDL Ratio 4.43 mg/dL (1.0-5.00) 08/22/24 03:32 Vitamin B12 622 pg/mL (232-1245) 08/21/24 06:33 Folate > 20.0 ng/mL (4.5-32.2) 08/22/24 03:32 Procalcitonin 3.68 ng/mL (0-0.5) H 08/22/24 03:32 TSH 3.97 uIU/mL (0.27-4.20) 08/21/24 06:33 Urine Color Dark yellow (Yellow) A 08/20/24 18:40 Urine Appearance Clear (CLEAR) 08/20/24 18:40 Urine pH 6.0 (5-7) 08/20/24 18:40 Ur Specific [place] 1.023 (1.005-1.030) 08/20/24 18:40 Urine Protein 1+ (Negative) A 08/20/24 18:40 Urine Glucose (UA) Negative (Normal) 08/20/24 18:40 Urine Ketones Negative (Negative) 08/20/24 18:40 Urine Blood Negative (Negative) 08/20/24 18:40 Urine Nitrate Positive (Negative) A 08/20/24 18:40 Urine Bilirubin 1+ (Negative) H 08/20/24 18:40 Urine Urobilinogen 4.0 mg/dL (Negative) H 08/20/24 18:40 Ur Leukocyte Esterase 1+ (Negative) A 08/20/24 18:40 Urine RBC 3-5 /hpf (0-2) 08/20/24 18:40 Urine WBC 0-5 /hpf (0-5) 08/20/24 18:40 Ur Squamous Epith Cells 0-5 /hpf (0-5) 08/20/24 18:40 Amorphous Sediment Not Reportable 08/20/24 18:40 Urine Bacteria None seen /hpf (NONE) 08/20/24 18:40 Hyaline Casts 0.40 /lpf 08/20/24 18:40 Nasal MRSA (PCR) Not detected (Negative) 08/21/24 18:30 Coronavirus (PCR) Negative (Negative) 08/20/24 18:51 Influenza A (PCR) Negative (Negative) 08/20/24 18:51 Influenza Type B (PCR) Negative (Negative) 08/20/24 18:51 RSV (PCR) Negative (Negative) 08/20/24 18:51 Vitals Last Vital Signs Temp 99.8 F H 08/24/24 05:00 Pulse 93 08/24/24 10:21 Resp 30 H 08/24/24 10:21 BP 139/63 08/24/24 10:00 Pulse Ox 95 08/24/24 10:21 O2 Del Method Heated High Flow 08/24/24 08:42 O2 Flow Rate 55 08/24/24 10:21 FiO2 60 08/24/24 10:21 Discharge Plan Discharge Patient Disposition: Hospice - Medical Facility Condition: Critical Prescriptions: Discontinued Mylanta Maximum Strength 400-400-40 mg/5 mL suspension 30 ml PO Q4H PRN (Reason: Constipation) folic acid 1 mg tablet 1 mg PO QAM Qty: 90 3RF trihexyphenidyl 2 mg tablet 2 mg PO BID Qty: 180 3RF Rx Instructions: give with food (meal/snack) prednisone 5 mg tablet 5 mg PO DAILY Qty: 90 1RF quetiapine [Seroquel] 200 mg tablet 200 mg PO BID Qty: 60 5RF vits A and D-white pet-lanolin [A and D (lanolin-petrolatum)] Ointment See Rx Instructions .ROUTE .COMPLEX Qty: 113 5RF Dose Instruction: APPLY topically AND cover with socks At Bedtime Rx Instructions: APPLY topically AND cover with socks At Bedtime Ear Wax Removal Drops 6.5 % drops See Rx Instructions .ROUTE .COMPLEX Qty: 15 0RF Dose Instruction: FILL BOTH EAR CANALS DAILY 4 DAYS EACH MONTH Rx Instructions: FILL BOTH EAR CANALS DAILY 4 DAYS EACH MONTH prednisone 10 mg tablet See Rx Instructions PO .COMPLEX PRN (Reason: joint pain flare) Qty: 90 1RF Rx Instructions: can take 40mg daily for up to 7days for joint pain flare orally PRN; cetirizine [All Day Allergy (cetirizine)] 10 mg tablet 10 mg PO DAILY PRN (Reason: allergy symptoms) Qty: 30 11RF omeprazole 40 mg capsule,delayed release(DR/EC) 40 mg PO DAILY Qty: 90 3RF levothyroxine 50 mcg tablet 50 mcg PO QAM Qty: 90 1RF carbidopa-levodopa 25-100 mg tablet See Rx Instructions .ROUTE .COMPLEX Qty: 150 5RF Dose Instruction: TAKE ONE TABLET BY MOUTH THREE TIMES DAILY WITH MEALS FOR TREMORS Rx Instructions: 2 tabs at 0800, one tab at 1200 and two tabs at 1600. terbinafine HCl 1 % cream 1 applic topical BID Rx Instructions: APPLY TO THE AFFECTED AREA(S) (FEET) acetaminophen 325 mg tablet 650 mg PO Q4H PRN (Reason: PAIN OR TEMP) Rx Instructions: TEMPERATURE >100degrees ammonium lactate 12 % lotion 1 applic topical QAM Rx Instructions: TO HANDS, FEET, AND LEGS Cutemol 0.2 % cream 1 applic topical QID Rx Instructions: APPLY TO HANDS Eucerin Cream 1 applic topical BID PRN (Reason: Dry Skin) olanzapine 10 mg tablet 5 mg PO BID Rx Instructions: TAKE 1/2 TABLET (5MG) BY MOUTH TWICE DAILY FOR BIPOLAR DISORDER dextromethorphan-guaifenesin [Chest Congestion Relief DM] 10-100 mg/5 mL syrup 10 ml PO Q4H Rx Instructions: TAKE 10ML BY MOUTH EVERY 4 HOURS NEEDED FOR COUGH; NOT TO EXCEED 6 DOSES IN 24 HOURS magnesium hydroxide [Milk of Magnesia] 400 mg/5 mL suspension 30 ml PO PRN PRN (Reason: bowel) Rx Instructions: TAKE 30ML BY MOUTH NEEDED ON FOURTH DAY IF NO BOWEL MOVEMENT IN 3 DAYS. CALL NURSE ON . methotrexate sodium 2.5 mg tablet 10 mg PO Q7D Rx Instructions: TAKE 4 TABLETS BY MOUTH WEEKLY ON FRIDAY paroxetine HCl 30 mg tablet 30 mg PO DAILY Rx Instructions: TAKE ONE TABLET BY MOUTH EVERY DAY FOR BIPOLAR DISORDER divalproex 500 mg tablet extended release 24 hr 1,000 mg PO QPM Rx Instructions: TAKE TWO TABLETS BY MOUTH EVERY NIGHT AT BEDTIME FOR MOOD DISORDER/BIPOLAR divalproex 250 mg tablet extended release 24 hr 250 mg PO DAILY Rx Instructions: TAKE ONE TABLET BY MOUTH EVERY DAY FOR BIPOLAR DISORDER atorvastatin 40 mg Tablet 40 mg PO BEDTIME 30 Days Qty: 30 0RF aspirin 81 mg Tablet,Delayed Release (Dr/Ec) 81 mg PO DAILY 30 Days Qty: 30 0RF bisacodyl 5 mg Tablet,Delayed Release (Dr/Ec) 10 mg PO DAILY 30 Days Qty: 60 0RF metoprolol tartrate 25 mg Tablet 25 mg PO Q12H 30 Days Qty: 60 0RF pantoprazole [Protonix] 40 mg tablet,delayed release (DR/EC) 40 mg PO BID 30 Days Qty: 60 0RF sucralfate [Carafate] 1 gram tablet 1 g PO BID 28 Days Qty: 56 0RF levofloxacin 750 mg tablet 750 mg PO DAILY 5 Days Qty: 5 0RF albuterol sulfate [Ventolin HFA] 90 mcg/actuation HFA aerosol inhaler 1 inh inhalation Q6H PRN (Reason: shortness of breath or wheezing) Qty: 8.5 0RF hydrocodone-acetaminophen 5-325 mg tablet 1 tab PO Q6H PRN (Reason: pain) 7 Days Qty: 42 0RF No Action (DME) Hospital bed See Rx Instructions .Route .MEDSUPPLY Qty: 1 0RF Rx Instructions: Please issue hospital bed for patient to use as he has a pelvic fracture, he is unable to ambulate, he is at risk for decubitus ulcers, and he has frequent falls. (DME) Wheelchair See Rx Instructions .Route .MEDSUPPLY Qty: 1 0RF Rx Instructions: As directed (DME) extra large adult briefs See Rx Instructions .Route .MEDSUPPLY Qty: 30 11RF Rx Instructions: Please issue extra large adult briefs (DME) Cleansing Wipes See Rx Instructions .Route .MEDSUPPLY Qty: 30 11RF Rx Instructions: Please issue Cleansing Wipes (DME) disposable gloves Package See Rx Instructions .Route Qty: 50 11RF Rx Instructions: As directed Discharge Orders: Discharge Order (Routine); Ordered 08/24/24 Ordered By: Donny Patel Referrals: Kishore Avalos, [Primary Care Provider] - Patient Instructions: Opioid Safety Discharge Attestations Time Spent in Discharge Care*: greater than 30 min Quality Metrics Clinical Quality Measures [ No reported AMI, CVA or VTE this stay] Coding Level of Care Code Acute Code for Chg Fwd Diagnoses Goals of care, counseling/discussion Z71.89 Dysphagia R13.10 Colitis K52.9 Extracellular volume depletion E86.9 Hypernatremia E87.0 Parkinson's disease (tremor, stiffness, slow motion, unstable posture) G20 Lewy body Parkinson disease G31.83; F02.80 NMS (neuroleptic malignant syndrome) G21.0 Parkinsonian features R29.818 Autism disorder F84.0 Aspiration pneumonia J69.0 Aspiration into airway T17.908A
[2024-08-24] MEDS: morphine 4 mg/mL SDV 1 mL IVP ×2 (11:12→13:51)
--- NOTE | 2024-08-24 11:17 | PC.NURSE ---
school child care attendant at bedside and updated on plan of comfort care
[2024-08-24] MEDS: LORazepam 2 mg/mL INJ 1 mL IVP ×3 (12:16→16:37)
--- NOTE | 2024-08-24 13:57 | PC.NURSE ---
All family and friends to visit present, taken off [facility] to [facility] per RT, comfort measures started
[2024-08-24] MEDS: atropine 1% op soln 2 mL Btl 3 DROP SUBLINGUAL (16:45)
--- NOTE | 2024-08-24 17:03 | PC.NURSE ---
report called to dante doran. [facility] with [facility], child care supervisor at bedside
== END 2024-08-24 17:06 | disposition hospice, inpatient (51) | DRG 871 ==
LOC: ER 21:19 → MEDSURG 21:40 → ICU 22:42
PROVIDERS: Student in an Organized Health Care Education/Training Program; Admitting Provider Internal Medicine; Emergency Provider Emergency Medicine; PCP Family Medicine; Visit Provider Internal Medicine
DX: A41.9 Sepsis, unspecified organism (principal); G21.0 Malignant neuroleptic syndrome; J69.0 Pneumonitis due to inhalation of food and vomit; G93.41 Metabolic encephalopathy; E87.0 Hyperosmolality and hypernatremia; F84.0 Autistic disorder; N39.0 Urinary tract infection, site not specified; N17.9 Acute kidney failure, unspecified; R13.10 Dysphagia, unspecified; K52.9 Noninfective gastroenteritis and colitis, unspecified; E86.9 Volume depletion, unspecified; E86.0 Dehydration; G31.83 Neurocognitive disorder with Lewy bodies; F02.80 Dementia in other diseases classified elsewhere, unspecified severity, without behavioral disturbance, psychotic disturbance, mood disturbance, and anxiety; F79 Unspecified intellectual disabilities; M06.09 Rheumatoid arthritis without rheumatoid factor, multiple sites; K21.9 Gastro-esophageal reflux disease without esophagitis; R21 Rash and other nonspecific skin eruption; R23.1 Pallor; R00.0 Tachycardia, unspecified; R09.02 Hypoxemia; Z79.82 Long term (current) use of aspirin
CPT/HCPCS: 36415; 36416; 36600; 51701; 51702; 71045; 71260; 73502; 74177; 80048; 80051; 80053; 80061; 81001; 82330; 82550; 82607; 82746; 82805; 82947; 82962; 83036; 83540; 83550; 83605; 83615; 83735; 84145; 84295; 84443; 85025; 86140; 87040; 87086; 87637; 93005; 94640; 94669; 96361; 96372; 96374; 96375; 96376; 99285; A4222; J0131; J0283; J0696; J1610; J1630; J1644; J1885; J1940; J2060; J2270; J2470; J2543; J3370; J3372; J3490; J7030; J7120; J7512; J7608; J7799